=== PATIENT | male | born 1935 | race African-American/Black ===

== ENCOUNTER 2017-12-09 11:55 | Emergency (ER) | payer MEDICARE, OTHER, SELFPAY ==
[2017-12-09 11:57] VITALS: BP 116/72; PULSE 86; RESP 16; TEMP 36.1; O2SAT 97; BMI 26.2
--- NOTE | 2017-12-09 12:11 | CT_ITS ---
STUDY: CT BRAIN WITHOUT CONTRAST REASON FOR EXAM: Male, 82 years old. Unresponsiveness. RADIATION DOSAGE (If Supplied By Facility): CTDIvol = ( 60.81 ) mGy, DLP = ( 1089.89 ) mGycm TECHNIQUE: Transaxial CT imaging of the brain was performed without administration of intravenous contrast material. Individualized dose optimization techniques were used for this CT. COMPARISON: Comparison is made with prior study dated December 04, 2016. FINDINGS: Normal soft tissue structures. Normal calvarium. There is mild cerebral atrophy with widening of the extra-axial spaces and ventricular dilatation. There are areas of decreased attenuation within the white matter tracts of the supratentorial brain, consistent with microvascular disease changes. 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 Normal brainstem. Normal cerebellum. There is no intracranial hemorrhage. There are no findings of an acute ischemic infarction. Atherosclerotic calcification of the vertebral arteries and cavernous portions of the carotid arteries bilaterally. Small air-fluid level in the left maxillary sinus. CT/Brain/Head without Contrast IMPRESSION: Chronic involutional changes of the brain. Electronically Signed: Angel Mabry MD at 13:45 EDT Tel [phone], Service support ,
--- NOTE | 2017-12-09 12:11 | RAD_ITS ---
STUDY: X-RAY CHEST REASON FOR EXAM: Male, 82 years old. Nonresponsiveness. Cough. TECHNIQUE: AP and lateral views of the chest. COMPARISON: Comparison is made with prior study dated June 06, 2017. FINDINGS: EKG electrodes are seen. Stable mild increased markings at the left lung base suggestive of scarring. There is no demonstrated pleural abnormality. Normal size heart. Normal mediastinum and dion. Normal visualized pulmonary arteries. There is atherosclerotic calcification of the aortic arch with tortuosity. There are diffuse degenerative changes of the visualized thoracic spine. Normal visualized ribs, clavicles, and shoulders. There is no demonstrated abnormality of the visualized soft tissue structures of the upper abdomen. RAD/Chest PA and Lateral IMPRESSION: No acute abnormality is seen. Electronically Signed: Angel Mabry MD at 13:20 EDT Tel [phone], Service support ,
--- NOTE | 2017-12-09 12:11 | EKG12_ITS ---
Test Reason : HYPERGLYCEMIA Blood Pressure : / mmHG Vent. Rate : 080 BPM Atrial Rate : 080 BPM P-R Int : 190 ms QRS Dur : 082 ms QT Int : 384 ms P-R-T Axes : 059 -33 -12 degrees QTc Int : 442 ms Normal sinus rhythm Left axis deviation T wave abnormality, consider lateral ischemia Abnormal ECG Confirmed by ALEN YU, PAULETTE ([id number]), editor farm journal LALITHA TAM ([id number] on 12/11/2017 3:28:24 PM Referred By: ADALID Confirmed By:PAULETTE LOWRY MD
[2017-12-09 12:15] LABS: Bedside Glucose 93 mg/dL (70-110)
[2017-12-09] MEDS: 0.9% Normal Saline 1,000 ML 150 ML IV (12:18)
[2017-12-09 12:40] LABS: Absolute Lymphocyte Count 0.49 X10^3/ul (0.83-4.51); Absolute Neutrophil Count 4.5 X10^3/uL (2.0-7.7); Basophil# 0.01 X10^3/uL; Basophil% 0.2 % (0-1); Differential Indicated SCAN CRITERIA MET; Hematocrit 37.9 % (40-54); Hemoglobin 13.1 g/dl (13.0-16.5); Lymphocyte # 0.49 X10^3/ul (4.0); Lymphocyte % 8.8 % (19-41); Mean Corp Hgb Conc 34.6 g/gl (32-36); Mean Corpuscular Hgb 31.3 pg (27.0-32.0); Mean Corpuscular Volume 90.5 fL (80-94); Mean Platelet Vol. 10.8 fl (6.2-12.0); Neutrophil # 4.54 X10^3/uL (2.7-7.7); POSITIVE COUNT NO; POSITIVE DIFFERENTIAL YES; POSITIVE MORPHOLOGY NO; Platelet Count 165 K/mm3 (150-450); RBC Distribution Width CV 14.5 % (11.6-14.6); RBC Distribution Width SD 47.2 fl (35.1-43.9); Red Blood Count 4.19 M/mm3 (4.6-6.2); White Blood Count 5.5 K/mm3 (4.4-11.0)
[2017-12-09 12:55] VITALS: BP 115/64; PULSE 82; RESP 20; O2SAT 95
[2017-12-09 12:56] LABS: Anion Gap 7 (5-15); BUN 13 mg/dL (7-18); BUN/Creat Ratio 12.1 RATIO (10-20); Calcium,Total 8.2 mg/dL (8.5-10.1); Chloride 111 mmol/L (98-107); Creatinine, Serum 1.07 mg/dL (0.70-1.30); EST Glomerular Filtration Rate 70 mL/min (>60); Est Glom Filt Rate - Afr Amer 85 mL/min (>60); Estimated Creatinine Clearance 50.62 ml/min; Glucose 89 mg/dL (74-106); Potassium 3.3 mmol/L (3.5-5.1); Sodium Level 144 mmol/L (136-145)
[2017-12-09 13:36] LABS: Differential Comment SCANNED
[2017-12-09] MEDS: Aspirin 81 MG TAB.CHEW 324 MG PO (13:46)
[2017-12-09 13:49] VITALS: BP 139/66; PULSE 86; RESP 20
--- NOTE | 2017-12-09 13:54 | EKG12_ITS ---
Test Reason : REPEAT Blood Pressure : / mmHG Vent. Rate : 083 BPM Atrial Rate : 083 BPM P-R Int : 192 ms QRS Dur : 082 ms QT Int : 368 ms P-R-T Axes : 062 -29 -14 degrees QTc Int : 432 ms Normal sinus rhythm Septal infarct , age undetermined Abnormal ECG Confirmed by ALEN YU, PAULETTE ([id number]), commissioning editor LALITHA TAM ([id number]) on 12/11/2017 3:30:16 PM Referred By: MARILYNN Confirmed By:PAULETTE LOWRY MD
[2017-12-09 15:00] VITALS: BP 157/82; PULSE 78; RESP 20; O2SAT 95
--- NOTE | 2017-12-09 15:22 | ED.DCSUM_ITS ---
- ER Visit Summary Date of Service: 12/09/17 Chief Complaint: Low blood sugar History of Present Illness: The patient is a [address] Flannery, Dr. Covarrubias, and HALEY bustillo. EMS was called this morning because patient was confused. They found his blood sugar to be 20. Patient reports that he takes 22 units of Levemir nightly and 10 units of NovoLog 3 times daily. Reports that he took his typical dose of Levemir last night and instead of eating ice cream and crackers for his snack prior to bed he had steak. On review of systems patient does report the pain under his left axilla last night that lasted less than 3 minutes. He denies any shortness of breath. He complains of generalized weakness. He denies any other complaints. Physical Examination: Vitals: Stable. Afebrile. General: Well-nourished and well-developed. Head: Normocephalic atraumatic. Neck: Supple, no lymphadenopathy. No JVD. Nontender. Cardiovascular: Regular rate and rhythm. 2 out of 6 systolic murmur. Respiratory: No respiratory distress. Clear to auscultation bilaterally. Abdominal: Soft, nontender, nondistended, normal bowel sounds. No guarding, rebound, or peritoneal signs. Back: Nontender. Extremities: Nontender, no edema. Skin: Normal color, no rash. Neurologic: Alert and oriented ?3. Cranial nerves II through XII are intact. Normal strength and sensation. Psych: Normal affect. Test Results: EKG is sinus at 80 and is unchanged from May 2017. Repeat EKG is unchanged. Chest x-ray shows chronic changes. CT brain shows chronic changes. CBC is marked for hematocrit of 37.9, segmented neutrophils 82, monocytes of 9. Chem-7 marked potassium 3.3, chloride 111, calcium 8.2. Initial troponin is 0.058. Troponin 0 0.098. Emergency Department Course and Treatment: Patient ate here and is feeling well. He denies any chest pain. Treatment Plan: Patient was discussed with Dr. Covarrubias who is seen him in the emergency department. Dr. Covarrubias reviewed his prior heart catheterization. Given the lack of EKG changes, chest pain, or anticipated change in therapy he has chosen medical management and would like the patient to follow-up as an outpatient. Family is happy with this plan. Return to the emergency department for any worsening symptoms. Disposition: To home in improved and stable condition. Impression: 1. Hypoglycemia. 2. Insulin-dependent diabetes mellitus. 3. Indeterminate troponin. This note was generated with [employer] dictation software. It may contain incorrect words, spelling, and punctuation that were not noted in review of the chart prior to signing ED Disposition - Plan for ED Patient: Disposition: Home or Assisted Living Chief Complaint: Hypoglycemia Instructions: ED Diabetes Hypoglycemia Insulin React Referrals: Ronald Flannery MD [Primary Care Provider] - 1-2 Days if not improving Mauro Covarrubias MD [STAFF PHYSICIAN] - Keep [facility] appointment
[2017-12-09 15:52] VITALS: BP 162/79; PULSE 82; RESP 18; O2SAT 98
[2017-12-09 16:06] LABS: Bedside Glucose 221 mg/dL (70-110)
== END 2017-12-09 16:05 | disposition home or self-care (01) ==
PROVIDERS: Emergency Provider Emergency Medicine; Family Provider Internal Medicine; PCP Internal Medicine
DX: E11.649 Type 2 diabetes mellitus with hypoglycemia without coma (principal); R79.89 Other specified abnormal findings of blood chemistry; I25.10 Atherosclerotic heart disease of native coronary artery without angina pectoris; K21.9 Gastro-esophageal reflux disease without esophagitis; I10 Essential (primary) hypertension; N40.0 Benign prostatic hyperplasia without lower urinary tract symptoms; G62.9 Polyneuropathy, unspecified; Z79.4 Long term (current) use of insulin; Z79.899 Other long term (current) drug therapy
CPT/HCPCS: 70450; 71046; 80048; 82962; 84484; 85025; 93005; 99285; J7030; A4216

== ENCOUNTER 2018-01-03 12:44 | Inpatient (IN) | payer MEDICARE, OTHER, SELFPAY ==
[2018-01-03] VITALS (8 sets, daily range): BP systolic 109–176; BP diastolic 62–78; PULSE 74–90; RESP 14–22; TEMP 36.9–37.3; O2SAT 94–98; BMI 24.3; BMI 23.6
--- NOTE | 2018-01-03 13:26 | ED.VISSUMM ---
- ER Visit Summary Date of Service: 01/03/18 Chief Complaint: Hypoglycemia History of Present Illness: The patient is a 82 M who presents with low blood sugar that began this morning. Patient took his insulin this morning but did not eat because [employer] did not get there prior to his sugar becoming low. [employer] found the patient on the floor. EMS administered D50 and he felt better after this. Currently, the patient states he feels dizzy. Patient still has not eaten anything today. Patient denies any nausea or vomiting. Patient does admit to some urinary frequency. Patient denies any fevers or chills. Physical Examination: Vital signs are stable. Patient is afebrile. Patient is in no acute distress. Oral mucosa is pink and moist. Neck is supple. Trachea is midline. There is no JVD noted. Heart was regular rate and rhythm. Lungs are clear and equal bilaterally. Abdomen is soft. Bowel sounds are normal. There is no tenderness noted. Cranial nerves II through XII are intact. There are no focal motor or sensory deficits noted. Musculoskeletal exam reveals tenderness over the right lower lumbar paraspinal areas. There is limited range of motion of the lumbar spine secondary to pain. The remaining physical exam is within normal limits. Test Results: CBC and basic metabolic profile were obtained and were within normal limits. Chest x-ray shows no acute cardiopulmonary process. X-rays the lumbar spine were obtained. There is degenerative changes but no acute fracture. CT scan of the brain was obtained. There is no acute intracranial abnormality. Emergency Department Course and Treatment: Patient was given a meal tray here. Patient felt better on reevaluation but still complained of some dizziness. Patient states he felt like a doorknob was moving up and down. Patient was given a dose of meclizine. The case was discussed with Dr. Rubio. She will admit the patient to the hospital. Patient and family understood and were agreeable with the plan. All questions were answered. Disposition: Admitted to the hospital Impression: Dizziness, hypoglycemia This note was generated with [employer] dictation software. It may contain incorrect words, spelling, and punctuation that were not noted in review of the chart prior to signing ED Disposition - Plan for ED Patient: Disposition: Acute Care Hospital [facility] Chief Complaint: General Illness Diagnosis: Dizziness, Hypoglycemia Referrals: Ronald Flannery MD [Primary Care Provider] -
--- NOTE | 2018-01-03 13:29 | RAD_ITS ---
STUDY: X-RAY - LUMBAR SPINE REASON FOR EXAM: Male, 82 years old. Lower right-sided back pain following a recent fall. TECHNIQUE: 3 view(s) of the lumbar spine were obtained. COMPARISON: None FINDINGS: There is straightening of the normal lumbar lordosis. There is no substantial scoliosis. There is a normal alignment of the vertebrae. There is multilevel endplate spondylosis of the lumbar vertebrae. There is multi-level degenerative disc disease with multi-level disc space narrowing. Facet joint osteoarthritis. There is atherosclerotic calcification of the abdominal aorta without a demonstrated aneurysm. RAD/Lumbar Spine 2 or 3 Views IMPRESSION: Degenerative changes of the spine, as detailed above. Electronically Signed: Angel Mabry MD at 14:58 EDT Tel [phone], Service support ,
--- NOTE | 2018-01-03 13:29 | ED.DCSUM_ITS ---
- ER Visit Summary Date of Service: 01/03/18 Chief Complaint: Hypoglycemia History of Present Illness: The patient is a 82 M who presents with low blood sugar that began this morning. Patient took his insulin this morning but did not eat because [employer] did not get there prior to his sugar becoming low. [employer] found the patient on the floor. EMS administered D50 and he felt better after this. Currently, the patient states he feels dizzy. Patient still has not eaten anything today. Patient denies any nausea or vomiting. Patient does admit to some urinary frequency. Patient denies any fevers or chills. Physical Examination: Vital signs are stable. Patient is afebrile. Patient is in no acute distress. Oral mucosa is pink and moist. Neck is supple. Trachea is midline. There is no JVD noted. Heart was regular rate and rhythm. Lungs are clear and equal bilaterally. Abdomen is soft. Bowel sounds are normal. There is no tenderness noted. Cranial nerves II through XII are intact. There are no focal motor or sensory deficits noted. Musculoskeletal exam reveals tenderness over the right lower lumbar paraspinal areas. There is limited range of motion of the lumbar spine secondary to pain. The remaining physical exam is within normal limits. Test Results: CBC and basic metabolic profile were obtained and were within normal limits. Chest x-ray shows no acute cardiopulmonary process. X-rays the lumbar spine were obtained. There is degenerative changes but no acute fracture. CT scan of the brain was obtained. There is no acute intracranial abnormality. Emergency Department Course and Treatment: Patient was given a meal tray here. Patient felt better on reevaluation but still complained of some dizziness. Patient states he felt like a doorknob was moving up and down. Patient was given a dose of meclizine. The case was discussed with Dr. Rubio. She will admit the patient to the hospital. Patient and family understood and were agreeable with the plan. All questions were answered. Disposition: Admitted to the hospital Impression: Dizziness, hypoglycemia This note was generated with [employer] dictation software. It may contain incorrect words, spelling, and punctuation that were not noted in review of the chart prior to signing ED Disposition - Plan for ED Patient: Disposition: Acute Care Hospital [facility] Chief Complaint: General Illness Diagnosis: Dizziness, Hypoglycemia Referrals: Ronald Flannery MD [Primary Care Provider] -
[2018-01-03 13:46] LABS: Absolute Lymphocyte Count 0.37 X10^3/ul (0.83-4.51); Absolute Neutrophil Count 2.5 X10^3/uL (2.0-7.7); Basophil# 0.01 X10^3/uL; Basophil% 0.3 % (0-1); Differential Indicated SCAN CRITERIA MET; Eosinophil# 0.02 X10^3/uL; Eosinophils% 0.6 % (0-5); Hematocrit 35.2 % (40-54); Hemoglobin 11.9 g/dl (13.0-16.5); Lymphocyte # 0.37 X10^3/ul (4.0); Lymphocyte % 11.1 % (19-41); Mean Corp Hgb Conc 33.8 g/gl (32-36); Mean Corpuscular Hgb 29.8 pg (27.0-32.0); Mean Platelet Vol. 10.3 fl (6.2-12.0); Monocyte# 0.43 X10^3/uL; Monocyte% 12.9 % (0-10); Neutrophil # 2.51 X10^3/uL (2.7-7.7); Neutrophil % 75.1 % (47-70); POSITIVE COUNT NO; POSITIVE DIFFERENTIAL YES; POSITIVE MORPHOLOGY NO; Platelet Count 234 K/mm3 (150-450); RBC Distribution Width CV 14.1 % (11.6-14.6); RBC Distribution Width SD 45.1 fl (35.1-43.9); White Blood Count 3.3 K/mm3 (4.4-11.0)
--- NOTE | 2018-01-03 13:47 | RAD_ITS ---
STUDY: X-RAY CHEST REASON FOR EXAM: Male, 82 years old. Cough and shortness of breath. TECHNIQUE: AP and lateral views of the chest. COMPARISON: Comparison is made with prior study dated December 09, 2017. FINDINGS: EKG electrodes are seen. Stable mild increased interstitial markings at the bases suggest some mild scarring. No acute abnormality is seen. There is no demonstrated pleural abnormality. Normal size heart. Normal mediastinum and dion. Normal visualized pulmonary arteries. There is atherosclerotic calcification of the aortic arch with tortuosity. There are degenerative changes of the visualized thoracic spine. Normal visualized ribs, clavicles, and shoulders. There is no demonstrated abnormality of the visualized soft tissue structures of the upper abdomen. RAD/Chest PA and Lateral IMPRESSION: Stable examination. No acute abnormality is seen. Electronically Signed: Angel Mabry MD at 14:48 EDT Tel [phone], Service support ,
[2018-01-03 13:48] LABS: Anion Gap 7 (5-15); BUN 10 mg/dL (7-18); BUN/Creat Ratio 9.5 RATIO (10-20); Chloride 103 mmol/L (98-107); Creatinine, Serum 1.05 mg/dL (0.70-1.30); EST Glomerular Filtration Rate 72 mL/min (>60); Est Glom Filt Rate - Afr Amer 87 mL/min (>60); Estimated Creatinine Clearance 53.38 ml/min; Glucose 133 mg/dL (74-106); Potassium 3.6 mmol/L (3.5-5.1); Sodium Level 137 mmol/L (136-145)
[2018-01-03 13:51] LABS: Bedside Glucose 84 mg/dL (70-110)
--- NOTE | 2018-01-03 14:02 | CT_ITS ---
STUDY: CT BRAIN WITHOUT CONTRAST REASON FOR EXAM: Male, 82 years old. Weakness and dizziness RADIATION DOSAGE (If Supplied By Facility): CTDIvol = ( 44.99 ) mGy, DLP = ( 762.36 ) mGycm TECHNIQUE: Transaxial CT imaging of the brain was performed without administration of intravenous contrast material. Individualized dose optimization techniques were used for this CT. COMPARISON: December 09, 2017 FINDINGS: Normal soft tissue structures. Normal calvarium. Calcification of the cavernous carotids. Moderate atrophy and periventricular white matter ischemic changes. 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 Normal basal ganglia and thalami. Normal brainstem. Normal cerebellum. There is no intracranial hemorrhage. There are no findings of an acute ischemic infarction. Normal visualized paranasal sinuses. No significant change since prior study CT/Brain/Head without Contrast IMPRESSION: Moderate atrophy and periventricular white matter ischemic change. No evidence for acute bleed. If concern for acute infarct MRI recommended Electronically Signed: Kvng Dempsey MD at 16:11 EDT , Service support ,
--- NOTE | 2018-01-03 14:07 | ED.RN ---
DR. GRANADOS NOTIFIED OF PT HAVING COORDINATION PROBLEMS, TROUBLE EATING, AND PERSISTENT DIZZINESS. PT STATES THAT HE THINKS OBJECTS ARE MOVING AND HAS TO TRACK THEM. ORDERS OF CT GIVEN, PT TAKEN DOWN TO RADIOLOGY. PT FAMILY IS AT BEDSIDE.
--- NOTE | 2018-01-03 16:59 | PCM.HP.STD ---
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 He reports meals on wheels is now later and he is having what seems like 2 lunches. He is checking BG after meals only and sounds like he takes correction for the 300-400 readings but when specifically ask about correction it does not sound like he has corrected many of the higher BG. On 3 occassions it is apparent he corrected. Higher BG appear to be associated with his adding the meals on wheels service. (2) Hyperlipidemia Status: Chronic Qualifiers: Hyperlipidemia type: unspecified Qualified Code(s): E78.5 - Hyperlipidemia, unspecified (3) Hypertension Status: Chronic Qualifiers: Hypertension type: essential hypertension Qualified Code(s): I10 - Essential (primary) hypertension (4) GERD (gastroesophageal reflux disease) Status: Chronic Qualifiers: Esophagitis presence: esophagitis presence not specified Qualified Code(s): K21.9 - Gastro-esophageal reflux disease without esophagitis History of Present Illness Date of Admission: 01/03/18 Chief Complaint: Dizziness, low blood glucose The patient is a 82 year old M with past medical history of Type 2DM, on Lantus and pre-meal lispro insulin, hypertension, hyperlipidemia, CAD, history of CVA who comes in with a syncopal episode related to hypoglycemia. Patient gets his meals from [employer]. He cannot remember if he gave his insulin prior to his meals coming in. But his insulin pen was showing that is has been used. When the lady that brings his meals got to the door, he was not at the door. She went to see his neighbor who helped her get into the house through the back door. He was found lying on the floor and he mumbled to a neighbor that he had low blood sugar. They called the EMS, blood sugar check was 39. Patient was given something to eat and brought into the ER. Blood sugar on arrival was 85. 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 His family feels that when his blood sugars are fluctuating, he sees he objects floating. They are concerned that if his insulin levels are lowered was in the hospital he might be out of control. He reports that his blood sugar this morning was 340. He denied any weakness in his body. Denied any chest pain or palpitations or diaphoresis or fever or chills. Past Medical History Past Medical History (Chronic Problems): Chronic Problems (Last Reviewed 12/26/17 @ 10:29 by Jaida Peacock) Hypotension (Chronic) Carotid bruit (Chronic) Encounter for long-term current use of high risk medication (Chronic) Atherosclerotic heart disease of [place] coronary artery without angina pectoris (Chronic) Type 2 diabetes mellitus (Chronic) BG readings overall have become much higher. He reports meals on wheels is now later and he is having what seems like 2 lunches. He is checking BG after meals only and sounds like he takes correction for the 300-400 readings but when specifically ask about correction it does not sound like he has corrected many of the higher BG. On 3 occassions it is apparent he corrected. Higher BG appear to be associated with his adding the meals on wheels service. Cerebrovascular disease (Chronic) Status post acute ischemic stroke with residual lower extremity weakness mild Hyperlipidemia (Chronic) Diverticulitis (Chronic) Hypertension (Chronic) Coronary artery disease (Chronic) GERD (gastroesophageal reflux disease) (Chronic) OAB (overactive bladder) (Chronic) Ataxia (Chronic) LEFT FRONTAL LACUNAR INFARCT (Chronic) Dizziness (Chronic) Stroke (Chronic) Gastrointestinal bleed (Chronic) Diabetes mellitus (Chronic) Medical History: Medical History (Last Reviewed 12/26/17 @ 10:29 by Jaida Peacock) Carotid bruit (Chronic) R09.89 Atherosclerotic heart disease of [place] coronary artery without angina pectoris (Chronic) I25.10 Type 2 diabetes mellitus (Chronic) E11.9 BG readings overall have become much higher. He reports meals on wheels is now later and he is having what seems like 2 lunches. He is checking BG after meals only and sounds like he takes correction for the 300-400 readings but when specifically ask about correction it does not sound like he has corrected many of the higher BG. On 3 occassions it is apparent he corrected. Higher BG appear to be associated with his adding the meals on wheels service. Cerebrovascular disease (Chronic) I67.9 Status post acute ischemic stroke with residual lower extremity weakness mild Hyperlipidemia (Chronic) E78.5 Diverticulitis (Chronic) K57.92 Hypertension (Chronic) I10 Coronary artery disease (Chronic) I25.10 GERD (gastroesophageal reflux disease) (Chronic) K21.9 Ataxia (Chronic) R27.0 LEFT FRONTAL LACUNAR INFARCT (Chronic) Stroke (Chronic) I63.9 Gastrointestinal bleed (Chronic) K92.2 Diabetes mellitus (Chronic) E11.9 Allergies alfuzosin Allergy (Verified 01/03/18 13:08) Other Penicillins Allergy (Verified 01/03/18 13:08) Rash Sulfa (Sulfonamide Antibiotics) Allergy (Verified 01/03/18 13:08) Swelling Home Medications: Ambulatory Orders Medication Instructions Recorded Atenolol [Tenormin (beta naty)] 75 mg PO DAILY 10/18/16 Clopidogrel Bisulfate [Plavix] 75 mg PO DAILY 10/18/16 Insulin Aspart [Novolog Flexpen] 10 units SC TIDAC 06/06/17 Polyethylene Glycol 3350 [Miralax] 0.5 pack PO DAILY 06/06/17 Ramipril [Altace] 5 mg PO DAILY 06/06/17 baclofen 10 mg tablet 10 mg PO TID PRN 10/08/17 acetaminophen ER 650 mg 650 mg PO Q6H PRN tab 10/17/17 tablet,extended release Insulin Detemir [Levemir FlexPen] 22 unit SC QHS 12/09/17 albuterol sulfate HFA 90 2 puff INHALATION Q6H PRN PRN 12/26/17 mcg/actuation aerosol inhaler Atorvastatin Calcium [Lipitor] 80 mg PO QHS 01/03/18 Blood Sugar Diagnostic [Prodigy No 0 each .ROUTE .MEDSUPPLY 01/03/18 Coding strips] Blood-Glucose Meter [Prodigy Voice 1 each .ROUTE .MEDSUPPLY 01/03/18 Glucose Meter kit] Pen Needle, Diabetic [Incontrol 0 each .ROUTE .MEDSUPPLY 01/03/18 Pen Needle] Ranitidine HCl [Acid Control] 300 mg PO QHS 01/03/18 Surgical History: Surgical History (Last Reviewed 12/26/17 @ 10:29 by Jaida Peacock) H/O carotid endarterectomy (Resolved) Z98.890 H/O hernia repair (Resolved) Z98.890, Z87.19 H/O: hemorrhoidectomy (Resolved) Z98.890 cataract surgery (Resolved) Hx of repair of rotator cuff (Resolved) Z98.890 Surgical History: - - Rotator cuff surgery, BL carotid endarterectomies,colonoscopies, hemorrhoidectomy. Psychiatric History: No pertinent psych hx Lives: Alone Smoking Status: Never smoker Tobacco Use: Non-smoker Alcohol: None Drugs: None - *Family History Maternal Family History: Family History (Last Reviewed 12/26/17 @ 10:29 by Jaida Peacock) Brother Kidney disease Mother CVA (cerebral vascular accident) Father Liver cirrhosis History Items: Diabetes, Heart Disease, Stroke Paternal Family History: Family History (Last Reviewed 12/26/17 @ 10:29 by Jaida Peacock) Brother Kidney disease Mother CVA (cerebral vascular accident) Father Liver cirrhosis History Items: No pertinent history Sibling Family History: Family History (Last Reviewed 12/26/17 @ 10:29 by Jaida Peacock) Brother Kidney disease Mother CVA (cerebral vascular accident) Father Liver cirrhosis History Items: No pertinent history Review of Systems Constitutional: Denies: Anorexia, Chills, Fever, Night Sweats, Malaise, Weakness, Weight Change Eyes: Denies: Blurred vision, Cataracts, Conjunctivae Inflammation, Double vision, Pain, Redness HEENT: Denies: Head Aches, Hearing Changes, Nasal bleeding, Sinus Congestion, Sinus Drainage, Sore Throat Cardiovascular: Reports: Light Headedness. Denies: Chest Pain, Claudication, Chest Pressure, Chest Tightness, Orthopnea, Palpitations, Paroxysmal Noc. Dyspnea Respiratory: Denies: Cough, Hemoptysis, Pleuritic Pain, Shortness of Breath, Shortness of breath at rest, Shortness of breath upon exertion, Sputum production Gastrointestinal: Denies: Abdominal Pain, Constipation, Diarrhea, Hematemesis, Hematochezia, Nausea, Vomiting Genitourinary: Denies: Dysuria Musculoskeletal: Denies: Arm Pain, Back Pain, Joint Pain, Joint stiffness, Joint swelling, Joint Tenderness Skin: Denies: Dryness, Jaundice, Pruritis, Rash, Wounds Neurological: Denies: Difficulty swallowing, Focal weakness, Headaches, Numbness, Tingling Psychiatric: Denies: Anxiety, Depression, Homicidal Ideations, Suicidal Ideations Endocrine: Denies: Change in Body Habitus, Heat/ Cold Intolerance Hematologic/ Lymphatic: Denies: Easy Bruising, Easy Bleeding VTE Information - Inpt Only VTE Present on Admission: No VTE Pharm Prophylaxis ordered?: Yes Patient Problems: Active and Suspected Problems (Last Reviewed 12/26/17 @ 10:29 by Jaida Peacock) Hypoglycemia (Acute) - Physical Exam General: Alert, Oriented x3, Cooperative, No apparent distress HEENT: Atraumatic, PERRLA, EOMI, Normocephalic Oral: Moist Mucosa Neck: Supple Lungs: Clear to auscultation, Normal air movement Cardiovascular: Regular rate, Regular Rhythm, Normal S1, Normal S2, No murmurs Abdomen: Bowel Sounds Present, Soft, Non Tender, Non-Distended, No Hepato-splenomegaly Extremities: No edema Skin: No rashes, No breakdown Musculoskeletal: No Tenderness to Palpation of Joints or Extremities Lymphatic: No Cervical, Supraclavicular, or Inguinal Adenopathy Neurological: Cranial nerves II-XII grossly intact, Neuro grossly intact Psych/Mental Status: Normal Affect, Appropriate Vital Signs Temp Pulse Resp BP Pulse Ox 99.1 F 84 20 H 168/78 H 97 01/03/18 12:55 01/03/18 15:46 01/03/18 15:46 01/03/18 15:46 01/03/18 15:46 Oxygen Delivery Method Room Air Weight: 72.575 kg Body Mass Index (BMI) 24.3 Finger Stick Blood Glucose 84 Laboratory Tests Past 24 Hrs 01/03/18 01/03/18 13:00 13:00 WBC 3.3 L RBC 4.00 L Hgb 11.9 L Hct 35.2 L MCV 88.0 MCH 29.8 MCHC 33.8 RDW 14.1 RDW Differential 45.1 H Plt Count 234 MPV 10.3 Immature Gran % (Auto) 0.000 Neut % (Auto) 75.1 H Lymph % (Auto) 11.1 L Dixon % (Auto) 12.9 H Eos % (Auto) 0.6 Baso % (Auto) 0.3 Absolute Neuts (auto) 2.5 Absolute Lymphs (auto) 0.37 L Total Counted Not Reportable Differential Comment Not Reportable Diff Path Review May foll Sodium 137 Potassium 3.6 Chloride 103 Carbon Dioxide 27.0 Anion Gap 7 BUN 10 Creatinine 1.05 Estim Creat Clear Calc 53.38 Est GFR (MDRD) Af Amer 87 Est GFR (MDRD) Non-Af 72 BUN/Creatinine Ratio 9.5 L Glucose 133 H Calcium 8.0 L POC Glucose 01/03/18 13:45 POC Glucose 84 Assessment/Plan All Active Problems (Last Reviewed 12/26/17 @ 10:29 by Jaida Peacock) H/O carotid endarterectomy (Resolved) H/O hernia repair (Resolved) H/O: hemorrhoidectomy (Resolved) cataract surgery (Resolved) Hx of repair of rotator cuff (Resolved) Abnormal EKG (Acute) Chest pain (Acute) Hypoglycemia (Acute) Ataxia (Resolved) Dizzinesses (Resolved) GI bleed (Resolved) Sepsis (Resolved) 82 year old M with past medical history of Type 2DM, on Lantus and pre-meal lispro insulin, hypertension, hyperlipidemia, CAD, history of CVA who comes in with a syncopal episode related to hypoglycemia. 1. Syncopal episode related to hypoglycemia in a patient with known type II DM on Lantus and pre-meal insulin, likely reason for this current hypoglycemic episode was late arrival of his food after patient had injected himself with insulin. His last HbA1c was 9.9, history of labile blood sugars; follows up with nurse practitioner in endocrinology Plan: Admit patient to PCU, monitor on telemetry, start D5 normal saline, Accu-Cheks every 6hours for the next 24 hours and subsequently before meals at bedtime, decrease Lantus to 15 units daily, decrease pre-meal lispro to 5 units 3 times daily, continue with Accu-Cheks and insulin sliding scale. 2. Dizziness, acute on chronic, history of CVA, will rule out posterior circulation stroke, will get MRI, MRA head and neck and involve neurology if still persistent or stroke is d 3. Hypertension, controlled, continue on atenolol and ramipril, will continue to monitor vitals 4. Hyperlipidemia, on statin 5. History of CVA, on aspirin, statin, Plavix, NAVJOT inhibitor 6. CAD, on aspirin, plavix, statin, atenolol. 7. Debility related to concurrent comorbidities, would ask PT and OT to evaluate 8. DVT prophylaxis with Lovenox subcu Code Visit Inpatient E&M: 88840 Init Hosp L3
--- NOTE | 2018-01-03 17:21 | MRI_ITS ---
STUDY: MRA NECK WITH AND WITHOUT CONTRAST REASON FOR EXAM: Male, 82 years old. Frequent falls TECHNIQUE: 3-D [id number] (TOF) imaging was performed in an 1.5 T MRI scanner. 7 ml of Gadavist was administered for the contrast enhanced images. COMPARISON: None. FINDINGS: RIGHT CAROTID ARTERIES: Normal right common carotid artery (CCA). Plaquing of the right common carotid bulb. Mild multifocal plaquing of the origin of the right internal carotid (ICA) artery without a hemodynamically significant stenosis. Normal visualized cervical portion of the right internal carotid artery. Normal origin of the right external carotid artery (ECA). LEFT CAROTID ARTERIES: Multifocal plaquing of the left common carotid artery (CCA). Plaquing of the left common carotid bulb. Mild plaquing of the origin of the left internal carotid (ICA) artery without a hemodynamically significant stenosis. Normal visualized cervical portion of the left internal carotid artery. Normal origin of the left external carotid artery (ECA). VERTEBRAL ARTERIES: Normal caliber of the left vertebral.. . 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 This may be further assessed with CTA if clinically warranted Electronically Signed: Kvng Dempsey MD at 21:05 EDT , Service support ,
--- NOTE | 2018-01-03 17:21 | MRI_ITS ---
STUDY: MRI BRAIN WITHOUT CONTRAST REASON FOR EXAM: Male, 82 years old. Frequent falls and weakness TECHNIQUE: Standardized multiplanar fat and water weighted pulse sequences were obtained. COMPARISON: MRI of the brain on December 05, 2016 FINDINGS: Mild atrophy and moderate periventricular white matter ischemic changes.. Normal bilateral basal ganglia. There are old lacunar infarcts in the posterior thalamic nuclei There is no extra-axial fluid accumulation. Chronic ischemic changes in the cerebellar hemispheres Normal flow voids within the major intracranial circulation suggesting patency by spin echo criteria. Normal sella turcica, pituitary gland, infundibular stalk, optic chiasm and hypothalamus. Normal tectal plate and pineal gland. Normal midbrain, ana maria and medulla. . Normal basal cisterns. Normal bilateral temporal bones. Normal bilateral internal auditory canals. Postsurgical changes of the orbits.. Mild mucosal thickening of the ethmoid air cells. Normal calvarium and skull base. Normal visualized soft tissue structures. Normal visualized upper cervical spine. MRI/Brain without Contrast IMPRESSION: Moderate periventricular white matter ischemic changes without evidence for acute infarct. Old bilateral posterior thalamic infarcts and cerebellar infarcts. Electronically Signed: Kvng Dempsey MD at 20:58 EDT , Service support ,
--- NOTE | 2018-01-03 17:21 | MRI_ITS ---
STUDY: MRA OF THE HEAD WITHOUT CONTRAST REASON FOR EXAM: Male, 82 years old. Frequent falls and weakness TECHNIQUE: 3-D [id number] (TOF) imaging was performed with MIPs. The study was performed unenhanced. COMPARISON: None. FINDINGS: Normal bilateral petrous carotid arteries. Normal right cavernous carotid artery with a normal supraclinoid bifurcation. Normal left cavernous carotid artery with a normal supraclinoid bifurcation. Normal right A1 segments of the anterior cerebral artery. Normal left A1 segments of the anterior cerebral artery. Normal intact anterior communicating artery (ACOM). Normal bilateral A2 segments of the anterior cerebral arteries. Normal right M1 and M2 segments of the middle cerebral arteries, with a normal M1 bifurcation. Normal left M1 and M2 segments of the middle cerebral arteries, with a normal M1 bifurcation. Normal right posterior communicating artery (PCOM). Left posterior communicating artery not visualized consistent with normal variant The left vertebral is normal. 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 . Normal basilar artery with a normal basilar bifurcation. The visualized bilateral superior cerebellar (SCA) arteries are normal. Normal bilateral P1, P2 and visualized P3 segments of the posterior cerebral arteries. There is no demonstrated aneurysm of the [place]. There is no major vessel occlusion or hemodynamically significant stenosis. There is no demonstrated abnormality of the visualized brain. 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 Recommend MRA of the neck for further evaluation No other significant atherosclerotic disease Electronically Signed: Kvng Dempsey MD at 21:00 EDT , Service support ,
--- NOTE | 2018-01-03 17:30 | RAD_ITS ---
STUDY: X-RAY - PELVIS REASON FOR EXAM: Male, 82 years old. Trauma TECHNIQUE: One view of the pelvis was obtained. COMPARISON: None. FINDINGS: There is a non-specific bowel gas pattern. Normal visualized soft tissue structures. Normal bilateral iliac wings, sacroiliac joints and visualized sacrum. Normal visualized bilateral superior and inferior pubic rami. Normal pubic symphysis. Normal ischial tuberosities. Normal visualized right femoral head. Normal right acetabulum. Normal right hip joint. Normal visualized left femoral head. Normal left acetabulum. Normal left hip joint. RAD/Pelvis 1 or 2 Views IMPRESSION: Normal x-ray examination of the pelvis. Electronically Signed: Kvng Dempsey MD at 18:12 EDT , Service support ,
[2018-01-03 17:31] LABS: Bedside Glucose 188 mg/dL (70-110)
[2018-01-03] MEDS: 0.9% NaCl Peripheral Flush Adult/Peds IV ×2 (20:58→23:03)
[2018-01-03] MEDS: Dextrose 5%/0.9% NaCl 1,000 ML 75 ML IV (20:58)
[2018-01-03 21:36] LABS: Bedside Glucose 90 mg/dL (70-110)
[2018-01-03] MEDS: Atorvastatin Calcium 40 MG Tablet 80 MG PO (23:00)
[2018-01-03] MEDS: Famotidine 20 MG Tablet 40 MG PO (23:01)
[2018-01-03 23:56] LABS: Bedside Glucose 113 mg/dL (70-110)
[2018-01-04] VITALS (10 sets, daily range): BP systolic 140–172; BP diastolic 70–87; PULSE 76–88; RESP 18; TEMP 37.2–37.3; O2SAT 93–99
[2018-01-04 06:01] LABS: Bedside Glucose 124 mg/dL (70-110)
[2018-01-04] MEDS: Glucerna Shake 120 ML LIQUID PO ×3 (09:06→15:27)
[2018-01-04] MEDS: Atenolol 25 MG Tablet 75 MG PO (09:08)
[2018-01-04] MEDS: Clopidogrel Bisulfate 75 MG Tablet PO (09:08)
[2018-01-04] MEDS: Polyethylene Glycol 3350 17 GM PACKET 8.5 GM PO (09:08)
[2018-01-04] MEDS: Ramipril 5 MG Capsule PO (09:13)
[2018-01-04] MEDS: Insulin Lispro 100 UNIT/ML INSULN.PEN SC ×3 (09:15→17:01)
--- NOTE | 2018-01-04 10:48 | CASEMGMT ---
CM INITIAL ASSESSMENT: Patient is alone in room at time of interview. Will attempt to reach family to verify assessment. Home: Patient states he lives in a split level home by himself. He states that his son is staying with him temporarily. His children drive him to appointments. HHS/Aides: Denies. Patient was previously a resident of [facility] and states he had HHS afterwards. He is uncertain of which agency provided services. DME: Patient states he uses a walker, cane and wheelchair. He states that he has a shower chair, grab bars and elevated toilet seat. Home Oxygen: No home oxygen. Patient states he does use CPAP at night. CPAP provided by [facility] per patient. Pharmacy: [facility] Advance Directives: Patient states he does have advance directives. These are not present in his e-chart. Patient states his daughter, Xochitl Acosta, is medical POA. Contact information is on file. PCP: Ronald Flannery Specialists: Unable to assess. DC Plan: TBD. CM will follow PT recommendations and discuss with family. CM will continue to follow for safe and effective discharge planning.
--- NOTE | 2018-01-04 11:28 | PN_ITS ---
Patient Problems: Active and Suspected Problems (Last Reviewed 12/26/17 @ 10:29 by Jaida Peacock ) Hypoglycemia (Acute) Subjective: Patient seen and examined. He denies any chest discomfort, dizziness, SOB, palpitations. Pain in the left hip persists. Blood sugars have been running in the 86 to upper 100s, has been on D5 normal saline. Recent blood sugar was above 200, D5NS will be stopped. Denies any fever or chills. Complains of seeing floaters out of both eyes. MRI of the brain MRA head and neck have been negative. Objective: Physical Exam General: Alert, Oriented x3, Cooperative, No apparent distress, not pale, not jaundiced HEENT: Atraumatic, PERRLA, EOMI, Normocephalic Oral: Moist Mucosa Neck: Supple Lungs: Clear to auscultation, Normal air movement Cardiovascular: Regular rate, Regular Rhythm, Normal S1, Normal S2, No murmurs Abdomen: Bowel Sounds Present, Soft, Non Tender, Non-Distended, No Hepato- splenomegaly Extremities: No edema Skin: No rashes, No breakdown Musculoskeletal: No Tenderness to Palpation of Joints or Extremities Lymphatic: No Cervical, Supraclavicular, or Inguinal Adenopathy Neurological: Cranial nerves II-XII grossly intact, Neuro grossly intact Psych/Mental Status: Normal Affect, Appropriate Vitals/I&O's: Vital Signs Temp Pulse Resp BP Pulse Ox 99.1 F 80 18 140/70 H 93 01/04/18 09:05 01/04/18 11:10 01/04/18 09:05 01/04/18 09:05 01/04/18 09:05 Oxygen Delivery Method Room Air Weight: 70.5 kg Body Mass Index (BMI) 23.6 Intake and Output for Last 24 Hours 01/02/18 01/03/18 01/04/18 23:59 23:59 23:59 Intake Total 88.3 / 88.3 428 / 428 Output Total 100 / 100 225 / 225 Balance -11.7 / -11.7 203 / 203 Laboratory Results 01/03/18 21:26: POC Glucose 90 01/03/18 23:50: POC Glucose 113 H 01/04/18 05:55: POC Glucose 124 H Current Medications Acetaminophen (Tylenol) 650 mg PO Q6H PRN PRN Reason: PAIN Atenolol (Tenormin (Beta Marbin)) 75 mg PO DAILY [facility] Last Admin: 01/04/18 09:08 Dose: 75 mg Atorvastatin Calcium (Lipitor) 80 mg PO QHS [facility] Last Admin: 01/03/18 23:00 Dose: 80 mg Baclofen (Lioresal) 10 mg PO TID PRN PRN Reason: HICCUPS Clopidogrel Bisulfate (Plavix) 75 mg PO DAILY [facility] Last Admin: 01/04/18 09:08 Dose: 75 mg Dextrose (D50w Syringe) 0 gm IV X1 PRN; Protocol PRN Reason: Hypoglycemia Famotidine (Pepcid) 40 mg PO QHS [facility] Last Admin: 01/03/18 23:01 Dose: 40 mg Glucagon () 1 mg IM .X1 PRN PRN Reason: Hypoglycemia Dextrose/Sodium Chloride (Dextrose 5%/0.9% Nacl) 1,000 mls @ 75 mls/hr IV .[id number] [facility] Last Admin: 01/03/18 20:58 Dose: 75 mls/hr Insulin Glargine (Lantus (Bkc)) 15 units SC QHS [facility] Last Admin: 01/03/18 23:00 Dose: Not Given Insulin Human Lispro (Humalog Kwikpen (Bkc)) 5 unit SC TIDAC [facility] Last Admin: 01/04/18 09:15 Dose: 5 units Insulin Human Lispro (Humalog Kwikpen (Bkc)) 0 unit SQ ACHS BING PRN Reason: Protocol Last Admin: 01/04/18 07:43 Dose: Not Given Menthol (Bengay Vanishing Scent) 1 applic TOPICAL TID PRN PRN PRN Reason: PAIN Nutritional Formula (Lactose Free) (Glucerna Shake) 120 ml PO TIDCM [facility] Last Admin: 01/04/18 09:06 Dose: 120 ml Polyethylene Glycol (Miralax) 8.5 gm PO DAILY [facility] Last Admin: 01/04/18 09:08 Dose: 8.5 gm Ramipril (Altace) 5 mg PO DAILY [facility] Last Admin: 01/04/18 09:13 Dose: 5 mg Sodium Chloride () 5 - 30 ml IV UD PRN PRN Reason: SALINE FLUSH Last Admin: 01/03/18 23:03 Dose: 10 ml Medical Necessity - Tobacco Use Smoking Status: Never smoker Tobacco Use: Non-smoker Assessment/Plan All Active Problems (Last Reviewed 12/26/17 @ 10:29 by Jaida Peacock) H/O carotid endarterectomy (Resolved) H/O hernia repair (Resolved) H/O: hemorrhoidectomy (Resolved) cataract surgery (Resolved) Hx of repair of rotator cuff (Resolved) Abnormal EKG (Acute) Chest pain (Acute) Hypoglycemia (Acute) Ataxia (Resolved) Dizzinesses (Resolved) GI bleed (Resolved) Sepsis (Resolved) 82 year old M with past medical history of Type 2 DM, on Lantus and pre-meal lispro insulin, hypertension, hyperlipidemia, CAD, history of CVA who comes in with a syncopal episode related to hypoglycemia. 1. Syncopal episode related to hypoglycemia in a patient with known type II DM on Lantus and pre-meal insulin, likely reason for this current hypoglycemic episode was late arrival of his food after patient had injected himself with insulin. His last HbA1c was 9.9, history of labile blood sugars; follows up with nurse practitioner in endocrinology. Blood sugars are controlled now. 2. Dizziness, acute on chronic, sees floaters, history of CVA. Likely related to retinopathy or to his chronic visual problems, will need outpatient follow- up with ophthalmology. 3. Hypertension, controlled, continue on atenolol and ramipril, will continue to monitor BP. 4. Hyperlipidemia, on statin 5. History of CVA, on aspirin, statin, Plavix, NAVJOT inhibitor 6. CAD, on aspirin, plavix, statin, atenolol. 7. Debility related to concurrent comorbidities, PT and OT evaluating. 8. DVT prophylaxis with Lovenox subcu 9. Disposition: We will discharge to residential facility or assisted living ; discussed with family that I do not recommend patient living alone. There will be having a family meeting, and will discuss their plans with social work administrator. Code Visit Inpatient E&M: 05304 Subs Hosp L2
[2018-01-04] MEDS: Insulin Lispro 100 UNIT/ML INSULN.PEN SQ ×3 (11:40→21:27)
--- NOTE | 2018-01-04 12:14 | CASEMGMT ---
Addendum entered by Krystina Farnsworth 01/04/18 13:01: Should patient's discharge result in home health setup rather than SNF, I feel a CCN referral would be beneficial for this patient. CM/SW will follow. Original Note: PT evaluation completed. Recommendation is for fpc facility at discharge. Patient's daughter, Sherry, spoke with CM outside of the room. We discussed PT recommendations. She states that her dad wants to go home, but she and her siblings feel he does need to go somewhere. I discussed that SNF placement may be short term for therapy and then patient may be strong enough to return home or to assisted living. Provided Sherry with list of local SNFs and Assisted Living facilities. Encouraged patient's daughter to speak with family and discuss with patient. Asked patient's daughter to let CM know when they have facility preference. Therapy will continue to work with patient. Patient's daughter states understanding and thanks.
[2018-01-04 12:40] LABS: Bedside Glucose 273 mg/dL (70-110)
[2018-01-04 14:22] LABS: Anion Gap 8 (5-15); BUN 9 mg/dL (7-18); BUN/Creat Ratio 8.7 RATIO (10-20); Calcium,Total 7.7 mg/dL (8.5-10.1); Chloride 101 mmol/L (98-107); Creatinine, Serum 1.03 mg/dL (0.70-1.30); EST Glomerular Filtration Rate 74 mL/min (>60); Est Glom Filt Rate - Afr Amer 89 mL/min (>60); Estimated Creatinine Clearance 54.42 ml/min; Glucose 252 mg/dL (74-106); Potassium 4.2 mmol/L (3.5-5.1); Sodium Level 133 mmol/L (136-145)
[2018-01-04] MEDS: Baclofen 10 MG Tablet PO (15:24)
[2018-01-04 15:43] LABS: AST(SGOT) 27 U/L (15-37); Alanine Aminotransfer ALT/SGPT 13 U/L (16-61); Albumin, Serum 2.3 g/dL (3.2-5.0); Alkaline Phosphatase 118 U/L (45-117); Bilirubin, Direct 0.19 mg/dL (0.00-0.30); Globulin 4.2 g/dL (2.2-4.2); Protein, Total 6.5 g/dL (6.4-8.2)
[2018-01-04 17:11] LABS: Bedside Glucose 247 mg/dL (70-110)
[2018-01-04] MEDS: Insulin Lispro 100 UNIT/ML INSULN.PEN 10 UNIT SC (17:43)
[2018-01-04] MEDS: Famotidine 20 MG Tablet 40 MG PO (21:28)
[2018-01-04] MEDS: Atorvastatin Calcium 40 MG Tablet 80 MG PO (21:28)
[2018-01-04 22:06] LABS: Bedside Glucose 224 mg/dL (70-110)
[2018-01-05] VITALS (11 sets, daily range): BP systolic 124–168; BP diastolic 56–81; PULSE 74–85; RESP 16–18; TEMP 36.8–37.6; O2SAT 94–97
[2018-01-05 07:00] LABS: Bedside Glucose 235 mg/dL (70-110)
[2018-01-05] MEDS: Glucerna Shake 120 ML LIQUID PO ×3 (07:21→16:46)
[2018-01-05] MEDS: Insulin Lispro 100 UNIT/ML INSULN.PEN SQ ×4 (07:21→21:10)
[2018-01-05] MEDS: Insulin Lispro 100 UNIT/ML INSULN.PEN 10 UNIT SC ×3 (07:21→16:45)
[2018-01-05] MEDS: Baclofen 10 MG Tablet PO ×2 (09:37→21:11)
[2018-01-05] MEDS: Clopidogrel Bisulfate 75 MG Tablet PO (09:38)
[2018-01-05] MEDS: Atenolol 25 MG Tablet 75 MG PO (09:38)
[2018-01-05] MEDS: Ramipril 5 MG Capsule PO (09:41)
[2018-01-05 11:20] LABS: Bedside Glucose 327 mg/dL (70-110)
--- NOTE | 2018-01-05 16:39 | PCM.PN.HOSP ---
Patient Problems: Active and Suspected Problems (Last Reviewed 12/26/17 @ 10:29 by Jaida Peacock) Hypoglycemia (Acute) Subjective: Patient seen and examined. He feels improved, says his vision is still very poor. Appears blurred, being seen floaters. Denies any fever or chills. Blood sugars have been stable and slightly elevated. Objective: Physical Exam General: Alert, Oriented x3, Cooperative, No apparent distress, not pale, not jaundiced HEENT: Atraumatic, PERRLA, EOMI, Normocephalic Oral: Moist Mucosa Neck: Supple Lungs: Clear to auscultation, Normal air movement Cardiovascular: Regular rate, Regular Rhythm, Normal S1, Normal S2, No murmurs Abdomen: Bowel Sounds Present, Soft, Non Tender, Non-Distended, No Hepato-splenomegaly Extremities: No edema Skin: No rashes, No breakdown Musculoskeletal: No Tenderness to Palpation of Joints or Extremities Lymphatic: No Cervical, Supraclavicular, or Inguinal Adenopathy Neurological: Cranial nerves II-XII grossly intact, Neuro grossly intact Psych/Mental Status: Normal Affect, Appropriate Vitals/I&O's: Vital Signs Temp Pulse Resp BP Pulse Ox 99.7 F H 80 18 147/69 H 94 01/05/18 15:20 01/05/18 15:20 01/05/18 15:20 01/05/18 15:20 01/05/18 15:20 Oxygen Flow Rate (L/min) 2 Oxygen Delivery Method Room Air Weight: 70.5 kg Body Mass Index (BMI) 23.6 Intake and Output for Last 24 Hours 01/03/18 01/04/18 01/05/18 23:59 23:59 23:59 Intake Total 88.3 / 88.3 1720 / 1720 240 / 240 Output Total 100 / 100 325 / 325 Balance -11.7 / -11.7 1395 / 1395 240 / 240 Laboratory Results 01/04/18 16:59: POC Glucose 247 H 01/04/18 21:24: POC Glucose 224 H 01/05/18 06:55: POC Glucose 235 H 01/05/18 11:14: POC Glucose 327 H Current Medications Acetaminophen (Tylenol) 650 mg PO Q6H PRN PRN Reason: PAIN Atenolol (Tenormin (Beta Marbin)) 75 mg PO DAILY [facility] Last Admin: 01/05/18 09:38 Dose: 75 mg Atorvastatin Calcium (Lipitor) 80 mg PO QHS [facility] Last Admin: 01/04/18 21:28 Dose: 80 mg Baclofen (Lioresal) 10 mg PO TID PRN PRN Reason: HICCUPS Last Admin: 01/05/18 09:37 Dose: 10 mg Clopidogrel Bisulfate (Plavix) 75 mg PO DAILY [facility] Last Admin: 01/05/18 09:38 Dose: 75 mg Dextrose (D50w Syringe) 0 gm IV X1 PRN; Protocol PRN Reason: Hypoglycemia Famotidine (Pepcid) 40 mg PO QHS [facility] Last Admin: 01/04/18 21:28 Dose: 40 mg Glucagon () 1 mg IM .X1 PRN PRN Reason: Hypoglycemia Insulin Glargine (Lantus (Bkc)) 22 units SC QHS [facility] Insulin Human Lispro (Humalog Kwikpen (Bkc)) 0 unit SQ ACHS BING PRN Reason: Protocol Last Admin: 01/05/18 11:16 Dose: 3 u Insulin Human Lispro (Humalog Kwikpen (Bkc)) 10 unit SC TIDAC [facility] Last Admin: 01/05/18 12:40 Dose: 10 u Menthol (Bengay Vanishing Scent) 1 applic TOPICAL TID PRN PRN PRN Reason: PAIN Last Admin: 01/05/18 07:24 Dose: 1 applic Nutritional Formula (Lactose Free) (Glucerna Shake) 120 ml PO TIDCM [facility] Last Admin: 01/05/18 11:16 Dose: 120 ml Polyethylene Glycol (Miralax) 8.5 gm PO DAILY [facility] Last Admin: 01/05/18 09:37 Dose: Not Given Ramipril (Altace) 5 mg PO DAILY [facility] Last Admin: 01/05/18 09:41 Dose: 5 mg Sodium Chloride () 5 - 30 ml IV UD PRN PRN Reason: SALINE FLUSH Last Admin: 01/03/18 23:03 Dose: 10 ml Medical Necessity - Tobacco Use Smoking Status: Never smoker Tobacco Use: Non-smoker Assessment/Plan All Active Problems (Last Reviewed 12/26/17 @ 10:29 by Jaida Peacock) H/O carotid endarterectomy (Resolved) H/O hernia repair (Resolved) H/O: hemorrhoidectomy (Resolved) cataract surgery (Resolved) Hx of repair of rotator cuff (Resolved) Abnormal EKG (Acute) Chest pain (Acute) Hypoglycemia (Acute) Ataxia (Resolved) Dizzinesses (Resolved) GI bleed (Resolved) Sepsis (Resolved) 82 year old M with past medical history of Type 2 DM, on Lantus and pre-meal lispro insulin, hypertension, hyperlipidemia, CAD, history of CVA who comes in with a syncopal episode related to hypoglycemia. 1. Syncopal episode related to hypoglycemia in a patient with known type II DM on Lantus and pre-meal insulin, likely reason for this current hypoglycemic episode was late arrival of his food after patient had injected himself with insulin. His last HbA1c was 9.9, history of labile blood sugars; follows up with nurse practitioner in endocrinology. Blood sugars are slightly elevated, would go back to his home insulin levels. 2. Dizziness, acute on chronic, sees floaters, history of CVA. Likely related to retinopathy or to his chronic visual problems, will need outpatient follow-up with ophthalmology. 3. Hypertension, controlled, continue on atenolol and ramipril, will continue to monitor BP. 4. Hyperlipidemia, on statin 5. History of CVA, on aspirin, statin, Plavix, NAVJOT inhibitor 6. CAD, on aspirin, plavix, statin, atenolol. 7. Debility related to concurrent comorbidities, PT and OT evaluating. 8. DVT prophylaxis with Lovenox subcu 9. Disposition: We will discharge to [facility] facility. Family wants to TCU as a first choice as patient has been in there a couple of times before. Code Visit Inpatient E&M: 00724 Subs Hosp L2
--- NOTE | 2018-01-05 16:42 | PN_ITS ---
Patient Problems: Active and Suspected Problems (Last Reviewed 12/26/17 @ 10:29 by Jaida Peacock ) Hypoglycemia (Acute) Subjective: Patient seen and examined. He feels improved, says his vision is still very poor. Appears blurred, being seen floaters. Denies any fever or chills. Blood sugars have been stable and slightly elevated. Objective: Physical Exam General: Alert, Oriented x3, Cooperative, No apparent distress, not pale, not jaundiced HEENT: Atraumatic, PERRLA, EOMI, Normocephalic Oral: Moist Mucosa Neck: Supple Lungs: Clear to auscultation, Normal air movement Cardiovascular: Regular rate, Regular Rhythm, Normal S1, Normal S2, No murmurs Abdomen: Bowel Sounds Present, Soft, Non Tender, Non-Distended, No Hepato- splenomegaly Extremities: No edema Skin: No rashes, No breakdown Musculoskeletal: No Tenderness to Palpation of Joints or Extremities Lymphatic: No Cervical, Supraclavicular, or Inguinal Adenopathy Neurological: Cranial nerves II-XII grossly intact, Neuro grossly intact Psych/Mental Status: Normal Affect, Appropriate Vitals/I&O's: Vital Signs Temp Pulse Resp BP Pulse Ox 99.7 F H 80 18 147/69 H 94 01/05/18 15:20 01/05/18 15:20 01/05/18 15:20 01/05/18 15:20 01/05/18 15:20 Oxygen Flow Rate (L/min) 2 Oxygen Delivery Method Room Air Weight: 70.5 kg Body Mass Index (BMI) 23.6 Intake and Output for Last 24 Hours 01/03/18 01/04/18 01/05/18 23:59 23:59 23:59 Intake Total 88.3 / 88.3 1720 / 1720 240 / 240 Output Total 100 / 100 325 / 325 Balance -11.7 / -11.7 1395 / 1395 240 / 240 Laboratory Results 01/04/18 16:59: POC Glucose 247 H 01/04/18 21:24: POC Glucose 224 H 01/05/18 06:55: POC Glucose 235 H 01/05/18 11:14: POC Glucose 327 H Current Medications Acetaminophen (Tylenol) 650 mg PO Q6H PRN PRN Reason: PAIN Atenolol (Tenormin (Beta Marbin)) 75 mg PO DAILY [facility] Last Admin: 01/05/18 09:38 Dose: 75 mg Atorvastatin Calcium (Lipitor) 80 mg PO QHS [facility] Last Admin: 01/04/18 21:28 Dose: 80 mg Baclofen (Lioresal) 10 mg PO TID PRN PRN Reason: HICCUPS Last Admin: 01/05/18 09:37 Dose: 10 mg Clopidogrel Bisulfate (Plavix) 75 mg PO DAILY [facility] Last Admin: 01/05/18 09:38 Dose: 75 mg Dextrose (D50w Syringe) 0 gm IV X1 PRN; Protocol PRN Reason: Hypoglycemia Famotidine (Pepcid) 40 mg PO QHS [facility] Last Admin: 01/04/18 21:28 Dose: 40 mg Glucagon () 1 mg IM .X1 PRN PRN Reason: Hypoglycemia Insulin Glargine (Lantus (Bkc)) 22 units SC QHS [facility] Insulin Human Lispro (Humalog Kwikpen (Bkc)) 0 unit SQ ACHS BING PRN Reason: Protocol Last Admin: 01/05/18 11:16 Dose: 3 u Insulin Human Lispro (Humalog Kwikpen (Bkc)) 10 unit SC TIDAC [facility] Last Admin: 01/05/18 12:40 Dose: 10 u Menthol (Bengay Vanishing Scent) 1 applic TOPICAL TID PRN PRN PRN Reason: PAIN Last Admin: 01/05/18 07:24 Dose: 1 applic Nutritional Formula (Lactose Free) (Glucerna Shake) 120 ml PO TIDCM [facility] Last Admin: 01/05/18 11:16 Dose: 120 ml Polyethylene Glycol (Miralax) 8.5 gm PO DAILY [facility] Last Admin: 01/05/18 09:37 Dose: Not Given Ramipril (Altace) 5 mg PO DAILY [facility] Last Admin: 01/05/18 09:41 Dose: 5 mg Sodium Chloride () 5 - 30 ml IV UD PRN PRN Reason: SALINE FLUSH Last Admin: 01/03/18 23:03 Dose: 10 ml Medical Necessity - Tobacco Use Smoking Status: Never smoker Tobacco Use: Non-smoker Assessment/Plan All Active Problems (Last Reviewed 12/26/17 @ 10:29 by Jaida Peacock) H/O carotid endarterectomy (Resolved) H/O hernia repair (Resolved) H/O: hemorrhoidectomy (Resolved) cataract surgery (Resolved) Hx of repair of rotator cuff (Resolved) Abnormal EKG (Acute) Chest pain (Acute) Hypoglycemia (Acute) Ataxia (Resolved) Dizzinesses (Resolved) GI bleed (Resolved) Sepsis (Resolved) 82 year old M with past medical history of Type 2 DM, on Lantus and pre-meal lispro insulin, hypertension, hyperlipidemia, CAD, history of CVA who comes in with a syncopal episode related to hypoglycemia. 1. Syncopal episode related to hypoglycemia in a patient with known type II DM on Lantus and pre-meal insulin, likely reason for this current hypoglycemic episode was late arrival of his food after patient had injected himself with insulin. His last HbA1c was 9.9, history of labile blood sugars; follows up with nurse practitioner in endocrinology. Blood sugars are slightly elevated, would go back to his home insulin levels. 2. Dizziness, acute on chronic, sees floaters, history of CVA. Likely related to retinopathy or to his chronic visual problems, will need outpatient follow- up with ophthalmology. 3. Hypertension, controlled, continue on atenolol and ramipril, will continue to monitor BP. 4. Hyperlipidemia, on statin 5. History of CVA, on aspirin, statin, Plavix, NAVJOT inhibitor 6. CAD, on aspirin, plavix, statin, atenolol. 7. Debility related to concurrent comorbidities, PT and OT evaluating. 8. DVT prophylaxis with Lovenox subcu 9. Disposition: We will discharge to residential facility. Family wants to TCU as a first choice as patient has been in there a couple of times before. Code Visit Inpatient E&M: 33905 Subs Hosp L2
[2018-01-05 16:56] LABS: Bedside Glucose 237 mg/dL (70-110)
[2018-01-05] MEDS: Atorvastatin Calcium 40 MG Tablet 80 MG PO (21:11)
[2018-01-05] MEDS: Famotidine 20 MG Tablet 40 MG PO (21:12)
[2018-01-05 22:35] LABS: Bedside Glucose 280 mg/dL (70-110)
[2018-01-06] VITALS (8 sets, daily range): BP systolic 119–149; BP diastolic 66–70; PULSE 68–85; RESP 16–18; TEMP 36.7–37.4; O2SAT 95–96
[2018-01-06 07:06] LABS: Bedside Glucose 218 mg/dL (70-110)
[2018-01-06] MEDS: Glucerna Shake 120 ML LIQUID PO ×3 (07:49→16:59)
[2018-01-06] MEDS: Insulin Lispro 100 UNIT/ML INSULN.PEN SQ ×3 (07:49→16:58)
[2018-01-06] MEDS: Insulin Lispro 100 UNIT/ML INSULN.PEN 10 UNIT SC ×3 (07:49→16:58)
[2018-01-06] MEDS: Atenolol 25 MG Tablet 75 MG PO (09:15)
[2018-01-06] MEDS: Clopidogrel Bisulfate 75 MG Tablet PO (09:15)
[2018-01-06] MEDS: Ramipril 5 MG Capsule PO (09:17)
[2018-01-06 10:08] LABS: Pathologist Review Reviewed
--- NOTE | 2018-01-06 10:13 | CASEMGMT ---
Addendum entered by Jackie Tompkins 01/06/18 10:46: SW spoke with patient's daughter. She asked when patient is being discharged. SW told her SW has not seen the physician yet. She said she had called several facilities and people were not available. SW told her that she does not have to call and check on bed availability. [facility] told her SW can do that for them, SW just needs them to tell SW where they would like referrals sent. At that time the PA came into the room so SW left. BASIL did give patient's daughter SW's card. Plan: SNF. Waiting on family's choices Jackie LOPES Original Note: [facility] called patient's daughter Xochitl and told her that [facility]CU does not have any beds. She said they did not have a second choice. She said she will be in to talk with BASIL. Jackie LOPES
[2018-01-06 11:40] LABS: Bedside Glucose 310 mg/dL (70-110)
--- NOTE | 2018-01-06 13:42 | TREXTCAR_ITS ---
- Diet 01/03/18 20:54 Diet: Cardiac/Low Cholesterol Is pt able to select menu?: Yes 1800 calorie / day - Routine Orders/Code Status Suppository Type: Dulcolax 10mg Suppository Frequency: Daily PRN Routine Lab Work: CBC - 3 days, BMP - 3 days Code Status: Full Code - Therapies Physical Therapy: Eval and Treat Occupational Therapy: Eval and Treat - Please continue vestibular therapy - Problem/Diagnosis (1) Hypoglycemia Status: Acute Current Visit: Yes (2) Type 2 diabetes mellitus Status: Chronic Comment: BG readings overall have become much higher. He reports meals on wheels is now later and he is having what seems like 2 lunches. He is checking BG after meals only and sounds like he takes correction for the 300-400 readings but when specifically ask about correction it does not sound like he has corrected many of the higher BG. On 3 occassions it is apparent he corrected. Higher BG appear to be associated with his adding the meals on wheels service. Current Visit: No (3) Cerebrovascular disease Status: Chronic Comment: Status post acute ischemic stroke with residual lower extremity weakness mild Current Visit: No (4) Hyperlipidemia Status: Chronic Current Visit: No (5) Hypertension Status: Chronic Comment: 104/64 Current Visit: No (6) Coronary artery disease Status: Chronic Current Visit: No (7) GERD (gastroesophageal reflux disease) Status: Chronic Current Visit: No (8) OAB (overactive bladder) Status: Chronic Current Visit: No (9) Ataxia Status: Chronic Current Visit: No (10) Dizziness Status: Chronic Current Visit: Yes (11) Stroke Status: Chronic Current Visit: No (12) Diabetes mellitus Status: Chronic Comment: Had a lengthy discussion with patient and family member. Family members had always agreed they want father to remain at home and they want quality of life for him He is instructed when he sits down at table to eat he is to take his insulin. The insulin is to cover the food he is about to eat. My thought is if the timing remains a problem I will place him on regular insulin which is much slower in action. Gurmeet if this is a barrier to his independence and remaining in the home setting. Current Visit: No - Allergies/Procedures Done in Hospital Allergies/Adverse Reactions: Allergies alfuzosin Allergy (Verified 01/03/18 13:08) Other Penicillins Allergy (Verified 01/03/18 13:08) Rash Sulfa (Sulfonamide Antibiotics) Allergy (Verified 01/03/18 13:08) Swelling Procedures: None - Type of Care/Length of Stay Estimated LOS: Convalescent Care Less Than 30 days Type of Care Needed: Skilled Rehab Potential: Fair Prognosis: Fair - Additional Orders/Day of Discharge Day of Discharge: 01/06/18 - Dietary and Speech Recommendations Dietitian Recommendations/Changes: Rec 1800 Calorie Controlled, Cardiac/Low Cholesterol given pt's PMHx. Rec continue Glucerna Shake TID on medpass. - Follow Up Care Primary Care Physician: Ronald Flannery MD [Primary Care Provider] - Please follow up with your Primary Care Physician in: 2 weeks Please Follow Up With: Ranjit Chacon MD - Chronic vertigo When: 1-2 weeks Please Follow Up With: Fidelia Negron TRANSIT MIXER OPERATOR-C When: 2-3 weeks
--- NOTE | 2018-01-06 13:55 | CASEMGMT ---
SW spoke with patient and his daughter. She gave SW the list of nursing homes and their 3 choices. SW also completed healthcare living will with patient. Referrals will be made to SNF as patient is ready for d/c. Plan: SNF pending accepting facility Jackie LOPES
--- NOTE | 2018-01-06 13:57 | CASEMGMT ---
Per SW, referral needs made to [facility]. Call placed to [facility], spoke with Landy in admissions, have bed availability, OK to fax over referral. Same done.
[2018-01-06] MEDS: Albuterol 2.5 MG/3 ML VIAL.NEB. INHALATION (14:30)
--- NOTE | 2018-01-06 15:52 | CASEMGMT ---
Spoke with Landy at [facility] and they can take patient. SW notified physician. Faxed orders to [facility]. Completed convalescent on HENS. Called [facility] and [facility] and neither had a wheelchair van available. BASIL spoke with patient's daughter, Xochitl and they can transport patient. BASIL called [facility] and let Landy know that patient will likely leave [facility] around 6p as he will eat dinner first. Plan: d/c to [facility] under skilled level of care on a convalescent stay. Family transported him via private vehicle. Jackie RUSSELL RELAY ENGINEER
[2018-01-06] MEDS: Baclofen 10 MG Tablet 5 MG PO (16:59)
--- NOTE | 2018-01-06 17:07 | PCM.DC.SUM ---
Discharge Date and Diagnosis - Problem List Patient Problems: Active and Suspected Problems (Last Reviewed 12/26/17 @ 10:29 by Jaida Peacock) Hypoglycemia (Acute) Date of Admission: 01/03/18 Date of Discharge: 01/06/18 - Primary Discharge Diagnosis Active and Suspected Problems (Last Reviewed 12/26/17 @ 10:29 by Jaida Peacock) Hypoglycemia (Acute) 2/2 insulin + missed meal Dizziness - chronic HTN HLD Hx CVA CAD Debility Intractable hiccups - Secondary Discharge Diagnosis Chronic Problems (Last Reviewed 12/26/17 @ 10:29 by Jaida Peacock) Hypotension (Chronic) Carotid bruit (Chronic) Encounter for long-term current use of high risk medication (Chronic) Reviewed medications with family to be sure patient was taking remainder of medications correctly and there were no duplicates Atherosclerotic heart disease of [place] coronary artery without angina pectoris (Chronic) Type 2 diabetes mellitus (Chronic) BG readings overall have become much higher. He reports meals on wheels is now later and he is having what seems like 2 lunches. He is checking BG after meals only and sounds like he takes correction for the 300-400 readings but when specifically ask about correction it does not sound like he has corrected many of the higher BG. On 3 occassions it is apparent he corrected. Higher BG appear to be associated with his adding the meals on wheels service. Cerebrovascular disease (Chronic) Status post acute ischemic stroke with residual lower extremity weakness mild Hyperlipidemia (Chronic) Diverticulitis (Chronic) Hypertension (Chronic) 104/64 Coronary artery disease (Chronic) GERD (gastroesophageal reflux disease) (Chronic) OAB (overactive bladder) (Chronic) Ataxia (Chronic) LEFT FRONTAL LACUNAR INFARCT (Chronic) Dizziness (Chronic) Stroke (Chronic) Gastrointestinal bleed (Chronic) Diabetes mellitus (Chronic) Had a lengthy discussion with patient and family member. Family members had always agreed they want father to remain at home and they want quality of life for him He is instructed when he sits down at table to eat he is to take his insulin. The insulin is to cover the food he is about to eat. My thought is if the timing remains a problem I will place him on regular insulin which is much slower in action. Gurmeet if this is a barrier to his independence and remaining in the home setting. Hospital Course and Treatment Imaging Results: RAD/Lumbar Spine 2 or 3 Views IMPRESSION: Degenerative changes of the spine, as detailed above. RAD/Chest PA and Lateral IMPRESSION: Stable examination. No acute abnormality is seen. CT/Brain/Head without Contrast IMPRESSION: Moderate atrophy and periventricular white matter ischemic change. No evidence for acute bleed. If concern for acute infarct MRI recommended MRI/Brain without Contrast IMPRESSION: Moderate periventricular white matter ischemic changes without evidence for acute infarct. Old bilateral posterior thalamic infarcts and cerebellar infarcts. 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 Recommend MRA of the neck for further evaluation No other significant atherosclerotic disease MRI/MRA Neck WITH and W/O Contrast IMPRESSION: Moderate atherosclerotic disease without evidence for hemodynamically significant stenosis of the carotids.. 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 This may be further assessed with CTA if clinically warranted RAD/Pelvis 1 or 2 Views IMPRESSION: Normal x-ray examination of the pelvis. Operations: None Procedures: None Summary of Care Provided: Physical exam on day of discharge: General: Resting comfortably NAD, intermittent hiccups Psych: A/Ox3 normal affect HEENT: PEARRLA AT NC Neck: Supple NT CV: RRR no m/t/r/g/h Resp: CTA Abd: [id number] Soft NT no guarding or rigidity Ext: DP2+= no edema Skin: W/D normal turgor Lymph/Heme: No active bleeding or adenopathy Neuro: CN2-12 intact Hospital course: The patient is a 82 year old M with a history of CVA, chronic dizziness, hypertension, hyperlipidemia, CAD, type 2 diabetes, who presented to the emergency room with a syncopal episode and found to be hypoglycemic with a blood sugar of 39. He was suspected to have had a syncopal episode secondary to hypoglycemia but underwent a stroke workup as he had a history of CVA multiple risk factors. He had taken his insulin at home and then missed a meal. He underwent MRI MRA of the head and neck-these were negative. He is maintained on aspirin, Plavix, statin. He continued to have chronic dizziness however this is not new for him. He was restarted on his usual home doses of insulin and remained stable on these, somewhat hyperglycemic however given the syncopal episode we deferred increasing his doses at this time. He worked with PT and OT and had significant debility nursing home was recommended. During his stay we also addressed chronic intractable hiccups with associated decrease in appetite. He had been trialed on as needed baclofen which should not made a significant difference. We decided to lower the dose and schedule instead of using it as needed to see if this gives him any relief. We offered Antivert however this was declined at this time. He will also need to continue vestibular therapy and follow-up with ENT as an outpatient-we recommended follow-up with Dr. Chacon. He is discharged to nursing home in stable condition. This patient was seen by Rebel Vang PA-C under the supervision of Doctor Rojas. [] Discharge Diet: Low fat/ Low Cholesterol, 1800 Calorie Control Diet, 2000 mg Sodium Diet Discharge Activity: Return to Normal Activity Home Medications: Medications to take at Discharge Atenolol [Tenormin (beta naty)] 75 mg PO DAILY 10/18/16 Clopidogrel Bisulfate [Plavix] 75 mg PO DAILY 10/18/16 Insulin Aspart [Novolog Flexpen] 10 units SC TIDAC 06/06/17 Polyethylene Glycol 3350 [Miralax] 0.5 pack PO DAILY 06/06/17 Ramipril [Altace] 5 mg PO DAILY 06/06/17 acetaminophen ER 650 mg tablet,extended release 650 mg PO Q6H PRN tab 10/17/17 Insulin Detemir [Levemir FlexPen] 22 unit SC QHS 12/09/17 albuterol sulfate HFA 90 mcg/actuation aerosol inhaler 2 puff INHALATION Q6H PRN PRN 12/26/17 Atorvastatin Calcium [Lipitor] 80 mg PO QHS 01/03/18 Blood Sugar Diagnostic [Contour Test Strip] 0 each .ROUTE .MEDSUPPLY 01/03/18 Blood-Glucose Meter [Contour] 1 each .ROUTE .MEDSUPPLY 01/03/18 Pen Needle, Diabetic [Incontrol Pen Needle] 0 each .ROUTE .MEDSUPPLY 01/03/18 Ranitidine HCl [Acid Control] 300 mg PO QHS 01/03/18 Baclofen [Lioresal] 5 mg PO BIDCM tablet 01/06/18 Glucerna Shake 120 ml PO TIDCM liquid 01/06/18 Menthol [Bengay Vanishing Scent] 1 applic TOPICAL TID PRN PRN tube 01/06/18 Primary Care Physician: Ronald Flannery MD [Primary Care Provider] - Please follow up with your Primary Care Physician in: 2 weeks Please Follow Up With: Ranjit Chacon MD - Chronic vertigo When: 1-2 weeks Please Follow Up With: Fidelia Negron SPINNING DOFFER-C When: 2-3 weeks Additional Instructions: Continue vestibular therapy with occupational therapy. Disposition: Longterm facility Minutes spent on discharge:: 35 Patient Condition:: Stable Medical Necessity - Tobacco Use Smoking Status: Never smoker Tobacco Use: Non-smoker Meaningful Use Info Meaningful Use Diagnoses (Choose all that apply): None applicable
[2018-01-06 17:10] LABS: Bedside Glucose 237 mg/dL (70-110)
--- NOTE | 2018-01-06 17:15 | DS.PCM_ITS ---
Discharge Date and Diagnosis - Problem List Patient Problems: Active and Suspected Problems (Last Reviewed 12/26/17 @ 10:29 by Jaida Peacock ) Hypoglycemia (Acute) Date of Admission: 01/03/18 Date of Discharge: 01/06/18 - Primary Discharge Diagnosis Active and Suspected Problems (Last Reviewed 12/26/17 @ 10:29 by Jaida Peacock ) Hypoglycemia (Acute) 2/2 insulin + missed meal Dizziness - chronic HTN HLD Hx CVA CAD Debility Intractable hiccups - Secondary Discharge Diagnosis Chronic Problems (Last Reviewed 12/26/17 @ 10:29 by Jaida Peacock) Hypotension (Chronic) Carotid bruit (Chronic) Encounter for long-term current use of high risk medication (Chronic) Reviewed medications with family to be sure patient was taking remainder of medications correctly and there were no duplicates Atherosclerotic heart disease of [place] coronary artery without angina pectoris (Chronic) Type 2 diabetes mellitus (Chronic) BG readings overall have become much higher. He reports meals on wheels is now later and he is having what seems like 2 lunches. He is checking BG after meals only and sounds like he takes correction for the 300-400 readings but when specifically ask about correction it does not sound like he has corrected many of the higher BG. On 3 occassions it is apparent he corrected. Higher BG appear to be associated with his adding the meals on wheels service. Cerebrovascular disease (Chronic) Status post acute ischemic stroke with residual lower extremity weakness mild Hyperlipidemia (Chronic) Diverticulitis (Chronic) Hypertension (Chronic) 104/64 Coronary artery disease (Chronic) GERD (gastroesophageal reflux disease) (Chronic) OAB (overactive bladder) (Chronic) Ataxia (Chronic) LEFT FRONTAL LACUNAR INFARCT (Chronic) Dizziness (Chronic) Stroke (Chronic) Gastrointestinal bleed (Chronic) Diabetes mellitus (Chronic) Had a lengthy discussion with patient and family member. Family members had always agreed they want father to remain at home and they want quality of life for him He is instructed when he sits down at table to eat he is to take his insulin. The insulin is to cover the food he is about to eat. My thought is if the timing remains a problem I will place him on regular insulin which is much slower in action. Gurmeet if this is a barrier to his independence and remaining in the home setting. Hospital Course and Treatment Imaging Results: RAD/Lumbar Spine 2 or 3 Views IMPRESSION: Degenerative changes of the spine, as detailed above. RAD/Chest PA and Lateral IMPRESSION: Stable examination. No acute abnormality is seen. CT/Brain/Head without Contrast IMPRESSION: Moderate atrophy and periventricular white matter ischemic change. No evidence for acute bleed. If concern for acute infarct MRI recommended MRI/Brain without Contrast IMPRESSION: Moderate periventricular white matter ischemic changes without evidence for acute infarct. Old bilateral posterior thalamic infarcts and cerebellar infarcts. 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 Recommend MRA of the neck for further evaluation No other significant atherosclerotic disease MRI/MRA Neck WITH and W/O Contrast IMPRESSION: Moderate atherosclerotic disease without evidence for hemodynamically significant stenosis of the carotids.. 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 This may be further assessed with CTA if clinically warranted RAD/Pelvis 1 or 2 Views IMPRESSION: Normal x-ray examination of the pelvis. Operations: None Procedures: None Summary of Care Provided: Physical exam on day of discharge: General: Resting comfortably NAD, intermittent hiccups Psych: A/Ox3 normal affect HEENT: PEARRLA AT NC Neck: Supple NT CV: RRR no m/t/r/g/h Resp: CTA Abd: [id number] Soft NT no guarding or rigidity Ext: DP2+= no edema Skin: W/D normal turgor Lymph/Heme: No active bleeding or adenopathy Neuro: CN2-12 intact Hospital course: The patient is a 82 year old M with a history of CVA, chronic dizziness, hypertension, hyperlipidemia, CAD, type 2 diabetes, who presented to the emergency room with a syncopal episode and found to be hypoglycemic with a blood sugar of 39. He was suspected to have had a syncopal episode secondary to hypoglycemia but underwent a stroke workup as he had a history of CVA multiple risk factors. He had taken his insulin at home and then missed a meal. He underwent MRI MRA of the head and neck-these were negative. He is maintained on aspirin, Plavix, statin. He continued to have chronic dizziness however this is not new for him. He was restarted on his usual home doses of insulin and remained stable on these, somewhat hyperglycemic however given the syncopal episode we deferred increasing his doses at this time. He worked with PT and OT and had significant debility snf was recommended. During his stay we also addressed chronic intractable hiccups with associated decrease in appetite. He had been trialed on as needed baclofen which should not made a significant difference. We decided to lower the dose and schedule instead of using it as needed to see if this gives him any relief. We offered Antivert however this was declined at this time. He will also need to continue vestibular therapy and follow-up with ENT as an outpatient-we recommended follow -up with Dr. Chacon. He is discharged to snf in stable condition. This patient was seen by Rebel Vang PA-C under the supervision of Doctor Rojas. [] Discharge Diet: Low fat/ Low Cholesterol, 1800 Calorie Control Diet, 2000 mg Sodium Diet Discharge Activity: Return to Normal Activity Home Medications: Medications to take at Discharge Atenolol [Tenormin (beta naty)] 75 mg PO DAILY 10/18/16 Clopidogrel Bisulfate [Plavix] 75 mg PO DAILY 10/18/16 Insulin Aspart [Novolog Flexpen] 10 units SC TIDAC 06/06/17 Polyethylene Glycol 3350 [Miralax] 0.5 pack PO DAILY 06/06/17 Ramipril [Altace] 5 mg PO DAILY 06/06/17 acetaminophen ER 650 mg tablet,extended release 650 mg PO Q6H PRN tab 10/17/17 Insulin Detemir [Levemir FlexPen] 22 unit SC QHS 12/09/17 albuterol sulfate HFA 90 mcg/actuation aerosol inhaler 2 puff INHALATION Q6H PRN PRN 12/26/17 Atorvastatin Calcium [Lipitor] 80 mg PO QHS 01/03/18 Blood Sugar Diagnostic [Contour Test Strip] 0 each .ROUTE .MEDSUPPLY 01/03/18 Blood-Glucose Meter [Contour] 1 each .ROUTE .MEDSUPPLY 01/03/18 Pen Needle, Diabetic [Incontrol Pen Needle] 0 each .ROUTE .MEDSUPPLY 01/03/18 Ranitidine HCl [Acid Control] 300 mg PO QHS 01/03/18 Baclofen [Lioresal] 5 mg PO BIDCM tablet 01/06/18 Glucerna Shake 120 ml PO TIDCM liquid 01/06/18 Menthol [Bengay Vanishing Scent] 1 applic TOPICAL TID PRN PRN tube 01/06/18 Primary Care Physician: Ronald Flannery MD [Primary Care Provider] - Please follow up with your Primary Care Physician in: 2 weeks Please Follow Up With: Ranjit Chacon MD - Chronic vertigo When: 1-2 weeks Please Follow Up With: Fidelia Negron [employer]EDGE PUMP OPERATOR-C When: 2-3 weeks Additional Instructions: Continue vestibular therapy with occupational therapy. Disposition: Shelter facility Minutes spent on discharge:: 35 Patient Condition:: Stable Medical Necessity - Tobacco Use Smoking Status: Never smoker Tobacco Use: Non-smoker Meaningful Use Info Meaningful Use Diagnoses (Choose all that apply): None applicable
== END 2018-01-06 18:00 | disposition skilled nursing facility (03) | DRG 637 ==
LOC: ED 17:41 → PCU 17:54
PROVIDERS: Admitting Provider Internal Medicine; Emergency Provider Emergency Medicine; Family Provider Internal Medicine; PCP Internal Medicine; Visit Provider Family Medicine
DX: E11.649 Type 2 diabetes mellitus with hypoglycemia without coma (principal); G93.40 Encephalopathy, unspecified; I69.351 Hemiplegia and hemiparesis following cerebral infarction affecting right dominant side; Z79.4 Long term (current) use of insulin; E78.5 Hyperlipidemia, unspecified; I10 Essential (primary) hypertension; I25.10 Atherosclerotic heart disease of native coronary artery without angina pectoris; I69.393 Ataxia following cerebral infarction; Z87.19 Personal history of other diseases of the digestive system
CPT/HCPCS: 70450; 70544; 70549; 70551; 71046; 72100; 72170; 80048; 80076; 82962; 85025; 94640; 97116; 97162; 97166; 97530; 97535; 97802; 99284; A9585; J7030; J7050; A4216

== ENCOUNTER 2018-05-25 06:19 | Emergency (ER) | payer MEDICARE, OTHER, SELFPAY ==
[2018-05-25 06:20] VITALS: BP 132/70; PULSE 73; RESP 14; TEMP 36.6; O2SAT 97; BMI 25.5
--- NOTE | 2018-05-25 06:40 | RAD_ITS ---
STUDY: X-RAY CHEST REASON FOR EXAM: Male, 83 years old. Chest pain extending into the neck. TECHNIQUE: Single AP portable view of the chest. COMPARISON: 01/03/2018. FINDINGS: There are mild chronic interstitial changes in the lungs. There is no demonstrated acute pulmonary infiltrate. There is no demonstrated pleural abnormality. Normal size heart. Normal mediastinum and dion. Normal visualized pulmonary arteries. There is atherosclerotic calcification of the aortic arch with tortuosity. Normal visualized thoracic spine. Normal visualized ribs, clavicles, and shoulders. There is no demonstrated abnormality of the visualized soft tissue structures of the upper abdomen. RAD/Chest 1 View (Portable) IMPRESSION: Mild chronic interstitial changes. No evidence for acute cardiopulmonary pathology. Electronically Signed: Levy Aguilera MD at 7:35 EST , Service support ,
--- NOTE | 2018-05-25 06:40 | EKG12_ITS ---
Test Reason : CP Blood Pressure : / mmHG Vent. Rate : 076 BPM Atrial Rate : 076 BPM P-R Int : 178 ms QRS Dur : 076 ms QT Int : 378 ms P-R-T Axes : 066 -40 245 degrees QTc Int : 425 ms Normal sinus rhythm Left axis deviation ST & T wave abnormality, consider lateral ischemia Abnormal ECG Confirmed by ROCIO YU, PHYLLIS ([id number]), news editor LALITHA TAM ([id number]) on 05/27/2018 2:56:52 PM Referred By: BB Confirmed By:PHYLLIS CHAN MD
--- NOTE | 2018-05-25 06:50 | ED.DCSUM_ITS ---
History of Present Illness Informant: Patient Onset: Hours - 2-2.5 Context: Sudden Onset - woke him up from sleep Quality: like I'm hurting from the hiccups Location: left upper chest, into left kyaw-lateral neck Current Severity: Moderate Maximum Severity: Moderate Worsened by: movement, hiccups Relieved by: remaining still. not helped by EMS NTG SL x 1. Associated Symptoms: mild sob Narrative: Patient has chronic intermittent hiccups. 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 He also has a history of coronary artery disease, daughter cannot remember if or when he had catheterization of his heart, but knows that he has had no stents. He has had bilateral carotid endarterectomies and is on clopidogrel and aspirin. He lives on his own and is independent although very hard of hearing. Patient does not recall injuring or straining his chest wall in any way that he is aware of. He is currently having hiccups. No leg pain or swelling. No recent hospitalization. No recent surgery. No recent travel. <Tony Mclain - Last Filed: 05/25/18 07:47> <Kvng Joseph - Last Filed: 05/25/18 11:28> Chief Complaint: Chest Pain - Past Medical History (1) Atherosclerotic heart disease of [place] coronary artery without angina pectoris Status: Chronic (2) Diverticulitis Status: Chronic (3) GERD (gastroesophageal reflux disease) Status: Chronic (4) Gastrointestinal bleed Status: Inactive (5) Hyperlipidemia Status: Chronic (6) Hypertension Status: Chronic Comment: 104/64 (7) LEFT FRONTAL LACUNAR INFARCT Status: Chronic (8) OAB (overactive bladder) Status: Chronic (9) Type 2 diabetes mellitus Status: Chronic <Tony Mclain - Last Filed: 05/25/18 07:47> Past Medical History Surgical History: - - Rotator cuff surgery, BL carotid endarterectomies,colonoscopies, hemorrhoidectomy. Lives: Alone Smoking Status: Never smoker - Family History Maternal Family History: Family History (Last Reviewed 04/02/18 @ 12:44 by Jaida Peacock) Brother Kidney disease Mother CVA (cerebral vascular accident) Father Liver cirrhosis Family History: Reports: Diabetes, Heart Disease, Stroke Paternal Family History: Family History (Last Reviewed 04/02/18 @ 12:44 by Jaida Peacock) Brother Kidney disease Mother CVA (cerebral vascular accident) Father Liver cirrhosis Family History: Reports: No pertinent history Sibling Family History: Family History (Last Reviewed 04/02/18 @ 12:44 by Jaida Peacock) Brother Kidney disease Mother CVA (cerebral vascular accident) Father Liver cirrhosis Family History: Reports: No pertinent history <Tony Mclain - Last Filed: 05/25/18 07:47> - Family History Maternal Family History: Family History (Last Reviewed 04/02/18 @ 12:44 by Jaida Peacock) Brother Kidney disease Mother CVA (cerebral vascular accident) Father Liver cirrhosis Paternal Family History: Family History (Last Reviewed 04/02/18 @ 12:44 by Jaida Peacock) Brother Kidney disease Mother CVA (cerebral vascular accident) Father Liver cirrhosis Sibling Family History: Family History (Last Reviewed 04/02/18 @ 12:44 by Jaida Peacock) Brother Kidney disease Mother CVA (cerebral vascular accident) Father Liver cirrhosis <Kvng Joseph - Last Filed: 05/25/18 11:28> - Allergies and Home Meds Allergies/Adverse Reactions: Allergies alfuzosin Allergy (Verified 04/02/18 12:43) Other chlorpromazine [From Thorazine] Allergy (Verified 05/25/18 06:40) Other Penicillins Allergy (Verified 04/02/18 12:43) Rash Sulfa (Sulfonamide Antibiotics) Allergy (Verified 04/02/18 12:43) Swelling lisinopril Adverse Reaction (Verified 05/25/18 06:29) Other Primary Care Physician: Ronald Flannery MD [Primary Care Provider] - 1-2 Days if not improving Review of Systems General: Denies: Chills, Fever, Sweats Eyes: Denies: Visual changes - bilaterally, Diplopia ENT: Denies: Rhinorrhea, Sore throat Cardiovascular: Reports: Chest pain. Denies: Palpitations Respiratory: Reports: Dyspnea. Denies: Cough, Dyspnea on exertion Gastrointestinal: Denies: Abdominal pain, Nausea, Vomiting, Diarrhea, Melena, Hematochezia Genitourinary: Denies: Dysuria, Hematuria, Frequency Musculoskeletal: Denies: Swelling, Extremity Pain Skin: Denies: Rash, Wounds Neurological: Denies: Headache, Weakness, Numbness <Tony Mclain - Last Filed: 05/25/18 07:47> Physical Exam Vital Signs/Narrative: Vital Signs Temp Pulse Resp BP Pulse Ox 05/25/18 06:20 97.8 F 73 14 132/70 H 97 Inital Vital Signs reviewed: Yes General: Well nourished, Well developed, - - continuously hiccuping Head: Normocephalic, Atraumatic Eyes: Perrl, EOMI ENT: Moist mucous membranes, No rhinorrhea Neck: Supple. Negative for: Nontender - mild tenderness to palpation at anterior half of left sternocleidomastoid. pain is worsened w/ turning head to the right. Cardiovascular: Regular rate, Regular rhythm, No murmurs Respiratory: No distress, CTA bilaterally, Chest tenderness - left upper chest, lateral aspect of pectorals, reproducing pt's pain. pain is worsened by reaching LUE across chest. Abdomen: Soft, Nontender, Nondistended, Normal bowel sounds Back: Nontender, Normal Inspection Extremities: Nontender, No edema Skin: Normal color, No rash Neurological: Alert, Oriented x3, Cranial nerves II-XII grossly intact, Normal Strength, Normal Sensation Psychological: Normal affect <Tony Mclain - Last Filed: 05/25/18 07:47> Vital Signs/Narrative: Vital Signs Temp Pulse Resp BP Pulse Ox 05/25/18 06:20 97.8 F 73 14 132/70 H 97 <Kvng Joseph - Last Filed: 05/25/18 11:28> Diagnostic/Tx/Re-eval - Rhythm Strip Rhythm Strip: Sinus Rhythm Rate: 80 Ectopy: None - EKG Initial EKG Interpretation: Sinus Rhythm, No Acute Injury Pattern, Non-Specific ST Changes - inf and laterally - Medical Decision Making EKG shows no acute injury pattern, his chest x-ray is unremarkable on my interpretation and labs are pending. My suspicion is that this is truly musculoskeletal left-sided chest pain. I am able to reproduce all of his symptoms by musculoskeletal maneuvers and palpation. He has chronic hiccups that have been attempted to be treated multiple times in the past, they come and go and the daughter states that there seems there is nothing that can be done about them, but that is not a new problem. It certainly could be related to his musculoskeletal chest discomfort. Patient will be turned over to the oncoming emergency physician, I discussed with the daughter regarding a delta troponin since he came in at 2-2.5 hours after the onset, she is amenable to this, if the first troponin is negative it will be repeated 3 hours later and if negative again I think discharging home with supportive care is reasonable. <Tony Mclain - Last Filed: 05/25/18 07:47> - Medical Decision Making Patient was turned over to me by the overnight physician Dr. Brandon Mclain. Patient's test results so far unremarkable. His CBC is basically normal. Chemistries are unremarkable. His blood sugar is 258. Initial troponin is normal. Chest x-ray shows chronic changes no acute process. And his EKG is a sinus rhythm a rate of 76 with no acute signs of ischemia. He does have some nonspecific inverted T waves in V5 and V6. On repeat exam the patient is resting comfortably. Family is at bedside. He does have reproducible left upper pectoralis chest wall discomfort to palpation. Otherwise his exam is basically unremarkable. His lungs are clear. His heart is regular rhythm. Patient's repeat 3-hour troponin was unchanged and normal. A repeat EKG showed a sinus rhythm rate of 71. With an old septal infarct with J-point elevation in V2 V3 with inverted T waves. There is no significant change from prior EKG from November of this year. On repeat exam the patient is doing well on 1125. I discussed all test results with he and his family. They are comfortable with him being discharged to home. While in the emergency department patient did receive his morning insulin dose. Impressions: 1. Acute chest wall pain 2. History of insulin-dependent diabetes. <Kvng Joseph - Last Filed: 05/25/18 11:28> ED Disposition <Tony Mclain - Last Filed: 05/25/18 07:47> <Kvng Joseph - Last Filed: 05/25/18 11:28> - Plan for ED Patient: Disposition: Home or Assisted Living Chief Complaint: Chest Pain Diagnosis: Muscle strain of chest wall Instructions: ED Chest Pain Costochondritis Referrals: Ronald Flannery MD [Primary Care Provider] - 1-2 Days if not improving
[2018-05-25] MEDS: Acetaminophen 325 MG Tablet 650 MG PO (06:52)
[2018-05-25 06:56] LABS: Absolute Lymphocyte Count 1.91 X10^3/ul (0.83-4.51); Absolute Neutrophil Count 1.5 X10^3/uL (2.0-7.7); Basophil# 0.01 X10^3/uL; Basophil% 0.3 % (0-1); Eosinophil# 0.04 X10^3/uL; Hematocrit 37.7 % (40-54); Hemoglobin 13.1 g/dl (13.0-16.5); Lymphocyte # 1.91 X10^3/ul (4.0); Lymphocyte % 48.8 % (19-41); Mean Corp Hgb Conc 34.7 g/gl (32-36); Mean Corpuscular Hgb 30.2 pg (27.0-32.0); Mean Corpuscular Volume 86.9 fL (80-94); Mean Platelet Vol. 11.3 fl (6.2-12.0); Monocyte# 0.46 X10^3/uL; Monocyte% 11.8 % (0-10); Neutrophil # 1.49 X10^3/uL (2.7-7.7); Neutrophil % 38.1 % (47-70); Platelet Count 174 K/mm3 (150-450); RBC Distribution Width CV 14.2 % (11.6-14.6); RBC Distribution Width SD 44.8 fl (35.1-43.9); Red Blood Count 4.34 M/mm3 (4.6-6.2); White Blood Count 3.9 K/mm3 (4.4-11.0)
--- NOTE | 2018-05-25 06:59 | ED.RN ---
DR. CARDOSO MADE AWARE OF PATIENT'S INCREASED CHEST PAIN. HE ORDERED TYLENOL AND IT WAS GIVEN BY THIS NURSE.
[2018-05-25 07:04] LABS: POSITIVE COUNT NO; POSITIVE DIFFERENTIAL NO; POSITIVE MORPHOLOGY NO
[2018-05-25 07:31] LABS: Anion Gap 6 (5-15); BUN 12 mg/dL (7-18); BUN/Creat Ratio 13.2 RATIO (10-20); Calcium,Total 7.9 mg/dL (8.5-10.1); Chloride 108 mmol/L (98-107); Creatinine, Serum 0.91 mg/dL (0.70-1.30); EST Glomerular Filtration Rate 85 mL/min (>60); Est Glom Filt Rate - Afr Amer 102 mL/min (>60); Estimated Creatinine Clearance 60.55 ml/min; Glucose 258 mg/dL (74-106); Potassium 4.6 mmol/L (3.5-5.1); Sodium Level 139 mmol/L (136-145)
[2018-05-25 07:56] VITALS: BP 143/85; PULSE 67; RESP 15; O2SAT 98
[2018-05-25 08:37] VITALS: BP 174/93; PULSE 76; RESP 15; O2SAT 96
[2018-05-25 09:16] LABS: Bedside Glucose 226 mg/dL (70-110)
[2018-05-25 09:57] VITALS: BP 178/80; PULSE 75; RESP 17; O2SAT 96
--- NOTE | 2018-05-25 10:16 | EKG12_ITS ---
Test Reason : CP Blood Pressure : / mmHG Vent. Rate : 071 BPM Atrial Rate : 071 BPM P-R Int : 174 ms QRS Dur : 078 ms QT Int : 386 ms P-R-T Axes : 047 -40 -58 degrees QTc Int : 419 ms Normal sinus rhythm Left axis deviation Septal infarct , age undetermined T wave abnormality, consider inferolateral ischemia Abnormal ECG Confirmed by ROCIO YU, PHYLLIS ([id number]), material expeditor LALITHA TAM ([id number] on 05/27/2018 2:57:10 PM Referred By: LISETH Confirmed By:PHYLLIS CHAN MD
[2018-05-25 10:18] VITALS: BP 178/85; PULSE 73; RESP 19; O2SAT 98
--- NOTE | 2018-05-25 11:28 | ED.DEP ---
ED Disposition - Plan for ED Patient: Disposition: Home or Assisted Living Chief Complaint: Chest Pain Diagnosis: Muscle strain of chest wall Instructions: ED Chest Pain Costochondritis Referrals: Ronald Flannery MD [Primary Care Provider] - 1-2 Days if not improving Additional Instructions: Tylenol and Motrin for chest wall pain. Ice pack and warm compresses to your chest wall. Follow-up with your doctor. Return to the ER feeling worse.
[2018-05-25] MEDS: Insulin Human 75/25 Kwickpen 10 UNIT SC (11:30)
[2018-05-25 11:32] VITALS: BP 160/88; PULSE 76; RESP 17; O2SAT 99
--- OUTSIDE RECORDS SUMMARY | 2018-07-18 22:29 | XMS RPT_ITS ---
:1935 Author Organization OHIP Support Name Relationship Address Phone WILFREDO ULRICH Unavailable [address] + [place] [address] R Unavailable Unavailable Unavailable IRENE, MICHAEL Unavailable [address] + [place] [address] SERG WILFREDO Unavailable [address] + [place] [address] R Unavailable Unavailable Unavailable IRENE, MICHAEL Unavailable [address] + [place] [address] SERG, WILFREDO Unavailable [address] + [place] [address] R Unavailable Unavailable Unavailable IRENE, MICHAEL Unavailable [address] + [place] [address] SERG, WILFREDO Unavailable [address] + [place] [address] R Unavailable Unavailable Unavailable IRENE, MICHAEL Unavailable Unavailable + [place] [address] SERG, WILFREDO Unavailable [address] + [place] [address] R Unavailable Unavailable Unavailable IRENE, MICHAEL Unavailable . + [place] [address] SERG, WILFREDO Unavailable [address] + [place] [address] R Unavailable Unavailable Unavailable IRENE, MICHAEL Unavailable . + [place] [address] SERG, WILFREDO Unavailable [address] + [place] [address] R Unavailable Unavailable Unavailable IRENE, MICHAEL Unavailable . + [place] [address] SERG, WILFREDO Unavailable [address] + [place] [address] R Unavailable Unavailable Unavailable IRENE, MICHAEL Unavailable Unavailable + [place] [address] SERG WILFREDO Unavailable [address] + [place] [address] R Unavailable Unavailable Unavailable IRENE, MICHAEL Unavailable . + [place] [address] SERG WILFREDO Unavailable [address] + [place] [address] R Unavailable Unavailable Unavailable IRENE, MICHAEL Unavailable . + [place] [address] SERG WILFREDO Unavailable [address] + [place] [address] R Unavailable Unavailable Unavailable IRENE, MICHAEL Unavailable . + [place] [address] AMADA ULRICHRINA Unavailable [address] + [place] [address] R Unavailable Unavailable Unavailable IRENE, MICHAEL Unavailable . + [place] [address] SERG WILFREDO Unavailable [address] + [place] [address] R Unavailable Unavailable Unavailable IRENE, MICHAEL Unavailable . + [place] [address] SERG WILFREDO Unavailable [address] + [place] [address] R Unavailable Unavailable Unavailable IRENE, MICHAEL Unavailable . + [place] [address] SERG WILFREDO Unavailable [address] + [place] [address] R Unavailable Unavailable Unavailable IRENE, MICHAEL Unavailable . + [place] [address] SERG WILFREDO Unavailable [address] + [place] [address] R Unavailable Unavailable Unavailable IRENE, MICHAEL Unavailable . + [place] [address] SERG WILFREDO Unavailable [address] + [place] [address] R Unavailable Unavailable Unavailable IRENE, MICHAEL Unavailable . + [place] [address] Care Team Providers Name Role Phone KAITLYNN, GRIFFIN Attending Unavailable CALDERÓN, GRIFFIN Referring Unavailable CALDERÓN, GRIFFIN Attending Unavailable CALDERÓN, GRIFFIN Referring Unavailable CALDERÓN, GRIFFIN Referring Unavailable CALDERÓN, GRIFFIN Attending Unavailable CALDERÓN, GRIFFIN Attending Unavailable CALDERÓN, GRIFFIN Referring Unavailable ShookFidelia FISH SMOKER-C Attending Unavailable Calderón, Ronald Referring Unavailable Shook, Fidelia Huynh FISH SMOKER-C Attending Unavailable Calderón, Ronald Referring Unavailable Calderón, Ronald Primary Care Unavailable Estefania Tobin Attending Unavailable Michelle Sierra Attending Unavailable Adore Smith Attending Unavailable Calderón, Ronald Referring Unavailable Calderón, Ronald Primary Care Unavailable Calderón, Ronald Primary Care Unavailable Josr Lobato Attending Unavailable Shoraul, Fidelia Huynh FISH SMOKER-C Attending Unavailable Calderón, Ronald Referring Unavailable ShoFidelia carter FISH SMOKER-C Attending Unavailable Calderón, Ronald Referring Unavailable Calderón, Ronald Primary Care Unavailable Calderón, Ronald Primary Care Unavailable Paintsil, [place] Admitting Unavailable Radha Xie Attending Unavailable Paintsil, [place] Admitting Unavailable Paintsil, [place] Attending Unavailable Calderón, Ronald Primary Care Unavailable Paintsil, [place] Consulting Unavailable Paintsil, [place] Admitting Unavailable Paintsil, [place] Attending Unavailable Calderón, Ronald Primary Care Unavailable Paintsil, [place] Consulting Unavailable Paintsil, [place] Admitting Unavailable Paintsil, [place] Attending Unavailable Calderón, Ronald Primary Care Unavailable Paintsil, [place] Consulting Unavailable Paintsil, [place] Admitting Unavailable Calderón, Ronald Primary Care Unavailable Radha Xie Consulting Unavailable Radha Xie Attending Unavailable Fidelia Bustillo FISH SMOKER-C Attending Unavailable Calderón, Ronald Referring Unavailable ShoFidelia carter FISH SMOKER-C Attending Unavailable Calderón, Ronald Referring Unavailable Calderón, Ronald Primary Care Unavailable TONY PADILLA Attending Unavailable Calderón, Ronald Primary Care Unavailable León, Brock Admitting Unavailable Marci, [place] Consulting Unavailable Loida Mac Attending Unavailable PROBLEMS PROBLEMS DATE TYPE CONDITION / CODE ATTENDING STATUS SOURCE 01/29/2018 Active Anemia, unspecified NA Active [place] / D64.9(ICD-10) [facility] Main [place] Repository 07/25/2015 Active Mixed hyperlipidemia NA Active [place] / E78.2(ICD-10) Clinic Main [place] Repository 11/16/2015 Active Essential (primary) KAITLYNN, Active [place] hypertension / [facility] Main I10(ICD-10) [place] Repository 11/16/2015 Active Type 2 diabetes KAITLYNN, Active [place] mellitus with [facility] Main diabetic neuropathy, [place] unspecified / Repository E11.40(ICD-10) 11/16/2015 Active 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) KAITLYNN, Active [place] use of insulin / [facility] Main Z79.4(ICD-10) [place] Repository 11/16/2015 Active Type 2 diabetes KAITLYNN, Active [place] mellitus with [facility] Main hyperglycemia / [place] E11.65(ICD-10) Repository 12/05/2017 Active Cough / R05(ICD-10) KAITLYNN, Active [facility] Main [place] Repository 12/05/2017 Active Encounter for KAITLYNN, Active [place] immunization / [facility] Main Z23(ICD-10) [place] Repository 08/23/2017 Unknown E11.9 - Type 2 Fidelia Bustillo Active [place] diabetes mellitus FISH SMOKER[facility] complications / Repository E11.9(ICD-10) PROCEDURES PROCEDURES No Procedure Records FoundRESULTS RESULTS 12 LEAD ELECTROCARDIOGRAM Observed: 05/27/2018 Status: F Source: [place] 2:57 PM [facility]POS[facility] Cardiovascular Services [address] [place] [address] 12 Lead EKG 05/25/18 0622 MR#: [id number] Acct: [id number] Name: WE[facility] MANUEL Rep #: [id number] : 1935 83 From: Dexter Chan MD Attending Dr: Status: DEP ER Ordering Dr: Tony Padilla MD Date: 05/25/18 Location: ED Sex: M AA Admitted: Test Reason : CP Blood Pressure : / mmHG Vent. Rate : 076 BPM Atrial Rate : 076 BPM P-R Int : 178 ms QRS Dur : 076 ms QT Int : 378 ms P-R-T Axes : 066 -40 245 degrees QTc Int : 425 ms Normal sinus rhythm Left axis deviation ST AND T wave abnormality, consider lateral ischemia Abnormal ECG Confirmed by DEXTER CHAN MD ([id number]), features editor LALITHA TAM ([id number]) on 05/27/2018 2:56:52 PM Referred By: GLORIA Confirmed By:DEXTER CHAN MD 05/27/18 7377 Date Dexter Chan MD CC: TONY PADILLA MD; Ronald Calderón MD Signed 12 LEAD ELECTROCARDIOGRAM Observed: 05/27/2018 Status: F Source: [place] 2:57 PM [facility] REPOSITORY [facility] Cardiovascular [facility] [address] [address] 12 Lead EKG 05/25/18 1025 MR#: [id number] Acct: [id number] Name: WEST MANUEL Rep #: [id number] : 1935 83 From: Dexter Chan MD Attending Dr: Status: DEP ER Ordering Dr: Kvng Joseph MD Date: 05/25/18 Location: ED Sex: M AA Admitted: Test Reason : CP Blood Pressure : / mmHG Vent. Rate : 071 BPM Atrial Rate : 071 BPM P-R Int : 174 ms QRS Dur : 078 ms QT Int : 386 ms P-R-T Axes : 047 -40 -58 degrees QTc Int : 419 ms Normal sinus rhythm Left axis deviation Septal infarct , age undetermined T wave abnormality, consider inferolateral ischemia Abnormal ECG Confirmed by DEXTER CHAN MD ([id number]), features editor LALITHA TAM ([id number]) on 05/27/2018 2:57:10 PM Referred By: LISETH Confirmed By:DEXTER CHAN MD 05/27/18 2169 Date Dexter Chan MD CC: TONY PADILLA MD; Kvng Joseph MD; Ronald Calderón MD Signed EMERGENCY DEPARTMENT Observed: 05/25/2018 Status: F Source: [place] SUMMARY 10:33 PM [facility] REPOSITORY [facility] Medical Records Department [address] [place] [address] Emergency Department Summary 05/25/18 0642 MR#: [id number] Acct: [id number] Name: WEST MANUEL Rep #: [id number] : 1935 83 From: Tony Padilla MD PCP: Ronald Calderón MD Status: DEP ER History of Present Illness Informant: Patient Onset: Hours - 2-2.5 Context: Sudden Onset - woke him up from sleep Quality: like I'm hurting from the hiccups Location: left upper chest, into left kyaw-lateral neck Current Severity: Moderate Maximum Severity: Moderate Worsened by: movement, hiccups Relieved by: remaining still. not helped by EMS NTG SL x 1. Associated Symptoms: mild sob Narrative: Patient has chronic intermittent hiccups. 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 He also has a history of coronary artery disease, daughter cannot remember if or when he had catheterization of his heart, but knows that he has had no stents. He has had bilateral carotid endarterectomies and is on clopidogrel and aspirin. He lives on his own and is independent although very hard of hearing. Patient does not recall injuring or straining his chest wall in any way that he is aware of. He is currently having hiccups. No leg pain or swelling. No recent hospitalization. No recent surgery. No recent travel. <Tony Padilla - Last Filed: 05/25/18 07:47> <Kvng Joseph - Last Filed: 05/25/18 11:28> Chief Complaint: Chest Pain - Past Medical History (1) Atherosclerotic heart disease of [place] coronary artery without angina pectoris Status: Chronic (2) Diverticulitis Status: Chronic (3) GERD (gastroesophageal reflux disease) Status: Chronic (4) Gastrointestinal bleed Status: Inactive (5) Hyperlipidemia Status: Chronic (6) Hypertension Status: Chronic Comment: 104/64 (7) LEFT FRONTAL LACUNAR INFARCT Status: Chronic (8) OAB (overactive bladder) Status: Chronic (9) Type 2 diabetes mellitus Status: Chronic <Tony Padilla - Last Filed: 05/25/18 07:47> Past Medical History Surgical History: - - Rotator cuff surgery, BL carotid endarterectomies,colonoscopies, hemorrhoidectomy. Lives: Alone Smoking Status: Never smoker - Family History Maternal Family History: Family History (Last Reviewed 04/02/18 @ 12:44 by Jaida Peacock) Brother Kidney disease Mother CVA (cerebral vascular accident) Father Liver cirrhosis Family History: Reports: Diabetes, Heart Disease, Stroke Paternal Family History: Family History (Last Reviewed 04/02/18 @ 12:44 by Jaida Peacock) Brother Kidney disease Mother CVA (cerebral vascular accident) Father Liver cirrhosis Family History: Reports: No pertinent history Sibling Family History: Family History (Last Reviewed 04/02/18 @ 12:44 by Jaida Peacock) Brother Kidney disease Mother CVA (cerebral vascular accident) Father Liver cirrhosis Family History: Reports: No pertinent history <Tony Padilla - Last Filed: 05/25/18 07:47> - Family History Maternal Family History: Family History (Last Reviewed 04/02/18 @ 12:44 by Jaida Peacock) Brother Kidney disease Mother CVA (cerebral vascular accident) Father Liver cirrhosis Paternal Family History: Family History (Last Reviewed 04/02/18 @ 12:44 by Jaida Peacock) Brother Kidney disease Mother CVA (cerebral vascular accident) Father Liver cirrhosis Sibling Family History: Family History (Last Reviewed 04/02/18 @ 12:44 by Jaida Peacock) Brother Kidney disease Mother CVA (cerebral vascular accident) Father Liver cirrhosis <Kvng Joseph - Last Filed: 05/25/18 11:28> - Allergies and Home Meds Allergies/Adverse Reactions: Allergies alfuzosin Allergy (Verified 04/02/18 12:43) Other chlorpromazine [From Thorazine] Allergy (Verified 05/25/18 06:40) Other Penicillins Allergy (Verified 04/02/18 12:43) Rash Sulfa (Sulfonamide Antibiotics) Allergy (Verified 04/02/18 12:43) Swelling lisinopril Adverse Reaction (Verified 05/25/18 06:29) Other Primary Care Physician: Ronald Calderón MD [Primary Care Provider] - 1-2 Days if not improving Review of Systems General: Denies: Chills, Fever, Sweats Eyes: Denies: Visual changes - bilaterally, Diplopia ENT: Denies: Rhinorrhea, Sore throat Cardiovascular: Reports: Chest pain. Denies: Palpitations Respiratory: Reports: Dyspnea. Denies: Cough, Dyspnea on exertion Gastrointestinal: Denies: Abdominal pain, Nausea, Vomiting, Diarrhea, Melena, Hematochezia Genitourinary: Denies: Dysuria, Hematuria, Frequency Musculoskeletal: Denies: Swelling, Extremity Pain Skin: Denies: Rash, Wounds Neurological: Denies: Headache, Weakness, Numbness <Tony Padilla - Last Filed: 05/25/18 07:47> Physical Exam Vital Signs/Narrative: Vital Signs 05/25/18 06:20 97.8 F 73 14 132/70 H 97 Inital Vital Signs reviewed: Yes General: Well nourished, Well developed, - - continuously hiccuping Head: Normocephalic, Atraumatic Eyes: Perrl, EOMI ENT: Moist mucous membranes, No rhinorrhea Neck: Supple. Negative for: Nontender - mild tenderness to palpation at anterior half of left sternocleidomastoid. pain is worsened w/ turning head to the right. Cardiovascular: Regular rate, Regular rhythm, No murmurs Respiratory: No distress, CTA bilaterally, Chest tenderness - left upper chest, lateral aspect of pectorals, reproducing pt's pain. pain is worsened by reaching LUE across chest. Abdomen: Soft, Nontender, Nondistended, Normal bowel sounds Back: Nontender, Normal Inspection Extremities: Nontender, No edema Skin: Normal color, No rash Neurological: Alert, Oriented x3, Cranial nerves II-XII grossly intact, Normal Strength, Normal Sensation Psychological: Normal affect <Tony Padilla - Last Filed: 05/25/18 07:47> Vital Signs/Narrative: Vital Signs 05/25/18 06:20 97.8 F 73 14 132/70 H 97 <Kvng Joseph - Last Filed: 05/25/18 11:28> Diagnostic/Tx/Re-eval - Rhythm Strip Rhythm Strip: Sinus Rhythm Rate: 80 Ectopy: None - EKG Initial EKG Interpretation: Sinus Rhythm, No Acute Injury Pattern, Non- Specific ST Changes - inf and laterally - Medical Decision Making EKG shows no acute injury pattern, his chest x-ray is unremarkable on my interpretation and labs are pending. My suspicion is that this is truly musculoskeletal left-sided chest pain. I am able to reproduce all of his symptoms by musculoskeletal maneuvers and palpation. He has chronic hiccups that have been attempted to be treated multiple times in the past, they come and go and the daughter states that there seems there is nothing that can be done about them, but that is not a new problem. It certainly could be related to his musculoskeletal chest discomfort. Patient will be turned over to the oncoming emergency physician, I discussed with the daughter regarding a delta troponin since he came in at 2-2.5 hours after the onset, she is amenable to this, if the first troponin is negative it will be repeated 3 hours later and if negative again I think discharging home with supportive care is reasonable. <Tony Padilla - Last Filed: 05/25/18 07:47> - Medical Decision Making Patient was turned over to me by the overnight physician Dr. Brandon Padilla. Patient's test results so far unremarkable. His CBC is basically normal. Chemistries are unremarkable. His blood sugar is 258. Initial troponin is normal. Chest x-ray shows chronic changes no acute process. And his EKG is a sinus rhythm a rate of 76 with no acute signs of ischemia. He does have some nonspecific inverted T waves in V5 and V6. On repeat exam the patient is resting comfortably. Family is at bedside. He does have reproducible left upper pectoralis chest wall discomfort to palpation. Otherwise his exam is basically unremarkable. His lungs are clear. His heart is regular rhythm. Patient's repeat 3-hour troponin was unchanged and normal. A repeat EKG showed a sinus rhythm rate of 71. With an old septal infarct with J-point elevation in V2 V3 with inverted T waves. There is no significant change from prior EKG from November of this year. On repeat exam the patient is doing well on 1125. I discussed all test results with he and his family. They are comfortable with him being discharged to home. While in the emergency department patient did receive his morning insulin dose. Impressions: 1. Acute chest wall pain 2. History of insulin-dependent diabetes. <Kvng Joseph - Last Filed: 05/25/18 11:28> ED Disposition <Tony Padilla - Last Filed: 05/25/18 07:47> <Kvng Joseph - Last Filed: 05/25/18 11:28> - Plan for ED Patient: Disposition: Home or Assisted Living Chief Complaint: Chest Pain Diagnosis: Muscle strain of chest wall Instructions: ED Chest Pain Costochondritis Referrals: Ronald Calderón MD [Primary Care Provider] - 1-2 Days if not improving What to do if you have Problems For any increased pain, shortness of breath, bleeding, nausea or vomiting, chest pain, or any unexpected problems, contact your Primary Care Provider. Call [facility] ([phone]) or report to the closest Emergency Room. Call 911 if necessary. 05/25/18 2233 <Electronically signed by Tony Padilla MD> Date Tony Padilla MD 05/25/18 1637<Electronically signed by Kvng Joseph MD> Cosigner Signature (If Indicated): Date Kvng Joseph MD CC: Ronald Calderón MD DISCHARGE INSTRUCTION Observed: 05/25/2018 Status: F Source: [place] 4:37 PM [facility] REPOSITORY [facility] Medical Records Department [address] [place] [address] Discharge Instruction 05/25/18 1128 MR#: [id number] Acct: [id number] Name: WEST MANUEL Rep #: [id number] : 1935 83 From: Kvng Joseph MD PCP: Ronald Calderón MD Status: [facility] ER ED Disposition - Plan for ED Patient: Disposition: Home or Assisted Living Chief Complaint: Chest Pain Diagnosis: Muscle strain of chest wall Instructions: ED Chest Pain Costochondritis Referrals: Ronald Calderón MD [Primary Care Provider] - 1-2 Days if not improving Additional Instructions: Tylenol and Motrin for chest wall pain. Ice pack and warm compresses to your chest wall. Follow-up with your doctor. Return to the ER feeling worse. What to do if you have Problems For any increased pain, shortness of breath, bleeding, nausea or vomiting, chest pain, or any unexpected problems, contact your Primary Care Provider. Call [facility] ([phone]) or report to the closest Emergency Room. Call 911 if necessary. 05/25/18 4597 <Electronically signed by Kvng Joseph MD> Date Kvng Joseph MD Cosigner Signature (If Indicated): Date CC: Ronald Calderón MD TROPONIN-I Collected: 05/25/2018 Status: F Source: [place] 9:54 AM [facility] REPOSITORY Order Comment: 'TROP' Serial specimen #1, #2 or #3: 2 TYPE CODE TESTS RESULT OUT OF RANGE REFERENCE UNITS LAB L501.4010 <0.045 ng/mL Normal < 0.015 TROPONIN-I Result Comment: TROPONIN-I EXPECTED VALUES <0.045 Negative 0.045 - 0.590 Consistent with Cardiac Damage > OR = 0.600 Critical Value Not every elevated troponin is indicative of OK. These values should be used with clinical judgement in examining the patient's clinical picture for diagnosis. To establish a diagnosis of OK versus myocardial injury, there must be a demonstrated rise and/or fall in the troponin values, in addition to ischemic symptoms, EKG changes, new regional wall motion abnormality, and/or angiographical evidence. PLEASE NOTE: REFERENCE RANGES EDITED 17 Performed By: #### L501.4010 #### [facility] [address] [place], [address] BEDSIDE GLUCOSE Collected: 05/25/2018 Status: F Source: [place] 9:06 AM [facility] REPOSITORY TYPE CODE TESTS RESULT OUT OF REFERENCE UNITS RANGE LAB L501.080 70-110 mg/dL High BEDSIDE GLU 226 Result Comment: MANAGEMENT OF PATIENT CARE PER NURSING PROTOCOL Performed By: #### L501.080 #### [facility] Point of Care [address] [place] [address] CHEST 1 VIEW Observed: 05/25/2018 Status: F Source: [place] (PORTABLE) 6:43 AM [facility] REPOSITORY [facility] Imaging Services [address] [place] [address] Chest 1 View (Portable) MR#: [id number] Acct: [id number] Name: WEST MANUEL Rep #: [id number] : 1935 M 83 From: Levy Aguilera MD PCP: Ronald Calderón MD Status: DEP ER Study: Chest 1 View (Portable) Date of Exam: 05/25/18 Exam# [id number] Ordering Dr: Tony Padilla MD STUDY: X-RAY CHEST REASON FOR EXAM: Male, 83 years old. Chest pain extending into the neck. TECHNIQUE: Single AP portable view of the chest. COMPARISON: 01/03/2018. FINDINGS: There are mild chronic interstitial changes in the lungs. There is no demonstrated acute pulmonary infiltrate. There is no demonstrated pleural abnormality. Normal size heart. Normal mediastinum and dion. Normal visualized pulmonary arteries. There is atherosclerotic calcification of the aortic arch with tortuosity. Normal visualized thoracic spine. Normal visualized ribs, clavicles, and shoulders. There is no demonstrated abnormality of the visualized soft tissue structures of the upper abdomen. RAD/Chest 1 View (Portable) IMPRESSION: Mild chronic interstitial changes. No evidence for acute cardiopulmonary pathology. Electronically Signed: Levy Aguilera MD at 7:35 EST , Service support , CC: TONY PADILLA MD; Ronald Calderón MD Fitness Assistant: Signed CBC W/DIFF, AUTOMATED Collected: 05/25/2018 Status: F Source: [place] 6:30 AM [facility] REPOSITORY TYPE CODE TESTS RESULT OUT OF RANGE REFERENCE UNITS LAB L100.1000 4.4-11.0 K/mm3 Low WBC 3.9 LAB L100.1200 4.6-6.2 M/mm3 Low RBC 4.34 LAB L100.1300 13.0-16.5 g/dl Normal HGB 13.1 LAB L100.1400 40-54 % Low HCT 37.7 LAB L100.1500 80-94 fL Normal MCV 86.9 LAB L100.1600 27.0-32.0 pg Normal MCH 30.2 LAB L100.1700 32-36 g/gl Normal MCHC 34.7 LAB L100.1810 11.6-14.6 % Normal RDW CV 14.2 LAB L100.1820 35.1-43.9 fl High RDW SD 44.8 LAB L100.1900 150-450 K/mm3 Normal PLT 174 LAB L100.2000 6.2-12.0 fl Normal MPV 11.3 LAB L100.2100 47-70 % Low NEUT% 38.1 LAB L100.2200 19-41 % High LY% 48.8 LAB L100.2300 0-10 % High MONO% 11.8 LAB L100.2400 0-5 % Normal EO% 1.0 LAB L100.2500 0-1 % Normal BASO% 0.3 LAB L100.2550 0.0-0.9 % Normal IM GRAN % 0.000 Result Comment: IG% - Immature Granulocytes (promyelocytes, myelocytes and metamyelocytes) > 1% indicates that a LEFT SHIFT is Present. LAB L100.2620 2.0-7.7 X10 3/uL Low Absolute Neut 1.5 LAB L100.2720 0.83-4.51 X10 3/ul Normal Absolute Lymph 1.91 Performed By: #### L100.0100 #### [facility] [address] [place], [address] BASIC METABOLIC Collected: 05/25/2018 Status: F Source: [place] PROFILE (BMP) 6:30 AM [facility] REPOSITORY TYPE CODE TESTS RESULT OUT OF RANGE REFERENCE UNITS LAB L501.0100 74-106 mg/dL High GLU 258 Result Comment: Glucose result greater than or equal to 200 mg/dL suggests DIABETES MELLITUS per A.D.A. criteria. Please note revised GLUCOSE reference range effective 2017. LAB L501.1000 7-18 mg/dL Normal BUN 12 LAB L501.1100 0.70-1.30 mg/dL Normal CREAT,SERUM 0.91 Result Comment: The validity of the calculated GFR AND GFRAA in patients over 70 years has not been determined. Clinical correlation is essential. LAB L501.1110 >60 mL/min Normal EST GFR 85 Result Comment: Non- GFR Calc LAB L501.1115 >60 mL/min Normal EST GFR - AA 102 Result Comment: GFR Calc LAB L501.1255 ml/min Normal Estimated CRCL 60.55 LAB L501.1300 10-20 RATIO Normal BUN/CRE 13.2 LAB L501.2200 8.5-10 mg/dL Low .1 CA 7.9 LAB L501.5300 136-14 mmol/L Normal 5 NA 139 LAB L501.5600 3.5-5. mmol/L Normal 1 K 4.6 Result Comment: Moderate Hemolysis, Result may be falsely increased. LAB L501.5900 98-107 mmol/L High CL 108 LAB L501.6100 21.0-32.0 mmol/L Normal CO2 25.0 LAB L501.6200 5-15 Normal 6 GAP Performed By: #### L500.2500, L501.4010 #### [facility] [address] [place], [address] TROPONIN-I Collected: 05/25/2018 Status: F Source: [place] 6:30 AM [facility] REPOSITORY TYPE CODE TESTS RESULT OUT OF RANGE REFERENCE UNITS LAB L501.4010 <0.045 ng/mL Normal < 0.015 TROPONIN-I Result Comment: TROPONIN-I EXPECTED VALUES <0.045 Negative 0.045 - 0.590 Consistent with Cardiac Damage > OR = 0.600 Critical Value Not every elevated troponin is indicative of OK. These values should be used with clinical judgement in examining the patient's clinical picture for diagnosis. To establish a diagnosis of OK versus myocardial injury, there must be a demonstrated rise and/or fall in the troponin values, in addition to ischemic symptoms, EKG changes, new regional wall motion abnormality, and/or angiographical evidence. PLEASE NOTE: REFERENCE RANGES EDITED 17 Performed By: #### L500.2500, L501.4010 #### [facility] [address] [place], [place], [address] ALBUMIN/CREAT RATIO Collected: 04/23/2018 Status: F Source: [place] 4:57 PM [facility] REPOSITORY TYPE CODE TESTS RESULT OUT OF REFERENCE UNITS RANGE LAB UCRR 20-300 mg/dL 105.7 Creatinine,Ur ine,Ran LAB UALBR 0.0-23.0 mg/L <12.0 Albumin Urine Random LAB UALBCR 0-30 mg/g Not Albumin/Creat calculated Ratio Performed By: #### UACR #### [facility] [address], [place] [address] CBC Collected: 04/23/2018 Status: F Source: [place] 4:55 PM [facility] REPOSITORY TYPE CODE TESTS RESULT OUT OF REFERENCE UNITS RANGE LAB WBC 3.70-11.00 k/uL WBC 4.38 LAB RBC 4.20-6.00 m/uL RBC 4.40 LAB HGB 13.0-17.0 g/dL Hemoglobin 13.5 LAB HCT 39.0-51.0 % Hematocrit 40.2 LAB MCV 80.0-100.0 fL MCV 91.4 LAB MCH 26.0-34.0 pG MCH 30.7 LAB MCHC 30.5-36.0 g/dL MCHC 33.6 LAB RDWCV 11.5-15.0 % RDW-CV 14.6 LAB PLTCT 150-400 k/uL Platelet Count 183 LAB MPV 9.0-12.7 fL MPV 12.6 LAB ABSNUC <0.01 k/uL Absolute nRBC <0.01 Performed By: #### CBC, BMP, LIPNF, HBA1C #### [facility] [employer] [address], [place] [address] BASIC METABOLIC PANL Collected: 04/23/2018 Status: F Source: [place] 4:55 PM [facility] REPOSITORY TYPE CODE TESTS RESULT OUT OF REFERENCE UNITS RANGE LAB GLU 74-99 mg/dL High Glucose 209 Result Comment: The [place] Diabetes Association (ADA) provides guidance for cutoff values for fasting glucose and random glucose. The ADA defines fasting as no caloric intake for at least 8 hours. Fas ting plasma glucose results between 100 to 125 mg/dL indicate increased risk for diabetes (prediabetes). Fasting plasma glucose results greater than or equal to 126 mg/dL meet the criteria for diagnosis of diabetes. In the absence of unequivocal hyperglycemia, results should be confirmed by repeat testing. In a patient with classic symptoms of hyperglycemia or hyperglycemic crisis, random plasma glucose results greater than or equal to 200 mg/dL meet the criteria for diagnosis of diabetes. Reference: Standards of Medical Care in Diabetes 2016, [place] [employer] Association. Diabetes Care. 2016.39(Suppl 1). LAB BUN 9-24 mg/dL BUN 12 LAB CRET 0.73-1.22 mg/dL Creatinine 0.98 LAB NA 136-144 mmol/L Sodium 139 LAB K 3.7-5.1 mmol/L Potassium 4.3 LAB CL 97-105 mmol/L Chloride 102 LAB CO2 22-30 mmol/L CO2 26 LAB AGAP 9-18 mmol/L Anion Gap 11 LAB CA 8.5-10.2 mg/dL Calcium, Total 8.8 LAB GFRAA eGFR- Amer. >60 LAB GFRNAA . eGFR-All Other Races >60 Result Comment: eGFR (Estimated GFR) Units of measure: mL/min/1.73 meters squared eGFR is derived from the reexpressed MDRD Study equation using the following parameters: serum creatinine, age, gender and race. The creatinine assay has been calibrated to be traceable to IDMS. An eGFR <60 mL/min/1.73m2 for >3 months is consistent with chronic kidney disease. Refer to KDOQI guidelines for clinical interpretation. In patients with unstable renal function, e.g. those with acute kidney injury, the eGFR may not accurately reflect actual GFR. Performed By: #### CBC, BMP, LIPNF, HBA1C #### [facility] [address] [place], [place] [address] LIPID PANEL, NONFAST Collected: 04/23/2018 Status: F Source: [place] 4:55 PM [facility] REPOSITORY TYPE CODE TESTS RESULT OUT OF REFERENCE UNITS RANGE LAB CHOLNF <200 mg/dL Total Cholesterol NF 93 Result Comment: <200 mg/dL, Desirable 200-239 mg/dL, Borderline high >239 mg/dL, High LAB TRIGNF <150 mg/dL Triglycerides, NF 86 Result Comment: <150 mg/dL, Normal 150-199 mg/dL, Borderline high 200-499 mg/dL, High >499 mg/dL, Very high LAB HDLNF >39 mg/dL HDL Cholesterol, NF Low 34 Result Comment: 40-59 mg/dL, Acceptable >59 mg/dL, High: Negative risk factor for coronary heart disease <40 mg/dL, Low: Positive risk factor for coronary heart disease LAB LDLNF <100 mg/dL LDL Cholesterol, NF 42 Result Comment: <100 mg/dL, Optimal 100-129 mg/dL, Near optimal/above optimal 130-159 mg/dL, Borderline high 160-189 mg/dL, High >189 mg/dL, Very high Secondary prevention optimal LDL Cholesterol levels are recommended to be < 70 mg/dL LAB NOHDLN <130 mg/dL Non HDL Chol, 59 NF Result Comment: <130 mg/dL, Optimal 130-159 mg/dL, Near optimal/above optimal 160-189 mg/dL, Borderline high 190-219 mg/dL, High >219 mg/dL, Very high Secondary prevention optimal non HDL Cholesterol levels are recommended to be < 100 mg/dL LAB VLDLNF <30 mg/dL VLDL Cholesterol, NF 17 LAB TCHDLN <5.10 mg/dL T Chol/HDL Ratio NF 2.74 LAB LDLHDN <2.54 mg/dL LDL/HDL Ratio, NF 1.24 Result Comment: Reference: 1. National Cholesterol Education Program ATP III Guideline At-A-Glance Quick Desk Reference: National Heart, Lung, and Blood [place]. National Institutes of Health. 2001: NIH Publication No. 01-3305. 2. An International Atherosclerosis Society position paper: global recommendations for the management of dyslipidemia: executive summary, Atherosclerosis. 2014: 232(2):410-413. Performed By: #### CBC, BMP, LIPNF, HBA1C #### [facility] [address] [place], [place] [address] HEMOGLOBIN A1C Collected: 04/23/2018 Status: F Source: [place] 4:55 PM [facility] REPOSIT[facility] TYPE CODE TESTS RESULT OUT OF REFERENCE UNITS RANGE LAB HGBA1C 4.3-5.6 % High Hemoglobin A1c 9.0 LAB HBA0 mg/dL Est. Average Glucose 212 Result Comment: eAG: (Estimated average glucose) is a calculated value from HgbA1c and is outside sales representative insurance of the average blood glucose level in the last 2-3 month period. Performed By: #### CBC, BMP, LIPNF, HBA1C #### [facility] [address] [place], [place] [address] PROGRESS Observed: 04/23/2018 Status: COMPLETED Source: [place] 4:37 PM [facility] REPOSITORY HNO ID: [id number] Author: Ronald Calderón Service: (none) Author Type: Physician Type: Progress Notes Filed: 04/23/2018 4:46 PM Note Text: This note was created using [employer]. Subjective West Manuel is a 83 year old male here with his daughter. His cough was much better off lisinopril. Postnasal drainage was controlled. His hypertension was still controlled. His lipids needed rechecked, but he was not fasting today. His diabetes mellitus continued to be labile. He just saw non [facility] endocrinlogy [facility]MOKER and no changes to his insulin were made. There was more concern about hypoglycemia which led to weakness and admission 3 months ago. 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 insulin detemir U-100 (LEVEMIR FLEXTOUCH U-100 INSULN) 100 unit/mL (3 mL) inpn injection Inject 24 Units subcutaneously daily at bedtime. clopidogrel (PLAVIX) 75 mg tablet Take 1 tablet by mouth once daily. Per Dr. Covarrubias. albuterol HFA (PROVENTIL HFA, VENTOLIN HFA) 90 mcg/actuation inhaler Inhale 2 Puffs as instructed every 6 hours as needed (cough, wheezing.). Use with spacer device. NOVOLOG FLEXPEN U-100 INSULIN 100 unit/mL inpn INJECT 10 UNITS SUBQ THREE TIMES A DAY WITH A MEAL ADD THE FOLLOWING UNITS DEPENDING Ranitidine HCl 150 mg capsule Take 2 capsules by mouth daily at bedtime. Due to pill dysphagia. atorvastatin (LIPITOR) 40 mg tablet Take 2 tablets by mouth daily at bedtime. Due to pill dysphagia. blood sugar diagnostic (ACCU-CHEK SENG) test strip Check blood sugars 6 times daily. Insulin dependent Dx E11.40 Diaper,Brief, Adult,Disposable (DEPEND PROTECTION SZ S-M) misc Use 3 times a day as directed. Dx: N39.41, N40.1 polyethylene glycol 3350 (MIRALAX, GLYCOLAX) 17 gram packet Take 0.5 Packets by mouth once daily. Insulin [place], Disposable, (BD ULTRAFINE III MINI PEN) 31 gauge x 3/16 ndle Uses 5 daily Lancets (ACCU-CHEK MULTICLIX LANCET) lancets Check 4 times a day. CPAP Use as directed No current facility-administered medications for this visit. Review of Systems Respiratory: Positive for cough. Negative for shortness of breath and wheezing. Cardiovascular: Negative. Gastrointestinal: Negative. Musculoskeletal: Positive for gait problem. Neurological: Positive for weakness. Objective BP 124/65 (BP Site: Right Arm, BP Position: Sitting, BP Cuff Size: Regular Adult) Pulse 74 Temp 37.2 ?C (99 ?F) (Tympanic) Resp 16 Wt 74.4 kg (164 lb) SpO2 97% BMI 24.94 kg/m? Physical Exam Constitutional: No distress. Cardiovascular: Normal rate, regular rhythm and normal heart sounds. Exam reveals no gallop. No murmur heard. Pulmonary/Chest: No respiratory distress. He has no wheezes. He has rhonchi. He has no rales. Musculoskeletal: He exhibits no edema. Neurological: He is alert. Ambulatory with cane. Glucose meter data or log was reviewed. Range: 136-391. Average: 233. Patient was testing QID. Higher frequency of testing needed: yes. Reason: uncontrolled DM, labile blood sugars. Hemoglobin A1C (%) Date Value 08/31/2017 10.5 Hemoglobin A1C (POCT) (%) Date Value 12/05/2017 9.2 . Assessment and Plan 1. Cough due to NAVJOT inhibitor - ICD9: 786.2, E942.6, ICD10: R05, T46.4X5A (primary diagnosis) Much improved. 2. Uncontrolled type 2 diabetes mellitus with diabetic neuropathy, with long-term current use of insulin (HCC) - ICD9: 250.62, 357.2, V58.67, ICD10: E11.40, Z79.4, E11.65 poorly controlled - Continue current medications - BASIC METABOLIC PNL - HGB A1C - ALBUMIN/CREAT RATIO RND UR 3. Mixed hyperlipidemia - ICD9: 272.2, ICD10: E78.2 - to be determined upon return of lab results - Continue current medication. - LIPID PANEL, NONFASTING 4. Essential hypertension with goal blood pressure less than 130/85 - ICD9: 401.9, ICD10: I10 - good control 5. Anemia, unspecified type - ICD9: 285.9, ICD10: D64.9 - CBC He has follow up with his specialists and will see endocrinology in June. Therefore I'll see him in 5 months. Ronald Calderón MD CNOV Observed: 04/23/2018 Status: COMPLETED Source: [place] 4:00 PM [facility] REPOSITORY Office Visit (INTMWS) WEST MANUEL ([id number]) 1935 M Date Time Provider Department 04/23/18 4:00 PM RONALD CALDERÓN INTAndreiaWS During your visit today, we recorded the following information about you: Temperature Pulse Respiration Blood pressure 99 degrees 74/minute 16/minute 124/65 Weight 74.4 kg Ronald Calderón MD 04/23/2018 4:46 PM Signed This note was created using [employer]. Subjective West Marsha Manuel is a 83 year old male here with his daughter. His cough was much better off lisinopril. Postnasal drainage was controlled. His hypertension was still controlled. His lipids needed rechecked, but he was not fasting today. His diabetes mellitus continued to be labile. He just saw non [facility] endocrinlog[facility] and no changes to his insulin were made. There was more concern about hypoglycemia which led to weakness and admission 3 months ago. 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 insulin detemir U-100 (LEVEMIR FLEXTOUCH U-100 INSULN) 100 unit/mL (3 mL) inpn injection Inject 24 Units subcutaneously daily at bedtime. clopidogrel (PLAVIX) 75 mg tablet Take 1 tablet by mouth once daily. Per Dr. Covarrubias. albuterol HFA (PROVENTIL HFA, VENTOLIN HFA) 90 mcg/actuation inhaler Inhale 2 Puffs as instructed every 6 hours as needed (cough, wheezing.). Use with spacer device. NOVOLOG FLEXPEN U-100 INSULIN 100 unit/mL inpn INJECT 10 UNITS SUBQ THREE TIMES A DAY WITH A MEAL ADD THE FOLLOWING UNITS DEPENDING Ranitidine HCl 150 mg capsule Take 2 capsules by mouth daily at bedtime. Due to pill dysphagia. atorvastatin (LIPITOR) 40 mg tablet Take 2 tablets by mouth daily at bedtime. Due to pill dysphagia. blood sugar diagnostic (ACCU-CHEK SENG) test strip Check blood sugars 6 times daily. Insulin dependent Dx E11.40 Diaper,Brief, Adult,Disposable (DEPEND PROTECTION SZ S-M) misc Use 3 times a day as directed. Dx: N39.41, N40.1 polyethylene glycol 3350 (MIRALAX, GLYCOLAX) 17 gram packet Take 0.5 Packets by mouth once daily. Insulin [place], Disposable, (BD ULTRAFINE III MINI PEN) 31 gauge x 3/16 ndle Uses 5 daily Lancets (ACCU-CHEK MULTICLIX LANCET) lancets Check 4 times a day. CPAP Use as directed No current facility-administered medications for this visit. Review of Systems Respiratory: Positive for cough. Negative for shortness of breath and wheezing. Cardiovascular: Negative. Gastrointestinal: Negative. Musculoskeletal: Positive for gait problem. Neurological: Positive for weakness. Objective BP 124/65 (BP Site: Right Arm, BP Position: Sitting, BP Cuff Size: Regular Adult) Pulse 74 Temp 37.2 ?C (99 ?F) (Tympanic) Resp 16 Wt 74.4 kg (164 lb) SpO2 97% BMI 24.94 kg/m? Physical Exam Constitutional: No distress. Cardiovascular: Normal rate, regular rhythm and normal heart sounds. Exam reveals no gallop. No murmur heard. Pulmonary/Chest: No respiratory distress. He has no wheezes. He has rhonchi. He has no rales. Musculoskeletal: He exhibits no edema. Neurological: He is alert. Ambulatory with cane. Glucose meter data or log was reviewed. Range: 136-391. Average: 233. Patient was testing QID. Higher frequency of testing needed: yes. Reason: uncontrolled DM, labile blood sugars. Hemoglobin A1C (%) Date Value 08/31/2017 10.5 Hemoglobin A1C (POCT) (%) Date Value 12/05/2017 9.2 . Assessment and Plan 1. Cough due to NAVJOT inhibitor - ICD9: 786.2, E942.6, ICD10: R05, T46.4X5A (primary diagnosis) Much improved. 2. Uncontrolled type 2 diabetes mellitus with diabetic neuropathy, with long-term current use of insulin (HCC) - ICD9: 250.62, 357.2, V58.67, ICD10: E11.40, Z79.4, E11.65 poorly controlled - Continue current medications - BASIC METABOLIC PNL - HGB A1C - ALBUMIN/CREAT RATIO RND UR 3. Mixed hyperlipidemia - ICD9: 272.2, ICD10: E78.2 - to be determined upon return of lab results - Continue current medication. - LIPID PANEL, NONFASTING 4. Essential hypertension with goal blood pressure less than 130/85 - ICD9: 401.9, ICD10: I10 - good control 5. Anemia, unspecified type - ICD9: 285.9, ICD10: D64.9 - CBC He has follow up with his specialists and will see endocrinology in June. Therefore I'll see him in 5 months. 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, with long-term current use of insulin (HCC) [E11.40, Z79.4, E11.65] Mixed hyperlipidemia [E78.2] Essential hypertension with goal blood pressure less than 130/85 [I10] Anemia, unspecified type [D64.9] Order(s):BASIC METABOLIC PNL [SQBMP] Order #: [id number] FUTURE CBC [SQCBC] Order #: [id number] FUTURE HGB A1C [SEOQF8F] Order #: [id number] FUTURE ALBUMIN/CREAT RATIO RND UR [SQUACR] Order #: [id number] FUTURE LIPID PANEL, NONFASTING [SQLIPNF] Order #: [id number] FUTURE Prescriptions as of 04/23/2018 Sig: BACLOFEN 10 MG TABLET TAKE 5MG (1/2 TABLET) BY MOUT* ATENOLOL 25 MG TABLET TAKE 3 TABLETS BY MOUTH DAILY IPRATROPIUM BROMIDE 42 MCG (0* Use 2 Sprays in the nose twic* INSULIN DETEMIR (U-100) 100 U* Inject 24 Units subcutaneousl* CLOPIDOGREL 75 MG TABLET Take 1 tablet by mouth once d* ALBUTEROL SULFATE HFA 90 MCG/* Inhale 2 Puffs as instructed * NOVOLOG FLEXPEN U-100 INSULIN* INJECT 10 UNITS SUBQ THREE TI* RANITIDINE 150 MG CAPSULE Take 2 capsules by mouth skylar* ATORVASTATIN 40 MG TABLET Take 2 tablets by mouth daily* BLOOD SUGAR DIAGNOSTIC STRIPS Check blood sugars 6 times da* DIAPER,BRIEF,ADULT,DISPOSABLE Use 3 times a day as directed* POLYETHYLENE GLYCOL 3350 17 G* Take 0.5 Packets by mouth onc* PEN NEEDLE, DIABETIC 31 GAUGE* Uses 5 daily LANCETS Check 4 times a day. CPAP Use as directed Problem List As Of Date 04/23/2018 Noted Resolved DM (diabetes mellitus), type 2, uncontrolled w/*INVALID FOR*11/16/2015 Essential hypertension [I10] INVALID FOR*11/16/2015 HYPERLIPIDEMIA NEC/NOS [E78.5] INVALID FOR*07/25/2015 ROTATOR CUFF DIS NEC [M75.100] INVALID FOR*10/02/2006 Impotence of organic origin [N52.9] INVALID FOR*09/27/2015 ESOPHAGEAL REFLUX [K21.9] INVALID FOR* Hypertensive heart disease without heart failur*INVALID FOR* BPH with obstruction/lower urinary tract sympto*INVALID FOR* Inflamed Seborrheic Keratosis [L82.0] INVALID FOR*11/15/2009 Viral Warts, Unspecified [B07.9] INVALID FOR*11/15/2009 SOLAR LENGINES///DYSCHROMIA OTHER [L81.9] INVALID FOR*11/15/2009 Other Chronic Dermatitis due to Solar Radiation*INVALID FOR*11/15/2009 Scar Condition and Fibrosis of Skin [L90.5] INVALID FOR*11/15/2009 Colon Polyp [K63.5] INVALID FOR* More... CHADD on CPAP [G47.33, Z99.89] INVALID FOR* More... CVA (cerebral infarction) [I63.9] INVALID FOR*03/24/2015 More... Carotid stenosis, asymptomatic, bilateral [I65.*INVALID FOR* ASHD (arteriosclerotic heart disease) [I25.10] INVALID FOR* Neuropathy (HCC) [G62.9] INVALID FOR* Mixed hyperlipidemia [E78.2] INVALID FOR* Uncontrolled type 2 diabetes mellitus with diab*INVALID FOR* Essential hypertension with goal blood pressure*INVALID FOR* Urge incontinence of urine [N39.41] INVALID FOR* Singultus [R06.6] INVALID FOR* Generalized weakness [R53.1] INVALID FOR* More... Ataxia [R27.0] INVALID FOR* More... Dizziness [R42] INVALID FOR*04/23/2018 More... Anemia [D64.9] INVALID FOR* More... Cough [R05] INVALID FOR* Medications Discontinued During This Encounter bisacodyl (DULCOLAX) 10 mg supp 05/23/2017 04/23/2018 Class: OTC Route: RECTAL Si Suppository by RECTAL route once daily as needed. Patient not taking: Reported on 03/13/2018 Disc: Reason for discontinue is not on file. Disposition: Return in about 5 months (around 09/21/2018). Follow-up and Disposition History Recorded Encounter Status:Closed by RONALD CALDERÓN MD on 04/23/18 ENDOCRINOLOGY VISIT Observed: 04/02/2018 Status: F Source: [place] REPORT 8:54 PM [facility] REPOSITORY [facility] [address] [place] [address]. [address] [place] [address] OFFICE VISIT Date of Service: 04/02/18 MR#: [id number] Acct: [id number] Name: WE[place] MANUEL Rep #: [id number] : 1935 Provider: Fidelia Bustillo NP Age/Sex: 82/M [place] [facility] [place]: Signed HPI History of present illness History of present illness [place] Manuel is an 82 year old male who presents for follow up of diabetes type 2. Diagnosed in 1974. Accompanied by a family member. Continues on 22 lantus daily and meal insulin 10 units each meal. Has sliding scale. [facility]ed home [facility]. Insulin has been reduced. Family taking turns staying with patient. Making his meals and having ready for him. He is checking BG before most meals. Also checking after meals on many of his meals. no low BG noted. At time of visit: -Pt denies symptoms of hypertensive emergency (CP,SOB,FREY, or blurred vision) and hypotension(dizziness or lightheadedness) -Pt denies symptoms of hypoglycemia ( sweaty, confusion, anxiety, tremor, hunger, palpitations) and hyperglycemia ( polydipsia, polyuria) -Pt denies potential medication adverse effect. Hypoglycemia Aware of hypoglycemia: When awake Able to self treat low BG: Yes Frequent low Blood sugar: No Has supply of glucagon: No SMBG 5-6 times daily am 86-130 12n 100-200 5pm 130-200 9pm 160-200 Diet 3 meals daily supplementing patient with glucerna Exercise Walks with cane and occ with a walker. Exam Const General: comfortable, no acute distress Orientation: oriented x3 HENKS Head: normal to inspection, atraumatic Ears: hearing grossly normal bilaterally Nose: no nasal discharge Mouth: oral mucosae normal, moist mucous membranes Teeth and gingiva: dentition normal Eyes General: appearance normal, both eyes and all related structures Conjunctivae: conjunctivae normal Sclera: sclerae normal Pupils: PERRL Neck Neck: normal visual inspection, full ROM Resp Effort AND Inspection: normal respiratory effort, symmetric chest movement, able to speak in complete sentences Auscultation: Bilateral: Clear to Auscultation Cardio Rate: regular rate Rhythm: regular rhythm Heart Sounds: S1 normal, S2 normal GI Inspection: normal to inspection Auscultation: normal bowel sounds Palpation: soft, no guarding Musc Thoracic/Lumbar Spine: other (No joint swelling or fluid accumulation) Skin General: no rashes or lesions noted Wounds: no wounds Diabetic Foot Pulses: L dorsalis pedis pulse: normal, R dorsalis pedis pulse: normal Monofilament test: Left foot: abnormal, Right foot: abnormal Neuro General: moves all extremities, other (Using a walker today Gait slow and stiff) Extrem General: no edema Psych Appearance: well kempt Mental Status: mental status grossly normal Mood: congruent mood Affect: normal affect Speech and Movement: speech clear Attitude: cooperative Thought Process: normal Thought Content: normal Judgment: judgment good Weight and fatigue symptoms: Denies snoring Cardiopulmonary symptoms: Denies chest pain at rest, dyspnea on exertion, lightheadedness or myalgias GI symptoms: Reports constipation; denies diarrhea, nausea/dyspepsia or vomiting Skin and extremity symptoms: Denies erectile dysfunction Other symptoms: Denies blurry vision or change in vision Intake Vital Signs04/02/18 Height 5 ft 8 in 04/02/18 Weight: 162 lb 6 oz 04/02/18 Body Mass Index (BMI) 24.7 04/02/18 Blood Pressure 157/79 H 04/02/18 Blood Pressure Location Lt popliteal 04/02/18 Blood Pressure Position Sitting Intake Visit Reasons: diabetes Publishing Specialist Required: No Accompanied by: Daughter Allergies alfuzosin Allergy (Verified 04/02/18 12:43) Other Penicillins Allergy (Verified 04/02/18 12:43) Rash Sulfa (Sulfonamide Antibiotics) Allergy (Verified 04/02/18 12:43) Swelling Medications Atenolol [Tenormin (beta naty)] 75 mg PO DAILY 10/18/16 [History Confirmed 04/02/18] Polyethylene Glycol 3350 [Miralax] 0.5 pack PO DAILY 06/06/17 [History Confirmed 04/02/18] acetaminophen ER 650 mg tablet,extended release 650 mg PO Q6H PRN tab 10/17/17 [History Confirmed 04/02/18] albuterol sulfate HFA 90 mcg/actuation aerosol inhaler 2 puff INHALATION Q6H PRN PRN 12/26/17 [History Confirmed 04/02/18] Atorvastatin Calcium [Lipitor] 80 mg PO QHS 01/03/18 [History Confirmed 04/02/18] Blood Sugar Diagnostic [Contour Test Strip] 0 ea .ROUTE .MEDSUPPLY 01/03/18 [History Confirmed 04/02/18] Blood-Glucose Meter [Contour] 1 ea .ROUTE .MEDSUPPLY 01/03/18 [History Confirmed 04/02/18] Pen Needle, Diabetic [Incontrol Pen Needle] 0 ea .ROUTE .MEDSUPPLY 01/03/18 [History Confirmed 04/02/18] Ranitidine HCl [Acid Control] 300 mg PO QHS 01/03/18 [History Confirmed 04/02/18] Baclofen [Lioresal] 5 mg PO BIDCM tab 01/06/18 [Rx Confirmed 04/02/18] Glucerna Shake 120 ml PO TIDCM liquid 01/06/18 [Rx Confirmed 04/02/18] Menthol [Bengay Vanishing Scent] 1 applic TOPICAL TID PRN PRN tube 01/06/18 [Rx Confirmed 04/02/18] aluminum hydrox-magnesium carb 95 mg-358 mg/15 mL oral suspension 15 ml PO TID-QID PRN 01/23/18 [History Confirmed 04/02/18] bisacodyl 10 mg rectal suppository 10 mg RC QDAY PRN 01/23/18 [History Confirmed 04/02/18] dextrose 40 % oral gel 15 g PO ONCE 01/23/18 [History Confirmed 04/02/18] glucagon (human recombinant) 1 mg injection kit 1 mg IM ONCE 01/23/18 [History Confirmed 04/02/18] guaifenesin 100 mg/5 mL oral liquid 200 mg PO Q4H PRN 01/23/18 [History Confirmed 04/02/18] insulin detemir (U- 100) 100 unit/mL subcutaneous solution 22 unit SC QHS ml 01/23/18 [History Confirmed 04/02/18] insulin lispro (U- 100) 100 unit/mL subcutaneous solution See Rx Instructions SC TID ml 01/23/18 [History Confirmed 04/02/18] magnesium hydroxide 400 mg/5 mL oral suspension 15 ml PO QDAY PRN 01/23/18 [History Confirmed 04/02/18] mineral oil enema 118 ml RC ONCE PRN 01/23/18 [History Confirmed 04/02/18] Prodigy No Coding strips See Dose Instructions .ROUTE .MEDSUPPLY #450 ea NS 02/11/18 [Rx Confirmed 04/02/18] clopidogrel 75 mg tablet 75 mg PO DAILY #30 tab 03/26/18 [Rx Confirmed 04/02/18] Nurse's Note: blood sugars : low : 84 high : 500+ PFSH Medical History Carotid bruit (Chronic) Atherosclerotic heart disease of [place] coronary artery without angina pectoris (Chronic) Type 2 diabetes mellitus (Chronic) Cerebrovascular disease (Chronic) Hyperlipidemia (Chronic) Diverticulitis (Chronic) Hypertension (Chronic) Coronary artery disease (Chronic) GERD (gastroesophageal reflux disease) (Chronic) Ataxia (Chronic) LEFT FRONTAL LACUNAR INFARCT (Chronic) Stroke (Chronic) Gastrointestinal bleed (Chronic) Diabetes mellitus (Chronic) Surgical History H/O carotid endarterectomy (Resolved) H/O hernia repair (Resolved) H/O: hemorrhoidectomy (Resolved) cataract surgery (Resolved) Hx of repair of rotator cuff (Resolved) Family History Brother Kidney disease Mother CVA (cerebral vascular accident) Father Liver cirrhosis Social History Smoking Status: Never smoker alcohol intake: never substance use type: does not use caffeine: Yes Type: carbonated beverages Number of servings: 2 what type of physical activity do you participate in: other seatbelt use: always do you feel safe at home: Yes ROS Const Constitutional: No anorexia, body ache, chills, fatigue, fever(s), frequent falls, decreased energy, malaise, night sweats, weakness, weight change, sleep problems, abnormal sleep pattern, change in appetite, other, headache(s), snoring or excessive sweating Eyes Eyes: No blurry vision, change in vision, double vision, discharge, dry eyes, bulging eyes, floaters, visual disturbances, eye pain, light sensitivity, spots in vision, tunnel vision or other ENT ENT: No abnormal hearing, ear pain, ear discharge, ear pressure, hearing loss, tinnitus, dizziness/vertigo, balance problems, nosebleed/epistaxis, nasal congestion, nasal obstruction, nose pain, sinus pressure, sinus pain, nasal discharge, post nasal drip, headache(s), facial pain, dental pain, dry mouth, bad breath, hoarseness, lip swelling, mouth lesions, mouth pain, sore throat, tongue swelling, throat swelling, other, difficulty swallowing or neck pain Resp Respiratory: Positive for cough and wheezing; no change in phlegm color, chest congestion, excessive phlegm production, hemoptysis, pain on inspiration, shortness of breath, pain with cough, snoring, stridor or other Cardio Cardiology: No chest pain at rest, chest pain with exertion, leg pain with exertion, excessive sweating, shortness of breath, dyspnea on exertion, generalized swelling, irregular heart rhythm, lightheadedness, orthopnea, radiating jaw, neck or arm pain, fast heart rate, slow heart rate, palpitations or other Gastro GI: Positive for constipation; no abdominal pain, belching, bloating, change in bowel habits, change in stool character, coffee ground emesis, cramping, diarrhea, heartburn, difficulty swallowing, feeling full early, excessive flatus, incontinent of stools, Vomiting blood/hematemesis, blood in stool, loose stools, Black,tarry stools, nausea/dyspepsia, pain with swallowing, vomiting or other Genitourinary Male: No difficulty urinating, burning urination, painful urination, urinary incontinence, urinary frequency, urinary urgency, urinary hesitancy, urinary retention, blood in urine, Frequent nighttime urination/ nocturia, post void dribbling, suprapubic fullness, side pain, sexual problems, genital lesions, genital itching, erectile dysfunction, penile discharge, difficulty with ejaculations, blood in semen, scrotal swelling, testicle lump, testicle pain or other Musc Musculoskeletal: No abnormal walking, joint pain, back pain, deformity, joint swelling, limited range of motion, loss of height, muscle cramps, muscle weakness, decreased muscle mass, body aches, neck pain, numbness, radiating pain into limb, stiffness, tingling or other Skin Skin: No acne, hair loss, change in hair, nail changes, boil, change in skin color, dry skin, redness, excessive hair growth, yellowing of the skin, lesions, itching, rash, skin pain, skin ulcer, sores, skin swelling, wounds or other Breast Breast: No other Neuro Neurology: No frequent falls, weakness, visual disturbances, abnormal hearing, headache(s), abnormal walking, numbness or tingling Psych Psychiatric: No abnormal sleep pattern, No change in appetite Endo Endocrine: No fatigue, other or excessive sweating Aller/Imm Allergy/Immunologic: Positive for wheezing; no lip swelling, tongue swelling, throat swelling or itchy eyes Assessment AND Plan Problems 1. Essential hypertension I10 2. Type 2 diabetes mellitus with complication, with long-term current use of insulin E11.8 3. Hyperlipidemia, unspecified hyperlipidemia type E78.5 Plan Diabetes: Does have some higher BG but not consistent enough to allow for insulin to be adjusted safely. biggest concern for family is that patient does not have any low BG readings. He is enc to be sure he checks BG for taking his insulin. HTN: Managed by his PCP. Patient reports he is taking medications as directed. Family oversees Hyperlipidemia: On statin without side effect. Managed by PCP. Labs done at [facility]. Has appointment with PCP nrxt week. Discussed food for breakfast. Highest BG readings when patient eats Rasin bran. 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 Currently has callus. Plan Detail Additional Comments 1. Please schedule follow up in 3 months. 2. Lab work one week before appointment. 3. Discussed importance of regular exercise and recommend starting or continuing a regular exercise program for good health. 4. The patient was encouraged to lose weight for good health 5. The importance of monitoring blood sugar regularly was reviewed. 6. The importance of monitoring the HBA1c level regularly was reviewed. 7. The importance of proper foot care and regularly checking feet to prevent sores and loss of limbs was reviewed. 8. The importance of keeping BP at or below 130/80 to prevent stroke, heart attacks, kidney failure, blindness was reviewed. Spent approximately 30 minutes with patient with over 50% of time spent in discussion and counseling regarding medication adjustment, symptoms and treatment of hypoglycemia, diet adherence, and checking BG before driving. 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 Subjective [place] is a 82 year old male. He was here with family for follow up. He continued with intermittent cough, productive of sputum at times, associated with wheezing. Albuterol started in November helped relieve symptoms for a time. Concern was raised about lisinopril induced cough. He was recently admitted at the hospital from hypoglycemia and weakness. He was in [facility] for rehab for several weeks, and was now back home. He saw [facility] and current insulin doses were maintained. 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 baclofen (LIORESAL) 10 mg tablet TAKE 5MG (1/2 TABLET) BY MOUTH TWICE A DAY FOR MUSCLE SPASMS insulin detemir U-100 (LEVEMIR FLEXTOUCH U-100 INSULN) 100 unit/mL (3 mL) inpn injection Inject 24 Units subcutaneously daily at bedtime. clopidogrel (PLAVIX) 75 mg tablet Take 1 tablet by mouth once daily. Per Dr. Covarrubias. albuterol HFA (PROVENTIL HFA, VENTOLIN HFA) 90 mcg/actuation inhaler Inhale 2 Puffs as instructed every 6 hours as needed (cough, wheezing.). Use with spacer device. NOVOLOG FLEXPEN U-100 INSULIN 100 unit/mL inpn INJECT 10 UNITS SUBQ THREE TIMES A DAY WITH A MEAL ADD THE FOLLOWING UNITS DEPENDING atenolol (TENORMIN) 25 mg tablet TAKE 3 TABLETS BY MOUTH DAILY Ranitidine HCl 150 mg capsule Take 2 capsules by mouth daily at bedtime. Due to pill dysphagia. atorvastatin (LIPITOR) 40 mg tablet Take 2 tablets by mouth daily at bedtime. Due to pill dysphagia. blood sugar diagnostic (ACCU-CHEK SENG) test strip Check blood sugars 6 times daily. Insulin dependent Dx E11.40 Diaper,Brief, Adult,Disposable (DEPEND PROTECTION SZ S-M) misc Use 3 times a day as directed. Dx: N39.41, N40.1 polyethylene glycol 3350 (MIRALAX, GLYCOLAX) 17 gram packet Take 0.5 Packets by mouth once daily. Insulin [place], Disposable, (BD ULTRAFINE III MINI PEN) 31 gauge x 3/16 ndle Uses 5 daily Lancets (ACCU-CHEK MULTICLIX LANCET) lancets Check 4 times a day. CPAP Use as directed bisacodyl (DULCOLAX) 10 mg supp 1 Suppository by RECTAL route once daily as needed. (Patient not taking: Reported on 03/13/2018 ) No current facility-administered medications for this visit. Review of Systems Constitutional: Negative. Respiratory: Negative for chest tightness and shortness of breath. Cardiovascular: Negative. Gastrointestinal: Negative. Genitourinary: Negative. Objective BP 131/66 (BP Site: Left Arm, BP Position: Sitting, BP Cuff Size: Regular Adult) Pulse 74 Temp 36.6 ?C (97.9 ?F) (Left Tympanic) Resp 24 Wt 72.1 kg (159 lb) SpO2 97% BMI 24.18 kg/m? Physical Exam Constitutional: No distress. HENT: Nose: Nose normal. Mouth/Throat: Oropharynx is clear and moist. Neck: No JVD present. Cardiovascular: Normal heart sounds. Pulmonary/Chest: No respiratory distress. He has wheezes. He has rhonchi. Abdominal: Soft. Musculoskeletal: He exhibits no edema. Neurological: He is alert. Ambulatory with cane. Home BP log 128/67-161/85 Glucose meter data or log was reviewed. Range: 105-328. Average: 154. Patient was testing TID. Hemoglobin A1C (%) Date Value 08/31/2017 10.5 Hemoglobin A1C (POCT) (%) Date Value 12/05/2017 9.2 . Assessment and Plan 1. Essential hypertension with goal blood pressure less than 130/85 - ICD9: 401.9, ICD10: I10 (primary diagnosis) - fair control - Continue current medication(s) - Discontinue lisinopril (Zestril/Prinivil) for now and see if cough improves over the next 1-2 weeks. - Recommend home blood pressure monitoring, to bring results in on next visit - Reviewed risks of HTN and principles of treatment 2. Allergic rhinitis with postnasal drip - ICD9: 477.9, 784.91, ICD10: J30.9, R09.82 Refilled. - IPRATROPIUM BROMIDE 42 MCG (0.06 %) NASAL SPRAY 3. Need for vaccination - ICD9: V05.9, ICD10: Z23 - ADMIN OF INFLUENZA VACCINE - INFLUENZA SEASONAL HIGH DOSE AGE 65+ 4. Uncontrolled type 2 diabetes mellitus with diabetic neuropathy, with long-term current use of insulin (HCC) - ICD9: 250.62, 357.2, V58.67, ICD10: E11.40, Z79.4, E11.65 poorly controlled - Continue current medications per [facility]. 5. Cough - ICD9: 786.2, ICD10: R05 Continue albuterol. Stop lisinopril. Home health checking BP. See printed instructions or information. 6. Need for shingles vaccine - ICD9: V04.89, ICD10: Z23 Recommended. VIS given. Ronald Calderón MD CNOV Observed: 03/13/2018 Status: COMPLETED Source: [place] 4:20 PM [facility] REPOSITORY Office Visit (INTMWS) WE[place] MANU[place] ([id number]) 1935 M Date Time Provider Department 03/13/18 4:20 PM RONALD CALDERÓN INTMWS During your visit today, we recorded the following information about you: Temperature Pulse Respiration Blood pressure 97.9 degrees 74/minute 24/minute 131/66 Weight 72.1 kg Yazmin Squires LPN 03/13/2018 5:33 PM Signed Influenza Vaccine Documentation: ? Patient is identified by name and date of : Yes ? Patient is older than 6 months of age: Yes ? Patient denies a severe allergy to any vaccine component or to a previous dose of influenza vaccine: Yes FOR EGG ALLERGY CONCERNS, REFER TO PROVIDER. ? Denies allergy to gelatin, formaldehyde, thimerosol :Yes ? Patient is afebrile and not moderately or severely ill: Yes ? Does the patient have a history of Guillain ?[place] Syndrome (a severe paralytic illness): No ? Denies bone marrow transplant prior 6 months or solid organ transplant prior 3 months: Yes ? Denies a history of fainting after a prior injection or medical procedure? Yes If patient has fainted in the past, the CDC recommends sitting or lying down for 15 minutes after the vaccination. ? VIS sheet provided: Yes ? See Immunization Form in [facility] for details of immunizations administered today. If patient reports dizziness, vision changes or ringing in the ears post vaccination ? please have patient sit or lie down for 15 minutes. Ronald Calderón MD 03/13/2018 5:49 PM Signed Stop lisinopril for now. Have home health send BP report next week. Ronald Calderón MD 03/16/2018 7:40 AM Signed This note was created using [employer]. Subjective [place] Manuel is a 82 year old male. He was here with family for follow up. He continued with intermittent cough, productive of sputum at times, associated with wheezing. Albuterol started in November helped relieve symptoms for a time. Concern was raised about lisinopril induced cough. He was recently admitted at the hospital from hypoglycemia and weakness. He was in [facility] for rehab for several weeks, and was now back home. He saw [facility] and current insulin doses were maintained. 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 baclofen (LIORESAL) 10 mg tablet TAKE 5MG (1/2 TABLET) BY MOUTH TWICE A DAY FOR MUSCLE SPASMS insulin detemir U-100 (LEVEMIR FLEXTOUCH U-100 INSULN) 100 unit/mL (3 mL) inpn injection Inject 24 Units subcutaneously daily at bedtime. clopidogrel (PLAVIX) 75 mg tablet Take 1 tablet by mouth once daily. Per Dr. Covarrubias. albuterol HFA (PROVENTIL HFA, VENTOLIN HFA) 90 mcg/actuation inhaler Inhale 2 Puffs as instructed every 6 hours as needed (cough, wheezing.). Use with spacer device. NOVOLOG FLEXPEN U-100 INSULIN 100 unit/mL inpn INJECT 10 UNITS SUBQ THREE TIMES A DAY WITH A MEAL ADD THE FOLLOWING UNITS DEPENDING atenolol (TENORMIN) 25 mg tablet TAKE 3 TABLETS BY MOUTH DAILY Ranitidine HCl 150 mg capsule Take 2 capsules by mouth daily at bedtime. Due to pill dysphagia. atorvastatin (LIPITOR) 40 mg tablet Take 2 tablets by mouth daily at bedtime. Due to pill dysphagia. blood sugar diagnostic (ACCU-CHEK SENG) test strip Check blood sugars 6 times daily. Insulin dependent Dx E11.40 Diaper,Brief, Adult,Disposable (DEPEND PROTECTION SZ S-M) misc Use 3 times a day as directed. Dx: N39.41, N40.1 polyethylene glycol 3350 (MIRALAX, GLYCOLAX) 17 gram packet Take 0.5 Packets by mouth once daily. Insulin [place], Disposable, (BD ULTRAFINE III MINI PEN) 31 gauge x 3/16 ndle Uses 5 daily Lancets (ACCU-CHEK MULTICLIX LANCET) lancets Check 4 times a day. CPAP Use as directed bisacodyl (DULCOLAX) 10 mg supp 1 Suppository by RECTAL route once daily as needed. (Patient not taking: Reported on 03/13/2018 ) No current facility-administered medications for this visit. Review of Systems Constitutional: Negative. Respiratory: Negative for chest tightness and shortness of breath. Cardiovascular: Negative. Gastrointestinal: Negative. Genitourinary: Negative. Objective BP 131/66 (BP Site: Left Arm, BP Position: Sitting, BP Cuff Size: Regular Adult) Pulse 74 Temp 36.6 ?C (97.9 ?F) (Left Tympanic) Resp 24 Wt 72.1 kg (159 lb) SpO2 97% BMI 24.18 kg/m? Physical Exam Constitutional: No distress. HENT: Nose: Nose normal. Mouth/Throat: Oropharynx is clear and moist. Neck: No JVD present. Cardiovascular: Normal heart sounds. Pulmonary/Chest: No respiratory distress. He has wheezes. He has rhonchi. Abdominal: Soft. Musculoskeletal: He exhibits no edema. Neurological: He is alert. Ambulatory with cane. Home BP log 128/67-161/85 Glucose meter data or log was reviewed. Range: 105-328. Average: 154. Patient was testing TID. Hemoglobin A1C (%) Date Value 08/31/2017 10.5 Hemoglobin A1C (POCT) (%) Date Value 12/05/2017 9.2 . Assessment and Plan 1. Essential hypertension with goal blood pressure less than 130/85 - ICD9: 401.9, ICD10: I10 (primary diagnosis) - fair control - Continue current medication(s) - Discontinue lisinopril (Zestril/Prinivil) for now and see if cough improves over the next 1-2 weeks. - Recommend home blood pressure monitoring, to bring results in on next visit - Reviewed risks of HTN and principles of treatment 2. Allergic rhinitis with postnasal drip - ICD9: 477.9, 784.91, ICD10: J30.9, R09.82 Refilled. - IPRATROPIUM BROMIDE 42 MCG (0.06 %) NASAL SPRAY 3. Need for vaccination - ICD9: V05.9, ICD10: Z23 - ADMIN OF INFLUENZA VACCINE - INFLUENZA SEASONAL HIGH DOSE AGE 65+ 4. Uncontrolled type 2 diabetes mellitus with diabetic neuropathy, with long-term current use of insulin (HCC) - ICD9: 250.62, 357.2, V58.67, ICD10: E11.40, Z79.4, E11.65 poorly controlled - Continue current medications per [facility]. 5. Cough - ICD9: 786.2, ICD10: R05 Continue albuterol. Stop lisinopril. Home health checking BP. See printed instructions or information. 6. Need for shingles vaccine - ICD9: V04.89, ICD10: Z23 Recommended. VIS given. Ronald Calderón MD Referring Provider: SELF [[id number]] Allergies As of Date: 03/13/2018 Noted Allergy Reaction ALFUZOSIN 11/19/2008 5 - Intolerance Comments: dizziness PENICILLINS 10/24/2005 2 - Rash SULFA (SULFONAMIDE ANTIBIOTICS) 10/24/2005 7 - Swelling Date Reviewed: 03/13/2018 Reviewed by: Yazmin Squires LPN - Fully Assessed Reason for Visit: F/U 3 Month [443] Primary Visit Diagnosis:Essential hypertension with goal blood pressure less than 130/85 [I10] Other Visit Diagnoses:Allergic rhinitis with postnasal drip [J30.9, R09.82] Need for vaccination [Z23] Uncontrolled type 2 diabetes mellitus with diabetic neuropathy, with long-term current use of insulin (HCC) [E11.40, Z79.4, E11.65] Cough [R05] Need for shingles vaccine [Z23] Order(s):ADMIN OF INFLUENZA VACCINE [[id number]] Order #: [id number]: 1 INFLUENZA SEASONAL HIGH DOSE AGE 65+ [[id number]] Order #: [id number] ipratropium bromide (ATROVENT) 42 mcg (0.06 %) nasal sprayUse 2 Sprays in the nose twice daily.Disp: 1 BottleRfl: 2 Prescriptions as of 03/13/2018 Sig: IPRATROPIUM BROMIDE 42 MCG (0* Use 2 Sprays in the nose twic* BACLOFEN 10 MG TABLET TAKE 5MG (1/2 TABLET) BY MOUT* INSULIN DETEMIR (U-100) 100 U* Inject 24 Units subcutaneousl* CLOPIDOGREL 75 MG TABLET Take 1 tablet by mouth once d* ALBUTEROL SULFATE HFA 90 MCG/* Inhale 2 Puffs as instructed * NOVOLOG FLEXPEN U-100 INSULIN* INJECT 10 UNITS SUBQ THREE TI* ATENOLOL 25 MG TABLET TAKE 3 TABLETS BY MOUTH DAILY RANITIDINE 150 MG CAPSULE Take 2 capsules by mouth skylar* ATORVASTATIN 40 MG TABLET Take 2 tablets by mouth daily* BLOOD SUGAR DIAGNOSTIC STRIPS Check blood sugars 6 times da* DIAPER,BRIEF,ADULT,DISPOSABLE Use 3 times a day as directed* POLYETHYLENE GLYCOL 3350 17 G* Take 0.5 Packets by mouth onc* PEN NEEDLE, DIABETIC 31 GAUGE* Uses 5 daily LANCETS Check 4 times a day. CPAP Use as directed BISACODYL 10 MG RECTAL SUPPOS* 1 Suppository by RECTAL route* Patient not taking: Reported on 03/13/2018 Medication notes this encounter LISINOPRIL 10 MG TABLET >> Ronald Calderón MD 03/13/2018 5:45 PM Hold Problem List As Of Date 03/13/2018 Noted Resolved DM (diabetes mellitus), type 2, uncontrolled w/*INVALID FOR*11/16/2015 Essential hypertension [I10] INVALID FOR*11/16/2015 HYPERLIPIDEMIA NEC/NOS [E78.5] INVALID FOR*07/25/2015 ROTATOR CUFF DIS NEC [M75.100] INVALID FOR*10/02/2006 Impotence of organic origin [N52.9] INVALID FOR*09/27/2015 ESOPHAGEAL REFLUX [K21.9] INVALID FOR* Hypertensive heart disease without heart failur*INVALID FOR* BPH with obstruction/lower urinary tract sympto*INVALID FOR* Inflamed Seborrheic Keratosis [L82.0] INVALID FOR*11/15/2009 Viral Warts, Unspecified [B07.9] INVALID FOR*11/15/2009 SOLAR LENGINES///DYSCHROMIA OTHER [L81.9] INVALID FOR*11/15/2009 Other Chronic Dermatitis due to Solar Radiation*INVALID FOR*11/15/2009 Scar Condition and Fibrosis of Skin [L90.5] INVALID FOR*11/15/2009 Colon Polyp [K63.5] INVALID FOR* More... CHADD on CPAP [G47.33, Z99.89] INVALID FOR* More... CVA (cerebral infarction) [I63.9] INVALID FOR*03/24/2015 More... Carotid stenosis, asymptomatic, bilateral [I65.*INVALID FOR* ASHD (arteriosclerotic heart disease) [I25.10] INVALID FOR* Neuropathy (HCC) [G62.9] INVALID FOR* Mixed hyperlipidemia [E78.2] INVALID FOR* Uncontrolled type 2 diabetes mellitus with diab*INVALID FOR* Essential hypertension with goal blood pressure*INVALID FOR* Urge incontinence of urine [N39.41] INVALID FOR* Singultus [R06.6] INVALID FOR* Generalized weakness [R53.1] INVALID FOR* More... Ataxia [R27.0] INVALID FOR* More... Dizziness [R42] INVALID FOR* More... Anemia [D64.9] INVALID FOR* More... Cough [R05] INVALID FOR* Other instructions from your clinician: Stop lisinopril for now. Have home health send BP report next week. Visit Notes: >> Yazmin Squires LPN Ashley Mar 13, 2018 5:06 PM Status: Signed Influenza Vaccine Documentation: ? Patient is identified by name and date of : Yes ? Patient is older than 6 months of age: Yes ? Patient denies a severe allergy to any vaccine component or to a previous dose of influenza vaccine: Yes FOR EGG ALLERGY CONCERNS, REFER TO PROVIDER. ? Denies allergy to gelatin, formaldehyde, thimerosol :Yes ? Patient is afebrile and not moderately or severely ill: Yes ? Does the patient have a history of Guillain ?[place]imar Syndrome (a severe paralytic illness): No ? Denies bone marrow transplant prior 6 months or solid organ transplant prior 3 months: Yes ? Denies a history of fainting after a prior injection or medical procedure? Yes If patient has fainted in the past, the CDC recommends sitting or lying down for 15 minutes after the vaccination. ? VIS sheet provided: Yes ? See Immunization Form in [facility] for details of immunizations administered today. If patient reports dizziness, vision changes or ringing in the ears post vaccination ? please have patient sit or lie down for 15 minutes. Prescriptions ordered this encounter Disp Refills Start End IPRATROPIUM BROMIDE 42 MCG (0.06 %) * 1 [place]* 2 03/13/2018 Route: NASAL Sig: Use 2 Sprays in the nose twice daily. Medications Discontinued During This Encounter lisinopril (ZESTRIL, PRINIVIL) 10 mg* 30 t* 5 03/10/2018 03/13/2018 Route: ORAL Sig: Take 1 tablet by mouth once daily. Patient not taking: Reported on 03/13/2018 Disc: Clinical Decision ipratropium bromide (ATROVENT) 0.06 * 1 [place]* 2 04/16/2017 03/13/2018 Route: NASAL Sig: Use 2 Sprays in the nose twice daily. Disc: Reason for discontinue is not on file. Disposition: Return in about 6 weeks (around 04/24/2018). Follow-up and Disposition History Recorded Encounter Status:Closed by RONALD CALDERÓN MD on 03/16/18 ASHKAN Observed: 02/11/2018 Status: COMPLETED Source: [place] 12:00 AM [facility] REPOSITORY [facility] Out[facility] WEST MANUEL ([id number]) 1935 M Date Time Provider Department 02/11/18 RONALD CALDERÓN During your visit today, we recorded the following information about you: Allergies As of Date: 02/11/2018 Noted Allergy Reaction ALFUZOSIN 11/19/2008 5 - Intolerance Comments: dizziness PENICILLINS 10/24/2005 2 - Rash SULFA (SULFONAMIDE ANTIBIOTICS) 10/24/2005 7 - Swelling Date Reviewed: 12/05/2017 Reviewed by: Gilda Higuera - Fully Assessed Order(s):LIPID PANEL BASIC [SQLIPB] Order #: [id number] FUTURE Prescriptions as of 02/11/2018 Sig: INSULIN DETEMIR (U-100) 100 U* Inject 24 Units subcutaneousl* CLOPIDOGREL 75 MG TABLET Take 1 tablet by mouth once d* ALBUTEROL SULFATE HFA 90 MCG/* Inhale 2 Puffs as instructed * X BACLOFEN 10 MG TABLET Take 1 tablet by mouth three * NOVOLOG FLEXPEN U-100 INSULIN* INJECT 10 UNITS SUBQ THREE TI* X ATENOLOL 25 MG TABLET TAKE 3 TABLETS BY MOUTH DAILY RANITIDINE 150 MG CAPSULE Take 2 capsules by mouth skylar* ATORVASTATIN 40 MG TABLET Take 2 tablets by mouth daily* BLOOD SUGAR DIAGNOSTIC STRIPS Check blood sugars 6 times da* BISACODYL 10 MG RECTAL SUPPOS* 1 Suppository by RECTAL route* Patient not taking: Reported on 03/13/2018 X RAMIPRIL 5 MG CAPSULE TAKE 1 CAPSULE BY MOUTH DAILY DIAPER,BRIEF,ADULT,DISPOSABLE Use 3 times a day as directed* X IPRATROPIUM BROMIDE 42 MCG (0* Use 2 Sprays in the nose twic* POLYETHYLENE GLYCOL 3350 17 G* Take 0.5 Packets by mouth onc* PEN NEEDLE, DIABETIC 31 GAUGE* Uses 5 daily LANCETS Check 4 times a day. CPAP Use as directed Problem List As Of Date 02/11/2018 Noted Resolved DM (diabetes mellitus), type 2, uncontrolled w/*INVALID FOR*11/16/2015 Essential hypertension [I10] INVALID FOR*11/16/2015 HYPERLIPIDEMIA NEC/NOS [E78.5] INVALID FOR*07/25/2015 ROTATOR CUFF DIS NEC [M75.100] INVALID FOR*10/02/2006 Impotence of organic origin [N52.9] INVALID FOR*09/27/2015 ESOPHAGEAL REFLUX [K21.9] INVALID FOR* Hypertensive heart disease without heart failur*INVALID FOR* BPH with obstruction/lower urinary tract sympto*INVALID FOR* Inflamed Seborrheic Keratosis [L82.0] INVALID FOR*11/15/2009 Viral Warts, Unspecified [B07.9] INVALID FOR*11/15/2009 SOLAR LENGINES///DYSCHROMIA OTHER [L81.9] INVALID FOR*11/15/2009 Other Chronic Dermatitis due to Solar Radiation*INVALID FOR*11/15/2009 Scar Condition and Fibrosis of Skin [L90.5] INVALID FOR*11/15/2009 Colon Polyp [K63.5] INVALID FOR* More... CHADD on CPAP [G47.33, Z99.89] INVALID FOR* More... CVA (cerebral infarction) [I63.9] INVALID FOR*03/24/2015 More... Carotid stenosis, asymptomatic, bilateral [I65.*INVALID FOR* ASHD (arteriosclerotic heart disease) [I25.10] INVALID FOR* Neuropathy (HCC) [G62.9] INVALID FOR* Mixed hyperlipidemia [E78.2] INVALID FOR* Uncontrolled type 2 diabetes mellitus with diab*INVALID FOR* Essential hypertension with goal blood pressure*INVALID FOR* Urge incontinence of urine [N39.41] INVALID FOR* Singultus [R06.6] INVALID FOR* Generalized weakness [R53.1] INVALID FOR* More... Ataxia [R27.0] INVALID FOR* More... Dizziness [R42] INVALID FOR* More... Anemia [D64.9] INVALID FOR* More... Encounter Status:Closed by GOYO ESPINOZA on 04/04/18 ENDOCRINOLOGY VISIT Observed: 01/24/2018 Status: F Source: [place] REPORT 4:49 AM [facility] REPOSITORY [facility] [address] [place], [place] [address]. [address] [place] [address] OFFICE VISIT Date of Service: 01/23/18 MR#: [id number] Acct: [id number] Name: WEST MANUEL Rep #: [id number] : 1935 Provider: Fidelia Bustillo NP Age/Sex: 82/M Location: [facility] Status: Signed HPI History of present illness West Manuel is an 82 year old male who presents for follow up of diabetes type 2. Diagnosed in 1974. Accompanied by a family member. Continues on 30 lantus daily and meal insulin 10 units each meal. Has been admitted to [facility], currently planned for a short term stay. This occurred after he experienced another low BG and was found on the floor by the person who delivers his lunch, Evidently he took his lunch insulin before his meal arrived and the meal carrier was late. At time of visit: -Pt denies symptoms of hypertensive emergency (CP,SOB,FREY, or blurred vision) and hypotension(dizziness or lightheadedness) -Pt denies symptoms of hypoglycemia ( sweaty, confusion, anxiety, tremor, hunger, palpitations) and hyperglycemia ( polydipsia, polyuria) -Pt denies potential medication adverse effect. Hypoglycemia Aware of hypoglycemia: When awake Able to self treat low BG: Yes Frequent low Blood sugar: No Has supply of glucagon: No SMBG BG low created 911 call Nursing facility failed to send any data on his Bg for last 2 weeks. Facility was called but no data arrived during visit of over 30 minutes. Checks BG 3-4 times daily Diet 3 meals daily supplementing patient with glucenra each meal; no data to reflect amount but daughter believes about 4 oz. Exercise Walks with cane and occ with a walker. Getting physical therapy daily Exam Const General: comfortable, no acute distress Orientation: oriented x3 HENMT Head: normal to inspection, atraumatic Ears: hearing grossly normal bilaterally Nose: no nasal discharge Mouth: oral mucosae normal, moist mucous membranes Teeth and gingiva: dentition normal Eyes General: appearance normal, both eyes and all related structures Conjunctivae: conjunctivae normal Sclera: sclerae normal Pupils: PERRL Neck Neck: normal visual inspection, full ROM Neck mass: No Resp Effort AND Inspection: normal respiratory effort, symmetric chest movement, able to speak in complete sentences Auscultation: Bilateral: Clear to Auscultation Cardio Rate: regular rate Rhythm: regular rhythm Heart Sounds: S1 normal, S2 normal GI Inspection: normal to inspection Auscultation: normal bowel sounds Palpation: soft, no guarding Musc Thoracic/Lumbar Spine: other (No joint swelling or fluid accumulation) Skin General: no rashes or lesions noted Wounds: no wounds Diabetic Foot Pulses: L dorsalis pedis pulse: normal, R dorsalis pedis pulse: normal Monofilament test: Left foot: abnormal, Right foot: abnormal Neuro General: moves all extremities, other (Using a walker today Gait slow and stiff) Extrem General: no edema Psych Appearance: well kempt Mental Status: mental status grossly normal Mood: congruent mood Affect: normal affect Speech and Movement: speech clear Attitude: cooperative Thought Process: normal Thought Content: normal Judgment: judgment good Weight and fatigue symptoms: Denies snoring Cardiopulmonary symptoms: Reports lightheadedness; denies chest pain at rest, dyspnea on exertion or myalgias GI symptoms: Reports diarrhea; denies constipation, nausea/dyspepsia or vomiting Skin and extremity symptoms: Denies erectile dysfunction Other symptoms: Reports blurry vision; denies change in vision Type: type 2, insulin-requiring Glucose control symptoms: Reports high post-meal glucose, high fasting glucose and daytime hypoglycemia Weight and fatigue symptoms: Denies snoring Cardiopulmonary symptoms: Denies chest pain at rest, dyspnea on exertion, lightheadedness or myalgias GI symptoms: Reports constipation; denies diarrhea, nausea/dyspepsia or vomiting Skin and extremity symptoms: Denies erectile dysfunction Other symptoms: Denies blurry vision or change in vision Intake Vital Signs01/23/18 Height 5 ft 8 in 01/23/18 Blood Pressure 125/70 01/23/18 Blood Pressure Location Lt popliteal 01/23/18 Blood Pressure Position Sitting Intake Visit Reasons: Diabetes follow-up Publishing Specialist Required: No Accompanied by: Daughter Is patient in pain?: No Allergies alfuzosin Allergy (Verified 01/23/18 15:10) Other Penicillins Allergy (Verified 01/23/18 15:10) Rash Sulfa (Sulfonamide Antibiotics) Allergy (Verified 01/23/18 15:10) Swelling Medications Atenolol [Tenormin (beta naty)] 75 mg PO DAILY 10/18/16 [History Confirmed 01/23/18] Clopidogrel Bisulfate [Plavix] 75 mg PO DAILY 10/18/16 [History Confirmed 01/23/18] Polyethylene Glycol 3350 [Miralax] 0.5 pack PO DAILY 06/06/17 [History Confirmed 01/23/18] acetaminophen ER 650 mg tablet,extended release 650 mg PO Q6H PRN tab 10/17/17 [History Confirmed 01/23/18] albuterol sulfate HFA 90 mcg/actuation aerosol inhaler 2 puff INHALATION Q6H PRN PRN 12/26/17 [History Confirmed 01/23/18] Atorvastatin Calcium [Lipitor] 80 mg PO QHS 01/03/18 [History Confirmed 01/23/18] Blood Sugar Diagnostic [Contour Test Strip] 0 ea .ROUTE .MEDSUPPLY 01/03/18 [History Confirmed 01/23/18] Blood-Glucose Meter [Contour] 1 ea .ROUTE .MEDSUPPLY 01/03/18 [History Confirmed 01/23/18] Pen Needle, Diabetic [Incontrol Pen Needle] 0 ea .ROUTE .MEDSUPPLY 01/03/18 [History Confirmed 01/23/18] Ranitidine HCl [Acid Control] 300 mg PO QHS 01/03/18 [History Confirmed 01/23/18] Baclofen [Lioresal] 5 mg PO BIDCM tab 01/06/18 [Rx Confirmed 01/23/18] Glucerna Shake 120 ml PO TIDCM liquid 01/06/18 [Rx Confirmed 01/23/18] Menthol [Bengay Vanishing Scent] 1 applic TOPICAL TID PRN PRN tube 01/06/18 [Rx Confirmed 01/23/18] aluminum hydrox-magnesium carb 95 mg-358 mg/15 mL oral suspension 15 ml PO TID-QID PRN 01/23/18 [History Confirmed 01/23/18] bisacodyl 10 mg rectal suppository 10 mg RC QDAY PRN 01/23/18 [History Confirmed 01/23/18] dextrose 40 % oral gel 15 g PO ONCE 01/23/18 [History Confirmed 01/23/18] glucagon (human recombinant) 1 mg injection kit 1 mg IM ONCE 01/23/18 [History Confirmed 01/23/18] guaifenesin 100 mg/5 mL oral liquid 200 mg PO Q4H PRN 01/23/18 [History Confirmed 01/23/18] insulin detemir (U-100) 100 unit/mL subcutaneous solution 22 unit SC QHS ml 01/23/18 [History Confirmed 01/23/18] insulin lispro (U-100) 100 unit/mL subcutaneous solution See Label Instructions SC TID ml 01/23/18 [History Confirmed 01/23/18] lisinopril 10 mg tablet 10 mg PO QDAY 01/23/18 [History Confirmed 01/23/18] magnesium hydroxide 400 mg/5 mL oral suspension 15 ml PO QDAY PRN 01/23/18 [History Confirmed 01/23/18] mineral oil enema 118 ml RC ONCE PRN 01/23/18 [History Confirmed 01/23/18] Nurse's Note: blood sugars : low : high : [facility] Medical History Carotid bruit (Chronic) Atherosclerotic heart disease of eagle coronary artery without angina pectoris (Chronic) Type 2 diabetes mellitus (Chronic) Cerebrovascular disease (Chronic) Hyperlipidemia (Chronic) Diverticulitis (Chronic) Hypertension (Chronic) Coronary artery disease (Chronic) GERD (gastroesophageal reflux disease) (Chronic) Ataxia (Chronic) LEFT FRONTAL LACUNAR INFARCT (Chronic) Stroke (Chronic) Gastrointestinal bleed (Chronic) Diabetes mellitus (Chronic) Surgical History H/O carotid endarterectomy (Resolved) H/O hernia repair (Resolved) H/O: hemorrhoidectomy (Resolved) cataract surgery (Resolved) Hx of repair of rotator cuff (Resolved) Family History Brother Kidney disease Mother CVA (cerebral vascular accident) Father Liver cirrhosis Social History Smoking Status: Never smoker alcohol intake: never substance use type: does not use caffeine: Yes Type: carbonated beverages Number of servings: 2 what type of physical activity do you participate in: other seatbelt use: always do you feel safe at home: Yes ROS Const Constitutional: Positive for fatigue; no anorexia, body ache, chills, fever(s), frequent falls, decreased energy, malaise, night sweats, weakness, weight change, sleep problems, abnormal sleep pattern, change in appetite, other, headache(s), snoring or excessive sweating Eyes Eyes: No blurry vision, change in vision, double vision, discharge, dry eyes, bulging eyes, floaters, visual disturbances, eye pain, light sensitivity, spots in vision, tunnel vision or other ENT ENT: No abnormal hearing, ear pain, ear discharge, ear pressure, hearing loss, tinnitus, dizziness/vertigo, balance problems, nosebleed/epistaxis, nasal congestion, nasal obstruction, nose pain, sinus pressure, sinus pain, nasal discharge, post nasal drip, headache(s), facial pain, dental pain, dry mouth, bad breath, hoarseness, lip swelling, mouth lesions, mouth pain, sore throat, tongue swelling, throat swelling, other, difficulty swallowing or neck pain Resp Respiratory: Positive for cough; no change in phlegm color, chest congestion, excessive phlegm production, hemoptysis, pain on inspiration, shortness of breath, pain with cough, snoring, stridor, wheezing or other Cardio Cardiology: No chest pain at rest, chest pain with exertion, leg pain with exertion, excessive sweating, shortness of breath, dyspnea on exertion, generalized swelling, irregular heart rhythm, lightheadedness, orthopnea, radiating jaw, neck or arm pain, fast heart rate, slow heart rate, palpitations or other Gastro GI: Positive for constipation; no abdominal pain, belching, bloating, change in bowel habits, change in stool character, coffee ground emesis, cramping, diarrhea, heartburn, difficulty swallowing, feeling full early, excessive flatus, incontinent of stools, Vomiting blood/hematemesis, blood in stool, loose stools, Black,tarry stools, nausea/dyspepsia, pain with swallowing, vomiting or other Genitourinary Male: No difficulty urinating, burning urination, painful urination, urinary incontinence, urinary frequency, urinary urgency, urinary hesitancy, urinary retention, blood in urine, Frequent nighttime urination/ nocturia, post void dribbling, suprapubic fullness, side pain, sexual problems, genital lesions, genital itching, erectile dysfunction, penile discharge, difficulty with ejaculations, blood in semen, scrotal swelling, testicle lump, testicle pain or other Musc Musculoskeletal: No abnormal walking, joint pain, back pain, deformity, joint swelling, limited range of motion, loss of height, muscle cramps, muscle weakness, decreased muscle mass, body aches, neck pain, numbness, radiating pain into limb, stiffness, tingling or other Skin Skin: No acne, hair loss, change in hair, nail changes, boil, change in skin color, dry skin, redness, excessive hair growth, yellowing of the skin, lesions, itching, rash, skin pain, skin ulcer, sores, skin swelling, wounds or other Breast Breast: No other Neuro Neurology: No frequent falls, weakness, visual disturbances, abnormal hearing, headache(s), abnormal walking, numbness or tingling Psych Psychiatric: No abnormal sleep pattern, No change in appetite Endo Endocrine: Positive for fatigue; no other or excessive sweating Aller/Imm Allergy/Immunologic: No lip swelling, tongue swelling, throat swelling, wheezing or itchy eyes Assessment AND Plan 1. Type 2 diabetes mellitus with complication, with long-term current use of insulin E11.8 Plan Unable to make any assessment today on patient as facility has not sent adequate information with the patient and did not appropriately respond to request to fax information while the patient was here. Patient does not like getting the glucerna but his daughter does not feel as though his intake is adequate. His dietary intake and habits would indicate that the supplement is actually a good idea and that with careful monitoring of his BG and sliding scale in the facility we should have minimal issues with adequate control of his BG while he is a resident. I will again make a request to the facility to send data on my patient. 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 Medical Records Department [address] [place] [address] Discharge Summary 01/06/18 1707 MR#: [id number] Acct: [id number] Name: WEST MANUEL Rep #: [id number] : 1935 82 From: Rebel CLAYTON PCP: Ronald Calderón MD Status: ADM IN Y Location: [place] [address] ADDENDUM by Radha Xie on 01/06/18 at 1741 Code Visit ATTENDING PHYSICIAN DISCHARGE NOTE: I have seen and examined the patient independently and agree with the assessment, plan, history per Rebel Vang as noted. Discharge Diagnoses: Acute Encephalopathy and Syncopal event secondary to Hypoglycemia w/ Diabetes mellitus type II w/ Missed Meals, Recent ISS outpatient liberalized secondary to ongoing issues with hypoglycemia Dizziness, Acute on Chronic (RULED OUT posterior CVA), possibly secondary to prior CVA versus Vestibular Disease Prior CVA w/ Residual RLE weakness, Dizziness, Ataxia HTN HLD CAD GERD Hx GI Bleed Chronic Hiccups Discharge Summary: The patient is an 82 y/o M w/ PMHx: CAD, HTN, HLD, GERD, History GI bleed prior, Chronic Hiccups, Prior CVA w/ residual chronic dizziness, ataxia and R sided weakness who presented to the [facility] ED on 01/03/18 w/ history of syncopal event, found per [facility] [employer] Whe[facility] when he did not answer the door laying on the floor with EMS noted blood sugar 85 with dizziness, noting he feels lightheaded and as though objects are floating. Patient per history has had serial episodes of hypoglycemia and has been following with endocrinology [facility] with recent liberalization of his insulin sliding scale secondary to these events. Initially he was confused but mental status improved upon ED presentation and her admission. In the ED CT head was therefore acute findings with only moderate atrophy and periventricular white matter ischemic changes, chest x-ray unremarkable, lumbar spine plain film with degenerative changes, plain film pelvis unremarkable. The patient was admitted to the PCU, maintained on monitor without marked event, posterior CVA evaluation performed given acute on chronic dizziness w/ MRI with moderate periventricular white matter ischemic changes without evidence for an acute infarct with old bilateral posterior thalamic infarcts and cerebellar infarcts likely responsible for his intermittent dizziness and ataxia. 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 MRA of the neck with moderate atherosclerotic disease without evidence for hemodynamically significant stenosis of the carotids, multifocal segmental stenosis of the right vertebral possibly exaggerated by artifact but similar to prior imaging studies performed. Patient per family also with decreased oral intake over the last several months with onset of chronic hiccups for the last 6 months with attempts at utilization of Thorazine with notable oversedation therefore transitioned to baclofen. Per discussion with patient and daughter he is only been using baclofen once daily and only as needed but is prescribed 3 times daily. Discussed options of treatment and preference per patient and family to initiate on twice daily low-dose scheduled baclofen to see if there is any improvement. If patient has no improvement of hip cups with this regimen then would at that point discontinue as patient has noted decreased appetite since initiation although this may be primarily due to ongoing hiccups themselves. Discussion with family upon transition to long term facility per PT and OT recommendations recommendation for continued vestibular therapy with therapies secondary to chronic dizziness and ataxia as well as consideration for ENT evaluation for further etiology for chronic dizziness however again given MRI findings suspect that this is secondary to his prior stroke. Patient discharged to long term facility in stable condition. Discharge Time: > 35 Minutes DAY OF DISCHARGE PROGRESS NOTE: Subjective: Patient without acute event overnight per self and nursing report. Patient still with ongoing intermittent hiccups, patient and family amenable to scheduling low dose baclofen to identify if the regimen is helping. Patient denies fever, chills, nausea, emesis, abdominal pain, chest pain or dyspnea. Patient agreeable to discharge to SNF for ongoing PT, OT. Discussed w/ family and amenable to vestibular therapy. Patient will be discharged with follow-up with primary care physician within 3-5 days in addition to recommended referral for vestibular therapy with PT at SNF and also consideration of follow-up with ENT for further evaluation for his chronic dizziness. Objective: T 98.6, heart rate 85, BP 119/66, respiratory rate 16, 96% on room air. Physical Examination: General: awake, alert, oriented x 3 and cooperative, seated upright in the bedside chair, NAD. ongoing intermittent hiccups. Skin: normal color, turgor, no icterus, cyanosis. HEENT: AT/NC, EOMI, PERRLA, MMM. Lungs: Diminished BS BL, > bases, moderate effort, no rales, ronchi or wheezing; Heart: Regular rate and rhythm; no gallop, rub audible. Neurological: patient awake, alert, oriented x 3; cognitive function appears intact upon questioning; pupils equally reactive to light and accomodation; cranial nerves II-XII grossly normal, moving all 4 extremities with chronic mild R sided hemiplegia, strength moderately globally decreased. Psychiatric: affect appears normal, no acute evidence of depressive or anxiety feelings. Assessment and Plan: Please see hospital summary above. CODE status: Discussed CODE status at length including difference between FULL code, DNR-CCA and DNR-CC status. Following discussions about the differences in these status, requested FULL CODE status with LW set-up with CM during admission. Advanced Care Planning Face to Face Time: 20 minutes. Inpatient E AND M: 78113 Disch Hosp Procedures: 62596 Advncd Care Plan 30 Min 01/06/18 1741 <Electronically signed by Radha Xie > Date Radha Xie cc: FORREST Vang; Radha Xie; Ronald Calderón MD * Signed Discharge Date and Diagnosis - Problem List Patient Problems: Active and Suspected Problems (Last Reviewed 12/26/17 @ 10:29 by Jaida Peacock) Hypoglycemia (Acute) Date of Admission: 01/03/18 Date of Discharge: 01/06/18 - Primary Discharge Diagnosis Active and Suspected Problems (Last Reviewed 12/26/17 @ 10:29 by Jaida Peacock) Hypoglycemia (Acute) 2/2 insulin + missed meal Dizziness - chronic HTN HLD Hx CVA CAD Debility Intractable hiccups - Secondary Discharge Diagnosis Chronic Problems (Last Reviewed 12/26/17 @ 10:29 by Jaida Peacock) Hypotension (Chronic) Carotid bruit (Chronic) Encounter for long-term current use of high risk medication (Chronic) Reviewed medications with family to be sure patient was taking remainder of medications correctly and there were no duplicates Atherosclerotic heart disease of eagle coronary artery without angina pectoris (Chronic) Type 2 diabetes mellitus (Chronic) BG readings overall have become much higher. He reports meals on wheels is now later and he is having what seems like 2 lunches. He is checking BG after meals only and sounds like he takes correction for the 300-400 readings but when specifically ask about correction it does not sound like he has corrected many of the higher BG. On 3 occassions it is apparent he corrected. Higher BG appear to be associated with his adding the meals on wheels service. Cerebrovascular disease (Chronic) Status post acute ischemic stroke with residual lower extremity weakness mild Hyperlipidemia (Chronic) Diverticulitis (Chronic) Hypertension (Chronic) 104/64 Coronary artery disease (Chronic) GERD (gastroesophageal reflux disease) (Chronic) OAB (overactive bladder) (Chronic) Ataxia (Chronic) LEFT FRONTAL LACUNAR INFARCT (Chronic) Dizziness (Chronic) Stroke (Chronic) Gastrointestinal bleed (Chronic) Diabetes mellitus (Chronic) Had a lengthy discussion with patient and family member. Family members had always agreed they want father to remain at home and they want quality of life for him He is instructed when he sits down at table to eat he is to take his insulin. The insulin is to cover the food he is about to eat. My thought is if the timing remains a problem I will place him on regular insulin which is much slower in action. Gurmeet if this is a barrier to his independence and remaining in the home setting. Hospital Course and Treatment Imaging Results: RAD/Lumbar Spine 2 or 3 Views IMPRESSION: Degenerative changes of the spine, as detailed above. RAD/Chest PA and Lateral IMPRESSION: Stable examination. No acute abnormality is seen. CT/Brain/Head without Contrast IMPRESSION: Moderate atrophy and periventricular white matter ischemic change. No evidence for acute bleed. If concern for acute infarct MRI recommended MRI/Brain without Contrast IMPRESSION: Moderate periventricular white matter ischemic changes without evidence for acute infarct. Old bilateral posterior thalamic infarcts and cerebellar infarcts. 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 Recommend MRA of the neck for further evaluation No other significant atherosclerotic disease MRI/MRA Neck WITH and W/O Contrast IMPRESSION: Moderate atherosclerotic disease without evidence for hemodynamically significant stenosis of the carotids.. 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 This may be further assessed with CTA if clinically warranted RAD/Pelvis 1 or 2 Views IMPRESSION: Normal x-ray examination of the pelvis. Operations: None Procedures: None Summary of Care Provided: Physical exam on day of discharge: General: Resting comfortably NAD, intermittent hiccups Psych: A/Ox3 normal affect HEENT: JAVED AT MA Neck: Supple NT CV: RRR no m/t/r/g/h Resp: CTA Abd: [id number] Soft NT no guarding or rigidity Ext: DP2+= no edema Skin: W/D normal turgor Lymph/Heme: No active bleeding or adenopathy Neuro: CN2-12 intact Hospital course: The patient is a 82 year old M with a history of CVA, chronic dizziness, hypertension, hyperlipidemia, CAD, type 2 diabetes, who presented to the emergency room with a syncopal episode and found to be hypoglycemic with a blood sugar of 39. He was suspected to have had a syncopal episode secondary to hypoglycemia but underwent a stroke workup as he had a history of CVA multiple risk factors. He had taken his insulin at home and then missed a meal. He underwent MRI MRA of the head and neck-these were negative. He is maintained on aspirin, Plavix, statin. He continued to have chronic dizziness however this is not new for him. He was restarted on his usual home doses of insulin and remained stable on these, somewhat hyperglycemic however given the syncopal episode we deferred increasing his doses at this time. He worked with PT and OT and had significant debility long term was recommended. During his stay we also addressed chronic intractable hiccups with associated decrease in appetite. He had been trialed on as needed baclofen which should not made a significant difference. We decided to lower the dose and schedule instead of using it as needed to see if this gives him any relief. We offered Antivert however this was declined at this time. He will also need to continue vestibular therapy and follow-up with ENT as an outpatient- we recommended follow-up with Dr. Chacon. He is discharged to long term in stable condition. This patient was seen by Rebel Vang PA-C under the supervision of Doctor Rojas. [] Discharge Diet: Low fat/ Low Cholesterol, 1800 Calorie Control Diet, 2000 mg Sodium Diet Discharge Activity: Return to Normal Activity Home Medications: Medications to take at Discharge Atenolol [Tenormin (beta naty)] 75 mg PO DAILY 10/18/16 Clopidogrel Bisulfate [Plavix] 75 mg PO DAILY 10/18/16 Insulin Aspart [Novolog Flexpen] 10 units SC TIDAC 06/06/17 Polyethylene Glycol 3350 [Miralax] 0.5 pack PO DAILY 06/06/17 Ramipril [Altace] 5 mg PO DAILY 06/06/17 acetaminophen ER 650 mg tablet,extended release 650 mg PO Q6H PRN tab 10/17/17 Insulin Detemir [Levemir FlexPen] 22 unit SC QHS 12/09/17 albuterol sulfate HFA 90 mcg/actuation aerosol inhaler 2 puff INHALATION Q6H PRN PRN 12/26/17 Atorvastatin Calcium [Lipitor] 80 mg PO QHS 01/03/18 Blood Sugar Diagnostic [Contour Test Strip] 0 each .ROUTE .MEDSUPPLY 01/03/18 Blood-Glucose Meter [Contour] 1 each .ROUTE .MEDSUPPLY 01/03/18 Pen Needle, Diabetic [Incontrol Pen Needle] 0 each .ROUTE .MEDSUPPLY 01/03/18 Ranitidine HCl [Acid Control] 300 mg PO QHS 01/03/18 Baclofen [Lioresal] 5 mg PO BIDCM tablet 01/06/18 Glucerna Shake 120 ml PO TIDCM liquid 01/06/18 Menthol [Bengay Vanishing Scent] 1 applic TOPICAL TID PRN PRN tube 01/06/18 Primary Care Physician: Ronald Calderón MD [Primary Care Provider] - Please follow up with your Primary Care Physician in: 2 weeks Please Follow Up With: Ranjit Chacon MD - Chronic vertigo When: 1-2 weeks Please Follow Up With: Fidelia Bustillo FISH SMOKERJodyC When: 2-3 weeks Additional Instructions: Continue vestibular therapy with occupational therapy. Disposition: Custodial facility Minutes spent on discharge:: 35 Patient Condition:: Stable Medical Necessity - Tobacco Use Smoking Status: Never smoker Tobacco Use: Non-smoker Meaningful Use Info Meaningful Use Diagnoses (Choose all that apply): None applicable 01/06/181714 <Electronically signed by Rebel CLAYTON> Date Rebel CLAYTON 01/06/18 1725<Electronically signed by Radha Xie > Cosigner Signature (if applicable): Date Radha Xie CC: FORREST Vang; Radha Xie; Ronald Calderón MD Signed BEDSIDE GLUCOSE Collected: 01/06/2018 Status: F Source: [place] 4:54 PM [facility] REPOSITORY TYPE CODE TESTS RESULT OUT OF REFERENCE UNITS RANGE LAB L501.080 70-110 mg/dL High BEDSIDE GLU 237 Result Comment: MANAGEMENT OF PATIENT CARE PER NURSING PROTOCOL Performed By: #### L501.080 #### [facility] Laboratory Point of Care [address] [place] [address] TRANSFER TO EXTENDED Observed: 01/06/2018 Status: F Source: [facility] 3:14 PM [facility] REPOSITORY [facility] Medical Records Department [address] [place] [address] Transfer to Extended Care MR#: [id number] Acct: [id number] Name: [facility] Rep #: [id number] : 1935 82 From: Rebel CLAYTON PCP: Ronald Caledrón MD Status: ADM IN [facility] (Patient) (Health Ins. Claim No.) (Day of Discharge to Facility) Certification of patient admission REQUIRED AT TIME OF ADMISSION. I CERTIFY THAT POST-HOSPITAL ECF SERVICES ARE REQUIRED TO BE GIVEN ON AN IN-PATIENT BASIS BECAUSE OF THE ABOVE NAMED PATIENT'S NEED FOR PENITENTIARY CARE ON A CONTINUING BASIS FOR THE CONDITION(S) FOR WHICH HE/SHE WAS RECEIVING IN-PATIENT HOSPITAL SERVICES PRIOR TO HIS/HER TRANSFER TO THE [facility]. 01/06/18 1343 <Electronically signed by Rebel CLAYTON> Date Rebel CLAYTON - Diet 01/03/18 20:54 Diet: Cardiac/Low Cholesterol Is pt able to select menu?: Yes 1800 calorie / day - Routine Orders/Code Status Suppository Type: Dulcolax 10mg Suppository Frequency: Daily PRN Routine Lab Work: CBC - 3 days, BMP - 3 days Code Status: Full Code - Therapies Physical Therapy: Eval and Treat Occupational Therapy: Eval and Treat - Please continue vestibular therapy - Problem/Diagnosis (1) Hypoglycemia Status: Acute Current Visit: Yes (2) Type 2 diabetes mellitus Status: Chronic Comment: BG readings overall have become much higher. He reports meals on wheels is now later and he is having what seems like 2 lunches. He is checking BG after meals only and sounds like he takes correction for the 300-400 readings but when specifically ask about correction it does not sound like he has corrected many of the higher BG. On 3 occassions it is apparent he corrected. Higher BG appear to be associated with his adding the meals on wheels service. Current Visit: No (3) Cerebrovascular disease Status: Chronic Comment: Status post acute ischemic stroke with residual lower extremity weakness mild Current Visit: No (4) Hyperlipidemia Status: Chronic Current Visit: No (5) Hypertension Status: Chronic Comment: 104/64 Current Visit: No (6) Coronary artery disease Status: Chronic Current Visit: No (7) GERD (gastroesophageal reflux disease) Status: Chronic Current Visit: No (8) OAB (overactive bladder) Status: Chronic Current Visit: No (9) Ataxia Status: Chronic Current Visit: No (10) Dizziness Status: Chronic Current Visit: Yes (11) Stroke Status: Chronic Current Visit: No (12) Diabetes mellitus Status: Chronic Comment: Had a lengthy discussion with patient and family member. Family members had always agreed they want father to remain at home and they want quality of life for him He is instructed when he sits down at table to eat he is to take his insulin. The insulin is to cover the food he is about to eat. My thought is if the timing remains a problem I will place him on regular insulin which is much slower in action. Gurmeet if this is a barrier to his independence and remaining in the home setting. Current Visit: No - Allergies/Procedures Done in Hospital Allergies/Adverse Reactions: Allergies alfuzosin Allergy (Verified 01/03/18 13:08) Other Penicillins Allergy (Verified 01/03/18 13:08) Rash Sulfa (Sulfonamide Antibiotics) Allergy (Verified 01/03/18 13:08) Swelling Procedures: None - Type of Care/Length of Stay Estimated LOS: Convalescent Care Less Than 30 days Type of Care Needed: Skilled Rehab Potential: Fair Prognosis: Fair - Additional Orders/Day of Discharge Day of Discharge: 01/06/18 - Dietary and Speech Recommendations Dietitian Recommendations/Changes: Rec 1800 Calorie Controlled, Cardiac/Low Cholesterol given pt's PMHx. Rec continue Glucerna Shake TID on medpass. - Follow Up Care Primary Care Physician: Ronald Calderón MD [Primary Care Provider] - Please follow up with your Primary Care Physician in: 2 weeks Please Follow Up With: Ranjit Chacon MD - Chronic vertigo When: 1-2 weeks Please Follow Up With: Fidelia Bustillo NP-C When: 2-3 weeks 01/06/18 1343 <Electronically signed by Rebel CLAYTON> Date Rebel CLAYTON CC: Ronald Calderón MD Signed BEDSIDE GLUCOSE Collected: 01/06/2018 Status: F Source: [place] 11:27 AM [facility] REPOSITORY TYPE CODE TESTS RESULT OUT OF REFERENCE UNITS RANGE LAB L501.080 70-110 mg/dL High BEDSIDE GLU 310 Result Comment: MANAGEMENT OF PATIENT CARE PER NURSING PROTOCOL Performed By: #### L501.080 #### [facility] Laboratory Point of Care [address] [place] [address] BEDSIDE GLUCOSE Collected: 01/06/2018 Status: F Source: [place] 6:56 AM [facility] REPOSITORY TYPE CODE TESTS RESULT OUT OF REFERENCE UNITS RANGE LAB L501.080 70-110 mg/dL High BEDSIDE GLU 218 Result Comment: MANAGEMENT OF PATIENT CARE PER NURSING PROTOCOL Performed By: #### L501.080 #### [facility] Laboratory Point of Care [address] [place] [address] BEDSIDE GLUCOSE Collected: 01/05/2018 Status: F Source: [place] 9:09 PM [facility] REPOSITORY TYPE CODE TESTS RESULT OUT OF REFERENCE UNITS RANGE LAB L501.080 70-110 mg/dL High BEDSIDE GLU 280 Result Comment: MANAGEMENT OF PATIENT CARE PER NURSING PROTOCOL Performed By: #### L501.080 #### [facility] Laboratory Point of Care [address] [place] [address] BEDSIDE GLUCOSE Collected: 01/05/2018 Status: F Source: [place] 4:43 PM [facility] REPOSITORY TYPE CODE TESTS RESULT OUT OF REFERENCE UNITS RANGE LAB L501.080 70-110 mg/dL High BEDSIDE GLU 237 Result Comment: MANAGEMENT OF PATIENT CARE PER NURSING PROTOCOL Performed By: #### L501.080 #### [facility] Laboratory Point of Care [address] [place] [address] BEDSIDE GLUCOSE Collected: 01/05/2018 Status: F Source: [place] 11:14 AM [facility] REPOSITORY TYPE CODE TESTS RESULT OUT OF REFERENCE UNITS RANGE LAB L501.080 70-110 mg/dL High BEDSIDE GLU 327 Result Comment: MANAGEMENT OF PATIENT CARE PER NURSING PROTOCOL Performed By: #### L501.080 #### [facility] Laboratory Point of Care [address] [place] [address] BEDSIDE GLUCOSE Collected: 01/05/2018 Status: F Source: [place] 6:55 AM [facility] REPOSITORY TYPE CODE TESTS RESULT OUT OF REFERENCE UNITS RANGE LAB L501.080 70-110 mg/dL High BEDSIDE GLU 235 Result Comment: MANAGEMENT OF PATIENT CARE PER NURSING PROTOCOL Performed By: #### L501.080 #### [facility] Laboratory Point of Care [address] [place] [address] ENDOCRINOLOGY VISIT Observed: 01/05/2018 Status: F Source: [place] REPORT 6:06 AM [facility] REPOSITORY [facility] [address] [place] [address] OFFICE VISIT Date of Service: 12/26/17 MR#: [id number] Acct: [id number] Name: [facility] Rep #: [id number] : 1935 Provider: Fidelia Bustillo NP Age/Sex: 82/M Location: [facility] Status: Signed HPI History of present illness [facility] is an 82 year old male who presents for follow up of diabetes type 2. Diagnosed in 1974. Accompanied by a family member. Continues on 22 lantus daily and meal insulin 10 units each meal. States he continues with meals on wheel program. Sometimes he is hungry before they arrive so he snacks. He thinks this is why his pre lunch BG is high. Pt denies difficulty with injections or self monitoring of BG. Denies any signs of infection or irritation at site of injections. Reports taking insulin as directed Daughter states for some reason patient has started taking his meal insulin after meals which has created very high BG and a few occasions some very low blood sugars. She believes he has confused his meal insulin with his corrections. He is alone much of tie day. Family members call each day and also check on him in the evenings At time of visit: -Pt denies symptoms of hypertensive emergency (CP,SOB,FREY, or blurred vision) and hypotension(dizziness or lightheadedness) -Pt denies symptoms of hypoglycemia ( sweaty, confusion, anxiety, tremor, hunger, palpitations) and hyperglycemia ( polydipsia, polyuria) -Pt denies potential medication adverse effect. Hypoglycemia Aware of hypoglycemia: When awake Able to self treat low BG: Yes Frequent low Blood sugar: No Has supply of glucagon: No SMBG BG low created 911 call BG average 200 Checks BG 3-4 times daily Exercise Walks with cane and occ with a walker. Type: type 2 Glucose control symptoms: Reports high post-meal glucose Weight and fatigue symptoms: Denies snoring Cardiopulmonary symptoms: Denies chest pain at rest, dyspnea on exertion, lightheadedness or myalgias GI symptoms: Reports constipation; denies diarrhea, nausea/dyspepsia or vomiting Skin and extremity symptoms: Denies erectile dysfunction Other symptoms: Reports blurry vision and change in vision Self monitoring: Yes Glucometer type: relion Diabetes education in past year: Yes Glucose testing: demonstrates correct use of meter Sick day education - understands ketone testing: Yes Exam Const General: comfortable, no acute distress Orientation: oriented x3 HENMT Head: normal to inspection, atraumatic Ears: hearing grossly normal bilaterally Nose: no nasal discharge Mouth: oral mucosae normal, moist mucous membranes Teeth and gingiva: dentition normal Eyes General: appearance normal, both eyes and all related structures Conjunctivae: conjunctivae normal Sclera: sclerae normal Pupils: PERRL Neck Neck: normal visual inspection, full ROM Neck mass: No Resp Effort AND Inspection: normal respiratory effort, symmetric chest movement, able to speak in complete sentences Auscultation: Bilateral: Clear to Auscultation Cardio Rate: regular rate Rhythm: regular rhythm Heart Sounds: S1 normal, S2 normal GI Inspection: normal to inspection Auscultation: normal bowel sounds Palpation: soft, no guarding Musc Thoracic/Lumbar Spine: other (No joint swelling or fluid accumulation) Skin General: no rashes or lesions noted Wounds: no wounds Diabetic Foot Pulses: L dorsalis pedis pulse: normal, R dorsalis pedis pulse: normal Monofilament test: Left foot: abnormal, Right foot: abnormal Neuro General: moves all extremities, other (Using a walker today Gait slow and stiff) Extrem General: no edema Psych Appearance: well kempt Mental Status: mental status grossly normal Mood: congruent mood Affect: normal affect Speech and Movement: speech clear Attitude: cooperative Thought Process: normal Thought Content: normal Judgment: judgment good Weight and fatigue symptoms: Denies snoring Cardiopulmonary symptoms: Reports lightheadedness; denies chest pain at rest, dyspnea on exertion or myalgias GI symptoms: Reports diarrhea; denies constipation, nausea/dyspepsia or vomiting Skin and extremity symptoms: Denies erectile dysfunction Other symptoms: Reports blurry vision; denies change in vision Intake Vital Signs12/26/17 Height 5 ft 8 in 12/26/17 Weight: 157 lb 4 oz 12/26/17 Body Mass Index (BMI) 23.9 12/26/17 Blood Pressure 104/64 12/26/17 Blood Pressure Location Lt popliteal 12/26/17 Blood Pressure Position Sitting Intake Visit Reasons: diabetes Publishing Specialist Required: No Accompanied by: Daughter Is patient in pain?: No Allergies alfuzosin Allergy (Verified 01/03/18 13:08) Other Penicillins Allergy (Verified 01/03/18 13:08) Rash Sulfa (Sulfonamide Antibiotics) Allergy (Verified 01/03/18 13:08) Swelling Medications Atenolol [Tenormin (beta naty)] 75 mg PO DAILY 10/18/16 [History Confirmed 01/03/18] Clopidogrel Bisulfate [Plavix] 75 mg PO DAILY 10/18/16 [History Confirmed 01/03/18] Insulin Aspart [Novolog Flexpen] 10 units SC TIDAC 06/06/17 [History Confirmed 01/03/18] Polyethylene Glycol 3350 [Miralax] 0.5 pack PO DAILY 06/06/17 [History Confirmed 01/03/18] Ramipril [Altace] 5 mg PO DAILY 06/06/17 [History Confirmed 01/03/18] baclofen 10 mg tablet 10 mg PO TID PRN 10/08/17 [History Confirmed 01/03/18] acetaminophen ER 650 mg tablet,extended release 650 mg PO Q6H PRN tab 10/17/17 [History Confirmed 01/03/18] Insulin Detemir [Levemir FlexPen] 22 unit SC QHS 12/09/17 [History Confirmed 01/03/18] albuterol sulfate HFA 90 mcg/actuation aerosol inhaler 2 puff INHALATION Q6H PRN PRN 12/26/17 [History Confirmed 01/03/18] Atorvastatin Calcium [Lipitor] 80 mg PO QHS 01/03/18 [History Confirmed 01/03/18] Blood Sugar Diagnostic [sciencebite No Coding strips] 0 ea .ROUTE .MEDSUPPLY 01/03/18 [History Confirmed 01/03/18] Blood-Glucose Meter [sciencebite Voice Glucose Meter kit] 1 ea .ROUTE .MEDSUPPLY 01/03/18 [History Confirmed 01/03/18] Pen Needle, Diabetic [Incontrol Pen Needle] 0 ea .ROUTE .MEDSUPPLY 01/03/18 [History Confirmed 01/03/18] Ranitidine HCl [Acid Control] 300 mg PO QHS 01/03/18 [History Confirmed 01/03/18] Nurse's Note: blood sugars : low : 22 high : PFSH Medical History Carotid bruit (Chronic) Atherosclerotic heart disease of eagle coronary artery without angina pectoris (Chronic) Type 2 diabetes mellitus (Chronic) Cerebrovascular disease (Chronic) Hyperlipidemia (Chronic) Diverticulitis (Chronic) Hypertension (Chronic) Coronary artery disease (Chronic) GERD (gastroesophageal reflux disease) (Chronic) Ataxia (Chronic) LEFT FRONTAL LACUNAR INFARCT (Chronic) Stroke (Chronic) Gastrointestinal bleed (Chronic) Diabetes mellitus (Chronic) Surgical History H/O carotid endarterectomy (Resolved) H/O hernia repair (Resolved) H/O: hemorrhoidectomy (Resolved) cataract surgery (Resolved) Hx of repair of rotator cuff (Resolved) Family History Brother Kidney disease Mother CVA (cerebral vascular accident) Father Liver cirrhosis Social History Smoking Status: Never smoker alcohol intake: never substance use type: does not use caffeine: Yes Type: carbonated beverages Number of servings: 2 what type of physical activity do you participate in: other seatbelt use: always do you feel safe at home: Yes ROS Const Constitutional: Positive for fatigue and change in appetite; no anorexia, body ache, chills, fever(s), frequent falls, decreased energy, malaise, night sweats, weakness, weight change, sleep problems, abnormal sleep pattern, other, headache(s), snoring or excessive sweating Eyes Eyes: Positive for blurry vision; no change in vision, double vision, discharge, dry eyes, bulging eyes, floaters, visual disturbances, eye pain, light sensitivity, spots in vision, tunnel vision or other ENT ENT: No abnormal hearing, ear pain, ear discharge, ear pressure, hearing loss, tinnitus, dizziness/vertigo, balance problems, nosebleed/epistaxis, nasal congestion, nasal obstruction, nose pain, sinus pressure, sinus pain, nasal discharge, post nasal drip, headache(s), facial pain, dental pain, dry mouth, bad breath, hoarseness, lip swelling, mouth lesions, mouth pain, sore throat, tongue swelling, throat swelling, other, difficulty swallowing or neck pain Resp Respiratory: Positive for cough, shortness of breath and wheezing; no change in phlegm color, chest congestion, excessive phlegm production, hemoptysis, pain on inspiration, pain with cough, snoring, stridor or other Cardio Cardiology: Positive for lightheadedness; no chest pain at rest, chest pain with exertion, leg pain with exertion, excessive sweating, shortness of breath, dyspnea on exertion, generalized swelling, irregular heart rhythm, orthopnea, radiating jaw, neck or arm pain, fast heart rate, slow heart rate, palpitations or other Gastro GI: Positive for diarrhea; no abdominal pain, belching, bloating, change in bowel habits, change in stool character, coffee ground emesis, constipation, cramping, heartburn, difficulty swallowing, feeling full early, excessive flatus, incontinent of stools, Vomiting blood/hematemesis, blood in stool, loose stools, Black,tarry stools, nausea/dyspepsia, pain with swallowing, vomiting or other Genitourinary Male: No difficulty urinating, burning urination, painful urination, urinary incontinence, urinary frequency, urinary urgency, urinary hesitancy, urinary retention, blood in urine, Frequent nighttime urination/ nocturia, post void dribbling, suprapubic fullness, side pain, sexual problems, genital lesions, genital itching, erectile dysfunction, penile discharge, difficulty with ejaculations, blood in semen, scrotal swelling, testicle lump, testicle pain or other Musc Musculoskeletal: No abnormal walking, joint pain, back pain, deformity, joint swelling, limited range of motion, loss of height, muscle cramps, muscle weakness, decreased muscle mass, body aches, neck pain, numbness, radiating pain into limb, stiffness, tingling or other Skin Skin: No acne, hair loss, change in hair, nail changes, boil, change in skin color, dry skin, redness, excessive hair growth, yellowing of the skin, lesions, itching, rash, skin pain, skin ulcer, sores, skin swelling, wounds or other Breast Breast: No other Neuro Neurology: No frequent falls, weakness, visual disturbances, abnormal hearing, headache(s), abnormal walking, numbness or tingling Psych Psychiatric: No abnormal sleep pattern, Positive for change in appetite Endo Endocrine: Positive for fatigue; no other or excessive sweating Aller/Imm Allergy/Immunologic: Positive for wheezing; no lip swelling, tongue swelling, throat swelling or itchy eyes Assessment AND Plan Problems 1. Encounter for long-term current use of high risk medication Z79.899 2. Essential hypertension I10 3. Type 2 diabetes mellitus with complication, with long-term current use of insulin E11.8; Z79.4 Plan Will order a prodigy talking meter for the patient. Eye sight is not good. Medications New: Prodigy Voice Glucose Meter kit As directed E11.9 - Type 2 [id number] JOCELYN Roger (blood-glucose meter) satya mellitus NS Discontinued: pen needle, diabetic (BD Ultra-FinAs directed with insulin pen up toE11.9 Vishal renner Noemy Pen Needle) Discontinued 5 times daily Reason: Order edited - Discontin uing original order Plan Detail Additional Comments 1. Please schedule follow up in 3 months. 2. Lab work one week before appointment. 3. Discussed importance of regular exercise and recommend starting or continuing a regular exercise program for good health. 4. The patient was encouraged to lose weight for good health 5. The importance of monitoring blood sugar regularly was reviewed. 6. The importance of monitoring the HBA1c level regularly was reviewed. 7. The importance of prper foot care and regularly checking feet to prevent sores and loss of limbs was reviewed. 8. The importance of keeping BP at or below 130/80 to prevent stroke, heart attacks, kidney failure, blindness was reviewed. Spent approximately 45 minutes with patient with over 50% of time spent in discussion and counseling regarding medication adjustment, symptoms and treatment of hypoglycemia, diet adherence, and checking BG before driving. Coding Level of Care Code Off vis,est,level 4 Diagnoses Encounter for long-term current use of high risk medication Z79.899 Essential hypertension I10 Hypertension type: essential hypertension Type 2 diabetes mellitus with complication, with long-term current use of insulin E11.8; Z79.4 Diabetes mellitus type: type 2 Diabetes mellitus complication status: with unspecified complications Diabetes mellitus mcc insulin use: with mcc use Time Spent (min) 45 01/05/18 0606 <Electronically signed by Fidelia BANKS> Date Fidelia BANKS Cosigner Signature: Date (if applicable) CC: BEDSIDE GLUCOSE Collected: 01/04/2018 Status: F Source: [place] 9:24 PM [facility] REPOSITORY TYPE CODE TESTS RESULT OUT OF REFERENCE UNITS RANGE LAB L501.080 70-110 mg/dL High BEDSIDE GLU 224 Result Comment: MANAGEMENT OF PATIENT CARE PER NURSING PROTOCOL Performed By: #### L501.080 #### [facility] Point of Care [address] [place] [address] BEDSIDE GLUCOSE Collected: 01/04/2018 Status: F Source: NOEMÍ 4:59 PM [facility] REPOSITORY TYPE CODE TESTS RESULT OUT OF REFERENCE UNITS RANGE LAB L501.080 70-110 mg/dL High BEDSIDE GLU 247 Result Comment: MANAGEMENT OF PATIENT CARE PER NURSING PROTOCOL Performed By: #### L501.080 #### [facility] Point of Care [address] [place] [address] BASIC METABOLIC Collected: 01/04/2018 Status: F Source: [place] PROFILE (BMP) 1:47 PM [facility] REPOSITORY Order Comment: UTO 2 PHLEBS 2 TRIES 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 PT EATING LUNCH ASK TO RETURN SO HE COULD EAT HIS LUNCH. TYPE CODE TESTS RESULT OUT OF RANGE REFERENCE UNITS LAB L501.0100 74-106 mg/dL High GLU 252 Result Comment: Glucose result greater than or equal to 200 mg/dL suggests DIABETES MELLITUS per A.D.A. criteria. Please note revised GLUCOSE reference range effective 2017. LAB L501.1000 7-18 mg/dL Normal BUN 9 LAB L501.1100 0.70-1.30 mg/dL Normal CREAT,SERUM 1.03 Result Comment: The validity of the calculated GFR AND GFRAA in patients over 70 years has not been determined. Clinical correlation is essential. LAB L501.1110 >60 mL/min Normal EST GFR 74 Result Comment: Non- GFR Calc LAB L501.1115 >60 mL/min Normal EST GFR - AA 89 Result Comment: GFR Calc LAB L501.1255 ml/min Normal Estimated CRCL 54.42 LAB L501.1300 10-20 RATIO Low BUN/CRE 8.7 LAB L501.2200 8.5-10 mg/dL Low .1 CA 7.7 LAB L501.5300 136-14 mmol/L Low 5 NA 133 LAB L501.5600 3.5-5. mmol/L Normal 1 K 4.2 LAB L501.5900 98-107 mmol/L Normal CL 101 LAB L501.6100 21.0-3 mmol/L Normal 2.0 CO2 24.0 LAB L501.6200 5-15 Normal GAP 8 Performed By: #### L500.2500 #### [facility] [address] [place], [address] LIVER PROFILE Collected: 01/04/2018 Status: F Source: NOEM[place] 1:47 PM [facility] REPOSITORY Order Comment: Comments: as add on test TYPE CODE TESTS RESULT OUT OF RANGE REFERENCE UNITS LAB L501.1500 6.4-8.2 g/dL Normal T PROT 6.5 LAB L501.1800 3.2-5.0 g/dL Low ALB 2.3 LAB L501.1950 2.2-4.2 g/dL Normal GLOB 4.2 LAB L501.4100 15-37 U/L Normal AST 27 LAB L501.4305 45-117 U/L High ALK P 118 LAB L501.4405 16-61 U/L Low ALT 13 LAB L501.4600 0.20-1.00 mg/dL Normal T BILI 0.50 LAB L501.4700 0.00-0.30 mg/dL Normal D BILI 0.19 Performed By: #### L500.3400 #### [facility] [address] [place], [address] BEDSIDE GLUCOSE Collected: 01/04/2018 Status: F Source: NOEMÍ 11:27 AM [facility] REPOSITORY TYPE CODE TESTS RESULT OUT OF REFERENCE UNITS RANGE LAB L501.080 70-110 mg/dL High BEDSIDE GLU 273 Result Comment: MANAGEMENT OF PATIENT CARE PER NURSING PROTOCOL Performed By: #### L501.080 #### [facility] Point of Care [address] [facility] [place] [address] BEDSIDE GLUCOSE Collected: 01/04/2018 Status: F Source: NOEM[place] 5:55 AM [facility] REPOSITORY TYPE CODE TESTS RESULT OUT OF REFERENCE UNITS RANGE LAB L501.080 70-110 mg/dL High BEDSIDE GLU 124 Result Comment: MANAGEMENT OF PATIENT CARE PER NURSING PROTOCOL Performed By: #### L501.080 #### [facility] Point of Care [address] [place] [address] BEDSIDE GLUCOSE Collected: 01/03/2018 Status: F Source: NOEM[place] 11:50 PM [facility] REPOSITORY TYPE CODE TESTS RESULT OUT OF REFERENCE UNITS RANGE LAB L501.080 70-110 mg/dL High BEDSIDE GLU 113 Result Comment: MANAGEMENT OF PATIENT CARE PER NURSING PROTOCOL Performed By: #### L501.080 #### [facility] Point of Care [address] [place] [address] BEDSIDE GLUCOSE Collected: 01/03/2018 Status: F Source: NOEM[place] 9:26 PM [facility] REPOSITORY TYPE CODE TESTS RESULT OUT OF RANGE REFERENCE UNITS LAB L501.080 70-110 mg/dL Normal BEDSIDE GLU 90 Result Comment: MANAGEMENT OF PATIENT CARE PER NURSING PROTOCOL Performed By: #### L501.080 #### [facility] Point of Care [address] [place] [address] HISTORY AND PHYSICAL Observed: 01/03/2018 Status: F Source: NOEM[facility] EXAM 6:06 PM [facility] REPOSITORY 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 He reports meals on wheels is now later and he is having what seems like 2 lunches. He is checking BG after meals only and sounds like he takes correction for the 300-400 readings but when specifically ask about correction it does not sound like he has corrected many of the higher BG. On 3 occassions it is apparent he corrected. Higher BG appear to be associated with his adding the meals on wheels service. (2) Hyperlipidemia Status: Chronic Qualifiers: Hyperlipidemia type: unspecified Qualified Code(s): E78.5 - Hyperlipidemia, unspecified (3) Hypertension Status: Chronic Qualifiers: Hypertension type: essential hypertension Qualified Code(s): I10 - Essential (primary) hypertension (4) GERD (gastroesophageal reflux disease) Status: Chronic Qualifiers: Esophagitis presence: esophagitis presence not specified Qualified Code(s): K21.9 - Gastro-esophageal reflux disease without esophagitis History of Present Illness Date of Admission: 01/03/18 Chief Complaint: Dizziness, low blood glucose The patient is a 82 year old M with past medical history of Type 2DM, on Lantus and pre-meal lispro insulin, hypertension, hyperlipidemia, CAD, history of CVA who comes in with a syncopal episode related to hypoglycemia. Patient gets his meals from [employer]. He cannot remember if he gave his insulin prior to his meals coming in. But his insulin pen was showing that is has been used. When the lady that brings his meals got to the door, he was not at the door. She went to see his neighbor who helped her get into the house through the back door. He was found lying on the floor and he mumbled to a neighbor that he had low blood sugar. They called the EMS, blood sugar check was 39. Patient was given something to eat and brought into the ER. Blood sugar on arrival was 85. 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 His family feels that when his blood sugars are fluctuating, he sees he objects floating. They are concerned that if his insulin levels are lowered was in the hospital he might be out of control. He reports that his blood sugar this morning was 340. He denied any weakness in his body. Denied any chest pain or palpitations or diaphoresis or fever or chills. Past Medical History Past Medical History (Chronic Problems): Chronic Problems (Last Reviewed 12/26/17 @ 10:29 by Jaida Peacock) Hypotension (Chronic) Carotid bruit (Chronic) Encounter for long-term current use of high risk medication (Chronic) Atherosclerotic heart disease of eagle coronary artery without angina pectoris (Chronic) Type 2 diabetes mellitus (Chronic) BG readings overall have become much higher. He reports meals on wheels is now later and he is having what seems like 2 lunches. He is checking BG after meals only and sounds like he takes correction for the 300-400 readings but when specifically ask about correction it does not sound like he has corrected many of the higher BG. On 3 occassions it is apparent he corrected. Higher BG appear to be associated with his adding the meals on wheels service. Cerebrovascular disease (Chronic) Status post acute ischemic stroke with residual lower extremity weakness mild Hyperlipidemia (Chronic) Diverticulitis (Chronic) Hypertension (Chronic) Coronary artery disease (Chronic) GERD (gastroesophageal reflux disease) (Chronic) OAB (overactive bladder) (Chronic) Ataxia (Chronic) LEFT FRONTAL LACUNAR INFARCT (Chronic) Dizziness (Chronic) Stroke (Chronic) Gastrointestinal bleed (Chronic) Diabetes mellitus (Chronic) Medical History: Medical History (Last Reviewed 12/26/17 @ 10:29 by Jaida Peacock) Carotid bruit (Chronic) R09.89 Atherosclerotic heart disease of eagle coronary artery without angina pectoris (Chronic) I25.10 Type 2 diabetes mellitus (Chronic) E11.9 BG readings overall have become much higher. He reports meals on wheels is now later and he is having what seems like 2 lunches. He is checking BG after meals only and sounds like he takes correction for the 300-400 readings but when specifically ask about correction it does not sound like he has corrected many of the higher BG. On 3 occassions it is apparent he corrected. Higher BG appear to be associated with his adding the meals on wheels service. Cerebrovascular disease (Chronic) I67.9 Status post acute ischemic stroke with residual lower extremity weakness mild Hyperlipidemia (Chronic) E78.5 Diverticulitis (Chronic) K57.92 Hypertension (Chronic) I10 Coronary artery disease (Chronic) I25.10 GERD (gastroesophageal reflux disease) (Chronic) K21.9 Ataxia (Chronic) R27.0 LEFT FRONTAL LACUNAR INFARCT (Chronic) Stroke (Chronic) I63.9 Gastrointestinal bleed (Chronic) K92.2 Diabetes mellitus (Chronic) E11.9 Allergies alfuzosin Allergy (Verified 01/03/18 13:08) Other Penicillins Allergy (Verified 01/03/18 13:08) Rash Sulfa (Sulfonamide Antibiotics) Allergy (Verified 01/03/18 13:08) Swelling Home Medications: Ambulatory Orders Medication Instructions Recorded Atenolol [Tenormin (beta naty)] 75 mg PO DAILY 10/18/16 Clopidogrel Bisulfate [Plavix] 75 mg PO DAILY 10/18/16 Insulin Aspart [Novolog Flexpen] 10 units SC TIDAC 06/06/17 Surgical History: Surgical History (Last Reviewed 12/26/17 @ 10:29 by Jaida Peacock) H/O carotid endarterectomy (Resolved) Z98.890 H/O hernia repair (Resolved) Z98.890, Z87.19 H/O: hemorrhoidectomy (Resolved) Z98.890 cataract surgery (Resolved) Hx of repair of rotator cuff (Resolved) Z98.890 Surgical History: - - Rotator cuff surgery, BL carotid endarterectomies,colonoscopies, hemorrhoidectomy. Psychiatric History: No pertinent psych hx Lives: Alone Smoking Status: Never smoker Tobacco Use: Non-smoker Alcohol: None Drugs: None - *Family History Maternal Family History: Family History (Last Reviewed 12/26/17 @ 10:29 by Jaida Peacock) Brother Kidney disease Mother CVA (cerebral vascular accident) Father Liver cirrhosis History Items: Diabetes, Heart Disease, Stroke Paternal Family History: Family History (Last Reviewed 12/26/17 @ 10:29 by Jaida Peacock) Brother Kidney disease Mother CVA (cerebral vascular accident) Father Liver cirrhosis History Items: No pertinent history Sibling Family History: Family History (Last Reviewed 12/26/17 @ 10:29 by Jaida Peacock) Brother Kidney disease Mother CVA (cerebral vascular accident) Father Liver cirrhosis History Items: No pertinent history Review of Systems Constitutional: Denies: Anorexia, Chills, Fever, Night Sweats, Malaise, Weakness, Weight Change Eyes: Denies: Blurred vision, Cataracts, Conjunctivae Inflammation, Double vision, Pain, Redness HEENT: Denies: Head Aches, Hearing Changes, Nasal bleeding, Sinus Congestion, Sinus Drainage, Sore Throat Cardiovascular: Reports: Light Headedness. Denies: Chest Pain, Claudication, Chest Pressure, Chest Tightness, Orthopnea, Palpitations, Paroxysmal Noc. Dyspnea Respiratory: Denies: Cough, Hemoptysis, Pleuritic Pain, Shortness of Breath, Shortness of breath at rest, Shortness of breath upon exertion, Sputum production Gastrointestinal: Denies: Abdominal Pain, Constipation, Diarrhea, Hematemesis, Hematochezia, Nausea, Vomiting Genitourinary: Denies: Dysuria Musculoskeletal: Denies: Arm Pain, Back Pain, Joint Pain, Joint stiffness, Joint swelling, Joint Tenderness Skin: Denies: Dryness, Jaundice, Pruritis, Rash, Wounds Neurological: Denies: Difficulty swallowing, Focal weakness, Headaches, Numbness, Tingling Psychiatric: Denies: Anxiety, Depression, Homicidal Ideations, Suicidal Ideations Endocrine: Denies: Change in Body Habitus, Heat/ Cold Intolerance Hematologic/ Lymphatic: Denies: Easy Bruising, Easy Bleeding VTE Information - Inpt Only VTE Present on Admission: No VTE Pharm Prophylaxis ordered?: Yes Patient Problems: Active and Suspected Problems (Last Reviewed 12/26/17 @ 10:29 by Jaida Peacock) Hypoglycemia (Acute) - Physical Exam General: Alert, Oriented x3, Cooperative, No apparent distress HEENT: Atraumatic, PERRLA, EOMI, Normocephalic Oral: Moist Mucosa Neck: Supple Lungs: Clear to auscultation, Normal air movement Cardiovascular: Regular rate, Regular Rhythm, Normal S1, Normal S2, No murmurs Abdomen: Bowel Sounds Present, Soft, Non Tender, Non-Distended, No Hepato-splenomegaly Extremities: No edema Skin: No rashes, No breakdown Musculoskeletal: No Tenderness to Palpation of Joints or Extremities Lymphatic: No Cervical, Supraclavicular, or Inguinal Adenopathy Neurological: Cranial nerves II-XII grossly intact, Neuro grossly intact Psych/Mental Status: Normal Affect, Appropriate Vital Signs Temp Pulse Resp BP Pulse Ox 99.1 F 84 20 H 168/78 H 97 01/03/18 12:55 01/03/18 15:46 01/03/18 15:46 01/03/18 15:46 01/03/18 15:46 Oxygen Delivery Method Room Air Weight: 72.575 kg Body Mass Index (BMI) 24.3 Finger Stick Blood Glucose 84 Laboratory Tests Past 24 Hrs POC Glucose POC Glucose 84 Assessment/Plan All Active Problems (Last Reviewed 12/26/17 @ 10:29 by Jaida Peacock) H/O carotid endarterectomy (Resolved) H/O hernia repair (Resolved) H/O: hemorrhoidectomy (Resolved) cataract surgery (Resolved) Hx of repair of rotator cuff (Resolved) Abnormal EKG (Acute) Chest pain (Acute) Hypoglycemia (Acute) Ataxia (Resolved) Dizzinesses (Resolved) GI bleed (Resolved) Sepsis (Resolved) 82 year old M with past medical history of Type 2DM, on Lantus and pre-meal lispro insulin, hypertension, hyperlipidemia, CAD, history of CVA who comes in with a syncopal episode related to hypoglycemia. 1. Syncopal episode related to hypoglycemia in a patient with known type II DM on Lantus and pre-meal insulin, likely reason for this current hypoglycemic episode was late arrival of his food after patient had injected himself with insulin. His last HbA1c was 9.9, history of labile blood sugars; follows up with nurse practitioner in endocrinology Plan: Admit patient to PCU, monitor on telemetry, start D5 normal saline, Accu-Cheks every 6hours for the next 24 hours and subsequently before meals at bedtime, decrease Lantus to 15 units daily, decrease pre-meal lispro to 5 units 3 times daily, continue with Accu-Cheks and insulin sliding scale. 2. Dizziness, acute on chronic, history of CVA, will rule out posterior circulation stroke, will get MRI, MRA head and neck and involve neurology if still persistent or stroke is d 3. Hypertension, controlled, continue on atenolol and ramipril, will continue to monitor vitals 4. Hyperlipidemia, on statin 5. History of CVA, on aspirin, statin, Plavix, NAVJOT inhibitor 6. CAD, on aspirin, plavix, statin, atenolol. 7. Debility related to concurrent comorbidities, would ask PT and OT to evaluate 8. DVT prophylaxis with Lovenox subcu Code Visit Inpatient E AND M: [id number] Init Hosp L3 01/03/18 1806 <Electronically signed by Ami Rubio MD> Date Ami Rubio MD Cosigner Signature: Date (if applicable) CC: Ami Rubio MD; Ronald Calderón MD Signed PELVIS 1 OR 2 VIEWS Observed: 01/03/2018 Status: F Source: NOEMÍ 5:25 PM [facility] REPOSIT[facility] Imaging Services [address] [place] [address] Pelvis 1 or 2 Views MR#: [id number] Acct: [id number] Name: WEST MANUEL Rep #: [id number] : 1935 M 82 From: Kvng Dempsey MD PCP: Ronald Calderón MD Status: ADM IN Study: Pelvis 1 or 2 Views Date of Exam: 01/03/18 Exam# [id number] Ordering Dr: Josr Lobato MD STUDY: X-RAY - PELVIS REASON FOR EXAM: Male, 82 years old. Trauma TECHNIQUE: One view of the pelvis was obtained. COMPARISON: None. FINDINGS: There is a non-specific bowel gas pattern. Normal visualized soft tissue structures. Normal bilateral iliac wings, sacroiliac joints and visualized sacrum. Normal visualized bilateral superior and inferior pubic rami. Normal pubic symphysis. Normal ischial tuberosities. Normal visualized right femoral head. Normal right acetabulum. Normal right hip joint. Normal visualized left femoral head. Normal left acetabulum. Normal left hip joint. RAD/Pelvis 1 or 2 Views IMPRESSION: Normal x-ray examination of the pelvis. Electronically Signed: Kvng Dempsey MD at 18:12 EDT , Service support , CC: Josr Lobato MD; Ronald Calderón MD Fitness Assistant: Signed BRAIN WITHOUT Observed: 01/03/2018 Status: F Source: NO[place] CONTRAST 5:25 PM [facility] REPOSITORY [facility] Imaging Services [address] [place] [address] Brain without Contrast MR#: [id number] Acct: [id number] Name: WEST MANUEL Rep #: [id number] : 1935 M 82 From: Kvng Dempsey MD PCP: Ronald Calderón MD Status: ADM IN Study: Brain without Contrast Date of Exam: 01/03/18 Exam# [id number] Ordering Dr: Josr Lobato MD STUDY: MRI BRAIN WITHOUT CONTRAST REASON FOR EXAM: Male, 82 years old. Frequent falls and weakness TECHNIQUE: Standardized multiplanar fat and water weighted pulse sequences were obtained. COMPARISON: MRI of the brain on December 05, 2016 FINDINGS: Mild atrophy and moderate periventricular white matter ischemic changes.. Normal bilateral basal ganglia. There are old lacunar infarcts in the posterior thalamic nuclei There is no extra-axial fluid accumulation. Chronic ischemic changes in the cerebellar hemispheres Normal flow voids within the major intracranial circulation suggesting patency by spin echo criteria. Normal sella turcica, pituitary gland, infundibular stalk, optic chiasm and hypothalamus. Normal tectal plate and pineal gland. Normal midbrain, ana maria and medulla. . Normal basal cisterns. Normal bilateral temporal bones. Normal bilateral internal auditory canals. Postsurgical changes of the orbits.. Mild mucosal thickening of the ethmoid air cells. Normal calvarium and skull base. Normal visualized soft tissue structures. Normal visualized upper cervical spine. MRI/Brain without Contrast IMPRESSION: Moderate periventricular white matter ischemic changes without evidence for acute infarct. Old bilateral posterior thalamic infarcts and cerebellar infarcts. Electronically Signed: Kvng Dempsey MD at 20:58 EDT , Service support , CC: Josr Lobato MD; Ronald Calderón MD Fitness Assistant: Signed MRA HEAD ONLY WITHOUT Observed: 01/03/2018 Status: F Source: [place] CONTRAST 5:25 PM [facility] REPOSITORY [facility] Imaging Services [address] [place] [id number] MRA Head ONLY without Contrast MR#: [id number] Acct: [id number] Name: WEST MANUEL Rep #: [id number] : 1935 M 82 From: Kvng Dempsey MD PCP: Ronald Calderón MD Status: ADM IN Study: MRA Head ONLY without Contrast Date of Exam: 01/03/18 Exam# [id number] Ordering Dr: Josr Lobato MD STUDY: MRA OF THE HEAD WITHOUT CONTRAST REASON FOR EXAM: Male, 82 years old. Frequent falls and weakness TECHNIQUE: 3-D [id number] (TOF) imaging was performed with MIPs. The study was performed unenhanced. COMPARISON: None. FINDINGS: Normal bilateral petrous carotid arteries. Normal right cavernous carotid artery with a normal supraclinoid bifurcation. Normal left cavernous carotid artery with a normal supraclinoid bifurcation. Normal right A1 segments of the anterior cerebral artery. Normal left A1 segments of the anterior cerebral artery. Normal intact anterior communicating artery (ACOM). Normal bilateral A2 segments of the anterior cerebral arteries. Normal right M1 and M2 segments of the middle cerebral arteries, with a normal M1 bifurcation. Normal left M1 and M2 segments of the middle cerebral arteries, with a normal M1 bifurcation. Normal right posterior communicating artery (PCOM). Left posterior communicating artery not visualized consistent with normal variant The left vertebral is normal. 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 . Normal basilar artery with a normal basilar bifurcation. The visualized bilateral superior cerebellar (SCA) arteries are normal. Normal bilateral P1, P2 and visualized P3 segments of the posterior cerebral arteries. There is no demonstrated aneurysm of the atka of [place]. There is no major vessel occlusion or hemodynamically significant stenosis. There is no demonstrated abnormality of the visualized brain. 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 Recommend MRA of the neck for further evaluation No other significant atherosclerotic disease Electronically Signed: Kvng Dempsey MD at 21:00 EDT , Service support , CC: Josr Lobato MD; Ronald Calderón MD Fitness Assistant: Signed MRA NECK WITH AND W/O Observed: 01/03/2018 Status: F Source: [place] CONTRAST 5:25 PM [facility] REPOSITORY [facility] Imaging Services [address] [place] [address] MRA Neck WITH and W/O Contrast MR#: [id number] Acct: [id number] Name: WEST MANUEL Rep #: [id number] : 1935 M 82 From: Kvng Dempsey MD PCP: Ronald Calderón MD Status: ADM IN Study: MRA Neck WITH and W/O Contrast Date of Exam: 01/03/18 Exam# [id number] Ordering Dr: Josr Lobato MD STUDY: MRA NECK WITH AND WITHOUT CONTRAST REASON FOR EXAM: Male, 82 years old. Frequent falls TECHNIQUE: 3-D fpqh-dx-mmikam (TOF) imaging was performed in an 1.5 T MRI scanner. 7 ml of Gadavist was administered for the contrast enhanced images. COMPARISON: None. FINDINGS: RIGHT CAROTID ARTERIES: Normal right common carotid artery (CCA). Plaquing of the right common carotid bulb. Mild multifocal plaquing of the origin of the right internal carotid (ICA) artery without a hemodynamically significant stenosis. Normal visualized cervical portion of the right internal carotid artery. Normal origin of the right external carotid artery (ECA). LEFT CAROTID ARTERIES: Multifocal plaquing of the left common carotid artery (CCA). Plaquing of the left common carotid bulb. Mild plaquing of the origin of the left internal carotid (ICA) artery without a hemodynamically significant stenosis. Normal visualized cervical portion of the left internal carotid artery. Normal origin of the left external carotid artery (ECA). VERTEBRAL ARTERIES: Normal caliber of the left vertebral.. . 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 This may be further assessed with CTA if clinically warranted Electronically Signed: Kvng Dempsey MD at 21:05 EDT , Service support , CC: Josr Lobato MD; Ronald Calderón MD Fitness Assistant: Signed BEDSIDE GLUCOSE Collected: 01/03/2018 Status: F Source: [place] 5:10 PM [facility] REPOSITORY TYPE CODE TESTS RESULT OUT OF REFERENCE UNITS RANGE LAB L501.080 70-110 mg/dL High BEDSIDE GLU 188 Result Comment: MANAGEMENT OF PATIENT CARE PER NURSING PROTOCOL Performed By: #### L501.080 #### [facility] Laboratory Point of Care [address] [facility] [place] [address] EMERGENCY DEPARTMENT Observed: 01/03/2018 Status: F Source: [place] SUMMARY 5:03 PM [facility]POS[facility]ORY [facility] Medical Records Department [address] [place] [address] Emergency Department Summary 01/03/18 1326 MR#: [id number] Acct: [id number] Name: WEST MANUEL Rep #: [id number] : 1935 82 From: Ranjit Chavez DO PCP: Ronald Calderón MD Status: REG ER - ER Visit Summary Date of Service: 01/03/18 Chief Complaint: Hypoglycemia History of Present Illness: The patient is a 82 M who presents with low blood sugar that began this morning. Patient took his insulin this morning but did not eat because [employer] did not get there prior to his sugar becoming low. [employer] found the patient on the floor. EMS administered D50 and he felt better after this. Currently, the patient states he feels dizzy. Patient still has not eaten anything today. Patient denies any nausea or vomiting. Patient does admit to some urinary frequency. Patient denies any fevers or chills. Physical Examination: Vital signs are stable. Patient is afebrile. Patient is in no acute distress. Oral mucosa is pink and moist. Neck is supple. Trachea is midline. There is no JVD noted. Heart was regular rate and rhythm. Lungs are clear and equal bilaterally. Abdomen is soft. Bowel sounds are normal. There is no tenderness noted. Cranial nerves II through XII are intact. There are no focal motor or sensory deficits noted. Musculoskeletal exam reveals tenderness over the right lower lumbar paraspinal areas. There is limited range of motion of the lumbar spine secondary to pain. The remaining physical exam is within normal limits. Test Results: CBC and basic metabolic profile were obtained and were within normal limits. Chest x-ray shows no acute cardiopulmonary process. X-rays the lumbar spine were obtained. There is degenerative changes but no acute fracture. CT scan of the brain was obtained. There is no acute intracranial abnormality. Emergency Department Course and Treatment: Patient was given a meal tray here. Patient felt better on reevaluation but still complained of some dizziness. Patient states he felt like a doorknob was moving up and down. Patient was given a dose of meclizine. The case was discussed with Dr. Rubio. She will admit the patient to the hospital. Patient and family understood and were agreeable with the plan. All questions were answered. Disposition: Admitted to the hospital Impression: Dizziness, hypoglycemia This note was generated with DermaGen dictation software. It may contain incorrect words, spelling, and punctuation that were not noted in review of the chart prior to signing ED Disposition - Plan for ED Patient: Disposition: Acute Care Hospital [facility] Chief Complaint: General Illness Diagnosis: Dizziness, Hypoglycemia Referrals: Ronald Calderón MD [Primary Care Provider] - What to do if you have Problems For any increased pain, shortness of breath, bleeding, nausea or vomiting, chest pain, or any unexpected problems, contact your Primary Care Provider. Call [facility] ([phone]) or report to the closest Emergency Room. Call 911 if necessary. 01/03/18 1703 <Electronically signed by Ranjit Chavez DO> Date Rnajit Chavez DO Cosigner Signature (If Indicated): Date CC: Ronald Calderón MD BRAIN/HEAD WITHOUT Observed: 01/03/2018 Status: F Source: [place] CONTRAST 2:03 PM [facility] Imaging Services [address] [address] Brain/Head without Contrast MR#: [id number] Acct: [id number] Name: WEST MANUEL Rep #: [id number] : 1935 M 82 From: Kvng Dempsey MD PCP: Ronald Calderón MD Status: REG ER Study: Brain/Head without Contrast Date of Exam: 01/03/18 Exam# [id number] Ordering Dr: Ranjit Chavez DO STUDY: CT BRAIN WITHOUT CONTRAST REASON FOR EXAM: Male, 82 years old. Weakness and dizziness RADIATION DOSAGE (If Supplied By Facility): CTDIvol = ( 44.99 ) mGy, DLP = ( 762.36 ) mGycm TECHNIQUE: Transaxial CT imaging of the brain was performed without administration of intravenous contrast material. Individualized dose optimization techniques were used for this CT. COMPARISON: December 09, 2017 FINDINGS: Normal soft tissue structures. Normal calvarium. Calcification of the cavernous carotids. Moderate atrophy and periventricular white matter ischemic changes. 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 Normal basal ganglia and thalami. Normal brainstem. Normal cerebellum. There is no intracranial hemorrhage. There are no findings of an acute ischemic infarction. Normal visualized paranasal sinuses. No significant change since prior study CT/Brain/Head without Contrast IMPRESSION: Moderate atrophy and periventricular white matter ischemic change. No evidence for acute bleed. If concern for acute infarct MRI recommended Electronically Signed: Kvng Dempsey MD at 16:11 EDT , Service support , CC: Ranjit Chavez DO; Ronald Calderón MD Fitness Assistant: Signed CHEST PA AND LATERAL Observed: 01/03/2018 Status: F Source: [place] 1:48 PM [facility]POSIT[facility] [place] [address] Chest PA and Lateral MR#: [id number] Acct: [id number] Name: WEST MANUEL Rep #: [id number] : 1935 M 82 From: Angel Mabry MD PCP: Ronald Calderón MD Status: REG ER Study: Chest PA and Lateral Date of Exam: 01/03/18 Exam# [id number] Ordering Dr: Ranjit Chavez DO STUDY: X-RAY CHEST REASON FOR EXAM: Male, 82 years old. Cough and shortness of breath. TECHNIQUE: AP and lateral views of the chest. COMPARISON: Comparison is made with prior study dated December 09, 2017. FINDINGS: EKG electrodes are seen. Stable mild increased interstitial markings at the bases suggest some mild scarring. No acute abnormality is seen. There is no demonstrated pleural abnormality. Normal size heart. Normal mediastinum and dion. Normal visualized pulmonary arteries. There is atherosclerotic calcification of the aortic arch with tortuosity. There are degenerative changes of the visualized thoracic spine. Normal visualized ribs, clavicles, and shoulders. There is no demonstrated abnormality of the visualized soft tissue structures of the upper abdomen. RAD/Chest PA and Lateral IMPRESSION: Stable examination. No acute abnormality is seen. Electronically Signed: Angel Mabry MD at 14:48 EDT Tel [phone], Service support , CC: Ranjit Chavez DO; Ronald Calderón MD Fitness Assistant: Signed BEDSIDE GLUCOSE Collected: 01/03/2018 Status: F Source: [place] 1:45 PM [facility] REPOSITORY TYPE CODE TESTS RESULT OUT OF RANGE REFERENCE UNITS LAB L501.080 70-110 mg/dL Normal BEDSIDE GLU 84 Result Comment: MANAGEMENT OF PATIENT CARE PER NURSING PROTOCOL Performed By: #### L501.080 #### [facility] Laboratory Point of Care [address] [place] [address] LUMBAR SPINE 2 OR 3 Observed: 01/03/2018 Status: F Source: [place] VIEWS 1:29 PM [facility] REPOSITORY [facility] Imaging Services [address] [place] [address] Lumbar Spine 2 or 3 Views MR#: [id number] Acct: [id number] Name: WEST MANUEL Rep #: [id number] : 1935 M 82 From: Angel Mabry MD PCP: Ronald Calderón MD Status: REG ER Study: Lumbar Spine 2 or 3 Views Date of Exam: 01/03/18 Exam# [id number] Ordering Dr: Ranjit Chavez DO STUDY: X-RAY - LUMBAR SPINE REASON FOR EXAM: Male, 82 years old. Lower right-sided back pain following a recent fall. TECHNIQUE: 3 view(s) of the lumbar spine were obtained. COMPARISON: None FINDINGS: There is straightening of the normal lumbar lordosis. There is no substantial scoliosis. There is a normal alignment of the vertebrae. There is multilevel endplate spondylosis of the lumbar vertebrae. There is multi-level degenerative disc disease with multi-level disc space narrowing. Facet joint osteoarthritis. There is atherosclerotic calcification of the abdominal aorta without a demonstrated aneurysm. RAD/Lumbar Spine 2 or 3 Views IMPRESSION: Degenerative changes of the spine, as detailed above. Electronically Signed: Angel Mabry MD at 14:58 EDT Tel [phone], Service support , CC: Ranjit Chavez DO; Ronald Calderón MD Fitness Assistant: Signed CBC W/DIFF, AUTOMATED Collected: 01/03/2018 Status: C Source: [place] 1:00 PM [facility] REPOSITORY TYPE CODE TESTS RESULT OUT OF RANGE REFERENCE UNITS LAB L100.1000 4.4-11.0 K/mm3 Low WBC 3.3 LAB L100.1200 4.6-6.2 M/mm3 Low RBC 4.00 LAB L100.1300 13.0-16.5 g/dl Low HGB 11.9 LAB L100.1400 40-54 % Low HCT 35.2 LAB L100.1500 80-94 fL Normal MCV 88.0 LAB L100.1600 27.0-32.0 pg Normal MCH 29.8 LAB L100.1700 32-36 g/gl Normal MCHC 33.8 LAB L100.1810 11.6-14.6 % Normal RDW CV 14.1 LAB L100.1820 35.1-43.9 fl High RDW SD 45.1 LAB L100.1900 150-450 K/mm3 Normal PLT 234 LAB L100.2000 6.2-12.0 fl Normal MPV 10.3 LAB L100.2100 47-70 % High NEUT% 75.1 LAB L100.2200 19-41 % Low LY% 11.1 LAB L100.2300 0-10 % High MONO% 12.9 LAB L100.2400 0-5 % Normal EO% 0.6 LAB L100.2500 0-1 % Normal BASO% 0.3 LAB L100.2550 0.0-0.9 % Normal IM GRAN % 0.000 Result Comment: IG% - Immature Granulocytes (promyelocytes, myelocytes and metamyelocytes) > 1% indicates that a LEFT SHIFT is Present. LAB L100.2620 2.0-7.7 X10 3/uL Normal Absolute Neut 2.5 LAB L100.2720 0.83-4.51 X10 3/ul Low Absolute Lymph 0.37 LAB L100.9900 Normal PATH REV Reviewed Result Comment: Leukopenia. Clinical correlation necessary. Kam Mendoza M.D. 01/06/18 AMENDED REPORT 01/06/18 1008 PATH REV previously reported as: May foll Performed By: #### L100.0100 #### [facility] Laboratory [address] [place], [address] BASIC METABOLIC Collected: 01/03/2018 Status: F Source: [place] PROFILE (BMP) 1:00 PM [facility] REPOSITORY TYPE CODE TESTS RESULT OUT OF RANGE REFERENCE UNITS LAB L501.0100 74-106 mg/dL High GLU 133 Result Comment: Fasting Glucose result greater than or equal to 126 mg/dL suggests DIABETES MELLITUS per A.D.A. criteria. Please note revised GLUCOSE reference range effective 2017. LAB L501.1000 7-18 mg/dL Normal BUN 10 LAB L501.1100 0.70-1.30 mg/dL Normal CREAT,SERUM 1.05 Result Comment: The validity of the calculated GFR AND GFRAA in patients over 70 years has not been determined. Clinical correlation is essential. LAB L501.1110 >60 mL/min Normal EST GFR 72 Result Comment: Non- GFR Calc LAB L501.1115 >60 mL/min Normal EST GFR - AA 87 Result Comment: GFR Calc LAB L501.1255 ml/min Normal Estimated CRCL 53.38 LAB L501.1300 10-20 RATIO Low BUN/CRE 9.5 LAB L501.2200 8.5-10 mg/dL Low .1 CA 8.0 LAB L501.5300 136-14 mmol/L Normal 5 NA 137 LAB L501.5600 3.5-5. mmol/L Normal 1 K 3.6 Result Comment: Slight Hemolysis, Result may be falsely increased. LAB L501.5900 98-107 mmol/L Normal CL 103 LAB L501.6100 21.0-32.0 mmol/L Normal CO2 27.0 LAB L501.6200 5-15 Normal 7 GAP Performed By: #### L500.2500 #### [facility] Laboratory [address] [place], [address] 12 LEAD ELECTROCARDIOGRAM Observed: 12/11/2017 Status: F Source: [place] 3:30 PM [facility] REPOSITORY [facility] Cardiovascular Services [address] [place] [address] 12 Lead EKG 12/09/17 1407 MR#: [id number] Acct: [id number] Name: WEST MANUEL Rep #: [id number] : 1935 82 From: Mauro Covarrubias MD Attending Dr: Status: DEP ER Ordering Dr: Josr Lobato MD Date: 12/09/17 Location: ED Sex: M AA Admitted: Test Reason : REPEAT Blood Pressure : / mmHG Vent. Rate : 083 BPM Atrial Rate : 083 BPM P-R Int : 192 ms QRS Dur : 082 ms QT Int : 368 ms P-R-T Axes : 062 -29 -14 degrees QTc Int : 432 ms Normal sinus rhythm Septal infarct , age undetermined Abnormal ECG Confirmed by MAURO COVARRUBIAS MD ([id number]), features editor LALITHA TAM ([id number]) on 12/11/2017 3:30:16 PM Referred By: MARILYNN Confirmed By:MAURO COVARRUBIAS MD 12/11/17 1530 Date Mauro Covarrubias MD CC: Josr Lobato MD; Ronald Calderón MD Signed 12 LEAD ELECTROCARDIOGRAM Observed: 12/11/2017 Status: F Source: [place] 3:28 PM [facility] Cardiovascular Services [address] [place] [address] 12 Lead EKG 12/09/17 1226 MR#: [id number] Acct: [id number] Name: WEST MANUEL Rep #: [id number] : 1935 82 From: Mauro Covarrubias MD Attending Dr: Status: DEP ER Ordering Dr: Josr Lobato MD Date: 12/09/17 Location: ED Sex: M AA Admitted: Test Reason : HYPERGLYCEMIA Blood Pressure : / mmHG Vent. Rate : 080 BPM Atrial Rate : 080 BPM P-R Int : 190 ms QRS Dur : 082 ms QT Int : 384 ms P-R-T Axes : 059 -33 -12 degrees QTc Int : 442 ms Normal sinus rhythm Left axis deviation T wave abnormality, consider lateral ischemia Abnormal ECG Confirmed by MAURO COVARRUBIAS MD ([id number]), features editor LALITHA TAM ([id number]) on 12/11/2017 3:28:24 PM Referred By: ADALID Confirmed By:MAURO COVARRUBIAS MD 12/11/17 1528 Date Mauro Covarrubias MD CC: Josr Lobato MD; Ronald Calderón MD Signed EMERGENCY DEPARTMENT Observed: 12/09/2017 Status: F Source: [place] SUMMARY 5:02 PM [facility] REPOS[facility]ORY [facility] Medical Records Department [address] [place] [address] Emergency Department Summary 12/09/17 1521 MR#: [id number] Acct: [id number] Name: WEST MANUEL Rep #: [id number] : 1935 82 From: Josr Lobato MD PCP: Ronald Calderón MD Status: DEP ER - ER Visit Summary Date of Service: 12/09/17 Chief Complaint: Low blood sugar History of Present Illness: The patient is a [address] Calderón, Dr. Covarrubias, and HALEY bustillo. EMS was called this morning because patient was confused. They found his blood sugar to be 20. Patient reports that he takes 22 units of Levemir nightly and 10 units of NovoLog 3 times daily. Reports that he took his typical dose of Levemir last night and instead of eating ice cream and crackers for his snack prior to bed he had steak. On review of systems patient does report the pain under his left axilla last night that lasted less than 3 minutes. He denies any shortness of breath. He complains of generalized weakness. He denies any other complaints. Physical Examination: Vitals: Stable. Afebrile. General: Well-nourished and well-developed. Head: Normocephalic atraumatic. Neck: Supple, no lymphadenopathy. No JVD. Nontender. Cardiovascular: Regular rate and rhythm. 2 out of 6 systolic murmur. Respiratory: No respiratory distress. Clear to auscultation bilaterally. Abdominal: Soft, nontender, nondistended, normal bowel sounds. No guarding, rebound, or peritoneal signs. Back: Nontender. Extremities: Nontender, no edema. Skin: Normal color, no rash. Neurologic: Alert and oriented 3. Cranial nerves II through XII are intact. Normal strength and sensation. Psych: Normal affect. Test Results: EKG is sinus at 80 and is unchanged from May 2017. Repeat EKG is unchanged. Chest x-ray shows chronic changes. CT brain shows chronic changes. CBC is marked for hematocrit of 37.9, segmented neutrophils 82, monocytes of 9. Chem-7 marked potassium 3.3, chloride 111, calcium 8.2. Initial troponin is 0.058. Troponin 0 0.098. Emergency Department Course and Treatment: Patient ate here and is feeling well. He denies any chest pain. Treatment Plan: Patient was discussed with Dr. Covarrubias who is seen him in the emergency department. Dr. Covarrubias reviewed his prior heart catheterization. Given the lack of EKG changes, chest pain, or anticipated change in therapy he has chosen medical management and would like the patient to follow-up as an outpatient. Family is happy with this plan. Return to the emergency department for any worsening symptoms. Disposition: To home in improved and stable condition. Impression: 1. Hypoglycemia. 2. Insulin-dependent diabetes mellitus. 3. Indeterminate troponin. This note was generated with DermaGen dictation software. It may contain incorrect words, spelling, and punctuation that were not noted in review of the chart prior to signing ED Disposition - Plan for ED Patient: Disposition: Home or Assisted Living Chief Complaint: Hypoglycemia Instructions: ED Diabetes Hypoglycemia Insulin React Referrals: Ronald Calderón MD [Primary Care Provider] - 1-2 Days if not improving Mauro Covarrubias MD [STAFF PHYSICIAN] - Keep Candida appointment What to do if you have Problems For any increased pain, shortness of breath, bleeding, nausea or vomiting, chest pain, or any unexpected problems, contact your Primary Care Provider. Call [facility] ([phone]) or report to the closest Emergency Room. Call 911 if necessary. 12/09/17 1605 <Electronically signed by Josr Lobato MD> Date Josr Lobato MD Cosigner Signature (If Indicated): Date CC: Ronald Calderón MD BEDSIDE GLUCOSE Collected: 12/09/2017 Status: F Source: [place] 3:45 PM [facility] REPOSITORY TYPE CODE TESTS RESULT OUT OF REFERENCE UNITS RANGE LAB L501.080 70-110 mg/dL High BEDSIDE GLU 221 Result Comment: MANAGEMENT OF PATIENT CARE PER NURSING PROTOCOL Performed By: #### L501.080 #### [facility] Laboratory Point of Care [address] [facility] [place], [place] [address] TROPONIN-I Collected: 12/09/2017 Status: F Source: [place] 2:20 PM [facility] REPOSITORY Order Comment: Comments: Should be drawn 2H after initial Troponin obtained TYPE CODE TESTS RESULT OUT OF RANGE REFERENCE UNITS LAB L501.4010 <0.045 ng/mL High 0.098 TROPONIN-I Result Comment: TROPONIN-I EXPECTED VALUES <0.045 Negative 0.045 - 0.590 Consistent with Cardiac Damage > OR = 0.600 Critical Value Not every elevated troponin is indicative of OK. These values should be used with clinical judgement in examining the patient's clinical picture for diagnosis. To establish a diagnosis of OK versus myocardial injury, there must be a demonstrated rise and/or fall in the troponin values, in addition to ischemic symptoms, EKG changes, new regional wall motion abnormality, and/or angiographical evidence. PLEASE NOTE: REFERENCE RANGES EDITED 17 Performed By: #### L501.4010 #### [facility] Laboratory [address] [place], [place], [address] CBC W/DIFF, AUTOMATED Collected: 12/09/2017 Status: F Source: [place] 12:20 PM [facility] REPOSITORY TYPE CODE TESTS RESULT OUT OF RANGE REFERENCE UNITS LAB L100.1000 4.4-11.0 K/mm3 Normal WBC 5.5 LAB L100.1200 4.6-6.2 M/mm3 Low RBC 4.19 LAB L100.1300 13.0-16.5 g/dl Normal HGB 13.1 LAB L100.1400 40-54 % Low HCT 37.9 LAB L100.1500 80-94 fL Normal MCV 90.5 LAB L100.1600 27.0-32.0 pg Normal MCH 31.3 LAB L100.1700 32-36 g/gl Normal MCHC 34.6 LAB L100.1810 11.6-14.6 % Normal RDW CV 14.5 LAB L100.1820 35.1-43.9 fl High RDW SD 47.2 LAB L100.1900 150-450 K/mm3 Normal PLT 165 LAB L100.2000 6.2-12.0 fl Normal MPV 10.8 LAB L100.2100 47-70 % High NEUT% 82.0 LAB L100.2200 19-41 % Low LY% 8.8 LAB L100.2300 0-10 % Normal MONO% 9.0 LAB L100.2400 0-5 % Normal EO% 0.0 LAB L100.2500 0-1 % Normal BASO% 0.2 LAB L100.2550 0.0-0.9 % Normal IM GRAN % 0.000 Result Comment: IG% - Immature Granulocytes (promyelocytes, myelocytes and metamyelocytes) > 1% indicates that a LEFT SHIFT is Present. LAB L100.2620 2.0-7.7 X10 3/uL Normal Absolute Neut 4.5 LAB L100.2720 0.83-4.51 X10 3/ul Low Absolute Lymph 0.49 LAB L100.4500 Normal SMEAR COMMENT SCANNED Result Comment: LYMPHOPENIA NOTED Performed By: #### L100.0100 #### [facility] Laboratory [facility] [place], [address] BASIC METABOLIC Collected: 12/09/2017 Status: F Source: [place] PROFILE (BMP) 12:20 PM [facility] REPOSITORY TYPE CODE TESTS RESULT OUT OF RANGE REFERENCE UNITS LAB L501.0100 74-106 mg/dL Normal GLU 89 Result Comment: Please note revised GLUCOSE reference range effective 2017. LAB L501.1000 7-18 mg/dL Normal BUN 13 LAB L501.1100 0.70-1.30 mg/dL Normal CREAT,SERUM 1.07 Result Comment: The validity of the calculated GFR AND GFRAA in patients over 70 years has not been determined. Clinical correlation is essential. LAB L501.1110 >60 mL/min Normal EST GFR 70 Result Comment: Non- GFR Calc LAB L501.1115 >60 mL/min Normal EST GFR - AA 85 Result Comment: GFR Calc LAB L501.1255 ml/min Normal Estimated CRCL 50.62 LAB L501.1300 10-20 RATIO Normal BUN/CRE 12.1 LAB L501.2200 8.5-10 mg/dL Low .1 CA 8.2 LAB L501.5300 136-14 mmol/L Normal 5 NA 144 LAB L501.5600 3.5-5. mmol/L Low 1 K 3.3 LAB L501.5900 98-107 mmol/L High CL 111 LAB L501.6100 21.0-3 mmol/L Normal 2.0 CO2 26.0 LAB L501.6200 5-15 Normal GAP 7 Performed By: #### L500.2500, L501.4010 #### [facility] Laboratory [address] [place], [address] TROPONIN-I Collected: 12/09/2017 Status: F Source: [place] 12:20 PM [facility] REPOSITORY TYPE CODE TESTS RESULT OUT OF RANGE REFERENCE UNITS LAB L501.4010 <0.045 ng/mL High 0.058 TROPONIN-I Result Comment: TROPONIN-I EXPECTED VALUES <0.045 Negative 0.045 - 0.590 Consistent with Cardiac Damage > OR = 0.600 Critical Value Not every elevated troponin is indicative of OK. These values should be used with clinical judgement in examining the patient's clinical picture for diagnosis. To establish a diagnosis of OK versus myocardial injury, there must be a demonstrated rise and/or fall in the troponin values, in addition to ischemic symptoms, EKG changes, new regional wall motion abnormality, and/or angiographical evidence. PLEASE NOTE: REFERENCE RANGES EDITED 17 Performed By: #### L500.2500, L501.4010 #### [facility] Laboratory [address] [place], [address] CHEST PA AND LATERAL Observed: 12/09/2017 Status: F Source: [place] 12:12 PM [facility] REPOSITORY [facility] Imaging Services [address] [place] [address] Chest PA and Lateral MR#: [id number] Acct: [id number] Name: WEST MANUEL Rep #: [id number] : 1935 M 82 From: Angel Mabry MD PCP: Ronald Calderón MD Status: REG ER Study: Chest PA and Lateral Date of Exam: 12/09/17 Exam# [id number] Ordering Dr: Josr Lobato MD STUDY: X-RAY CHEST REASON FOR EXAM: Male, 82 years old. Nonresponsiveness. Cough. TECHNIQUE: AP and lateral views of the chest. COMPARISON: Comparison is made with prior study dated June 06, 2017. FINDINGS: EKG electrodes are seen. Stable mild increased markings at the left lung base suggestive of scarring. There is no demonstrated pleural abnormality. Normal size heart. Normal mediastinum and dion. Normal visualized pulmonary arteries. There is atherosclerotic calcification of the aortic arch with tortuosity. There are diffuse degenerative changes of the visualized thoracic spine. Normal visualized ribs, clavicles, and shoulders. There is no demonstrated abnormality of the visualized soft tissue structures of the upper abdomen. RAD/Chest PA and Lateral IMPRESSION: No acute abnormality is seen. Electronically Signed: Angel Mabry MD at 13:20 EDT Tel [phone], Service support , CC: Josr Lobato MD; Ronald Calderón MD Fitness Assistant: Signed BRAIN/HEAD WITHOUT Observed: 12/09/2017 Status: F Source: [place] 12:12 PM [facility] REPOSIT[facility] Imaging Services [address] [place] [address] Brain/Head without Contrast MR#: [id number] Acct: [id number] Name: WEST MANUEL Rep #: [id number] : 1935 M 82 From: Angel Mabry MD PCP: Ronald Calderón MD Status: REG ER Study: Brain/Head without Contrast Date of Exam: 12/09/17 Exam# [id number] Ordering Dr: Josr Lobato MD STUDY: CT BRAIN WITHOUT CONTRAST REASON FOR EXAM: Male, 82 years old. Unresponsiveness. RADIATION DOSAGE (If Supplied By Facility): CTDIvol = ( 60.81 ) mGy, DLP = ( 1089.89 ) mGycm TECHNIQUE: Transaxial CT imaging of the brain was performed without administration of intravenous contrast material. Individualized dose optimization techniques were used for this CT. COMPARISON: Comparison is made with prior study dated December 04, 2016. FINDINGS: Normal soft tissue structures. Normal calvarium. There is mild cerebral atrophy with widening of the extra- axial spaces and ventricular dilatation. There are areas of decreased attenuation within the white matter tracts of the supratentorial brain, consistent with microvascular disease changes. 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 Normal brainstem. Normal cerebellum. There is no intracranial hemorrhage. There are no findings of an acute ischemic infarction. Atherosclerotic calcification of the vertebral arteries and cavernous portions of the carotid arteries bilaterally. Small air-fluid level in the left maxillary sinus. CT/Brain/Head without Contrast IMPRESSION: Chronic involutional changes of the brain. Electronically Signed: Angel Mabry MD at 13:45 EDT Tel [phone], Service support , CC: Josr Lobato MD; Ronald Calderón MD Fitness Assistant: Signed BEDSIDE GLUCOSE Collected: 12/09/2017 Status: F Source: [place] 12:08 PM [facility] REPOSITORY TYPE CODE TESTS RESULT OUT OF RANGE REFERENCE UNITS LAB L501.080 70-110 mg/dL Normal BEDSIDE GLU 93 Result Comment: MANAGEMENT OF PATIENT CARE PER NURSING PROTOCOL Performed By: #### L501.080 #### [facility] Laboratory [place] [address] XR CHEST 2V FRONTAL/LAT Observed: 12/06/2017 Status: F Source: [place] 4:17 PM [facility] REPOSITORY * * *Final Report* * * DATE OF EXAM: Dec 06 2017 4:17PM WRX [id number] - XR CHEST 2V FRONTAL/LAT / PROCEDURE REASON: Cough * * * * Physician Interpretation * * * * EXAMINATION: CHEST RADIOGRAPH (2 VIEW FRONTAL and LATERAL) Clinical History: Cough MQ: XC2_5 Comparison: Chest x-ray on 08/08/2012 RESULT: Lines, tubes, and devices: None. Lungs and pleura: No consolidation. No lung mass. No pleural effusion. Cardiomediastinal silhouette: Normal cardiomediastinal silhouette. 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 IMPRESSION: Stable exam without acute findings. Fitness Assistant: TY Transcribe Date/Time: Dec 09 2017 12:29P Dictated by : KENNEDY HIDALGO MD This examination was interpreted and the report reviewed and electronically signed by: KENNEDY HIDALGO MD on Dec 09 2017 12:30PM EST [id number] Observed: 12/06/2017 Status: COMPLETED Source: [place] 4:06 PM [facility] REPOSITORY HNO ID: [id number] Author: Torsten Seymour (Rt) Service: (none) Author Type: Hospital Plan Administrator Type: Progress Notes Filed: 12/06/2017 4:17 PM Note Text: Radiology Service Progress Note PATIENT NAME: West Manuel DATE OF SERVICE: December 06, 2017 TIME: 4:06 PM PATIENT IDENTITY VERIFICATION COMPLETED USING TWO (2) METHODS: Patient confirmed name verbally and Date of . PATIENT GENDER DATA: Male PATIENT RELEVANT IMPLANT DATA REVIEWED: Not Applicable RADIOLOGY DEPARTMENT: General X-ray: Exam(s) Completed: Chest X-Ray PERIPHERAL IV DATA: Not applicable SIGNED BY: RT Dawn December 06, 2017 4:06 PM PROGRESS Observed: 12/06/2017 Status: COMPLETED Source: [place] 8:14 AM [facility] REPOSITORY HNO ID: [id number] Author: Ronald Calderón Service: (none) Author Type: Physician Type: Progress Notes Filed: 12/06/2017 8:23 AM Note Text: This note was created using BeatDeckriter. Subjective West Manuel is a 82 year old male was here with his daughter. He complained of cough productive of clear phlegm for 3 weeks with choking sensation at times. This was not associated with dysphagia. Other symptoms were wheezing. His hiccups were controlled. His diabetes mellitus was not well controlled. There continue to be dietary non adherence. He was seeing HALEY Bustillo at [facility], and he was advised to focus in his meal time insulin sliding scale. His Levemir was decreased to once at bedtime probably due to concerns for hypoglycemia. Review of Systems Constitutional: Negative. HENT: Negative for trouble swallowing. Respiratory: Negative for chest tightness and shortness of breath. Cardiovascular: Negative. Gastrointestinal: Negative. Endocrine: Negative. 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 Per Dr. Covarrubias. insulin detemir U-100 (LEVEMIR FLEXTOUCH U-100 INSULN) 100 unit/mL (3 mL) inpn injection Inject 22 Units subcutaneously daily at bedtime. baclofen (LIORESAL) 10 mg tablet Take 1 tablet by mouth three times daily as needed (hiccups). NOVOLOG FLEXPEN U-100 INSULIN 100 unit/mL inpn INJECT 10 UNITS SUBQ THREE TIMES A DAY WITH A MEAL ADD THE FOLLOWING UNITS DEPENDING atenolol (TENORMIN) 25 mg tablet TAKE 3 TABLETS BY MOUTH DAILY Ranitidine HCl 150 mg capsule Take 2 capsules by mouth daily at bedtime. Due to pill dysphagia. atorvastatin (LIPITOR) 40 mg tablet Take 2 tablets by mouth daily at bedtime. Due to pill dysphagia. blood sugar diagnostic (ACCU-CHEK SENG) test strip Check blood sugars 6 times daily. Insulin dependent Dx E11.40 bisacodyl (DULCOLAX) 10 mg supp 1 Suppository by RECTAL route once daily as needed. ramipril (ALTACE) 5 mg capsule TAKE 1 CAPSULE BY MOUTH DAILY Diaper,Brief, Adult,Disposable (DEPEND PROTECTION SZ S-M) misc Use 3 times a day as directed. Dx: N39.41, N40.1 ipratropium bromide (ATROVENT) 0.06 % nasal spray Use 2 Sprays in the nose twice daily. polyethylene glycol 3350 (MIRALAX, GLYCOLAX) 17 gram packet Take 0.5 Packets by mouth once daily. Insulin [place], Disposable, (BD ULTRAFINE III MINI PEN) 31 gauge x 3/16 ndle Uses 5 daily Lancets (ACCU-CHEK MULTICLIX LANCET) lancets Check 4 times a day. CPAP Use as directed albuterol HFA (PROVENTIL HFA, VENTOLIN HFA) 90 mcg/actuation inhaler Inhale 2 Puffs as instructed every 6 hours as needed (cough, wheezing.). Use with spacer device. No current facility-administered medications for this visit. Objective BP 130/70 (BP Site: Left Arm, BP Position: Sitting, BP Cuff Size: Regular Adult) Pulse 64 Resp 20 Wt 73 kg (161 lb) BMI 24.48 kg/m? Physical Exam Constitutional: No distress. HENT: Nose: Nose normal. Mouth/Throat: Oropharynx is clear and moist. Neck: No tracheal deviation present. Cardiovascular: Regular rhythm and normal heart sounds. Exam reveals no gallop. No murmur heard. Pulmonary/Chest: No stridor. No respiratory distress. He has no wheezes. He has no rales. Abdominal: Soft. Musculoskeletal: He exhibits no edema. Lymphadenopathy: He has no cervical adenopathy. Neurological: He is alert. Ambulatory with cane. Glucose meter data or log was reviewed. Range: 61-419. Average: n/a. Patient was testing 3 to 5 times a day. Higher frequency of testing needed: yes. Reason: frequent hypoglycemia, medication adjustment, uncontrolled DM, labile blood sugars. Hemoglobin A1C (%) Date Value 08/31/2017 10.5 Hemoglobin A1C (POCT) (%) Date Value 12/05/2017 9.2 . Assessment and Plan ASSESSMENT/PLAN: 1. Cough - ICD9: 786.2, ICD10: R05 (primary diagnosis) Bronchospasm. - XR CHEST 2V FRONTAL/LAT - ALBUTEROL SULFATE HFA 90 MCG/ACTUATION AEROSOL INHALER - INHALATIONAL SPACING DEVICE Discussed medication dosage, usage, goals of therapy, and side effects. The proper method of use, as well as anticipated side effects, of this inhaler are discussed and demonstrated to the patient. 2. Essential hypertension with goal blood pressure less than 130/85 - ICD9: 401.9, ICD10: I10 - good control 3. Uncontrolled type 2 diabetes mellitus with diabetic neuropathy, with long-term current use of insulin (HCC) - ICD9: 250.62, 357.2, V58.67, ICD10: E11.40, Z79.4, E11.65 poorly controlled - Continue current medications per [facility]. - HEMOGLOBIN A1C (POC) - INSULIN DETEMIR (U-100) 100 UNIT/ML (3 ML) SUBCUTANEOUS PEN 4. Need for shingles vaccine - ICD9: V04.89, ICD10: Z23 See printed instructions or information. 5. 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 Ronald Calderón MD CNOV Observed: 12/05/2017 Status: COMPLETED Source: [place] 5:40 PM [facility] REPOSITORY Office Visit (INTMWS) WEST MANUEL ([id number]) 1935 M Date Time Provider Department 12/05/17 5:40 PM RONALD CALDERÓN [facility] During your visit today, we recorded the following information about you: Pulse Respiration Blood pressure Weight 64/minute 20/minute 130/70 73 kg Ronald Calderón MD 12/05/2017 6:17 PM Signed Recombinant shingles vaccine (Shingrix) is recommended; 2 doses 2-6 months apart. Please read information, check with your insurance, and call to schedule vaccination. You may also be directed to your local pharmacy. Ronald Calderón MD 12/06/2017 8:23 AM Signed This note was created using BeatDeckriter. Subjective West Manuel is a 82 year old male was here with his daughter. He complained of cough productive of clear phlegm for 3 weeks with choking sensation at times. This was not associated with dysphagia. Other symptoms were wheezing. His hiccups were controlled. His diabetes mellitus was not well controlled. There continue to be dietary non adherence. He was seeing HALEY Bustillo at [facility], and he was advised to focus in his meal time insulin sliding scale. His Levemir was decreased to once at bedtime probably due to concerns for hypoglycemia. Review of Systems Constitutional: Negative. HENT: Negative for trouble swallowing. Respiratory: Negative for chest tightness and shortness of breath. Cardiovascular: Negative. Gastrointestinal: Negative. Endocrine: Negative. 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 Per Dr. Covarrubias. insulin detemir U-100 (LEVEMIR FLEXTOUCH U-100 INSULN) 100 unit/mL (3 mL) inpn injection Inject 22 Units subcutaneously daily at bedtime. baclofen (LIORESAL) 10 mg tablet Take 1 tablet by mouth three times daily as needed (hiccups). NOVOLOG FLEXPEN U-100 INSULIN 100 unit/mL inpn INJECT 10 UNITS SUBQ THREE TIMES A DAY WITH A MEAL ADD THE FOLLOWING UNITS DEPENDING atenolol (TENORMIN) 25 mg tablet TAKE 3 TABLETS BY MOUTH DAILY Ranitidine HCl 150 mg capsule Take 2 capsules by mouth daily at bedtime. Due to pill dysphagia. atorvastatin (LIPITOR) 40 mg tablet Take 2 tablets by mouth daily at bedtime. Due to pill dysphagia. blood sugar diagnostic (ACCU-CHEK SENG) test strip Check blood sugars 6 times daily. Insulin dependent Dx E11.40 bisacodyl (DULCOLAX) 10 mg supp 1 Suppository by RECTAL route once daily as needed. ramipril (ALTACE) 5 mg capsule TAKE 1 CAPSULE BY MOUTH DAILY Diaper,Brief, Adult,Disposable (DEPEND PROTECTION SZ S-M) misc Use 3 times a day as directed. Dx: N39.41, N40.1 ipratropium bromide (ATROVENT) 0.06 % nasal spray Use 2 Sprays in the nose twice daily. polyethylene glycol 3350 (MIRALAX, GLYCOLAX) 17 gram packet Take 0.5 Packets by mouth once daily. Insulin [place], Disposable, (BD ULTRAFINE III MINI PEN) 31 gauge x 3/16 ndle Uses 5 daily Lancets (ACCU-CHEK MULTICLIX LANCET) lancets Check 4 times a day. CPAP Use as directed albuterol HFA (PROVENTIL HFA, VENTOLIN HFA) 90 mcg/actuation inhaler Inhale 2 Puffs as instructed every 6 hours as needed (cough, wheezing.). Use with spacer device. No current facility-administered medications for this visit. Objective BP 130/70 (BP Site: Left Arm, BP Position: Sitting, BP Cuff Size: Regular Adult) Pulse 64 Resp 20 Wt 73 kg (161 lb) BMI 24.48 kg/m? Physical Exam Constitutional: No distress. HENT: Nose: Nose normal. Mouth/Throat: Oropharynx is clear and moist. Neck: No tracheal deviation present. Cardiovascular: Regular rhythm and normal heart sounds. Exam reveals no gallop. No murmur heard. Pulmonary/Chest: No stridor. No respiratory distress. He has no wheezes. He has no rales. Abdominal: Soft. Musculoskeletal: He exhibits no edema. Lymphadenopathy: He has no cervical adenopathy. Neurological: He is alert. Ambulatory with cane. Glucose meter data or log was reviewed. Range: 61-419. Average: n/a. Patient was testing 3 to 5 times a day. Higher frequency of testing needed: yes. Reason: frequent hypoglycemia, medication adjustment, uncontrolled DM, labile blood sugars. Hemoglobin A1C (%) Date Value 08/31/2017 10.5 Hemoglobin A1C (POCT) (%) Date Value 12/05/2017 9.2 . Assessment and Plan ASSESSMENT/PLAN: 1. Cough - ICD9: 786.2, ICD10: R05 (primary diagnosis) Bronchospasm. - XR CHEST 2V FRONTAL/LAT - ALBUTEROL SULFATE HFA 90 MCG/ACTUATION AEROSOL INHALER - INHALATIONAL SPACING DEVICE Discussed medication dosage, usage, goals of therapy, and side effects. The proper method of use, as well as anticipated side effects, of this inhaler are discussed and demonstrated to the patient. 2. Essential hypertension with goal blood pressure less than 130/85 - ICD9: 401.9, ICD10: I10 - good control 3. Uncontrolled type 2 diabetes mellitus with diabetic neuropathy, with long-term current use of insulin (HCC) - ICD9: 250.62, 357.2, V58.67, ICD10: E11.40, Z79.4, E11.65 poorly controlled - Continue current medications per [facility]. - HEMOGLOBIN A1C (POC) - INSULIN DETEMIR (U-100) 100 UNIT/ML (3 ML) SUBCUTANEOUS PEN 4. Need for shingles vaccine - ICD9: V04.89, ICD10: Z23 See printed instructions or information. 5. 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 Ronald Calderón MD Referring Provider: RONALD CALDERÓN [[id number]] Allergies As of Date: 12/05/2017 Noted Allergy Reaction ALFUZOSIN 11/19/2008 5 - Intolerance Comments: dizziness PENICILLINS 10/24/2005 2 - Rash SULFA (SULFONAMIDE ANTIBIOTICS) 10/24/2005 7 - Swelling Date Reviewed: 12/05/2017 Reviewed by: Gilda Higuera - Fully Assessed Reason for Visit: 3 mo f/up [Other] Cough [28] Reason For Visit History Recorded Primary Visit Diagnosis:Cough [R05] Other Visit Diagnoses:Essential hypertension with goal blood pressure less than 130/85 [I10] Uncontrolled type 2 diabetes mellitus with diabetic neuropathy, with long-term current use of insulin (HCC) [E11.40, Z79.4, E11.65] Need for shingles vaccine [Z23] Singultus [R06.6] Order(s):clopidogrel (PLAVIX) 75 mg tabletTake 1 tablet by mouth once daily. Per Dr. Covarrubias.Disp: Rfl: XR CHEST 2V FRONTAL/LAT [[id number]] Order #: [id number] FUTURE HEMOGLOBIN A1C (POC) [[id number]] Order #: [id number]. #:[id number] insulin detemir U-100 (LEVEMIR FLEXTOUCH U-100 INSULN) 100 unit/mL (3 mL) inpn injectionInject 22 Units subcutaneously daily at bedtime.Disp: Rfl: albuterol HFA (PROVENTIL HFA, VENTOLIN HFA) 90 mcg/actuation inhalerInhale 2 Puffs as instructed every 6 hours as needed (cough, wheezing.). Use with spacer device.Disp: 1 InhalerRfl: 1 [] Inhalational Spacing Device spcr1 Device one time only for 1 dose.Disp: 1 EachRfl: 0 Prescriptions as of 12/05/2017 Sig: CLOPIDOGREL 75 MG TABLET Take 1 tablet by mouth once d* INSULIN DETEMIR (U-100) 100 U* Inject 22 Units subcutaneousl* BACLOFEN 10 MG TABLET Take 1 tablet by mouth three * NOVOLOG FLEXPEN U-100 INSULIN* INJECT 10 UNITS SUBQ THREE TI* ATENOLOL 25 MG TABLET TAKE 3 TABLETS BY MOUTH DAILY RANITIDINE 150 MG CAPSULE Take 2 capsules by mouth skylar* ATORVASTATIN 40 MG TABLET Take 2 tablets by mouth daily* BLOOD SUGAR DIAGNOSTIC STRIPS Check blood sugars 6 times da* BISACODYL 10 MG RECTAL SUPPOS* 1 Suppository by RECTAL route* RAMIPRIL 5 MG CAPSULE TAKE 1 CAPSULE BY MOUTH DAILY DIAPER,BRIEF,ADULT,DISPOSABLE Use 3 times a day as directed* IPRATROPIUM BROMIDE 42 MCG (0* Use 2 Sprays in the nose twic* POLYETHYLENE GLYCOL 3350 17 G* Take 0.5 Packets by mouth onc* PEN NEEDLE, DIABETIC 31 GAUGE* Uses 5 daily LANCETS Check 4 times a day. CPAP Use as directed ALBUTEROL SULFATE HFA 90 MCG/* Inhale 2 Puffs as instructed * INHALATIONAL SPACING DEVICE 1 Device one time only for 1 * Medication notes this encounter INSULIN DETEMIR (U-100) 100 UNIT/ML (3 ML) SUBCUTANEOUS PEN >> Gilda Higuera 12/05/2017 5:35 PM >> SUETRAEA Ashley Dec 05, 2017 5:35 PM Takes 22 units once a day. CLOPIDOGREL 75 MG TABLET >> Gilda Higuera 12/05/2017 5:35 PM >> GILDA HIGUERA Dec 05, 2017 5:35 PM No longer taking. Problem List As Of Date 12/05/2017 Noted Resolved DM (diabetes mellitus), type 2, uncontrolled w/*INVALID FOR*11/16/2015 Essential hypertension [I10] INVALID FOR*11/16/2015 HYPERLIPIDEMIA NEC/NOS [E78.5] INVALID FOR*07/25/2015 ROTATOR CUFF DIS NEC [M75.100] INVALID FOR*10/02/2006 Impotence of organic origin [N52.9] INVALID FOR*09/27/2015 ESOPHAGEAL REFLUX [K21.9] INVALID FOR* Hypertensive heart disease without heart failur*INVALID FOR* BPH with obstruction/lower urinary tract sympto*INVALID FOR* Inflamed Seborrheic Keratosis [L82.0] INVALID FOR*11/15/2009 Viral Warts, Unspecified [B07.9] INVALID FOR*11/15/2009 SOLAR LENGINES///DYSCHROMIA OTHER [L81.9] INVALID FOR*11/15/2009 Other Chronic Dermatitis due to Solar Radiation*INVALID FOR*11/15/2009 Scar Condition and Fibrosis of Skin [L90.5] INVALID FOR*11/15/2009 Colon Polyp [K63.5] INVALID FOR* More... CHADD on CPAP [G47.33, Z99.89] INVALID FOR* More... CVA (cerebral infarction) [I63.9] INVALID FOR*03/24/2015 More... Carotid stenosis, asymptomatic, bilateral [I65.*INVALID FOR* ASHD (arteriosclerotic heart disease) [I25.10] INVALID FOR* Neuropathy (HCC) [G62.9] INVALID FOR* Mixed hyperlipidemia [E78.2] INVALID FOR* Uncontrolled type 2 diabetes mellitus with diab*INVALID FOR* Essential hypertension with goal blood pressure*INVALID FOR* Urge incontinence of urine [N39.41] INVALID FOR* Other instructions from your clinician: Recombinant shingles vaccine (Shingrix) is recommended; 2 doses 2-6 months apart. Please read information, check with your insurance, and call to schedule vaccination. You may also be directed to your local pharmacy. Prescriptions ordered this encounter Disp Refills Start End CLOPIDOGREL 75 MG TABLET 12/05/2017 Class: Med Update Route: ORAL Sig: Take 1 tablet by mouth once daily. Per Dr. Covarrubias. INSULIN DETEMIR (U-100) 100 UNIT/ML * 12/05/2017 Class: Med Update Route: SUBCUTANEOUS Sig: Inject 22 Units subcutaneously daily at bedtime. ALBUTEROL SULFATE HFA 90 MCG/ACTUATI* 1 In* 1 12/05/2017 Route: INHALATION Sig: Inhale 2 Puffs as instructed every 6 hours as needed (cough, wheezing.). Use with spacer device. INHALATIONAL SPACING DEVICE 1 Ea* 0 12/05/2017 12/05/2017 Route: Misc Si Device one time only for 1 dose. Medications Discontinued During This Encounter clopidogrel (PLAVIX) 75 mg tablet 02/16/2016 12/05/2017 Class: Historical Med Route: ORAL Sig: Take 1 tablet by mouth once daily. Per Dr. Covarrubias. Disc: Reason for discontinue is not on file. insulin detemir (LEVEMIR FLEXTOUCH) * 10 P* 11 12/28/2016 12/05/2017 Class: Med Update Cmt: Substitute for Lantus. Route: SUBCUTANEOUS Sig: Inject 22 Units subcutaneously twice daily. Disc: Reason for discontinue is not on file. Disposition: Return in about 3 months (around 03/07/2018). Follow-up and Disposition History Recorded Encounter Status:Closed by RONALD CALDERÓN MD on 12/06/17 CARDIOLOGY VISIT Observed: 10/27/2017 Status: F Source: [place] REPORT 10:58 AM [facility] REPOSITORY [facility] [address] [place] [address]. [address] [place] [address] OFFICE VISIT Date of Service: 10/24/17 MR#: [id number] Acct: [id number] Name: WEST MANUEL Rep #: [id number] : 1935 Provider: Adore Smith Age/Sex: 82/M Location: [facility] Status: Signed HPI HPI Details: WEST MANUEL, is a 82 M who presents to the office today for a cardiovascular followup. He has a history of mild coronary artery disease, hypertension, hyperlipidemia, CVA and diabetes. He also has a history of peripheral vascular disease with carotid endarterectomy in 2012. He has been having issues with highs and lows on his Blood sugar. He is working with HALEY Bustillo on this. While in the office he felt that he had low BS, he was given milk and crackers and lightheadedness improved. He has not had any near syncope/syncope. He does not have any chest pain/heaviness. He does not have any worsening SOB. He does not have any edema. He does not have any palpitations that he is aware of. 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 Accompanied by: daughter Is patient in pain?: Yes Allergies alfuzosin Allergy (Verified 10/24/17 15:38) Other Penicillins Allergy (Verified 10/24/17 15:38) Rash Sulfa (Sulfonamide Antibiotics) Allergy (Verified 10/24/17 15:38) Swelling Medications Atenolol [Tenormin (beta naty)] 75 mg PO DAILY 10/18/16 [History Confirmed 10/24/17] Clopidogrel Bisulfate [Plavix] 75 mg PO DAILY 10/18/16 [History Confirmed 10/24/17] ranitidine 300 mg tablet 300 mg PO QHS 05/27/17 [History Confirmed 10/24/17] Atorvastatin Calcium [Lipitor] 80 mg PO QHS 06/06/17 [History Confirmed 10/24/17] Insulin Aspart [Novolog Flexpen] 10 units SC TIDAC 06/06/17 [History Confirmed 10/24/17] Polyethylene Glycol 3350 [Miralax] 0.5 pack PO DAILY 06/06/17 [History Confirmed 10/24/17] Ramipril [Altace] 5 mg PO DAILY 06/06/17 [History Confirmed 10/24/17] insulin detemir (U-100) 100 unit/mL (3 mL) subcutaneous pen 35 unit SC BID #21 ml 09/30/17 [Rx Confirmed 10/24/17] baclofen 10 mg tablet 10 mg PO TID 10/08/17 [History Confirmed 10/24/17] blood pressure test kit-wrist cuff See Dose Instructions .ROUTE .MEDSUPPLY #1 ea 10/09/17 [Rx Confirmed 10/24/17] acetaminophen ER 650 mg tablet,extended release 650 mg PO Q6H PRN tab 10/17/17 [History Confirmed 10/24/17] Ejection fraction %: 65 to 70 PFSH Medical History Carotid bruit (Chronic) Atherosclerotic heart disease of eagle coronary artery without angina pectoris (Chronic) Type 2 diabetes mellitus (Chronic) Cerebrovascular disease (Chronic) Hyperlipidemia (Chronic) Diverticulitis (Chronic) Hypertension (Chronic) Coronary artery disease (Chronic) GERD (gastroesophageal reflux disease) (Chronic) Ataxia (Chronic) LEFT FRONTAL LACUNAR INFARCT (Chronic) Stroke (Chronic) Gastrointestinal bleed (Chronic) Diabetes mellitus (Chronic) Surgical History H/O carotid endarterectomy (Resolved) H/O hernia repair (Resolved) H/O: hemorrhoidectomy (Resolved) cataract surgery (Resolved) Hx of repair of rotator cuff (Resolved) Family History Brother Kidney disease Mother CVA (cerebral vascular accident) Father Liver cirrhosis Social History Smoking Status: Former smoker alcohol intake: never substance use type: does not use caffeine: Yes Type: carbonated beverages Number of servings: 2 what type of physical activity do you participate in: other seatbelt use: always do you feel safe at home: Yes ROS Const Const: Negative for weakness, fatigue, fever(s) or headache(s) Eyes Eyes: Negative for blind spots, loss of peripheral vision or transient loss of vision ENT ENT: Negative for headache(s), dizziness, tinnitus or Nosebleed/epistaxis Cardio Chest Pain: No Palpitations: No Edema: None Muscle aches with walking: None Resp Respiratory: Negative for SOB with activity, SOB at rest, SOB orthopnea\SOB lying down or Cough GI GI: Negative nausea, vomiting, heartburn or vomiting blood/hematemesis : Negative for hematuria Musc Musc: Negative for muscle aches/ myalgia Neuro Neuro: Negative for weakness, headache(s), dizziness, near syncope, syncope, lightheadedness or orthostatic symptoms Eugenio Hematologic/Lymphatic: Negative for easy bleeding Endo Endo: Positive for other (see HPI); negative for fatigue Cardiology Exam Const Appearance: cooperative and no acute distress Orientation: alert, awake and oriented x3 Limitations: physical limitations (in WC) Head Head: normocephalic and atraumatic Mouth: moist mucous membranes Eyes General: appearance normal, both eyes and all related structures Conjunctivae: conjunctivae normal Pupils: PERRL EOM: EOM intact bilaterally Neck Neck: normal visual inspection, no lymphadenopathy and no JVD Carotids: Negative bruit Neck Mass: Negative Neck mass Chest Chest inspection: normal inspection of the chest and symmetric chest movement Auscultation: Bilateral: Clear to Auscultation Cardio Palpation: normal PMI Rate: regular rate Rhythm: regular rhythm Heart sounds: S1 normal and S2 normal; negative rub, gallop or murmur GI GI: normal to inspection, soft, no hepatosplenomegaly and bowel sounds present; negative tender Neuro General: alert, awake, oriented x3, CN's II-XI intact bilaterally and moves all extremities Extremities Pulses: Normal: Right Posterior Tibial Pulse, Left Posterior Tibial Pulse, Right Radial Pulse, Left Radial Pulse Lower Extremity Edema: None: Bilateral Psych Psychological: normal affect Supplemental Info Pharmacologic nuclear stress test was negative for ischemia in 2015. Echocardiogram at that time demonstrated an ejection fraction of 65-70%, stage I diastolic dysfunction, left atrium mildly enlarged and trivial aortic insufficiency. Patient had a heart catheterization in November of 2014 which demonstrated nonobstructive coronary disease of the left main, LAD, RCA and PDA. There was mild progression of coronary disease noted in the midportion of the PDA. Aggressive medical management was recommended. Assessment AND Plan 1. 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 We recommend that they continue with current aggressive medical management and risk factor modification. 2. Essential hypertension I10 Plan - FORREST Peña Blood pressure is well controlled on current medications, we do not recommend any changes at this time. 3. Hyperlipidemia, unspecified hyperlipidemia type E78.5 Plan - FORREST Peña Recent lipid profile demonstrates total cholesterol 76, HDL 31, LDL 30. These have been managed by his primary care doctor. Will not make any adjustments. Plan Detail Other Medications Discontinued: Additional Comments - FORREST Peña The above patient was discussed with Dr. Covarrubias, he agrees with plan of care. Thank you for allowing us to participate in patient's plan of care, if you have any questions please do not hesitate to call. This note was generated using a voice recognition system and there may be incorrect words, spelling or punctuation errors that were not noted when reviewing the office note prior to saving. 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 transplanted heart: eagle heart Essential hypertension I10 Hypertension type: essential hypertension Hyperlipidemia, unspecified hyperlipidemia type E78.5 Hyperlipidemia type: unspecified 10/25/17 0915 <Electronically signed by Adore CLAYTON> Date Adore CLAYTON 10/27/17 1058<Electronically signed by Mauro Covarrubias MD> Cosigner Signature: Date (if applicable) Mauro Covarrubias MD CC: Ronald Calderón MD ENDOCRINOLOGY VISIT Observed: 10/09/2017 Status: F Source: NOEMÍ REPORT 7:53 AM [facility] REPOSITORY [facility] [address] [place] [address]. [address] [place] [address] OFFICE VISIT Date of Service: 10/08/17 MR#: [id number] Acct: [id number] Name: WEST MANUEL Rep #: [id number] : 1935 Provider: Fidelia Bustillo NP Age/Sex: 82/M [place] [facility] [place]: Signed HPI History of present illness West Manuel is an 82 year old male who presents for follow up of diabetes type 2. Diagnosed in 1974. Accompanied by a family member. Continues on 22 lantus daily and meal insulin 10 units each meal. Family is concerned that BG readings have become higher in the last few weeks. He has had some BG in 300-400 range. States he continues with meals on wheel program. Sometimes he is hungry before they arrive so he snacks. Pt denies difficulty with injections or self monitoring of BG. Denies any signs of infection or irritation at site of injections. Reports taking insulin as directed Has had hiccups for over 2-3 weeks. Given baclofan for this. Family thinks this is when his BG started climbing. At time of visit: -Pt denies symptoms of hypertensive emergency (CP,SOB,FREY, or blurred vision) and hypotension(dizziness or lightheadedness) -Pt denies symptoms of hypoglycemia ( sweaty, confusion, anxiety, tremor, hunger, palpitations) and hyperglycemia ( polydipsia, polyuria) -Pt denies potential medication adverse effect. Hypoglycemia Aware of hypoglycemia: When awake Able to self treat low BG: Yes Frequent low Blood sugar: No Has supply of glucagon: No SMBG am 111-310 10:30 120-300 3pm 81-300 8pm 74+-300 Exercise Walks with cane and occ with a walker. Type: type 2 Glucose control symptoms: Reports high post-meal glucose Weight and fatigue symptoms: Denies snoring Cardiopulmonary symptoms: Denies chest pain at rest, dyspnea on exertion, lightheadedness or myalgias GI symptoms: Reports constipation; denies diarrhea, nausea/dyspepsia or vomiting Skin and extremity symptoms: Denies erectile dysfunction Other symptoms: Reports blurry vision and change in vision Self monitoring: Yes Glucometer type: relion Diabetes education in past year: Yes Glucose testing: demonstrates correct use of meter Sick day education - understands ketone testing: Yes Exam Const General: comfortable, no acute distress Orientation: oriented x3 HENMT Head: normal to inspection, atraumatic Ears: hearing grossly normal bilaterally Nose: no nasal discharge Mouth: oral mucosae normal, moist mucous membranes Teeth and gingiva: dentition normal Eyes General: appearance normal, both eyes and all related structures Conjunctivae: conjunctivae normal Sclera: sclerae normal Pupils: PERRL Neck Neck: normal visual inspection, full ROM Neck mass: No Resp Effort AND Inspection: normal respiratory effort, symmetric chest movement, able to speak in complete sentences Auscultation: Bilateral: Clear to Auscultation Cardio Rate: regular rate Rhythm: regular rhythm Heart Sounds: S1 normal, S2 normal GI Inspection: normal to inspection Auscultation: normal bowel sounds Palpation: soft, no guarding Musc Thoracic/Lumbar Spine: other (No joint swelling or fluid accumulation) Skin General: no rashes or lesions noted Wounds: no wounds Diabetic Foot Pulses: L dorsalis pedis pulse: normal, R dorsalis pedis pulse: normal Monofilament test: Left foot: abnormal, Right foot: abnormal Neuro General: moves all extremities, other (Using a walker today Gait slow and stiff) Extrem General: no edema Psych Appearance: well kempt Mental Status: mental status grossly normal Mood: congruent mood Affect: normal affect Speech and Movement: speech clear Attitude: cooperative Thought Process: normal Thought Content: normal Judgment: judgment good Weight and fatigue symptoms: Denies snoring Cardiopulmonary symptoms: Denies chest pain at rest, dyspnea on exertion, lightheadedness or myalgias GI symptoms: Reports constipation; denies diarrhea, nausea/dyspepsia or vomiting Skin and extremity symptoms: Denies erectile dysfunction Other symptoms: Reports blurry vision; denies change in vision Intake Vital Signs10/08/17 Height 5 ft 8 in 10/08/17 Weight: 161 lb 2 oz 10/08/17 Body Mass Index (BMI) 24.5 10/08/17 Blood Pressure 146/85 10/08/17 Blood Pressure Location Lt popliteal Intake Visit Reasons: Diabetes Mellitus Type 2 Publishing Specialist Required: No Accompanied by: Family / Other Is patient in pain?: No Allergies alfuzosin Allergy (Verified 10/08/17 15:39) Other Penicillins Allergy (Verified 10/08/17 15:39) Rash Sulfa (Sulfonamide Antibiotics) Allergy (Verified 10/08/17 15:39) Swelling Medications Atenolol [Tenormin (beta naty)] 75 mg PO DAILY 10/18/16 [History Confirmed 10/08/17] Clopidogrel Bisulfate [Plavix] 75 mg PO DAILY 10/18/16 [History Confirmed 10/08/17] ranitidine 300 mg tablet 300 mg PO QHS 05/27/17 [History Confirmed 10/08/17] Atorvastatin Calcium [Lipitor] 80 mg PO QHS 06/06/17 [History Confirmed 10/08/17] Insulin Aspart [Novolog Flexpen] 10 units SC TIDAC 06/06/17 [History Confirmed 10/08/17] Polyethylene Glycol 3350 [Miralax] 0.5 pack PO DAILY 06/06/17 [History Confirmed 10/08/17] Ramipril [Altace] 5 mg PO DAILY 06/06/17 [History Confirmed 10/08/17] insulin detemir (U-100) 100 unit/mL (3 mL) subcutaneous pen 35 unit SC BID #21 ml 09/30/17 [Rx Confirmed 10/08/17] baclofen 10 mg tablet 10 mg PO TID 10/08/17 [History Confirmed 10/08/17] [facility] Medical History Type 2 diabetes mellitus (Chronic) Cerebrovascular disease (Chronic) Hyperlipidemia (Chronic) Diverticulitis (Chronic) Hypertension (Chronic) Coronary artery disease (Chronic) Stroke (Chronic) Hypoglycemia (Acute) Gastrointestinal bleed (Chronic) Family History Brother Kidney disease Mother CVA (cerebral vascular accident) Father Liver cirrhosis Social History Smoking Status: Former smoker alcohol intake: never ROS Const Constitutional: No anorexia, body ache, chills, fatigue, fever(s), frequent falls, decreased energy, malaise, night sweats, weakness, weight change, sleep problems, abnormal sleep pattern, change in appetite, other, headache(s), snoring or excessive sweating Eyes Eyes: Positive for blurry vision; no change in vision, double vision, discharge, dry eyes, bulging eyes, floaters, visual disturbances, eye pain, light sensitivity, spots in vision, tunnel vision or other ENT ENT: No abnormal hearing, ear pain, ear discharge, ear pressure, hearing loss, tinnitus, dizziness/vertigo, balance problems, nosebleed/epistaxis, nasal congestion, nasal obstruction, nose pain, sinus pressure, sinus pain, nasal discharge, post nasal drip, headache(s), facial pain, dental pain, dry mouth, bad breath, hoarseness, lip swelling, mouth lesions, mouth pain, sore throat, tongue swelling, throat swelling, other, difficulty swallowing or neck pain Resp Respiratory: Positive for cough; no change in phlegm color, chest congestion, excessive phlegm production, hemoptysis, pain on inspiration, shortness of breath, pain with cough, snoring, stridor, wheezing or other Cardio Cardiology: Positive for generalized swelling; no chest pain at rest, chest pain with exertion, leg pain with exertion, excessive sweating, shortness of breath, dyspnea on exertion, irregular heart rhythm, lightheadedness, orthopnea, radiating jaw, neck or arm pain, fast heart rate, slow heart rate, palpitations or other Gastro GI: Positive for constipation; no abdominal pain, belching, bloating, change in bowel habits, change in stool character, coffee ground emesis, cramping, diarrhea, heartburn, difficulty swallowing, feeling full early, excessive flatus, incontinent of stools, Vomiting blood/hematemesis, blood in stool, loose stools, Black,tarry stools, nausea/dyspepsia, pain with swallowing, vomiting or other Genitourinary Male: No difficulty urinating, burning urination, painful urination, urinary incontinence, urinary frequency, urinary urgency, urinary hesitancy, urinary retention, blood in urine, Frequent nighttime urination/ nocturia, post void dribbling, suprapubic fullness, side pain, sexual problems, genital lesions, genital itching, erectile dysfunction, penile discharge, difficulty with ejaculations, blood in semen, scrotal swelling, testicle lump, testicle pain or other Musc Musculoskeletal: No abnormal walking, joint pain, back pain, deformity, joint swelling, limited range of motion, loss of height, muscle cramps, muscle weakness, decreased muscle mass, body aches, neck pain, numbness, radiating pain into limb, stiffness, tingling or other Skin Skin: No acne, hair loss, change in hair, nail changes, boil, change in skin color, dry skin, redness, excessive hair growth, yellowing of the skin, lesions, itching, rash, skin pain, skin ulcer, sores, skin swelling, wounds or other Breast Breast: No other Neuro Neurology: No frequent falls, weakness, visual disturbances, abnormal hearing, headache(s), abnormal walking, numbness or tingling Psych Psychiatric: No abnormal sleep pattern, No change in appetite Endo Endocrine: No fatigue, other or excessive sweating Aller/Imm Allergy/Immunologic: No lip swelling, tongue swelling, throat swelling, wheezing or itchy eyes Assessment AND Plan Problems 1. Type 2 diabetes mellitus with complication, with long-term current use of insulin E11.8 Plan Patient will check BG before his meal and add his correction. Family will call in one week with progress reports. If BG consistent will add additional meal insulin. Medications Discontinued: Plan Detail Additional Comments 1. Please schedule follow up in 3 months. 2. Lab work one week before appointment. 3. Discussed importance of regular exercise and recommend starting or continuing a regular exercise program for good health. 4. The patient was encouraged to lose weight for good health 5. The importance of monitoring blood sugar regularly was reviewed. 6. The importance of monitoring the HBA1c level regularly was reviewed. 7. The importance of prper foot care and regularly checking feet to prevent sores and loss of limbs was reviewed. 8. The importance of keeping BP at or below 130/80 to prevent stroke, heart attacks, kidney failure, blindness was reviewed. Spent approximately 45 minutes with patient with over 50% of time spent in discussion and counseling regarding medication adjustment, symptoms and treatment of hypoglycemia, diet adherence, and checking BG before driving. Coding Level of Care Code Off vis,est,level 4 Diagnoses Type 2 diabetes mellitus with complication, with long-term current use of insulin E11.8 Diabetes mellitus complication status: with unspecified complications Diabetes mellitus mcc insulin use: with mcc use Time Spent (min) 45 10/09/17 0753 <Electronically signed by Fidelia BANKS> Date Fidelia BANKS Cosigner Signature: Date (if applicable) CC: PROGRESS Observed: 09/08/2017 Status: COMPLETED Source: [place]LL[place] 2:32 PM [facility] [place] [place] REPOSITORY HNO ID: [id number] Author: Ronald Calderón Service: (none) Author Type: Physician Type: Progress Notes Filed: 09/08/2017 3:35 PM Note Text: This note was created using NoteWriter. Subjective West Manuel is a 82 year old male was here with his daughter. His diabetes mellitus continued to be poorly controlled and labile. He was just seen by [facility], and it was not clear if changes were made to his insulin. They also acknowledged dietary indiscretion as he ate fast food often. His cardiac issues were stable. He had chronic dysphagia to large pills, and they requested changing ranitidine to a smaller pill. This has been noted for many years. Another issue raised up was recurrent hiccups. This also was apparently chronic, and in one his hospitalizations, an unrecalled medication was tried which caused excessive sedation. He had hiccups lasting a few hours almost daily. Measures tried including drinking cold water were ineffective. Review of Systems Constitutional: Negative. HENT: Negative. Respiratory: Negative. Hiccups per HPI. Cardiovascular: Negative. Gastrointestinal: Negative. Endocrine: Negative. 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 atenolol (TENORMIN) 25 mg tablet TAKE 3 TABLETS BY MOUTH DAILY clopidogrel (PLAVIX) 75 mg tablet Take 1 tablet by mouth once daily. Per Dr. Covarrubias. Ranitidine HCl 150 mg capsule Take 2 capsules by mouth daily at bedtime. Due to pill dysphagia. atorvastatin (LIPITOR) 40 mg tablet Take 2 tablets by mouth daily at bedtime. Due to pill dysphagia. blood sugar diagnostic (ACCU-CHEK SENG) test strip Check blood sugars 6 times daily. Insulin dependent Dx E11.40 bisacodyl (DULCOLAX) 10 mg supp 1 Suppository by RECTAL route once daily as needed. Diaper,Brief, Adult,Disposable (DEPEND PROTECTION SZ S-M) misc Use 3 times a day as directed. Dx: N39.41, N40.1 ipratropium bromide (ATROVENT) 0.06 % nasal spray Use 2 Sprays in the nose twice daily. polyethylene glycol 3350 (MIRALAX, GLYCOLAX) 17 gram packet Take 0.5 Packets by mouth once daily. Insulin [place], Disposable, (BD ULTRAFINE III MINI PEN) 31 gauge x /16 ndle Uses 5 daily insulin aspart (NOVOLOG FLEXPEN) 100 unit/mL inpn Inject 10 Units subcutaneously three times daily with meals. Add the following units depending on blood sugar: 151-200=1 unit. 201-250=2 units. 251-300=3 units. 301-350=4 units. 351-400=5 units. More than 400=6units. Dx:E11.40 Lancets (ACCU-CHEK MULTICLIX LANCET) lancets Check 4 times a day. CPAP Use as directed No current facility-administered medications for this visit. Objective BP 122/68 Pulse 72 Resp 16 Wt 73 kg (161 lb) BMI 24.48 kg/m2 Physical Exam Constitutional: No distress. Neck: No JVD present. No tracheal deviation present. Cardiovascular: Normal heart sounds. Pulmonary/Chest: Breath sounds normal. No respiratory distress. No hiccups. Abdominal: Soft. He exhibits no distension. There is no tenderness. Musculoskeletal: He exhibits no edema. Neurological: He is alert. Ambulatory with cane. CMP: Glucose 292 08/31/2017 BUN 11 08/31/2017 Creatinine 0.98 08/31/2017 Sodium 136 08/31/2017 Potassium 4.3 08/31/2017 Chloride 100 08/31/2017 CO2 21 08/31/2017 Protein, Total 6.7 08/31/2017 Albumin 3.6 08/31/2017 Calcium 8.9 08/31/2017 Alkaline Phosphatase 121 08/31/2017 Bilirubin, Total 0.6 08/31/2017 AST 18 08/31/2017 ALT 9 08/31/2017 Hemoglobin A1C (%) Date Value 08/31/2017 10.5 03/29/2017 9.7 ) Glucose meter data or log was reviewed. Range: 63-357. Average: 237. Patient was testing BID, 5x/day. Higher frequency of testing needed: yes. Reason: uncontrolled DM, labile blood sugars. Hemoglobin A1C (%) Date Value 08/31/2017 10.5 . ASSESSMENT/PLAN: 1. 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 2. Essential hypertension with goal blood pressure less than 130/85 - ICD9: 401.9, ICD10: I10 - good control - Continue current medication(s) 3. Mixed hyperlipidemia - ICD9: 272.2, ICD10: E78.2 - good control - Change to 40 mg two tablets daily due to pill dysphagia. - ATORVASTATIN 40 MG TABLET 4. Neuropathy (HCC) - ICD9: 355.9, ICD10: G62.9 Stable. 5. Gastroesophageal reflux disease, esophagitis presence not specified - ICD9: 530.81, ICD10: K21.9 - Change to 150 mg 2 capsules daily due to pill dysphagia. - RANITIDINE 150 MG CAPSULE 6. Pill dysphagia - ICD9: 787.20, ICD10: R13.10 See above. 7. [place] - ICD9: 786.8, ICD10: R06.6 - I informed patient and daughter I will review records. Since, noreference was found, I will send a prescription for baclofen as needed for hiccups. Ronald Calderón MD CNOV Observed: 09/07/2017 Status: COMPLETED Source: [place] 10:00 AM [facility] [place] REPOSITORY Office Visit (INTMWS) WEST MANUEL ([id number]) 1935 M Date Time Provider Department 09/07/17 10:00 AM RONALD CALDERÓN INTMASHA During your visit today, we recorded the following information about you: Pulse Respiration Blood pressure Weight 72/minute 16/minute 122/68 73 kg Ronald Calderón MD 09/08/2017 3:35 PM Signed This note was created using BeatDeckriter. Subjective West Manuel is a 82 year old male was here with his daughter. His diabetes mellitus continued to be poorly controlled and labile. He was just seen by [facility], and it was not clear if changes were made to his insulin. They also acknowledged dietary indiscretion as he ate fast food often. His cardiac issues were stable. He had chronic dysphagia to large pills, and they requested changing ranitidine to a smaller pill. This has been noted for many years. Another issue raised up was recurrent hiccups. This also was apparently chronic, and in one his hospitalizations, an unrecalled medication was tried which caused excessive sedation. He had hiccups lasting a few hours almost daily. Measures tried including drinking cold water were ineffective. Review of Systems Constitutional: Negative. HENT: Negative. Respiratory: Negative. Hiccups per HPI. Cardiovascular: Negative. Gastrointestinal: Negative. Endocrine: Negative. 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 atenolol (TENORMIN) 25 mg tablet TAKE 3 TABLETS BY MOUTH DAILY clopidogrel (PLAVIX) 75 mg tablet Take 1 tablet by mouth once daily. Per Dr. Covarrubias. Ranitidine HCl 150 mg capsule Take 2 capsules by mouth daily at bedtime. Due to pill dysphagia. atorvastatin (LIPITOR) 40 mg tablet Take 2 tablets by mouth daily at bedtime. Due to pill dysphagia. blood sugar diagnostic (ACCU-CHEK SENG) test strip Check blood sugars 6 times daily. Insulin dependent Dx E11.40 bisacodyl (DULCOLAX) 10 mg supp 1 Suppository by RECTAL route once daily as needed. Diaper,Brief, Adult,Disposable (DEPEND PROTECTION SZ S-M) misc Use 3 times a day as directed. Dx: N39.41, N40.1 ipratropium bromide (ATROVENT) 0.06 % nasal spray Use 2 Sprays in the nose twice daily. polyethylene glycol 3350 (MIRALAX, GLYCOLAX) 17 gram packet Take 0.5 Packets by mouth once daily. Insulin [place], Disposable, (BD ULTRAFINE III MINI PEN) 31 gauge x 3/16ANDquot; ndle Uses 5 daily insulin aspart (NOVOLOG FLEXPEN) 100 unit/mL inpn Inject 10 Units subcutaneously three times daily with meals. Add the following units depending on blood sugar: 151-200=1 unit. 201-250=2 units. 251-300=3 units. 301-350=4 units. 351-400=5 units. More than 400=6units. Dx:E11.40 Lancets (ACCU-CHEK MULTICLIX LANCET) lancets Check 4 times a day. CPAP Use as directed No current facility-administered medications for this visit. Objective BP 122/68 Pulse 72 Resp 16 Wt 73 kg (161 lb) BMI 24.48 kg/m2 Physical Exam Constitutional: No distress. Neck: No JVD present. No tracheal deviation present. Cardiovascular: Normal heart sounds. Pulmonary/Chest: Breath sounds normal. No respiratory distress. No hiccups. Abdominal: Soft. He exhibits no distension. There is no tenderness. Musculoskeletal: He exhibits no edema. Neurological: He is alert. Ambulatory with cane. CMP: Glucose 292 08/31/2017 BUN 11 08/31/2017 Creatinine 0.98 08/31/2017 Sodium 136 08/31/2017 Potassium 4.3 08/31/2017 Chloride 100 08/31/2017 CO2 21 08/31/2017 Protein, Total 6.7 08/31/2017 Albumin 3.6 08/31/2017 Calcium 8.9 08/31/2017 Alkaline Phosphatase 121 08/31/2017 Bilirubin, Total 0.6 08/31/2017 AST 18 08/31/2017 ALT 9 08/31/2017 Hemoglobin A1C (%) Date Value 08/31/2017 10.5 03/29/2017 9.7 ) Glucose meter data or log was reviewed. Range: 63-357. Average: 237. Patient was testing BID, 5x/day. Higher frequency of testing needed: yes. Reason: uncontrolled DM, labile blood sugars. Hemoglobin A1C (%) Date Value 08/31/2017 10.5 . ASSESSMENT/PLAN: 1. 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 2. Essential hypertension with goal blood pressure less than 130/85 - ICD9: 401.9, ICD10: I10 - good control - Continue current medication(s) 3. Mixed hyperlipidemia - ICD9: 272.2, ICD10: E78.2 - good control - Change to 40 mg two tablets daily due to pill dysphagia. - ATORVASTATIN 40 MG TABLET 4. Neuropathy (HCC) - ICD9: 355.9, ICD10: G62.9 Stable. 5. Gastroesophageal reflux disease, esophagitis presence not specified - ICD9: 530.81, ICD10: K21.9 - Change to 150 mg 2 capsules daily due to pill dysphagia. - RANITIDINE 150 MG CAPSULE 6. Pill dysphagia - ICD9: 787.20, ICD10: R13.10 See above. 7. Singultus - ICD9: 786.8, ICD10: R06.6 - I informed patient and daughter I will review records. Since, noreference was found, I will send a prescription for baclofen as needed for hiccups. 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 Due to pill dysphagia.Disp: 60 capsuleRfl: 11 atorvastatin (LIPITOR) 40 mg tabletTake 2 tablets by mouth daily at bedtime. Due to pill dysphagia.Disp: 60 tabletRfl: 11 baclofen (LIORESAL) 10 mg tabletTake 1 tablet by mouth three times daily as needed (hiccups).Disp: 30 tabletRfl: 0 Prescriptions as of 09/07/2017 Sig: RAMIPRIL 5 MG CAPSULE TAKE 1 CAPSULE BY MOUTH DAILY INSULIN DETEMIR (U-100) 100 U* Inject 22 Units subcutaneousl* ATENOLOL 25 MG TABLET TAKE 3 TABLETS BY MOUTH DAILY CLOPIDOGREL 75 MG TABLET Take 1 tablet by mouth once d* BACLOFEN 10 MG TABLET Take 1 tablet by mouth three * RANITIDINE 150 MG CAPSULE Take 2 capsules by mouth skylar* ATORVASTATIN 40 MG TABLET Take 2 tablets by mouth daily* BLOOD SUGAR DIAGNOSTIC STRIPS Check blood sugars 6 times da* BISACODYL 10 MG RECTAL SUPPOS* 1 Suppository by RECTAL route* DIAPER,BRIEF,ADULT,DISPOSABLE Use 3 times a day as directed* IPRATROPIUM BROMIDE 42 MCG (0* Use 2 Sprays in the nose twic* POLYETHYLENE GLYCOL 3350 17 G* Take 0.5 Packets by mouth onc* PEN NEEDLE, DIABETIC 31 GAUGE* Uses 5 daily INSULIN ASPART U-100 100 UNI* Inject 10 Units subcutaneousl* LANCETS Check 4 times a day. CPAP Use as directed Problem List As Of Date 09/07/2017 Noted Resolved DM (diabetes mellitus), type 2, uncontrolled w/*INVALID FOR*11/16/2015 Essential hypertension [I10] INVALID FOR*11/16/2015 HYPERLIPIDEMIA NEC/NOS [E78.5] INVALID FOR*07/25/2015 ROTATOR CUFF DIS NEC [M75.100] INVALID FOR*10/02/2006 Impotence of organic origin [N52.9] INVALID FOR*09/27/2015 ESOPHAGEAL REFLUX [K21.9] INVALID FOR* Hypertensive heart disease without heart failur*INVALID FOR* BPH with obstruction/lower urinary tract sympto*INVALID FOR* Inflamed Seborrheic Keratosis [L82.0] INVALID FOR*11/15/2009 Viral Warts, Unspecified [B07.9] INVALID FOR*11/15/2009 SOLAR LENGINES///DYSCHROMIA OTHER [L81.9] INVALID FOR*11/15/2009 Other Chronic Dermatitis due to Solar Radiation*INVALID FOR*11/15/2009 Scar Condition and Fibrosis of Skin [L90.5] INVALID FOR*11/15/2009 Colon Polyp [K63.5] INVALID FOR* More... CHADD on CPAP [G47.33, Z99.89] INVALID FOR* More... CVA (cerebral infarction) [I63.9] INVALID FOR*03/24/2015 More... Carotid stenosis, asymptomatic, bilateral [I65.*INVALID FOR* ASHD (arteriosclerotic heart disease) [I25.10] INVALID FOR* Neuropathy (HCC) [G62.9] INVALID FOR* Mixed hyperlipidemia [E78.2] INVALID FOR* Uncontrolled type 2 diabetes mellitus with diab*INVALID FOR* Essential hypertension with goal blood pressure*INVALID FOR* Urge incontinence of urine [N39.41] INVALID FOR* Prescriptions ordered this encounter Disp Refills Start End RANITIDINE 150 MG CAPSULE 60 c* 11 09/07/2017 Route: ORAL Sig: Take 2 capsules by mouth daily at bedtime. Due to pill dysphagia. ATORVASTATIN 40 MG TABLET 60 t* 11 09/07/2017 Route: ORAL Sig: Take 2 tablets by mouth daily at bedtime. Due to pill dysphagia. BACLOFEN 10 MG TABLET 30 t* 0 09/08/2017 Route: ORAL Sig: Take 1 tablet by mouth three times daily as needed (hiccups). Medications Discontinued During This Encounter Ranitidine HCl 300 mg tablet 90 t* 3 01/28/2017 09/07/2017 Cmt: Discontinue omeprazole. Route: ORAL Sig: Take 1 tablet by mouth daily at bedtime. Disc: Reason for discontinue is not on file. atorvastatin (LIPITOR) 80 mg tablet 30 t* 11 04/12/2017 09/07/2017 Route: ORAL Sig: Take 1 tablet by mouth daily at bedtime. Disc: Reason for discontinue is not on file. Disposition: Return in about 3 months (around 12/08/2017). Follow-up and Disposition History Recorded Encounter Status:Closed by RONALD CALDERÓN MD on 09/08/17 PROGRESS Observed: 09/02/2017 Status: COMPLETED Source: [place] 8:15 AM [facility] [place] REPOSITORY HNO ID: [id number] Author: Eugenia [place] Pharmacy Clerk Service: (none) Author Type: (none) Type: Progress Notes Filed: 09/02/2017 8:16 AM Note Text: I spoke with West who asked me to call Wilfredo (his daughter) to r/s the appointment. I spoke with Wilfredo and she agreed to an appointment on 09/07/17. Appointment scheduled. The patient has been identified by name and date of : YES I have scheduled the patient for an appointment on 09/07/2017. The patient will report to the lab prior to the visit. PHMA Documentation 09/02/2017 Opts out of [facility] No Appointments Scheduled Scheduled PCP Appt DM2 with No MARIAH Confirmed Complete DM2 with No Urine Alb Confirmed Complete DM2 with No DFE Confirmed Complete A1C > 8.9 Confirmed Complete Eugenia Khan Cma PROGRESS Observed: 08/28/2017 Status: COMPLETED Source: [place] 8:37 AM [facility] [place] REPOSITORY HNO ID: [id number] Author: Eugenia Khan Cma Service: (none) Author Type: (none) Type: Progress Notes Filed: 09/02/2017 8:16 AM Note Text: Left detailed message for patient to return call #[phone]. PROGRESS Observed: 08/28/2017 Status: COMPLETED Source: [place] 8:32 AM [facility] [place] REPOSITORY HNO ID: [id number] Author: Eugenia Khan Pharmacy Clerk Service: (none) Author Type: (none) Type: Progress Notes Filed: 09/02/2017 8:16 AM Note Text: PHMA TEAMLET DOCUMENTATION Provider Action/FYI: Please file hgba1c due 09/05 PSR Action/FYI: Teamlet has identified patient by name and date of . Team: Jacey Desai, Diane, Keke, myself ? Last Office Visit:06/28/2017 ? Next Office Visit: Visit date not found ? Last BP/Labs: Blood Pressure: Last 3 Encounter BP Readings: Date: BP: 05/23/2017 110/70 04/16/2017 124/68 01/28/2017 120/70 Lipids: Cholesterol, Total (mg/dL) Date Value 03/29/2017 91 02/20/2016 126 HDL Cholesterol (mg/dL) Date Value 03/29/2017 30 02/20/2016 34 LDL Cholesterol (mg/dL) Date Value 03/29/2017 51 02/20/2016 75 Triglyceride (mg/dL) Date Value 03/29/2017 52 02/20/2016 83 HGB A1C: Lab Results Component Value Date HBA1C 9.7 03/29/2017 HBA1C 9.0 08/01/2016 HBA1C 9.8 02/20/2016 TSH: No results found for: TSH) Care Gap: DM - Last HGBA1C is NOT under 9% HTN - Last BP NOT under 140/90 Plan: ? Type of appointment needed: 6 month follow up next available with Provider PCP (we had to cancel this appointment due to dr. Avila schedule) Labs, HM and Immunization: Health Maintenance Due: TETANUS due on 10/02/2016 Eugenia Khan [facility] CNPTOUTREACH Observed: 08/28/2017 Status: COMPLETED Source: [place] 12:00 AM [facility] [place] REPOSITORY Patient Outreach (INTMWS) WEST MANUEL ([id number]) 1935 M Date Time Provider Department 08/28/17 EUGENIA KHAN (POWER SUPERINTENDENT) INTMWS During your visit today, we recorded the following information about you: Eugenia Khan Cma 09/02/2017 8:16 AM Signed PHMA TEAMLET DOCUMENTATION Provider Action/FYI: Please file hgba1c due 09/05 PSR Action/FYI: Teamlet has identified patient by name and date of . Team: Dr. Avila, Jacey, Diane, Keke, myself ? Last Office Visit:06/28/2017 ? Next Office Visit: Visit date not found ? Last BP/Labs: Blood Pressure: Last 3 Encounter BP Readings: Date: BP: 05/23/2017 110/70 04/16/2017 124/68 01/28/2017 120/70 Lipids: Cholesterol, Total (mg/dL) Date Value 03/29/2017 91 02/20/2016 126 HDL Cholesterol (mg/dL) Date Value 03/29/2017 30 02/20/2016 34 LDL Cholesterol (mg/dL) Date Value 03/29/2017 51 02/20/2016 75 Triglyceride (mg/dL) Date Value 03/29/2017 52 02/20/2016 83 HGB A1C: Lab Results Component Value Date HBA1C 9.7 03/29/2017 HBA1C 9.0 08/01/2016 HBA1C 9.8 02/20/2016 TSH: No results found for: TSH) Care Gap: DM - Last HGBA1C is NOT under 9% HTN - Last BP NOT under 140/90 Plan: ? Type of appointment needed: 6 month follow up next available with Provider PCP (we had to cancel this appointment due to dr. Margarita walker) Labs, HM and Immunization: Health Maintenance Due: TETANUS due on 10/02/2016 [facility] Pharm[facility] Clerk 09/02/2017 8:16 AM Signed Left detailed message for patient to return call #[phone]. [employer] 09/02/2017 8:16 AM Signed I spoke with West who asked me to call Wilfredo (his daughter) to r/s the appointment. I spoke with Wilfredo and she agreed to an appointment on 09/07/17. Appointment scheduled. The patient has been identified by name and date of : YES I have scheduled the patient for an appointment on 09/07/2017. The patient will report to the lab prior to the visit. PHMA Documentation 09/02/2017 Opts out of [facility] No Appointments Scheduled Scheduled PCP Appt DM2 with No MARIAH Confirmed Complete DM2 with No Urine Alb Confirmed Complete DM2 with No DFE Confirmed Complete A1C ANDgt; 8.9 Confirmed Complete [employer] Allergies As of Date: 08/28/2017 Noted Allergy Reaction ALFUZOSIN 11/19/2008 5 - Intolerance Comments: dizziness PENICILLINS 10/24/2005 2 - Rash SULFA (SULFONAMIDE ANTIBIOTICS) 10/24/2005 7 - Swelling Date Reviewed: 05/23/2017 Reviewed by: Debi Sterling LPN - Fully Assessed Reason for Visit: PHMA/Care Gap Outreach [[id number]] Primary Visit Diagnosis:Uncontrolled type 2 diabetes mellitus with diabetic neuropathy, with long-term current use of insulin (HCC) [E11.40, Z79.4, E11.65] Order(s):HGB A1C [[id number]] Order #: [id number] FUTURE Prescriptions as of 08/28/2017 Sig: BLOOD SUGAR DIAGNOSTIC STRIPS Check blood sugars 6 times da* BISACODYL 10 MG RECTAL SUPPOS* 1 Suppository by RECTAL route* RAMIPRIL 5 MG CAPSULE TAKE 1 CAPSULE BY MOUTH DAILY DIAPER,BRIEF,ADULT,DISPOSABLE Use 3 times a day as directed* IPRATROPIUM BROMIDE 42 MCG (0* Use 2 Sprays in the nose twic* ATORVASTATIN 80 MG TABLET Take 1 tablet by mouth daily * POLYETHYLENE GLYCOL 3350 17 G* Take 0.5 Packets by mouth onc* RANITIDINE 300 MG TABLET Take 1 tablet by mouth daily * INSULIN DETEMIR (U-100) 100 U* Inject 22 Units subcutaneousl* ATENOLOL 25 MG TABLET TAKE 3 TABLETS BY MOUTH DAILY PEN NEEDLE, DIABETIC 31 GAUGE* Uses 5 daily INSULIN ASPART U-100 100 UNI* Inject 10 Units subcutaneousl* CLOPIDOGREL 75 MG TABLET Take 1 tablet by mouth once d* LANCETS Check 4 times a day. CPAP Use as directed Problem List As Of Date 08/28/2017 Noted Resolved DM (diabetes mellitus), type 2, uncontrolled w/*INVALID FOR*11/16/2015 Essential hypertension [I10] INVALID FOR*11/16/2015 HYPERLIPIDEMIA NEC/NOS [E78.5] INVALID FOR*07/25/2015 ROTATOR CUFF DIS NEC [M75.100] INVALID FOR*10/02/2006 Impotence of organic origin [N52.9] INVALID FOR*09/27/2015 ESOPHAGEAL REFLUX [K21.9] INVALID FOR* Hypertensive heart disease without heart failur*INVALID FOR* BPH with obstruction/lower urinary tract sympto*INVALID FOR* Inflamed Seborrheic Keratosis [L82.0] INVALID FOR*11/15/2009 Viral Warts, Unspecified [B07.9] INVALID FOR*11/15/2009 SOLAR LENGINES///DYSCHROMIA OTHER [L81.9] INVALID FOR*11/15/2009 Other Chronic Dermatitis due to Solar Radiation*INVALID FOR*11/15/2009 Scar Condition and Fibrosis of Skin [L90.5] INVALID FOR*11/15/2009 Colon Polyp [K63.5] INVALID FOR* More... CHADD on CPAP [G47.33, Z99.89] INVALID FOR* More... CVA (cerebral infarction) [I63.9] INVALID FOR*03/24/2015 More... Carotid stenosis, asymptomatic, bilateral [I65.*INVALID FOR* ASHD (arteriosclerotic heart disease) [I25.10] INVALID FOR* Neuropathy (HCC) [G62.9] INVALID FOR* Mixed hyperlipidemia [E78.2] INVALID FOR* Uncontrolled type 2 diabetes mellitus with diab*INVALID FOR* Essential hypertension with goal blood pressure*INVALID FOR* Urge incontinence of urine [N39.41] INVALID FOR* Encounter Status:Closed by EUGENIA KHAN CMA on 09/02/17 ENDOCRINOLOGY VISIT Observed: 08/26/2017 Status: F Source: [place] REPORT 7:24 AM [facility] REPOSITORY [facility] [address] [place] [address]. [address] [place] [address] OFFICE VISIT Date of Service: 08/22/17 MR#: [id number] Acct: [id number] Name: WEST MANUEL Rep #: [id number] : 1935 Provider: Fidelia Bustillo NP Age/Sex: 82/M [place] [facility] [place]: S[place] HPI History of present illness West Manuel is an 82 year old male who presents for follow up of diabetes type 2. Diagnosed in 1974. Accompanied by a family member. Continues on 22 lantus daily and meal insulin 10 units each meal. States he continues with meals on wheel program. Sometimes he is hungry before they arrive so he snacks. He thinks this is why his pre lunch BG is high. Pt denies difficulty with injections or self monitoring of BG. Denies any signs of infection or irritation at site of injections. Reports taking insulin as directed At time of visit: -Pt denies symptoms of hypertensive emergency (CP,SOB,FREY, or blurred vision) and hypotension(dizziness or lightheadedness) -Pt denies symptoms of hypoglycemia ( sweaty, confusion, anxiety, tremor, hunger, palpitations) and hyperglycemia ( polydipsia, polyuria) -Pt denies potential medication adverse effect. Hypoglycemia Aware of hypoglycemia: When awake Able to self treat low BG: Yes Frequent low Blood sugar: No Has supply of glucagon: No SMBG am 126-250 12n 117-200+ 5pm 180-300 8pm 150+ Exercise Walks with cane and occ with a walker. Type: type 2 Glucose control symptoms: Reports high post-meal glucose Weight and fatigue symptoms: Denies snoring Cardiopulmonary symptoms: Denies chest pain at rest, dyspnea on exertion, lightheadedness or myalgias GI symptoms: Reports constipation; denies diarrhea, nausea/dyspepsia or vomiting Skin and extremity symptoms: Denies erectile dysfunction Other symptoms: Reports blurry vision and change in vision Self monitoring: Yes Glucometer type: relion Diabetes education in past year: Yes Glucose testing: demonstrates correct use of meter Sick day education - understands ketone testing: Yes Exam Const General: comfortable, no acute distress Orientation: oriented x3 HENMT Head: normal to inspection, atraumatic Ears: hearing grossly normal bilaterally Nose: no nasal discharge Mouth: oral mucosae normal, moist mucous membranes Teeth and gingiva: dentition normal Eyes General: appearance normal, both eyes and all related structures Conjunctivae: conjunctivae normal Sclera: sclerae normal Pupils: PERRL Neck Neck: normal visual inspection, full ROM Neck mass: No Resp Effort AND Inspection: normal respiratory effort, symmetric chest movement, able to speak in complete sentences Auscultation: Bilateral: Clear to Auscultation Cardio Rate: regular rate Rhythm: regular rhythm Heart Sounds: S1 normal, S2 normal GI Inspection: normal to inspection Auscultation: normal bowel sounds Palpation: soft, no guarding Musc Thoracic/Lumbar Spine: other (No joint swelling or fluid accumulation) Skin General: no rashes or lesions noted Wounds: no wounds Diabetic Foot Pulses: L dorsalis pedis pulse: normal, R dorsalis pedis pulse: normal Monofilament test: Left foot: abnormal, Right foot: abnormal Neuro General: moves all extremities, other (Using a walker today Gait slow and stiff) Extrem General: no edema Psych Appearance: well kempt Mental Status: mental status grossly normal Mood: congruent mood Affect: normal affect Speech and Movement: speech clear Attitude: cooperative Thought Process: normal Thought Content: normal Judgment: judgment good Intake Vital Signs08/22/17 Height 5 ft 8 in 08/22/17 Weight: 164 lb 4 oz 08/22/17 Body Mass Index (BMI) 25.0 08/22/17 Blood Pressure 136/75 08/22/17 Blood Pressure Location Lt popliteal 08/22/17 Blood Pressure Position Sitting Intake Visit Reasons: diabetes Publishing Specialist Required: No Accompanied by: Daughter Is patient in pain?: No Allergies alfuzosin Allergy (Verified 08/22/17 16:25) Other Penicillins Allergy (Verified 08/22/17 16:25) Rash Sulfa (Sulfonamide Antibiotics) Allergy (Verified 08/22/17 16:25) Swelling Medications Atenolol [Tenormin (beta naty)] 75 mg PO DAILY 10/18/16 [History Confirmed 08/22/17] Clopidogrel Bisulfate [Plavix] 75 mg PO DAILY 10/18/16 [History Confirmed 08/22/17] ranitidine 300 mg tablet 300 mg PO QHS 05/27/17 [History Confirmed 08/22/17] Atorvastatin Calcium [Lipitor] 80 mg PO QHS 06/06/17 [History Confirmed 08/22/17] Insulin Aspart [Novolog Flexpen] 10 units SC TIDAC 06/06/17 [History Confirmed 08/22/17] Insulin Detemir [Levemir FlexPen] 22 units SC QHS 06/06/17 [History Confirmed 08/22/17] Polyethylene Glycol 3350 [Miralax] 0.5 pack PO DAILY 06/06/17 [History Confirmed 08/22/17] Ramipril [Altace] 5 mg PO DAILY 06/06/17 [History Confirmed 08/22/17] Nurse's Note: Blood sugars : Low : High : 250 [facility] Medical History Type 2 diabetes mellitus (Chronic) Cerebrovascular disease (Chronic) Hyperlipidemia (Chronic) Diverticulitis (Chronic) Hypertension (Chronic) Coronary artery disease (Chronic) Stroke (Chronic) Hypoglycemia (Acute) Gastrointestinal bleed (Chronic) Family History Brother Kidney disease Mother CVA (cerebral vascular accident) Father Liver cirrhosis Social History Smoking Status: Former smoker alcohol intake: never ROS Const Constitutional: No anorexia, body ache, chills, fatigue, fever(s), frequent falls, decreased energy, malaise, night sweats, weakness, weight change, sleep problems, abnormal sleep pattern, change in appetite, other, headache(s), snoring or excessive sweating Eyes Eyes: Positive for blurry vision and change in vision; no double vision, discharge, dry eyes, bulging eyes, floaters, visual disturbances, eye pain, light sensitivity, spots in vision, tunnel vision or other ENT ENT: No abnormal hearing, ear pain, ear discharge, ear pressure, hearing loss, tinnitus, dizziness/vertigo, balance problems, nosebleed/epistaxis, nasal congestion, nasal obstruction, nose pain, sinus pressure, sinus pain, nasal discharge, post nasal drip, headache(s), facial pain, dental pain, dry mouth, bad breath, hoarseness, lip swelling, mouth lesions, mouth pain, sore throat, tongue swelling, throat swelling, other, difficulty swallowing or neck pain Resp Respiratory: Positive for cough; no change in phlegm color, chest congestion, excessive phlegm production, hemoptysis, pain on inspiration, shortness of breath, pain with cough, snoring, stridor, wheezing or other Cardio Cardiology: Positive for generalized swelling; no chest pain at rest, chest pain with exertion, leg pain with exertion, excessive sweating, shortness of breath, dyspnea on exertion, irregular heart rhythm, lightheadedness, orthopnea, radiating jaw, neck or arm pain, fast heart rate, slow heart rate, palpitations or other Gastro GI: Positive for constipation; no abdominal pain, belching, bloating, change in bowel habits, change in stool character, coffee ground emesis, cramping, diarrhea, heartburn, difficulty swallowing, feeling full early, excessive flatus, incontinent of stools, Vomiting blood/hematemesis, blood in stool, loose stools, Black,tarry stools, nausea/dyspepsia, pain with swallowing, vomiting or other Genitourinary Male: No difficulty urinating, burning urination, painful urination, urinary incontinence, urinary frequency, urinary urgency, urinary hesitancy, urinary retention, blood in urine, Frequent nighttime urination/ nocturia, post void dribbling, suprapubic fullness, side pain, sexual problems, genital lesions, genital itching, erectile dysfunction, penile discharge, difficulty with ejaculations, blood in semen, scrotal swelling, testicle lump, testicle pain or other Musc Musculoskeletal: No abnormal walking, joint pain, back pain, deformity, joint swelling, limited range of motion, loss of height, muscle cramps, muscle weakness, decreased muscle mass, body aches, neck pain, numbness, radiating pain into limb, stiffness, tingling or other Neuro Neurology: No frequent falls, weakness, visual disturbances, abnormal hearing, headache(s), abnormal walking, numbness or tingling Psych Psychiatric: No abnormal sleep pattern, No change in appetite Endo Endocrine: No fatigue, other or excessive sweating Aller/Imm Allergy/Immunologic: No lip swelling, tongue swelling, throat swelling or wheezing Assessment AND Plan 1. Type 2 diabetes mellitus with complication, with long-term current use of insulin E11.8; Z79.4 Plan BG readings are varied and many are in the low 200 range. However he has days when his BG is in range as well. He reports he is taking his medication as directed. Does have sliding scale which he states he does use if needed. Is getting meals delivered to him for lunch and family brings him meals as well. Does cook easy meals Wakes at different times during the day. Does snack between meals and at bedtime. Family is most concerned that he does not have low BG readings due to safety and being alone. Discussed diet and portions as well as eating when insulin is being given Will increase lunch insulin by one unit and have patient check his BG after evening meal and give correction if needed. Written instructions given. 2. Essential hypertension I10 Plan BP in control. Managed by Dr. Calderón. 3. Hyperlipidemia, unspecified hyperlipidemia type E78.5 Plan Takes statin without side effects. Managed by Dr. Calderón. Reports he tries to be active and eat healthy Control portions Food selections should be healthy Choose more low carb vegetables Avoid snacks and desserts. Drink water Exercise daily Eat more fresh foods, not canned or processed Eat more slowly Plan Detail Other Orders Orders: Other Medications Discontinued: Additional Comments 1. Please schedule follow up in 3 months. 2. Lab work one week before appointment. 3. Discussed importance of regular exercise and recommend starting or continuing a regular exercise program for good health. 4. The patient was encouraged to lose weight for good health 5. The importance of monitoring blood sugar regularly was reviewed. 6. The importance of monitoring the HBA1c level regularly was reviewed. 7. The importance of prper foot care and regularly checking feet to prevent sores and loss of limbs was reviewed. 8. The importance of keeping BP at or below 130/80 to prevent stroke, heart attacks, kidney failure, blindness was reviewed. Spent approximately 45 minutes with patient with over 50% of time spent in discussion and counseling regarding medication adjustment, symptoms and treatment of hypoglycemia, diet adherence, and checking BG before driving. Coding Level of Care Code Off vis,est,level 4 Diagnoses Type 2 diabetes mellitus with complication, with long-term current use of insulin E11.8; Z79.4 Diabetes mellitus complication status: with unspecified complications Diabetes mellitus mcc insulin use: with mcc use Essential hypertension I10 Hypertension type: essential hypertension Hyperlipidemia, unspecified hyperlipidemia type E78.5 Hyperlipidemia type: unspecified Time Spent (min) 45 08/26/17 0724 <Electronically signed by Fidelia BANKS> Date Fidelia BANKS Cosigner Signature: Date (if applicable) CC: 12 LEAD ELECTROCARDIOGRAM Observed: 06/12/2017 Status: F Source: [place] 1:45 PM [facility] REPOSITORY [facility] Cardiovascular Services [address] [place] [address] 12 Lead EKG 06/06/17 1239 MR#: [id number] Acct: [id number] Name: WEST MANUEL Rep #: [id number] : 1935 82 From: Mauro Covarrubias MD Attending Dr: Loida Mac Status: DIS SMITA Ordering Dr: Kvng Joseph MD Date: 06/06/17 Location: [facility] Sex: M AA Admitted: 06/06/17 Test Reason : CP Blood Pressure : / mmHG Vent. Rate : 077 BPM Atrial Rate : 077 BPM P-R Int : 184 ms QRS Dur : 078 ms QT Int : 364 ms P-R-T Axes : 057 -45 266 degrees QTc Int : 411 ms Normal sinus rhythm Left axis deviation T wave abnormality, consider inferolateral ischemia Abnormal ECG Confirmed by MAURO COVARRUBIAS MD ([id number]), features editor LALITHA TAM ([id number]) on 06/12/2017 1:45:07 PM Referred By: SIRENA Confirmed By:MAURO COVARRUBIAS MD 06/12/17 1345 Date Mauro Covarrubias MD CC: Ronald Calderón MD Signed CONSULTATION Observed: 06/06/2017 Status: F Source: [place] 4:03 PM [facility] REPOSITORY [facility] Medical Records Department [address] [place] [address] Consultation 06/06/17 1536 MR#: [id number] Acct: [id number] Name: WEST MANUEL Rep #: [id number] : 1935 82 From: Mauro Covarrubias MD PCP: Ronald Calderón MD Status: ADM SMITA Y Location: [place] [address] Reason for Consult Date of Consultation: 06/06/17 Reason for Consultation: Chest pain and abnormal EKG History of Present Illness: The patient is a 82 year old M with a history of hypertension and known coronary artery disease as well as hyperlipidemia and previous cerebrovascular accident. He presented to the emergency room today complaining of sharp chest discomfort in the left side of his chest with minimal radiation to the left neck. There was no heaviness no diaphoresis no near syncope or syncope and no palpitations. His family brought him to the emergency room in the emergency room an electrocardiogram was done which demonstrated diffuse mild T-wave inversions and due to his previous cardiac history cardiology was called for further evaluation and management. You do remember that in 2010 he underwent cardiac catheterization which demonstrated mild nonobstructive coronary artery disease in the proximal mid and distal LAD ostial diagonal and mid right coronary artery. His left ventricular function was hyperdynamic medical therapy was recommended. In November 2014 he also underwent a repeat cardiac catheterization after a questionable stress test was performed it demonstrated an ostial 20% stenosis in the left main coronary artery the left anterior descending artery had a 40-50% stenosis in the proximal LAD with calcification and the first diagonal vessel had a 30% proximal stenosis. The circumflex artery was codominant it was tortuous and no significant disease was noted. The right coronary artery was also a tortuous vessel terminating in the posterior descending artery in the midportion had a concentric tubular 40-50% stenosis identical to 2011 and the posterior descending artery which was a 2 mm vessel had an eccentric 60% stenosis in the midportion of the PDA. The posterolateral vessel did not have significant disease. Medical therapy was once again recommended. Aggressive risk factor modification was performed. He has continued on his medical therapy. At this particular time in the progressive care unit he is pain-free. [] Past Medical History Allergies/Adverse Reactions: Allergies alfuzosin Allergy (Verified 06/06/17 12:34) Other Penicillins Allergy (Verified 06/06/17 12:34) Rash Sulfa (Sulfonamide Antibiotics) Allergy (Verified 06/06/17 12:34) Swelling Home Medications: Ambulatory Orders Medication Instructions Recorded Ramipril [Altace] 5 mg PO DAILY #30 cap 11/23/14 Atenolol [Tenormin (beta naty)] 75 mg PO DAILY 10/18/16 Past Medical History (Chronic Problems): Chronic Problems (Last Reviewed 05/27/17 @ 17:02 by Jaida Peacock) Type 2 diabetes mellitus (Chronic) Cerebrovascular disease (Chronic) Status post acute ischemic stroke with residual lower extremity weakness mild Hyperlipidemia (Chronic) Diverticulitis (Chronic) Hypertension (Chronic) Coronary artery disease (Chronic) GERD (gastroesophageal reflux disease) (Chronic) OAB (overactive bladder) (Chronic) Gastrointestinal bleed (Chronic) Diabetes mellitus (Chronic) Surgical History: - - Rotator cuff surgery, BL carotid endarterectomies,colonoscopies, hemorrhoidectomy. Psychiatric History: No pertinent psych hx - *Family History Maternal Family History: Family History (Last Reviewed 05/27/17 @ 17:05 by Jaida Peacock) Brother Kidney disease Mother CVA (cerebral vascular accident) Father Liver cirrhosis History Items: Diabetes, Heart Disease, Stroke Paternal Family History: Family History (Last Reviewed 05/27/17 @ 17:05 by Jaida Peacock) Brother Kidney disease Mother CVA (cerebral vascular accident) Father Liver cirrhosis History Items: No pertinent history Sibling Family History: Family History (Last Reviewed 05/27/17 @ 17:05 by Jaida Peacock) Brother Kidney disease Mother CVA (cerebral vascular accident) Father Liver cirrhosis History Items: No pertinent history Smoking Status: Former smoker Alcohol: None Drugs: None Review of Systems - Review of Systems General: Denies: Fever, Night Sweats, Fatigue Cardiovascular: Reports: Chest Discomfort. Denies: Shortness of Breath, Orthopnea, PND, Peripheral Edema, Palpitations, Lightheadedness, Dizziness, Near Syncope, Syncope Respiratory: Denies: Cough, Sputum Production, Hemoptysis Gastrointestinal: Denies: Hematemesis, Hematochezia, Melena Genitourinary: Denies: Dysuria, Hematuria Skin: Denies: Rash Subjectve: Pleasant gentleman in no apparent distress at this time pain-free Objective: Vital Signs Temp Pulse Resp BP Pulse Ox 98 F 85 18 167/70 H 96 06/06/17 15:34 06/06/17 15:34 06/06/17 15:34 06/06/17 15:35 06/06/17 15:34 Oxygen Flow Rate 2 Oxygen Delivery Method Nasal Cannula Weight: 161 lb 13.109 oz Body Mass Index (BMI) 24.5 General: Awake, Alert, Oriented x 3 HEENT: PERRL, EOMI, Sclera Non Icteric Neck: Supple, Good ROM, No Lymph Node Enlargement Lungs: Clear to auscultation Cardiovascular: Regular Rhythm, Normal S1, Normal S2, No Murmurs, No Rubs, No Gallops Vascular: No Carotid Bruits, Normal Femoral Pulses, Normal Radial Pulses, Normal Dorsalis Pedal Pulse, Normal Posterior Tibial Pulses Abdomen: Bowel Sounds Present, Soft, Non Tender, No HSM, No Organomegaly Extremities: No Cyanosis, No Clubbing, No edema Neurological: No Focal Motor or Sensory Deficit Rhythm: EKG: Normal sinus rhythm with a rate of 71 bpm. Diffuse small T-wave inversions noted in the inferolateral leads. Assessment/Plan 1. Atypical chest pain with EKG changes mr. Manuel has known coronary artery disease which is mild and he presents this time with atypical chest discomfort but has some EKG abnormalities. His cardiac troponin enzymes have thus far negative. His EKG is not very suggestive of angina or ischemia. My recommendation at this time would be to obtain cardiac troponin enzymes and obtain a pharmacologic myocardial perfusion stress test. Depending on the findings of the above further recommendations will then be made. I discussed the above with Mr. Manuel and his daughter and rest of the family and they are agreeable with this position. 2. Hypertension Blood pressure appears to be under decent control but I would suggest that we be more aggressive managing the above with the addition of possible nitrates and an NAVJOT inhibitor. We will continue to monitor throughout her hospitalization. 3. Risk factor modification We will continue with aggressive risk factor modification with aspirin as well as lipid-lowering medications. Thank you for allowing me to participate in his care. 06/06/17 1603 <Electronically signed by Mauro Covarrubias MD> Date Mauro Covarrubias MD Cosigner Signature (if applicable): Date CC: Mauro Covarrubias MD; Ronald Calderón MD Signed BEDSIDE GLUCOSE Collected: 06/06/2017 Status: F Source: [place] 3:29 PM [facility] REPOSITORY TYPE CODE TESTS RESULT OUT OF REFERENCE UNITS RANGE LAB L501.080 70-110 mg/dL Low BEDSIDE GLU 45 Result Comment: MANAGEMENT OF PATIENT CARE PER NURSING PROTOCOL Performed By: #### L501.080 #### [facility] Laboratory Point of Care [address] [address] CHEST 1 VIEW Observed: 06/06/2017 Status: F Source: [place] (PORTABLE) 12:48 PM [facility] REPOSITORY [facility] Imaging Services [address] [place] [address] Chest 1 View (Portable) MR#: [id number] Acct: [id number] Name: WEST MANUEL Rep #: [id number] : 1935 M 82 From: Angel Mabry MD PCP: Ronald Calderón MD Status: REG ER Study: Chest 1 View (Portable) Date of Exam: 06/06/17 Exam# [id number] Ordering Dr: Kvng Joseph MD STUDY: X-RAY CHEST REASON FOR EXAM: Male, 82 years old. Chest pain. TECHNIQUE: Single AP portable view of the chest. COMPARISON: Comparison is made with prior study dated December 04, 2016. FINDINGS: EKG electrodes are seen. Stable mild increased linear markings at the left lung base suggestive of a possible scarring. There is no demonstrated pleural abnormality. Normal size heart. Normal mediastinum and dion. Normal visualized pulmonary arteries. There is atherosclerotic tortuosity of the aortic arch and descending thoracic aorta. Normal visualized thoracic spine. Normal visualized ribs, clavicles, and shoulders. There is no demonstrated abnormality of the visualized soft tissue structures of the upper abdomen. RAD/Chest 1 View (Portable) IMPRESSION: Findings suggestive of a mild left basilar scarring. No definite infiltration is seen. Electronically Signed: Angel Mabry MD at 13:23 EST Tel [phone], Service support , CC: Kvng Joseph MD; Ronald Calderón MD Fitness Assistant: Signed CBC W/DIFF, AUTOMATED Collected: 06/06/2017 Status: F Source: [place] 12:45 PM [facility] REPOSITORY TYPE CODE TESTS RESULT OUT OF RANGE REFERENCE UNITS LAB L100.1000 4.4-11.0 K/mm3 Low WBC 4.1 LAB L100.1200 4.6-6.2 M/mm3 Low RBC 4.36 LAB L100.1300 13.0-16.5 g/dl Normal HGB 13.4 LAB L100.1400 40-54 % Low HCT 39.5 LAB L100.1500 80-94 fL Normal MCV 90.6 LAB L100.1600 27.0-32.0 pg Normal MCH 30.7 LAB L100.1700 32-36 g/gl Normal MCHC 33.9 LAB L100.1810 11.6-14.6 % High RDW CV 14.7 LAB L100.1820 35.1-43.9 fl High RDW SD 48.7 LAB L100.1900 150-450 K/mm3 Normal PLT 193 LAB L100.2000 6.2-12.0 fl Normal MPV 10.4 LAB L100.2100 47-70 % Low NEUT% 44.8 LAB L100.2200 19-41 % High LY% 44.5 LAB L100.2300 0-10 % Normal MONO% 9.3 LAB L100.2400 0-5 % Normal EO% 1.0 LAB L100.2500 0-1 % Normal BASO% 0.2 LAB L100.2550 0.0-0.9 % Normal IM GRAN % 0.200 Result Comment: IG% - Immature Granulocytes (promyelocytes, myelocytes and metamyelocytes) > 1% indicates that a LEFT SHIFT is Present. LAB L100.2620 2.0-7.7 X10 3/uL Low Absolute Neut 1.8 LAB L100.2720 0.83-4.51 X10 3/ul Normal Absolute Lymph 1.82 Performed By: #### L100.0100 #### [facility] Laboratory [address] [place], [place], [address] BASIC METABOLIC Collected: 06/06/2017 Status: F Source: [place] PROFILE ([facility]) 12:45 PM [facility] REPOSITORY Order Comment: 'TROP' Serial specimen #1, #2, #3, or #4: 1 TYPE CODE TESTS RESULT OUT OF RANGE REFERENCE UNITS LAB L501.0100 70-110 mg/dL Normal GLU 81 LAB L501.1000 7-18 mg/dL Normal BUN 11 LAB L501.1100 0.70-1.30 mg/dL Normal 1.11 CREAT,SERUM Result Comment: The validity of the calculated GFR AND GFRAA in patients over 70 years has not been determined. Clinical correlation is essential. LAB L501.1110 >60 mL/min Normal EST GFR 68 Result Comment: Non- GFR Calc LAB L501.1115 >60 mL/min Normal EST GFR - AA 82 Result Comment: GFR Calc LAB L501.1255 ml/min Normal Estimated CRCL 50.50 LAB L501.1300 10-20 RATIO Low BUN/CRE 9.9 LAB L501.2200 8.5-10 mg/dL Normal .1 CA 8.7 LAB L501.5300 136-14 mmol/L Normal 5 NA 141 LAB L501.5600 3.5-5. mmol/L Normal 1 K 4.0 LAB L501.5900 98-107 mmol/L Normal CL 106 LAB L501.6100 21.0-3 mmol/L Normal 2.0 CO2 28.0 LAB L501.6200 5-15 Normal GAP 7 Performed By: #### L500.2500, L501.4010 #### [facility] Laboratory [address] [place], [place], [address] TROPONIN-I Collected: 06/06/2017 Status: F Source: [place] 12:45 PM [facility] REPOSITORY Order Comment: 'TROP' Serial specimen #1, #2, #3, or #4: 1 TYPE CODE TESTS RESULT OUT OF RANGE REFERENCE UNITS LAB L501.4010 <0.06 ng/mL Normal < 0.02 TROPONIN-I Result Comment: TROPONIN-I EXPECTED VALUES <0.05 NEGATIVE 0.06 - 0.59 AT RISK OF OK > OR = 0.60 SUGGEST OK Performed By: #### L500.2500, L501.4010 #### [facility] Laboratory [address] [place], [address] ALLERGIES ALLERGIES DATE TYPE / NAME / CODE REACTION SEVERITY SOURCE CODE 05/25/2018 Drug lisinopril/G44440 Other Unknown [place] Allergy/41 0658(RXNORM) [facility] 1061121([facility]) Repository 05/25/2018 Drug chlorpromazine/F0 Other Unknown [place] Allergy/41 71383404(RXNORM) [facility] 5007519([facility]) Repository 04/23/2018 DRUG [facility]RIL COUGH [facility] [place] 0863528([facility] CT) 04/02/2018 Drug Penicillins/F0010 Rash Unknown [place] Allergy/41 99579(RXNORM) Community 7221089( [facility]) Repository 04/02/2018 Drug Sulfa Swelling Unknown [place] Allergy/41 (Sulfonamide Community 4279510( Antibiotics)/F[address]) 447301(RXNORM) Repository 04/02/2018 Drug alfuzosin/G398405 Other Unknown [place] Allergy/41 431(RXNORM) Community 4686956( Hospital [facility]) Repository 11/19/2008 DRUG ALFUZOSIN INTOLERANCE [facility] INGREDI/41 Main [place] 5331707(SN Repository OMED CT) 10/24/2005 Drug PENICILLINS RASH [facility] Class/4195 Main [place] [address]42(SNOM Repository ED CT) 10/24/2005 Drug SULFA SWELLING [facility] Class/4195 (SULFONAMIDE Main [place] [address](SNOM ANTIBIOTICS) Repository ED CT) ENCOUNTERS ENCOUNTERS ADMIT/DISCHARGE ACCOUNT ADMITTING ENCOUNTER LOCATION SOURCE NUMBER CLASS 05/25/2018/05/25/20 [id number] Emergency [place] 18 [facility] ing:ED Repository 04/23/2018/04/23/20 [id number] Ambulatory [address] Main [place] Repository 04/23/2018/04/24/20 [id number] Ambulatory [address] Repository 04/02/2018/04/02/20 [id number] Ambulatory BMSBuilding:B [place] 18 .[facility] Repository 03/13/2018/03/18/20 [id number] Ambulatory [address] Repository 01/23/2018/01/24/20 [id number] Ambulatory BMSBuilding:B [place] 18 .[facility] Repository 01/03/2018/01/07/20 [id number] [place], [place] Inpatient [place] 18 Encounter [facility] ing:PCURoom: Repository [id number]: 1 01/03/2018 [id number] [place] Ambulatory BMSBuilding:B [place] [facility] Repository 01/03/2018 [id number] [place], [place] Ambulatory BMSBuilding[facility]B [place] [facility] 01/03/2018 [id number] [place], [place] Ambulatory BMSBuilding:B [place].[facility] Repository 01/03/2018 [id number] [place], [place] Ambulatory BMSBuilding:B [place] MS.[facility] Repository 12/26/2017/12/27/19 [id number] Ambulatory BMSBuilding:B [place] 18 MS.[facility] Repository 12/09/2017/12/10/19 [id number] Emergency [address] ing:ED Repository 12/06/2017/12/07/19 [id number] Ambulatory [address] Repository 12/05/2017/12/07/19 [id number] Ambulatory [address] Repository 11/28/2017 [id number] Ambulatory BMSBuilding:B [place].[facility] Repository 10/24/2017/10/25/19 [id number] Ambulatory BMSBuilding:B [place] 18 MS.[facility] Repository 10/17/2017 [id number] Ambulatory BMS [facility] Repository 10/14/2017 [id number] Ambulatory BMSBuilding:B [place].[facility] Repository 10/08/2017/10/09/19 [id number] Ambulatory BMSBuilding:B [place] 18 MS.[facility] Repository 09/07/2017/09/08/19 [id number] Ambulatory [address] Repository 08/22/2017/08/23/19 [id number] Ambulatory BMSBuilding:B [place] 18 MS.[facility] Repository 06/06/2017/06/07/20 [id number] [place], Ambulatory [place] 17 [facility] ing:PCURoom: Repository [id number]: 1 PAYERS PAYERS ENCOUNTER GUARANTOR PAYER SUBSCRIBER SOURCE 05/25/2018 [place] Primary [place] [id number] Insurance:MEDICARE FUNDERBURKDOB: [id number] [address]Vqv: Number: Repository [id number] () Date:2018-05-25 05/25/2018 Secondary [place] Insurance:STANDARD FUNDERBURKDOB: Community LIFE ACCIDENTPolicy [id number] Hospital Number: Repository [id number] Date:9290-23-66XB [place] [address]QZ: 05/25/2018 Tertiary NOT GIVENUNK [place] Insurance:SELF PAY [facility] Number: Effective Repository Date:2018-05-25 04/02/2018 [place] Primary [place] [id number] Insurance:MEDICARE FUNDERBURKDOB: Community JOÃO DRWOOSTER, PART A olicy [id number] Health Center [address]Aya: Number: Repository [id number] (HP) Date:2018-03-19 04/02/2018 Secondary [place] Insurance:STANDARD FUNDERBURKDOB: Community [facility] [id number] Hospital Number: Repository [id number] Date:0147-57-73ZN [address] [place] KYMBERLY [address]II: 04/02/2018 Tertiary NOT GIVENUNK [place] Insurance:SELF PAY [facility] Number: Effective Repository Date:2018-04-02 01/23/2018 [place] Primary [place] [id number] Insurance:MEDICARE FUNDERBURKDOB: Community JOÃO DRWOOSTER, PART A olicy [id number] Health Center [address]Suv: Number: Repository [id number] (HP) Date:2017-12-26 01/23/2018 Secondary [place] Insurance:STANDARD FUNDERBURKDOB: Community LIFE ACCIDENTPolicy [id number] Hospital Number: Repository [id number] Date:6108-04-25RL [place] [address]DL: 01/23/2018 Tertiary NOT GIVENUNK [place] Insurance:SELF PAY [facility] Number: Effective Repository Date:2018-01-23 01/03/2018 [place] Primary [place] [id number] Insurance:MEDICARE FUNDERBURKDOB: Community JOÃO DRWOOSTER, PART A [facility] [id number] Hospital [place] [address]Acl: Number: Repository [id number] (HP) Date:2018-01-03 01/03/2018 Secondary [place] Insurance:STANDARD FUNDERBURKDOB: [facility] [id number] Hospital Number: Repository [id number] Date:7022-69-39ZE SAHIL TRAY[place]OR [place] [address]SZ: 01/03/2018 Tertiary NOT GIVENUNK [place] Insurance:SELF PAY [facility] Number: Effective Repository Date:2018-01-03 01/03/2018 [place] [id number] Insurance:MEDICARE FUNDERBURKDOB: Community JOÃO PATELSTER, PART A [facility] [id number] [facility] [address]Bgg: Number: Repository [id number] (HP) Date:2018-01-03 01/03/2018 Secondary [place] Insurance:STANDARD FUNDERBURKDOB: [facility] [id number] Hospital Number: Repository [id number] Date:6919-43-67[address] [place] [address]UJ: 01/03/2018 Tertiary NOT GIVENUNK [place] Insurance:SELF PAY [facility] Number: Effective Repository Date:2018-01-03 01/03/2018 [place] [id number] Insurance:MEDICARE FUNDERBURKDOB: Community JOÃO PATELSTER, PART A [facility] [id number] Hospital [place] [address]Jfi: Number: Repository [id number] (HP) Date:2018-01-03 01/03/2018 Secondary [place] Insurance:STANDARD FUNDERBURKDOB: [facility] [id number] Hospital Number: Repository [id number] Date:6431-66-94BK SAHIL [place] [address]CQ: 01/03/2018 Tertiary NOT GIVENUNK [place] Insurance:SELF PAY [facility] Number: Effective Repository Date:2018-01-03 01/03/2018 [place] [id number] Insurance:MEDICARE FUNDERBURKDOB: Community JOÃO DRWOOSTER, PART A [facility] [id number] Hospital [place] [address]Tby: Number: Repository [id number] (HP) Date:2018-01-03 01/03/2018 Secondary [place] Insurance:STANDARD FUNDERBURKDOB: [facility] [id number] Hospital Number: Repository [id number] Date:1398-04-22QZ SAHIL [place] [address]DG: 01/03/2018 Tertiary NOT GIVENUNK [place] Insurance:SELF PAY [facility] Number: Effective Repository Date:2018-01-03 01/03/2018 [place] [id number] Insurance:MEDICARE FUNDERBURKDOB: Community JOÃO DRWOOSTER, PART A [facility] [id number] Hospital [place] [address]Oyp: Number: Repository [id number] (HP) Date:2018-01-03 01/03/2018 Secondary [place] Insurance:STANDARD FUNDERBURKDOB: [facility] [id number] Hospital Number: Repository [id number] Date:1870-68-87JS SAHIL [place] [address]XH: 01/03/2018 Tertiary NOT GIVENUNK [place] Insurance:SELF PAY [facility] Number: Effective Repository Date:2018-01-03 12/26/2017 [place] [id number] Insurance:MEDICARE FUNDERBURKDOB: Community JOÃO DRWOOSTER, PART A [facility] [id number] [place] [address]Usj: Number: Repository [id number] (HP) Date:2017-12-04 12/26/2017 Secondary [place] Insurance:STANDARD FUNDERBURKDOB: Community LIFE ACCIDENTPolicy [id number] Hospital Number: Repository [id number] Date:2182-41-83GG SAHIL [place] [address]QW: 12/26/2017 Tertiary NOT GIVENUNK [place] Insurance:SELF PAY [facility] Number: Effective Repository Date:2017-12-26 12/09/2017 [place] [id number] Insurance:MEDICARE FUNDERBURKDOB: [facility] [id number] [place] [address]Gur: Number: Repository [id number] (HP) Date:2017-12-09 12/09/2017 Secondary [place] Insurance:STANDARD FUNDERBURKDOB: [facility] [id number] Hospital Number: Repository [id number] Date:6704-81-71RZ [address] [place] [address]UG: 12/09/2017 Tertiary NOT GIVENUNK [place] Insurance:SELF PAY [facility] Number: Effective Repository Date:2017-12-09 11/28/2017 [place] [id number] Insurance:MEDICARE FUNDERBURKDOB: Community JOÃO [place], PART A [facility] [id number] Health Center [address]Yuq: Number: Repository [id number] (HP) Date:2017-09-12 11/28/2017 Secondary [place] Insurance:STANDARD FUNDERBURKDOB: [facility]Hon[facility] [id number] Hospital Number: Repository [id number] Date:5798-77-59EM SAHIL [place] [address]EY: 11/28/2017 Tertiary NOT GIVENUNK [place] Insurance:SELF PAY [facility] Number: Effective Repository Date:2017-09-12 10/24/2017 [place] [id number] Insurance:MEDICARE FUNDERBURKDOB: Community JOÃO PART A [facility] [id number] Number: Repository [id number]: [id number] (HP) Date:2017-06-03 10/24/2017 Secondary [place] Insurance:STANDARD FUNDERBURKDOB: [facility] [id number] Hospital Number: Repository [id number] Date:6957-63-81GV [address] [place] [address]RN: 10/24/2017 Tertiary NOT GIVENUNK [place] Insurance:SELF PAY [facility] Number: Effective Repository Date:2017-10-24 10/17/2017 [place] [id number] Insurance:MEDICARE FUNDERBURKDOB: [facility], PART A [facility] [id number] Health Center [address]Lkj: Number: Repository [id number] () Date:2017-10-17 10/17/2017 Secondary [place] Insurance:STANDARD FUNDERBURKDOB: [facility]Wil[facility] [id number] Hospital Number: Repository [id number] Date:0660-00-48HW [address] [place] [address]MA: 10/17/2017 Tertiary NOT GIVENUNK [place] Insurance:SELF PAY [facility] Number: Effective Repository Date:2017-10-17 10/14/2017 [place] [id number] Insurance:MEDICARE FUNDERBURKDOB: [facility], PART A [facility] [id number] Health Center [address]Ahz: Number: Repository [id number] () Date:2017-10-14 10/14/2017 Secondary [place] Insurance:STANDARD FUNDERBURKDOB: [facility]Wil[facility] [id number] Hospital Number: Repository [id number] Date:4494-03-17UM [address] [place] [address]MP: 10/14/2017 Tertiary NOT GIVENUNK [place] Insurance:SELF PAY [facility] Number: Effective Repository Date:2017-10-14 10/08/2017 [place] [id number] Insurance:MEDICARE FUNDERBURKDOB: Community JOÃO DRWOOSTER, PART A [facility] [id number] [place] [address]Csw: Number: Repository [id number] (HP) Date:2017-09-30 10/08/2017 Secondary [place] Insurance:STANDARD FUNDERBURKDOB: [facility] [id number] Hospital Number: Repository [id number] Date:0894-97-56YM SAHIL [place] [address]ZK: 10/08/2017 Tertiary NOT GIVENUNK [place] Insurance:SELF PAY [facility] Number: Effective Repository Date:2017-10-08 08/22/2017 [place] [id number] Insurance:MEDICARE FUNDERBURKDOB: Community JOÃO DRWOOSTER, PART A [facility] [id number] [place] [address]Gpz: Number: Repository [id number] (HP) Date:2017-05-27 08/22/2017 Secondary [place] Insurance:STANDARD FUNDERBURKDOB: [facility] [id number] Hospital Number: Repository [id number] Date:1692-88-54NZ SAHIL [place] [address]LE: 08/22/2017 Tertiary NOT GIVENUNK [place] Insurance:SELF PAY [facility] Number: Effective Repository Date:2017-08-22 06/06/2017 [place] [id number] Insurance:MEDICARE FUNDERBURKDOB: Community JOÃO DRWOOSTER, PART A [facility] [id number] [place] [address]Ltn: Number: Repository [id number] (HP) Date:2017-06-06 06/06/2017 Secondary [place] Insurance:STANDARD FUNDERBURKDOB: Community LIFE ACCIDENTPolicy [id number] Hospital Number: Repository [id number] Date:1613-58-99KN SAHIL [id number] [place] [address]FV: 06/06/2017 Tertiary NOT GIVENUNK [place] Insurance:SELF PAY [facility] Number: Effective Repository Date:2017-06-06
== END 2018-05-25 11:53 | disposition home or self-care (01) ==
PROVIDERS: Emergency Provider Emergency Medicine; Family Provider Internal Medicine; PCP Internal Medicine
DX: R07.89 Other chest pain (principal); E11.9 Type 2 diabetes mellitus without complications; R06.6 Hiccough; E78.5 Hyperlipidemia, unspecified; I10 Essential (primary) hypertension; K21.9 Gastro-esophageal reflux disease without esophagitis; I25.10 Atherosclerotic heart disease of native coronary artery without angina pectoris; Z79.82 Long term (current) use of aspirin; Z79.4 Long term (current) use of insulin; Z79.51 Long term (current) use of inhaled steroids; Z79.899 Other long term (current) drug therapy
CPT/HCPCS: 71045; 80048; 82962; 84484; 85025; 93005; 99285; J7030; A4216

== ENCOUNTER → 2018-06-20 08:05 | Outpatient (CLI) | payer MEDICARE, OTHER, SELFPAY ==
[2018-05-25 06:20] VITALS: BMI 25.5
[2018-06-20 10:28] LABS: AST(SGOT) 20 U/L (15-37); Alanine Aminotransfer ALT/SGPT 18 U/L (16-61); Albumin, Serum 3.5 g/dL (3.2-5.0); Alkaline Phosphatase 140 U/L (45-117); Bilirubin, Direct 0.17 mg/dL (0.00-0.30); Cholesterol 101 mg/dL (200); Globulin 3.9 g/dL (2.2-4.2); High Density Lipoprotein 39 mg/dL; Protein, Total 7.4 g/dL (6.4-8.2); Triglycerides 56 mg/dL; Very Low Density Lipoprotein 11 mg/dL (5-40)
== END ==
PROVIDERS: Family Provider Internal Medicine; PCP Internal Medicine; Referring Provider Internal Medicine Cardiovascular Disease; Visit Provider Internal Medicine Cardiovascular Disease
DX: E78.5 Hyperlipidemia, unspecified (principal); Z79.899 Other long term (current) drug therapy
CPT/HCPCS: 36415; 80061; 80076

== ENCOUNTER 2018-08-11 02:06 | Observation (INO) | payer MEDICARE, OTHER, SELFPAY ==
[2018-07-10 14:54] VITALS: BMI 24.6
[2018-08-11] VITALS (18 sets, daily range): BP systolic 148–197; BP diastolic 61–88; PULSE 68–82; RESP 16–22; TEMP 36.4–36.9; O2SAT 94–100; BMI 24.6; BMI 24.0; BMI 24.1
--- NOTE | 2018-08-11 02:30 | CT_ITS ---
HISTORY: BLURRY VISION TECHNIQUE: Multiple axial images were obtained of the brain without intravenous contrast. A radiation dose optimization technique was used for this scan. IV Contrast dosage and agent: None. COMPARISON: MR brain 01/03/[address] 01/03/2018 FINDINGS: No significant change. Normal ventricles. Moderate cerebral cortical atrophy. 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 No intracranial mass, hemorrhage, or acute disease seen. Carotid and vertebrobasilar atherosclerotic allocations. No suspicious extra-axial fluid collection. As visualized, mastoids and parent sinuses are clear. CT/Brain/Head without Contrast IMPRESSION: 1. No hemorrhage or acute disease. No significant change. 2. Remote infarcts and white matter chronic ischemic changes. Individualized dose optimization techniques were used for this CT. at 0323 Reported and signed by: Cameron Alejandro MD Electronically Signed: Cameron Alejandro, at 3:22 EST Tel , Service support ,
--- NOTE | 2018-08-11 02:30 | EKG12_ITS ---
Test Reason : NEURO Blood Pressure : / mmHG Vent. Rate : 080 BPM Atrial Rate : 080 BPM P-R Int : 186 ms QRS Dur : 076 ms QT Int : 370 ms P-R-T Axes : 063 -38 -25 degrees QTc Int : 426 ms Normal sinus rhythm Left axis deviation Nonspecific T wave abnormality Abnormal ECG Confirmed by ALEN YU, PAULETTE ([id number]), acquisition editor LALITHA TAM ([id number]) on 08/12/2018 9:06:01 AM Referred By: GABINO Confirmed By:PAULETTE LOWRY MD
--- NOTE | 2018-08-11 02:30 | RAD_ITS ---
HISTORY: Cough EXAM:XR Chest 1 View: COMPARISON: 05/25/2018 FINDINGS: EKG leads in place. Shallow inspiration. Normal heart size. Bibasilar mild interstitial thickening, unchanged. No acute infiltrate. No vascular congestion or pleural effusion. No pneumothorax. The bony thorax appears intact. RAD/Chest 1 View IMPRESSION: No acute cardiopulmonary disease. No significant interval change. at 0326 Reported and signed by: Cameron Alejandro MD Electronically Signed: Cameron Alejandro, at 3:25 EST Tel , Service support ,
[2018-08-11 02:55] LABS: Absolute Lymphocyte Count 1.43 X10^3/ul (0.83-4.51); Absolute Neutrophil Count 2.8 X10^3/uL (2.0-7.7); Basophil# 0.01 X10^3/uL; Basophil% 0.2 % (0-1); Eosinophil# 0.03 X10^3/uL; Eosinophils% 0.6 % (0-5); Hematocrit 38.8 % (40-54); Hemoglobin 13.5 g/dl (13.0-16.5); Lymphocyte # 1.43 X10^3/ul (4.0); Lymphocyte % 30.8 % (19-41); Mean Corp Hgb Conc 34.8 g/gl (32-36); Mean Corpuscular Hgb 31.3 pg (27.0-32.0); Mean Platelet Vol. 10.9 fl (6.2-12.0); Monocyte# 0.39 X10^3/uL; Monocyte% 8.4 % (0-10); Neutrophil # 2.77 X10^3/uL (2.7-7.7); Neutrophil % 59.8 % (47-70); Platelet Count 160 K/mm3 (150-450); RBC Distribution Width CV 14.4 % (11.6-14.6); RBC Distribution Width SD 46.4 fl (35.1-43.9); Red Blood Count 4.31 M/mm3 (4.6-6.2); White Blood Count 4.6 K/mm3 (4.4-11.0)
[2018-08-11 02:56] LABS: POSITIVE COUNT NO; POSITIVE DIFFERENTIAL NO; POSITIVE MORPHOLOGY NO
--- NOTE | 2018-08-11 02:59 | CT_ITS ---
HISTORY: PARESTHESIA TECHNIQUE: Routine [place]/brain CT angiogram protocol was performed following IV contrast. 3D reconstructions were reviewed. A radiation dose optimization technique was used for this scan. IV Contrast dosage and agent: 100 cc Isovue-370 contrast COMPARISON: MRI brain 01/03/2018 and CTA brain 12/05/2016 FINDINGS: With comparison to previous, no significant change. The left vertebral artery is dominant and the right vertebral artery is small in size. Focal atherosclerotic calcification of the distal right vertebral artery at the base of skull level. Atherosclerotic calcification of the cavernous carotids bilaterally. The carotids remain patent. Contrast opacification of the anterior, middle, and posterior cerebral arteries bilaterally. No acute thrombus or acute occlusion. No aneurysm or vascular malformation. No arterial dissection. CT/CTA Head W/WO Contrast IMPRESSION: Stable findings. Carotid and vertebrobasilar atherosclerotic calcifications without findings of occlusion or acute disease. No aneurysm or arterial dissection. Individualized dose optimization techniques were used for this CT. at 0400 Reported and signed by: Cameron Alejandro MD Electronically Signed: Cameron Alejandro, at 3:59 EST Tel , Service support ,
--- NOTE | 2018-08-11 02:59 | CT_ITS ---
HISTORY: PARESTHESIA TECHNIQUE: Routine carotid CT angiogram protocol was performed without and with IV contrast. Nascet criteria using the distal ICAs for comparison were used for evaluation of stenoses. 3D reconstructions were reviewed. A radiation dose optimization technique was used for this scan. IV Contrast dosage and agent: 100 cc Isovue-370 contrast COMPARISON: 12/05/2016 FINDINGS: Right carotid system: Previous right carotid endarterectomy with postsurgical ectasia of the distal common carotid artery and proximal ICA. The ICA remains patent. 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 The right vertebral artery appears developmentally small and shows multifocal areas of luminal narrowing without distal occlusion. Left carotid system: Previous left carotid endarterectomy with postsurgical ectasia of the distal common carotid artery and proximal ICA. The ICA remains patent. Left vertebral artery: The left vertebral artery is dominant and remains patent. CT/CTA Neck W/WO Contrast IMPRESSION: 1. Stable findings. Previous bilateral carotid endarterectomy and the carotids remain patent. 2. 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 The pattern is stable. 3. Dominant left vertebral artery which remains patent. Individualized dose optimization techniques were used for this CT. at 0421 Reported and signed by: Cameron Alejandro MD Electronically Signed: Cameron Alejandro, at 4:20 EST Tel , Service support ,
[2018-08-11 03:00] LABS: International Normalized Ratio 1.1
[2018-08-11 03:01] LABS: Partial Thromboplast Time 30.8 Seconds (24.1-36.2)
[2018-08-11 03:10] LABS: Anion Gap 9 (5-15); BUN 11 mg/dL (7-18); BUN/Creat Ratio 10.1 RATIO (10-20); Chloride 105 mmol/L (98-107); Creatinine, Serum 1.09 mg/dL (0.70-1.30); EST Glomerular Filtration Rate 69 mL/min (>60); Est Glom Filt Rate - Afr Amer 83 mL/min (>60); Estimated Creatinine Clearance 52.25 ml/min; Glucose 267 mg/dL (74-106); Potassium 4.7 mmol/L (3.5-5.1); Sodium Level 139 mmol/L (136-145)
--- NOTE | 2018-08-11 04:00 | ED.VISSUMM ---
- ER Visit Summary Date of Service: 08/11/18 Chief Complaint: Blurry vision, shaky History of Present Illness: The patient is a 83 M who presents with blurred vision and feeling shaky. With symptoms about an hour before presentation. He thought his blood sugar may be low. He called EMS. Blood sugar was normal on their check. He also states he began to feel short of breath once he arrived here. He has had a cough for about a week. No chest pain no fever. He reports nausea without vomiting. No diarrhea. 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 He has symmetric lower extremity weakness. His legs drift to the bed but did not hit the bed before count of 5. He reports decreased sensation to light touch of the left arm face and leg. Test Results: EKG shows sinus rhythm at a rate of 80. Chest x-ray shows no acute disease. CT the head shows no hemorrhage or acute disease. CTA of the head and neck, radiology reads are pending but were reviewed by neurology who notes vertebrobasilar artery system narrowing. CBC BMP unremarkable. Troponin negative. INR normal. Emergency Department Course and Treatment: I did speak to neurology early in the patient's course as if the count the weakness in his legs on NIH as well as his level of consciousness as a 1 he would be an NIH of 4, He noted that given bilateral symptoms related to weakness he would not count these in an NIH making the effective NIH 2. He agrees the patient is not a candidate for TPA at this time. We again spoke after he reviewed the images. He recommended avoiding any hypotension and holding antihypertensives for the next 24 hours. Patient discussed with the hospitalist and admitted. We also added on a respiratory panel given his reported upper respiratory symptoms and cough. Patient admitted. Treatment Plan: [] Disposition: Admit Impression: Blurred vision Left-sided paresthesias Cough This note was generated with [employer] software. It may contain incorrect words, spelling, and punctuation that were not noted in review of the chart prior to signing ED Disposition - Plan for ED Patient: Referrals: Ronald Flannery MD [Primary Care Provider] -
--- NOTE | 2018-08-11 04:04 | ED.DCSUM_ITS ---
- ER Visit Summary Date of Service: 08/11/18 Chief Complaint: Blurry vision, shaky History of Present Illness: The patient is a 83 M who presents with blurred vision and feeling shaky. With symptoms about an hour before presentation. He thought his blood sugar may be low. He called EMS. Blood sugar was normal on their check. He also states he began to feel short of breath once he arrived here. He has had a cough for about a week. No chest pain no fever. He reports nausea without vomiting. No diarrhea. 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 He has symmetric lower extremity weakness. His legs drift to the bed but did not hit the bed before count of 5. He reports decreased sensation to light touch of the left arm face and leg. Test Results: EKG shows sinus rhythm at a rate of 80. Chest x-ray shows no acute disease. CT the head shows no hemorrhage or acute disease. CTA of the head and neck, radiology reads are pending but were reviewed by neurology who no satya vertebrobasilar artery system narrowing. CBC BMP unremarkable. Troponin negative. INR normal. Emergency Department Course and Treatment: I did speak to neurology early in the patient's course as if the count the weakness in his legs on NIH as well as his level of consciousness as a 1 he would be an NIH of 4, He noted that given bilateral symptoms related to weakness he would not count these in an NIH making the effective NIH 2. He agrees the patient is not a candidate for TPA at this time. We again spoke after he reviewed the images. He recommended avoiding any hypotension and holding antihypertensives for the next 24 hours. Patient discussed with the hospitalist and admitted. We also added on a respiratory panel given his reported upper respiratory symptoms and cough. Patient admitted. Treatment Plan: [] Disposition: Admit Impression: Blurred vision Left-sided paresthesias Cough This note was generated with Syn[employer]ia Systems[employer] software. It may contain incorrect words, spelling, and punctuation that were not noted in review of the chart prior to signing ED Disposition - Plan for ED Patient: Referrals: Ronald Flannery MD [Primary Care Provider] -
--- NOTE | 2018-08-11 04:23 | PCM.HP.STD ---
History of Present Illness Date of Admission: 08/11/18 Chief Complaint: Vision changes, L sided paresthesias, BL LE weakness. 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 In the ED work-up included T 98, heart rate 80, BP 157/81, respiratory rate 18, 97% on room air, CBC with W BC 4.6, hemoglobin 13.5, platelet 160 without shift, unremarkable coags, unremarkable BMP aside glucose 267, EKG with no acute evidence of ischemia, troponin 0.022, CT brain with no acute hemorrhage or disease with no significant change, remote infarcts and white matter chronic ischemic changes, chest x-ray with no acute cardiopulmonary disease, CTA of the head with stable findings with carotid and vertebral basilar atherosclerotic calcifications without any evidence of occlusion or acute disease, no aneurysm or arterial dissection, CTA of the neck reviewed per Neurology and noted no acute findings that would preclude admission w/ final radiology reading pending upon admission. In the ED patient administered Past Medical History Past Medical History (Chronic Problems): Chronic Problems (Last Reviewed 07/10/18 @ 15:09 by Mauro Covarrubias MD) Hypotension (Chronic) Carotid bruit (Chronic) Encounter for long-term current use of high risk medication (Chronic) Reviewed medications with family to be sure patient was taking remainder of medications correctly and there were no duplicates Atherosclerotic heart disease of [place] coronary artery without angina pectoris (Chronic) Type 2 diabetes mellitus (Chronic) Cerebrovascular disease (Chronic) Status post acute ischemic stroke with residual lower extremity weakness mild Hyperlipidemia (Chronic) Diverticulitis (Chronic) Hypertension (Chronic) 104/64 Coronary artery disease (Chronic) GERD (gastroesophageal reflux disease) (Chronic) OAB (overactive bladder) (Chronic) Ataxia (Chronic) LEFT FRONTAL LACUNAR INFARCT (Chronic) Dizziness (Chronic) Stroke (Chronic) Diabetes mellitus (Chronic) Had a lengthy discussion with patient and family member. Family members had always agreed they want father to remain at home and they want quality of life for him He is instructed when he sits down at table to eat he is to take his insulin. The insulin is to cover the food he is about to eat. My thought is if the timing remains a problem I will place him on regular insulin which is much slower in action. Gurmeet if this is a barrier to his independence and remaining in the home setting. Medical History: Medical History (Last Reviewed 07/10/18 @ 15:09 by Mauro Covarrubias MD) Carotid bruit (Chronic) R09.89 Atherosclerotic heart disease of ramona coronary artery without angina pectoris (Chronic) I25.10 Type 2 diabetes mellitus (Chronic) E11.9 Cerebrovascular disease (Chronic) I67.9 Status post acute ischemic stroke with residual lower extremity weakness mild Hyperlipidemia (Chronic) E78.5 Diverticulitis (Chronic) K57.92 Hypertension (Chronic) I10 104/64 Coronary artery disease (Chronic) I25.10 GERD (gastroesophageal reflux disease) (Chronic) K21.9 Ataxia (Chronic) R27.0 LEFT FRONTAL LACUNAR INFARCT (Chronic) Stroke (Chronic) I63.9 Gastrointestinal bleed (Inactive) K92.2 Diabetes mellitus (Chronic) E11.9 Had a lengthy discussion with patient and family member. Family members had always agreed they want father to remain at home and they want quality of life for him He is instructed when he sits down at table to eat he is to take his insulin. The insulin is to cover the food he is about to eat. My thought is if the timing remains a problem I will place him on regular insulin which is much slower in action. Gurmeet if this is a barrier to his independence and remaining in the home setting. Allergies alfuzosin Allergy (Verified 08/11/18 02:11) Other chlorpromazine [From Thorazine] Allergy (Verified 08/11/18 02:11) Other Penicillins Allergy (Verified 08/11/18 02:11) Rash Sulfa (Sulfonamide Antibiotics) Allergy (Verified 08/11/18 02:11) Swelling lisinopril Adverse Reaction (Verified 08/11/18 02:11) Other Home Medications: Ambulatory Orders Medication Instructions Recorded Polyethylene Glycol 3350 [Miralax] 0.5 pack PO DAILY 06/06/17 albuterol sulfate HFA 90 2 puff INHALATION Q6H PRN PRN 12/26/17 mcg/actuation aerosol inhaler Atorvastatin Calcium [Lipitor] 80 mg PO QHS 01/03/18 Blood Sugar Diagnostic [Contour 0 ea .ROUTE .MEDSUPPLY 01/03/18 Test Strip] Pen Needle, Diabetic [Incontrol 0 ea .ROUTE .MEDSUPPLY 01/03/18 Pen Needle] Ranitidine HCl [Acid Control] 300 mg PO QHS 01/03/18 Baclofen [Lioresal] 5 mg PO BIDCM tab 01/06/18 insulin lispro (U- 100) 100 See Rx Instructions SC TIDCM ml 01/23/18 unit/mL subcutaneous solution clopidogrel 75 mg tablet 75 mg PO DAILY #30 tab 03/26/18 Insulin Detemir [Levemir FlexTouch 24 unit SUBCUT QHS 05/25/18 U-100 Insuln] Ipratropium [place] 0.06% 2 spray NASAL BID 05/25/18 [ATROVENT NASAL SPRAY (g)] atenolol 25 mg tablet 75 mg PO DAILY 07/10/18 Surgical History: Surgical History (Last Reviewed 07/10/18 @ 15:09 by Mauro Covarrubias MD) H/O carotid endarterectomy (Resolved) Z98.890 H/O hernia repair (Resolved) Z98.890, Z87.19 H/O: hemorrhoidectomy (Resolved) Z98.890 cataract surgery (Resolved) Hx of repair of rotator cuff (Resolved) Z98.890 Surgical History: - - L Rotator cuff surgery, BL carotid endarterectomies, hemorrhoidectomy, T+A. Psychiatric History: No pertinent psych hx Lives: Alone Smoking Status: Former smoker - Quit approximately 20 years prior. Tobacco Use: Non-smoker Alcohol: None Drugs: None - *Family History Maternal Family History: Family History (Last Reviewed 07/10/18 @ 15:09 by Mauro Covarrubias MD) Brother Kidney disease Mother CVA (cerebral vascular accident) Father Liver cirrhosis History Items: Diabetes, Heart Disease, Stroke Paternal Family History: Family History (Last Reviewed 07/10/18 @ 15:09 by Mauro Covarrubias MD) Brother Kidney disease Mother CVA (cerebral vascular accident) Father Liver cirrhosis History Items: - - Patient notes father was an alcoholic with cirrhosis in addition to heart disease. Sibling Family History: Family History (Last Reviewed 07/10/18 @ 15:09 by Mauro Covarrubias MD) Brother Kidney disease Mother CVA (cerebral vascular accident) Father Liver cirrhosis History Items: No pertinent history Review of Systems Constitutional: Reports: Anorexia, Malaise, Weakness, Fatigue. Denies: Chills, Fever, Weight Change Eyes: Reports: Blurred vision, Vision Change HEENT: Denies: Head Aches, Sinus Congestion, Sinus Drainage Cardiovascular: Denies: Chest Pain, Palpitations Respiratory: Reports: Cough, Shortness of breath upon exertion, Sputum production. Denies: Shortness of breath at rest, Wheezing Gastrointestinal: Reports: - - Chronic frequent hiccups.. Denies: Abdominal Pain, Nausea, Vomiting Genitourinary: Denies: Dysuria Musculoskeletal: Reports: Joint Pain. Denies: Joint Tenderness Skin: Denies: Rash, Wounds Neurological: Reports: Numbness, - - BL LE generalized weakness.. Denies: Focal weakness, Tingling Psychiatric: Denies: Anxiety, Depression, Homicidal Ideations, Suicidal Ideations Hematologic/ Lymphatic: Reports: Easy Bruising, Easy Bleeding VTE Information - Inpt Only VTE Present on Admission: No VTE Mechan Device Prophylaxis: SCD's VTE Pharm Prophylaxis ordered?: Yes Subjective: Seated upright in the ED bed, no acute distress, notes that he still has blurred vision bilaterally however upon examination requested description of my face and he was able to give it in detail and states that his view of my face was clear. Objective: Physical Examination: General: awake, alert, oriented x 4 and cooperative, seated upright in the ED bed in no apparent distress. Skin: normal color, turgor, no icterus, cyanosis. HEENT: AT/NC, EOM difficult to assess, R eye deviated laterally but this may be chronic from prior CVA, appears CN III palsy, PERRLA, only dry MM, no carotid bruits or JVD noted. Lungs: Diminished breath sounds bilateral bases, moderate effort, occasional coughing during examination, no rales, ronchi or wheezing. Heart: Regular rate and rhythm; no gallop, rub audible. Abdomen: soft, NTTP, ND, normal BS, no HSM. Extremities: no cyanosis, clubbing, or edema. Neurological: patient awake, alert, oriented x 3; cognitive function appears baseline intact; EOM difficult to assess, R eye deviated laterally but this may be chronic from prior CVA, appears CN III palsy; cranial nerves II-XII aside as noted III appear grossly normal, moving all 4 extremities however limited BL LE movement w/ generalized weakness, sensation subjectively decreased L sided including face, FTN normal, unable to perform HTN, BL LE drift on examination, negative babinski. Psychiatric: affect appears mildly flat, no acute evidence of depressive or anxiety feelings. - Physical Exam Vital Signs Temp Pulse Resp BP Pulse Ox 98.0 F 80 19 H 164/81 H 98 08/11/18 02:07 08/11/18 04:00 08/11/18 04:00 08/11/18 04:00 08/11/18 04:00 Oxygen Delivery Method Room Air Weight: 166 lb 10.711 oz Body Mass Index (BMI) 24.6 Finger Stick Blood Glucose 226 Laboratory Tests Past 24 Hrs 08/11/18 08/11/18 08/11/18 02:45 02:45 02:45 WBC 4.6 RBC 4.31 L Hgb 13.5 Hct 38.8 L MCV 90.0 MCH 31.3 MCHC 34.8 RDW 14.4 RDW Differential 46.4 H Plt Count 160 MPV 10.9 Immature Gran % (Auto) 0.200 Neut % (Auto) 59.8 Lymph % (Auto) 30.8 [place] % (Auto) 8.4 Eos % (Auto) 0.6 Baso % (Auto) 0.2 Absolute Neuts (auto) 2.8 Absolute Lymphs (auto) 1.43 Total Counted Not Reportable PT 14.0 INR 1.1 APTT 30.8 Sodium 139 Potassium 4.7 Chloride 105 Carbon Dioxide 25.0 Anion Gap 9 BUN 11 Creatinine 1.09 Estim Creat Clear Calc 52.25 Est GFR (MDRD) Af Amer 83 Est GFR (MDRD) Non-Af 69 BUN/Creatinine Ratio 10.1 Glucose 267 H Calcium 8.0 L Troponin I 0.022 Assessment/Plan All Active Problems (Last Reviewed 07/10/18 @ 15:09 by Mauro Covarrubias MD) H/O carotid endarterectomy (Resolved) H/O hernia repair (Resolved) H/O: hemorrhoidectomy (Resolved) cataract surgery (Resolved) Hx of repair of rotator cuff (Resolved) Abnormal EKG (Acute) Chest pain (Acute) Hypoglycemia (Acute) Ataxia (Resolved) Dizzinesses (Resolved) GI bleed (Resolved) Sepsis (Resolved) The patient is a 83 y/o M w/ PMHx: HTN, HLD, Diabetes mellitus type II, Hx Prior CVA w/ memory mild impairment and R eye vision deficits with usage Prisms, CAD without PCI hx, BL Carotid stenosis s/p BL CEA who presents to the [facility] ED on 08/11/18 with sudden onset ~ 1 hour CHIEF GUARD in the ED of generalized BL blurry vision, L sided paresthesias including the entire face as well as generalized BL LE weakness prompting evaluation in addition to 4-5 day history of mildly productive cough, congestion, rhinorrhea with mild dyspnea, worse with increased activity attempts. (1) Vision Changes, L sided Paresthesias, BL LE generalized weakness concerning for ? CVA,Atypical: ED work-up included T 98, heart rate 80, BP 157/81, respiratory rate 18, 97% on room air, CBC with W BC 4.6, hemoglobin 13.5, platelet 160 without shift, unremarkable coags, unremarkable BMP aside glucose 267, EKG with no acute evidence of ischemia, troponin 0.022, CT brain with no acute hemorrhage or disease with no significant change, remote infarcts and white matter chronic ischemic changes, chest x-ray with no acute cardiopulmonary disease, CTA of the head with stable findings with carotid and vertebral basilar atherosclerotic calcifications without any evidence of occlusion or acute disease, no aneurysm or arterial dissection, CTA of the neck reviewed per Neurology and noted no acute findings that would preclude admission w/ final radiology reading pending upon admission. Will admit to PCU, will obtain MRI Brain, MRA Head and Neck, ECHO, PT/OT/Speech/Nutrition evaluation per protocol. Will continue consult for Neurology for evaluation. Will allow permissive HTN, maintain on asa and plavix, high dose statin w/ AM FLP, fall precautions. Mag, TSH pending. If unremarkable evaluation will need to consider ophthalmology evaluation. (2) General Malaise, Cough, General Debility secondary to Suspected Viral Syndrome: CXR in the ED w/ no acute cardiopulmonary findings. Admission CBC w/ WBC unremarkable with no shift. Will continue conservative management, respiratory viral panel pending per ED, PRN albuterol, HOB, IS parameters. (3) Carotid Stenosis: s/p BL CEA, maintained on plavix, adding ASA, high dose statin, holding BP regimen as noted. (4) CAD: Continue regimen plavix, adding ASA as noted, high dose statin, holding BB. (5) Hx Prior CVA: Continue regimen plavix, add ASA pending MRI brain, high dose statin, obtain HgBA1c level, BS control goal < 140. (6) Diabetes mellitus type II: Hold oral home regimen, HgbA1c pending, continue home insulin regimen, ADA diet, accu checks w/ ISS. (7) Hypertension: Permissive. (8) Hyperlipidemia: Continue home statin regimen. AM FLP. (9) Chronic Constipation: Continue home miralax regimen. (10) GERD: Ranitidine. (11) DVT Prophylaxis: SCDs, lovenox. Code Visit OBSV E&M: [id number] Initial observation care L3
--- NOTE | 2018-08-11 04:51 | ECHOD_ITS ---
Reason For Study: TIA/CVA Procedure This was a 2D Doppler, Color Flow transthoracic echocardiogram. Exam performed portable in patient room. Left Ventricle Normal LV size. Sigmoid septum. Moderate concentric left ventricular hypertrophy. Left ventricular systolic function is normal. The estimated ejection fraction is 65 %. Stage 1 diastolic dysfunction. No regional wall motion abnormalities noted. Atria Normal left atrium. Normal right atrium. Mitral Valve Normal mitral valve. Tricuspid Valve Normal tricuspid valve. Aortic Valve Trisinus/trileaflet aortic valve. Mild (1+) eccentric aortic valve insufficiency. Pulmonic Valve Normal pulmonic valve. Mild (1+) pulmonic valve insufficiency. Great Vessels Normal aortic root. The pulmonary artery is normal size. Normal inferior vena cava. Pericardium/Pleural No pericardial effusion. MMode/2D Measurements & Calculations LVIDd: 4.2 cm IVSd: 1.3 cm Ao root diam: 3.7 cm LVIDs: 2.3 cm LVPWd: 1.4 cm LA dimension: 3.3 cm FS: 45.2 % LAV(MOD-bp): 39.7 ml LA A4 area: 13.3 cm2 LAV(MOD-bp) Indexed: 21.2 ml/m2 LAV(MOD-sp2): 38.3 ml LAV(MOD-sp4): 33.9 ml Time Measurements MV dec time: 0.30 sec Doppler Measurements & Calculations MV E max christopher: 69.6 cm/sec Lat Peak E' Christopher: 8.2 cm/sec Med Peak E' Christopher: 5.9 cm/sec MV A max christopher: 107.3 cm/sec E/E' lat: 8.5 E/E' med: 11.7 MV E/A: 0.65 MV V2 max: 133.9 cm/sec MV P1/2t max christopher: 79.9 cm/sec Ao V2 max: 110.2 cm/sec MV max P.2 mmHg MV P1/2t: 103.2 msec Ao max P.9 mmHg MV V2 mean: 66.7 cm/sec MV dec slope: 226.9 cm/sec2 MV mean P.2 mmHg MVA(P1/2t): 2.1 cm2 MV V2 VTI: 30.4 cm AI max christopher: 436.7 cm/sec LV V1 max: 93.2 cm/sec PA V2 max: 76.1 cm/sec AI max P.8 mmHg LV V1 max P.5 mmHg AI dec slope: 323.0 cm/sec2 AI P1/2t: 396.0 msec TR max christopher: 181.1 cm/sec TR max P.1 mmHg Interpretation Summary Normal LV size. Sigmoid septum. Moderate concentric left ventricular hypertrophy. Left ventricular systolic function is normal. The estimated ejection fraction is 65 %. Stage 1 diastolic dysfunction. Mild (1+) eccentric aortic valve insufficiency. Ordering Physician: Radha Xie Referring Physician: Ronald Flannery M.D. Performed By: Matty Rm RCS
--- NOTE | 2018-08-11 04:51 | MRI_ITS ---
STUDY: MRI BRAIN WITHOUT CONTRAST REASON FOR EXAM: Male, 83 years old. CVA,blurred vision, leg weakness. TECHNIQUE: Standardized multiplanar fat and water weighted pulse sequences were obtained. COMPARISON: None. FINDINGS: There is moderate cerebral atrophy with widening of the extra-axial spaces and ventricular dilatation. There are multiple white matter hyperintensities, distributed throughout the deep white matter tracts of the cerebral hemispheres, consistent with moderate chronic white matter ischemic changes. Normal bilateral basal ganglia. Normal thalami. There is no extra-axial fluid accumulation. Normal flow voids within the major intracranial circulation suggesting patency by spin echo criteria. Normal sella turcica, pituitary gland, infundibular stalk, optic chiasm and hypothalamus. Normal tectal plate and pineal gland. Normal midbrain, ana maria and medulla. There are bilateral lacunar infarcts of the cerebellar hemispheres. Normal basal cisterns. MRI/Brain without Contrast IMPRESSION: No acute intracranial abnormality. Moderate chronic microvascular ischemic changes and lacunar infarcts. Electronically Signed: Nataliia Her MD at 11:17 EST Tel , Service support ,
[2018-08-11] MEDS: 0.9% Normal Saline 1,000 ML 100 ML IV ×2 (06:02→17:16)
[2018-08-11] MEDS: 0.9% NaCl Peripheral Flush Adult/Peds IV (06:04)
[2018-08-11 06:05] LABS: Absolute Lymphocyte Count 1.93 X10^3/ul (0.83-4.51); Absolute Neutrophil Count 2.8 X10^3/uL (2.0-7.7); Basophil# 0.01 X10^3/uL; Basophil% 0.2 % (0-1); Eosinophil# 0.03 X10^3/uL; Eosinophils% 0.6 % (0-5); Hematocrit 40.2 % (40-54); Hemoglobin 13.7 g/dl (13.0-16.5); Lymphocyte # 1.93 X10^3/ul (4.0); Mean Corp Hgb Conc 34.1 g/gl (32-36); Mean Corpuscular Hgb 30.4 pg (27.0-32.0); Mean Corpuscular Volume 89.3 fL (80-94); Mean Platelet Vol. 10.7 fl (6.2-12.0); Monocyte# 0.47 X10^3/uL; Neutrophil # 2.77 X10^3/uL (2.7-7.7); Neutrophil % 53.2 % (47-70); POSITIVE COUNT NO; POSITIVE DIFFERENTIAL NO; POSITIVE MORPHOLOGY NO; Platelet Count 159 K/mm3 (150-450); RBC Distribution Width CV 14.5 % (11.6-14.6); RBC Distribution Width SD 47.2 fl (35.1-43.9); White Blood Count 5.2 K/mm3 (4.4-11.0)
[2018-08-11 06:26] LABS: Anion Gap 8 (5-15); BUN 11 mg/dL (7-18); BUN/Creat Ratio 11.2 RATIO (10-20); Calcium,Total 8.2 mg/dL (8.5-10.1); Chloride 107 mmol/L (98-107); Cholesterol 96 mg/dL (200); Creatinine, Serum 0.98 mg/dL (0.70-1.30); EST Glomerular Filtration Rate 78 mL/min (>60); Est Glom Filt Rate - Afr Amer 94 mL/min (>60); Estimated Creatinine Clearance 56.22 ml/min; Glucose 236 mg/dL (74-106); High Density Lipoprotein 36 mg/dL; Magnesium 2.1 mg/dL (1.6-2.6); Potassium 4.2 mmol/L (3.5-5.1); Sodium Level 138 mmol/L (136-145); Thyroid Stim Hormone (TSH) 0.64 uIU/mL (0.358-3.74); Triglycerides 54 mg/dL; Very Low Density Lipoprotein 11 mg/dL (5-40)
[2018-08-11 07:06] LABS: Bedside Glucose 192 mg/dL (70-110)
[2018-08-11 07:58] LABS: Hemoglobin A1c 9.8 % (4.2-6.3)
[2018-08-11] MEDS: Insulin Lispro 100 UNIT/ML INSULN.PEN SC ×4 (08:42→22:34)
--- NOTE | 2018-08-11 10:16 | CON.PCM_ITS ---
Reason for Consult Date of Consultation: 08/11/18 Reason for Consultation: double vision History of Present Illness: The patient is a 83 year old M right handed with history of stroke who presents with double vision starting last night, now has persistent double vision and describes skew deviation.daughter who is presents notes eyelid assymetry for unknown length of time. Per admit H&P: The patient is a 83 y/o M w/ PMHx: HTN, HLD, Diabetes mellitus type II, Hx Prior CVA w/ memory mild impairment and R eye vision deficits with usage Prisms, CAD without PCI hx, BL Carotid stenosis s/p BL CEA who presents to the [facility] ED on 08/11/18 with sudden onset ~ 1 hour [employer] in the ED of generalized BL blurry vision, L sided paresthesias including the entire face as well as generalized BL LE weakness prompting evaluation in addition to 4-5 day history of mildly productive cough, congestion, rhinorrhea with mild dyspnea, worse with increased activity attempts. In the ED work-up included T 98, heart rate 80, BP 157/81, respiratory rate 18, 97% on room air, CBC with W BC 4.6, hemoglobin 13.5, platelet 160 without shift, unremarkable coags, unremarkable BMP aside glucose 267, EKG with no acute evidence of ischemia, troponin 0.022, CT brain with no acute hemorrhage or disease with no significant change, remote infarcts and white matter chronic ischemic changes, chest x-ray with no acute cardiopulmonary disease, CTA of the head with stable findings with carotid and vertebral basilar atherosclerotic calcifications without any evidence of occlusion or acute disease, no aneurysm or arterial dissection, CTA of the neck reviewed per Neurology and noted no acute findings that would preclude admission w/ final radiology reading pending upon admission. In the ED patient administered Past Medical History Past Medical History (Chronic Problems): Chronic Problems (Last Reviewed 07/10/18 @ 15:09 by Mauro Covarrubias MD) Hypotension (Chronic) Carotid bruit (Chronic) Encounter for long-term current use of high risk medication (Chronic) Reviewed medications with family to be sure patient was taking remainder of medications correctly and there were no duplicates Atherosclerotic heart disease of [place] coronary artery without angina pectoris (Chronic) Type 2 diabetes mellitus (Chronic) Cerebrovascular disease (Chronic) Status post acute ischemic stroke with residual lower extremity weakness mild Hyperlipidemia (Chronic) Diverticulitis (Chronic) Hypertension (Chronic) 104/64 Coronary artery disease (Chronic) GERD (gastroesophageal reflux disease) (Chronic) OAB (overactive bladder) (Chronic) Ataxia (Chronic) LEFT FRONTAL LACUNAR INFARCT (Chronic) Dizziness (Chronic) Stroke (Chronic) Diabetes mellitus (Chronic) Had a lengthy discussion with patient and family member. Family members had always agreed they want father to remain at home and they want quality of life for him He is instructed when he sits down at table to eat he is to take his insulin. The insulin is to cover the food he is about to eat. My thought is if the timing remains a problem I will place him on regular insulin which is much slower in action. Gurmeet if this is a barrier to his independence and remaining in the home setting. Medical History: Medical History (Last Reviewed 07/10/18 @ 15:09 by Mauro Covarrubias MD) Carotid bruit (Chronic) R09.89 Atherosclerotic heart disease of [place] coronary artery without angina pectoris (Chronic) I25.10 Type 2 diabetes mellitus (Chronic) E11.9 Cerebrovascular disease (Chronic) I67.9 Status post acute ischemic stroke with residual lower extremity weakness mild Hyperlipidemia (Chronic) E78.5 Diverticulitis (Chronic) K57.92 Hypertension (Chronic) I10 104/64 Coronary artery disease (Chronic) I25.10 GERD (gastroesophageal reflux disease) (Chronic) K21.9 Ataxia (Chronic) R27.0 LEFT FRONTAL LACUNAR INFARCT (Chronic) Stroke (Chronic) I63.9 Gastrointestinal bleed (Inactive) K92.2 Diabetes mellitus (Chronic) E11.9 Had a lengthy discussion with patient and family member. Family members had always agreed they want father to remain at home and they want quality of life for him He is instructed when he sits down at table to eat he is to take his insulin. The insulin is to cover the food he is about to eat. My thought is if the timing remains a problem I will place him on regular insulin which is much slower in action. Gurmeet if this is a barrier to his independence and remaining in the home setting. Allergies alfuzosin Allergy (Verified 08/11/18 02:11) Other chlorpromazine [From Thorazine] Allergy (Verified 08/11/18 02:11) Other Penicillins Allergy (Verified 08/11/18 02:11) Rash Sulfa (Sulfonamide Antibiotics) Allergy (Verified 08/11/18 02:11) Swelling lisinopril Adverse Reaction (Verified 08/11/18 02:11) Other Home Medications: Ambulatory Orders Medication Instructions Recorded Polyethylene Glycol 3350 [Miralax] 0.5 pack PO DAILY 06/06/17 albuterol sulfate HFA 90 2 puff INHALATION Q6H PRN PRN 12/26/17 mcg/actuation aerosol inhaler Atorvastatin Calcium [Lipitor] 80 mg PO QHS 01/03/18 Blood Sugar Diagnostic [Contour 0 ea .ROUTE .MEDSUPPLY 01/03/18 Test Strip] Pen Needle, Diabetic [Incontrol 0 ea .ROUTE .MEDSUPPLY 01/03/18 Pen Needle] Ranitidine HCl [Acid Control] 300 mg PO QHS 01/03/18 Baclofen [Lioresal] 5 mg PO BIDCM tab 01/06/18 insulin lispro (U- 100) 100 See Rx Instructions SC TIDCM ml 01/23/18 unit/mL subcutaneous solution clopidogrel 75 mg tablet 75 mg PO DAILY #30 tab 03/26/18 Insulin Detemir [Levemir FlexTouch 24 unit SUBCUT QHS 05/25/18 U-100 Insuln] Ipratropium [place] 0.06% 2 spray NASAL BID 05/25/18 [ATROVENT NASAL SPRAY (g)] atenolol 25 mg tablet 75 mg PO DAILY 07/10/18 Surgical History: Surgical History (Last Reviewed 08/11/18 @ 11:15 by Curt Lee MD) H/O carotid endarterectomy (Resolved) Z98.890 H/O hernia repair (Resolved) Z98.890, Z87.19 H/O: hemorrhoidectomy (Resolved) Z98.890 cataract surgery (Resolved) Hx of repair of rotator cuff (Resolved) Z98.890 Surgical History: - - L Rotator cuff surgery, BL carotid endarterectomies, hemorrhoidectomy, T+A. Psychiatric History: No pertinent psych hx Lives: Alone Smoking Status: Former smoker Tobacco Use: Non-smoker Alcohol: None Drugs: None - *Family History Maternal Family History: Family History (Last Reviewed 08/11/18 @ 11:15 by Curt Lee MD) Brother Kidney disease Mother CVA (cerebral vascular accident) Father Liver cirrhosis History Items: Diabetes, Heart Disease, Stroke Paternal Family History: Family History (Last Reviewed 08/11/18 @ 11:15 by Curt Lee MD) Brother Kidney disease Mother CVA (cerebral vascular accident) Father Liver cirrhosis History Items: - - Patient notes father was an alcoholic with cirrhosis in addition to heart disease. Sibling Family History: Family History (Last Reviewed 08/11/18 @ 11:15 by Curt Lee MD) Brother Kidney disease Mother CVA (cerebral vascular accident) Father Liver cirrhosis History Items: No pertinent history Review of Systems Constitutional: Denies: Chills, Fever, Weight Change HEENT: Denies: Head Aches, Sinus Congestion, Sinus Drainage Cardiovascular: Denies: Chest Pain, Palpitations Respiratory: Denies: Cough, Shortness of breath at rest, Sputum production Gastrointestinal: Denies: Abdominal Pain, Nausea, Vomiting Genitourinary: Denies: Dysuria Musculoskeletal: Denies: Joint Pain, Joint Tenderness Skin: Denies: Rash, Wounds Neurological: Denies: Numbness, Tingling, Focal weakness Psychiatric: Denies: Anxiety, Depression, Homicidal Ideations, Suicidal Ideations Hematologic/ Lymphatic: Denies: Easy Bruising, Easy Bleeding Objective: mild left ptosis unable to gaze to the left with either eye nino intact mild right drift - Physical Exam Vital Signs Temp Pulse Resp BP Pulse Ox 36.8 C 74 16 154/84 H 99 08/11/18 08:50 08/11/18 08:50 08/11/18 08:50 08/11/18 08:50 08/11/18 08:50 Oxygen Delivery Method Room Air Weight: 71.8 kg Body Mass Index (BMI) 24.0 Finger Stick Blood Glucose 226 Laboratory Tests Past 24 Hrs 08/11/18 08/11/18 08/11/18 02:45 02:45 02:45 WBC 4.6 RBC 4.31 L Hgb 13.5 Hct 38.8 L MCV 90.0 MCH 31.3 MCHC 34.8 RDW 14.4 RDW Differential 46.4 H Plt Count 160 MPV 10.9 Immature Gran % (Auto) 0.200 Neut % (Auto) 59.8 Lymph % (Auto) 30.8 [place] % (Auto) 8.4 Eos % (Auto) 0.6 Baso % (Auto) 0.2 Absolute Neuts (auto) 2.8 Absolute Lymphs (auto) 1.43 Total Counted Not Reportable PT 14.0 INR 1.1 APTT 30.8 Sodium 139 Potassium 4.7 Chloride 105 Carbon Dioxide 25.0 Anion Gap 9 BUN 11 Creatinine 1.09 Estim Creat Clear Calc 52.25 Est GFR (MDRD) Af Amer 83 Est GFR (MDRD) Non-Af 69 BUN/Creatinine Ratio 10.1 Glucose 267 H Hemoglobin A1c Calcium 8.0 L Magnesium Troponin I 0.022 Triglycerides Cholesterol LDL Cholesterol VLDL Cholesterol HDL Cholesterol TSH 08/11/18 08/11/18 08/11/18 05:45 05:45 05:45 WBC 5.2 RBC 4.50 L Hgb 13.7 Hct 40.2 MCV 89.3 MCH 30.4 MCHC 34.1 RDW 14.5 RDW Differential 47.2 H Plt Count 159 MPV 10.7 Immature Gran % (Auto) 0.000 Neut % (Auto) 53.2 Lymph % (Auto) 37.0 [place] % (Auto) 9.0 Eos % (Auto) 0.6 Baso % (Auto) 0.2 Absolute Neuts (auto) 2.8 Absolute Lymphs (auto) 1.93 Total Counted Not Reportable PT INR APTT Sodium 138 Potassium 4.2 Chloride 107 Carbon Dioxide 23.0 Anion Gap 8 BUN 11 Creatinine 0.98 Estim Creat Clear Calc 56.22 Est GFR (MDRD) Af Amer 94 Est GFR (MDRD) Non-Af 78 BUN/Creatinine Ratio 11.2 Glucose 236 H Hemoglobin A1c 9.8 H Calcium 8.2 L Magnesium 2.1 Troponin I Triglycerides 54 Cholesterol 96 LDL Cholesterol 49 VLDL Cholesterol 11 HDL Cholesterol 36 L TSH 0.64 POC Glucose 08/11/18 07:00 POC Glucose 192 H Assessment/Plan All Active Problems (Last Reviewed 07/10/18 @ 15:09 by Mauro Covarrubias MD) H/O carotid endarterectomy (Resolved) H/O hernia repair (Resolved) H/O: hemorrhoidectomy (Resolved) cataract surgery (Resolved) Hx of repair of rotator cuff (Resolved) Abnormal EKG (Acute) Chest pain (Acute) Hypoglycemia (Acute) Ataxia (Resolved) Dizzinesses (Resolved) GI bleed (Resolved) Sepsis (Resolved) diplopia, concerning for midbrain infarct however mri negative and multiple confounding factors. family reports abnormal eyes noted months ago, this therefore may not represent an acute family manager event, rather metabolic derangement. asa daily bp contro; sugar control echo tele pt/ot/sp
[2018-08-11] MEDS: Clopidogrel Bisulfate 75 MG Tablet PO (10:24)
[2018-08-11] MEDS: Aspirin 81 MG TAB.CHEW PO (10:24)
[2018-08-11] MEDS: Baclofen 10 MG Tablet 5 MG PO ×2 (10:24→17:16)
[2018-08-11] MEDS: Ipratropium Bromide 0.06% NASAL SPRAY 2 SPRAY NASAL ×2 (10:24→22:27)
[2018-08-11] MEDS: Enoxaparin 40 MG/0.4 ML Syringe SC (10:25)
--- NOTE | 2018-08-11 11:08 | PCM.PN.HOSP ---
Subjective: Patient was seen and examined. He denied any new complaints. He feels well. MRI of the brain showed no acute intracranial abnormality; moderate chronic microvascular changes Vitals/I&O's: Vital Signs Temp Pulse Resp BP Pulse Ox 98.3 F 74 16 154/84 H 99 08/11/18 08:50 08/11/18 08:50 08/11/18 08:50 08/11/18 08:50 08/11/18 08:50 Oxygen Delivery Method Room Air Weight: 71.8 kg Body Mass Index (BMI) 24.0 Finger Stick Blood Glucose 226 General: Alert, Oriented x3, Cooperative, No apparent distress HEENT: Atraumatic, PERRLA, Normocephalic, - - Ptosis of the left eye, Oral: Moist Mucosa Neck: Supple Lungs: Clear to auscultation, Normal air movement Cardiovascular: Regular rate, Regular Rhythm, Normal S1, Normal S2, No murmurs Abdomen: Bowel Sounds Present, Soft, Non Tender, Non-Distended, No Hepato-splenomegaly Extremities: No edema Skin: No rashes, No breakdown Musculoskeletal: No Tenderness to Palpation of Joints or Extremities Neurological: Cranial nerves II-XII grossly intact - except unable to gaze to the left, Neuro grossly intact Psych/Mental Status: Normal Affect, Appropriate Laboratory Results 08/11/18 02:45: WBC 4.6, RBC 4.31 L, Hgb 13.5, Hct 38.8 L, MCV 90.0, MCH 31.3, MCHC 34.8, RDW 14.4, RDW Differential 46.4 H, Plt Count 160, MPV 10.9, Immature Gran % (Auto) 0.200, Neut % (Auto) 59.8, Lymph % (Auto) 30.8, [place] % (Auto) 8.4, Eos % (Auto) 0.6, Baso % (Auto) 0.2, Absolute Neuts (auto) 2.8, Absolute Lymphs (auto) 1.43, Total Counted Not Reportable 08/11/18 02:45: PT 14.0, INR 1.1, APTT 30.8 08/11/18 02:45: Sodium 139, Potassium 4.7, Chloride 105, Carbon Dioxide 25.0, Anion Gap 9, BUN 11, Creatinine 1.09, Estim Creat Clear Calc 52.25, Est GFR (MDRD) Af Amer 83, Est GFR (MDRD) Non-Af 69, BUN/Creatinine Ratio 10.1, Glucose 267 H, Calcium 8.0 L, Troponin I 0.022 08/11/18 05:45: Hemoglobin A1c 9.8 H 08/11/18 05:45: Sodium 138, Potassium 4.2, Chloride 107, Carbon Dioxide 23.0, Anion Gap 8, BUN 11, Creatinine 0.98, Estim Creat Clear Calc 56.22, Est GFR (MDRD) Af Amer 94, Est GFR (MDRD) Non-Af 78, BUN/Creatinine Ratio 11.2, Glucose 236 H, Calcium 8.2 L, Magnesium 2.1, Triglycerides 54, Cholesterol 96, LDL Cholesterol 49, VLDL Cholesterol 11, HDL Cholesterol 36 L, TSH 0.64 08/11/18 05:45: WBC 5.2, RBC 4.50 L, Hgb 13.7, Hct 40.2, MCV 89.3, MCH 30.4, MCHC 34.1, RDW 14.5, RDW Differential 47.2 H, Plt Count 159, MPV 10.7, Immature Gran % (Auto) 0.000, Neut % (Auto) 53.2, Lymph % (Auto) 37.0, [place] % (Auto) 9.0, Eos % (Auto) 0.6, Baso % (Auto) 0.2, Absolute Neuts (auto) 2.8, Absolute Lymphs (auto) 1.93, Total Counted Not Reportable 08/11/18 07:00: POC Glucose 192 H Current Medications Acetaminophen (Tylenol) 650 mg PO Q6H PRN PRN PRN Reason: Non-cardiac pain (mod-severe) Al Hydroxide/Mg Hydroxide (Mylanta Ii) 30 ml PO Q6H PRN PRN PRN Reason: Gastric burning Albuterol Sulfate (Ventolin Aerosols) 2.5 mg INHALATION Q2H PRN PRN PRN Reason: dyspnea, wheezing Aspirin (Aspirin, Baby) 81 mg PO DAILY@0800 [facility] Last Admin: 08/11/18 10:24 Dose: 81 mg Atorvastatin Calcium (Lipitor) 80 mg PO QHS [facility]ofen [facility]al) [facility] Last Admin: 08/11/18 10:24 Dose: 5 mg Clopidogrel Bisulfate (Plavix) 75 mg PO DAILY [facility] Last Admin: 08/11/18 10:24 Dose: 75 mg Enoxaparin Sodium (Lovenox) 40 mg SC DAILY@1000 BING Last Admin: 08/11/18 10:25 Dose: 40 mg Famotidine (Pepcid) 40 mg PO QHS [facility] Sodium Chloride () 1,000 mls @ 100 mls/hr IV .Q10H [facility] Last Admin: 08/11/18 06:02 Dose: 100 mls/hr Insulin Glargine (Lantus (Bkc)) 24 units SC QHS [facility] Insulin Human Lispro (Humalog Kwikpen (Bkc)) 0 unit SC ACHS [facility]; Protocol Last Admin: 08/11/18 08:42 Dose: 2 u Ipratropium [place] (Atrovent Nasal [place] (G)) 2 spray NASAL BID [facility] Last Admin: 08/11/18 10:24 Dose: 2 spray Labetalol HCl (Trandate) 10 mg IV Q10M PRN PRN Reason: MAINTAIN BP < 220/120 Stop: 08/12/18 04:52 Magnesium Hydroxide (Milk Of Magnesia) 30 ml PO DAILY PRN PRN Reason: Constipation Ondansetron HCl (Zofran) 4 mg IV Q8H PRN PRN PRN Reason: NAUSEA/VOMITING Polyethylene Glycol (Miralax) 8.5 gm PO DAILY [facility] Last Admin: 08/11/18 10:25 Dose: 8.5 gm Sodium Chloride () 5 - 15 ml IV UD PRN PRN Reason: SALINE FLUSH Last Admin: 08/11/18 06:04 Dose: 10 ml Medical Necessity - Tobacco Use Smoking Status: Former smoker Tobacco Use: Non-smoker Assessment/Plan All Active Problems (Last Reviewed 07/10/18 @ 15:09 by Mauro Covarrubias MD) H/O carotid endarterectomy (Resolved) H/O hernia repair (Resolved) H/O: hemorrhoidectomy (Resolved) cataract surgery (Resolved) Hx of repair of rotator cuff (Resolved) Abnormal EKG (Acute) Chest pain (Acute) Hypoglycemia (Acute) Ataxia (Resolved) Dizzinesses (Resolved) GI bleed (Resolved) Sepsis (Resolved) 83-year-old male with multiple past medical history comes in with blurred vision, left-sided paresthesias. 1. Visual changes, left-sided paresthesias, unclear etiology, acute stroke ruled out with negative MRI. 2. Debility secondary to recent viral syndrome, respiratory panel is negative, PT and OT have been consulted 3. Carotid stenosis status post bilateral CEA, on Plavix, aspirin, statin 4. Hypertension, uncontrolled, allowed for permissive hypertension, will resume home blood pressure medication on the blood pressures controlled 5. CAD, history of prior CVA, on aspirin, Plavix, statin 6. Type II DM, uncontrolled, HbA1c is 9.8, continue on home insulin, will adjust with Accu-Cheks in a.m. 7. Hyperlipidemia, on statin, lipid profile this morning is controlled except HDL is low 8. DVT PPx- Lovenox SC Code Visit Inpatient E&M: 84137 Subs Hosp L2
[2018-08-11 11:35] LABS: Bedside Glucose 237 mg/dL (70-110)
[2018-08-11] MEDS: guaiFENesin 1,200 MG Tablet 1200 MG PO (13:49)
[2018-08-11] MEDS: Polyethylene Glycol 3350 17 GM PACKET 8.5 GM PO (13:49)
--- NOTE | 2018-08-11 15:52 | CHAPLAIN ---
Type of Pastoral Visit _x__ Initial Visit ___ Follow-up Visit ___ On-call Visit ___ General Patient Visit ___ Spiritual Assessment ___ Family Conference ___ Bereavement ___ Rapid Response ___ Code Blue ___ Other (describe below) Pastoral Care Referral From _x__ Patient ___ Family ___ Nurse ___ Physician ___ Hospital Security Officer ___ Claim Rep ___ Other (describe below) Sacrament/Intervention _x__ Active listening ___ Anointing ___ Orthodoxy ___ Bereavement ___ Communion ___ Jazmine exploration ___ ___ Life review _x__ Prayer ___ Reconciliation ___ Sacrament of Sick _x__ Supportive presence ___ Wedding ___ Other (describe below) Pastoral Comments
[2018-08-11 16:56] LABS: Bedside Glucose 273 mg/dL (70-110)
[2018-08-11] MEDS: Atenolol 25 MG Tablet 75 MG PO (17:53)
[2018-08-11] MEDS: Atorvastatin Calcium 80 MG Tablet PO (22:28)
[2018-08-11] MEDS: Famotidine 20 MG Tablet 40 MG PO (22:28)
[2018-08-11 22:51] LABS: Bedside Glucose 335 mg/dL (70-110)
[2018-08-12] VITALS (8 sets, daily range): BP systolic 142–174; BP diastolic 67–81; PULSE 63–83; RESP 16; TEMP 36.9–37; O2SAT 95–98
[2018-08-12] MEDS: 0.9% NaCl Peripheral Flush Adult/Peds IV (04:26)
[2018-08-12 07:16] LABS: Bedside Glucose 104 mg/dL (70-110)
[2018-08-12] MEDS: Ipratropium Bromide 0.06% NASAL SPRAY 2 SPRAY NASAL (09:34)
[2018-08-12] MEDS: Polyethylene Glycol 3350 17 GM PACKET 8.5 GM PO (09:34)
[2018-08-12] MEDS: Enoxaparin 40 MG/0.4 ML Syringe SC (09:34)
[2018-08-12] MEDS: Aspirin 81 MG TAB.CHEW PO (09:35)
[2018-08-12] MEDS: Baclofen 10 MG Tablet 5 MG PO ×2 (09:35→16:38)
[2018-08-12] MEDS: Clopidogrel Bisulfate 75 MG Tablet PO (09:35)
[2018-08-12] MEDS: guaiFENesin 1,200 MG Tablet 1200 MG PO (09:35)
[2018-08-12] MEDS: Atenolol 25 MG Tablet 75 MG PO (09:35)
--- NOTE | 2018-08-12 10:28 | CASEMGMT ---
RN CM assessment: Face to Face with patient for initial transition planning/care coordination assessment. RN CM introduced self and role at [facility], pt voices understanding and consents to assessment at this time. Pt is sitting up in chair in no distress at this time. Pt is A/Ox4 at this time and answers all questions appropriately at this time but does defer to daughter, Xochitl, for any discharge planning at this time. Care providers, pharmacy, and demographics verified at this time. PCP: Prudencio Steiner Pharmacy: [facility] Insurance: [facility] A/B, Stali Prescription Benefit: Yes Living Will/HPOA: Pt states that he does have LW/HPOA but only LW is on file at [facility] at this time. Pt states that his daughter, Xochitl, is his HPOA. LNOK: Xochitl Acosta, daughter; Lachelle Lee, daughter Living Arrangements: Pt lives alone in a 2 story home and states daughters check in frequently and help with meals, etc. Pt states that his bedroom is on 2nd floor but he does not go upstairs during the day. Pt states that he completes some ADL's independently and daughters/son-in-laws help with others. Transportation: Pt does not drive but states daughters/son-in-laws drive and state no transportation concerns at this time. DME/HHC: Pt states has the following DME: cane, walker, grab bars, and shower chair. Pt states that he has been to [facility] and [facility] in the past and has had [facility]. Call to pt's daughter, Xochitl, per his request and she would like [facility] for pt at discharge. She was also inquiring about further resources for assistance for pt in the future so this RN CM will place [facility] order for RN, PT/OT, BASIL Frias at this time. Message left with referral for pt at this time with [facility] at this time. Pt states some concern with going home at time of discharge but states that he would like to go home. Pt is retired. Pt states he does not smoke or drink ETOH. Pt states no further concerns/needs at this time. CM to follow for any further discharge planning/needs. Jasmine GRACIA is aware of CM consult for financial concerns placed by Dr. Xie on 08/11/18. Advised pt to ask for CM if any further questions/concerns/needs arise, voices understanding. Plan: Home w/ [facility], pending referral. Jocelyne MALLYO CM
[2018-08-12] MEDS: Insulin Lispro 100 UNIT/ML INSULN.PEN SC ×2 (11:19→16:38)
[2018-08-12 11:26] LABS: Bedside Glucose 351 mg/dL (70-110)
--- NOTE | 2018-08-12 15:38 | PCM.DC ---
- Discharge Diagnoses Reason(s) for Visit for Discharge Instructions: Weakness, visual changes You will use the following diet at home:: Calorie/Carbohydrate Controlled (specify 1200, 1400, etc), Cardiac Your food should be the consistency of: Regular Your liquids should be the consistency of: Regular/Thin Discharge Activity: Return to Normal Activity Additional Instructions: Continue on your medications. Follow-up with your primary doctor within 2 weeks. Continue to monitor your blood sugar at least 3 times a day. Your insulin may need to be closely titrated. Allergies/Adverse Reactions: Allergies alfuzosin Allergy (Verified 08/11/18 02:11) Other chlorpromazine [From Thorazine] Allergy (Verified 08/11/18 02:11) Other Penicillins Allergy (Verified 08/11/18 02:11) Rash Sulfa (Sulfonamide Antibiotics) Allergy (Verified 08/11/18 02:11) Swelling lisinopril Adverse Reaction (Verified 08/11/18 02:11) Other Medications to take at Discharge Polyethylene Glycol 3350 [Miralax] 0.5 pack PO DAILY 06/06/17 albuterol sulfate HFA 90 mcg/actuation aerosol inhaler 2 puff INHALATION Q6H PRN PRN 12/26/17 Atorvastatin Calcium [Lipitor] 80 mg PO QHS 01/03/18 Blood Sugar Diagnostic [Contour Test Strip] 0 ea .ROUTE .MEDSUPPLY 01/03/18 Pen Needle, Diabetic [Incontrol Pen Needle] 0 ea .ROUTE .MEDSUPPLY 01/03/18 Ranitidine HCl [Acid Control] 300 mg PO QHS 01/03/18 Baclofen [Lioresal] 5 mg PO BIDCM tab 01/06/18 insulin lispro (U- 100) 100 unit/mL subcutaneous solution See Rx Instructions SC TIDCM ml 01/23/18 clopidogrel 75 mg tablet 75 mg PO DAILY #30 tab 03/26/18 Ipratropium [place] 0.06% [ATROVENT NASAL SPRAY] 2 spray NASAL BID 05/25/18 atenolol 25 mg tablet 75 mg PO DAILY 07/10/18 Aspirin [Aspirin, Baby] 81 mg PO DAILY@0800 #30 tab.chew 08/12/18 Guaifenesin [Mucinex] 1,200 mg PO BID PRN #20 tablet 08/12/18 Insulin Detemir [Levemir Flextouch] 26 unit SUBCUT QHS #0 08/12/18 Insulin Lispro [Humalog KwikPen] See Protocol SC ACHS insuln.pen 08/12/18 The following prescriptions were given: Aspirin [Aspirin, Baby] 81 mg PO DAILY@0800 #30 tab.chew Guaifenesin [Mucinex] 1,200 mg PO BID PRN #20 tablet PRN Reason: COUGH Primary Care Physician: Ronald lFannery MD [Primary Care Provider] - Please follow up with your Primary Care Physician in: within 2 weeks Test Results: Test results from this visit will be discussed in further detail at your follow-up appointment, if applicable. Proposed Discharge Date: 08/12/18
--- NOTE | 2018-08-12 15:41 | DCINST_ITS ---
- Discharge Diagnoses Reason(s) for Visit for Discharge Instructions: Weakness, visual changes You will use the following diet at home:: Calorie/Carbohydrate Controlled (specify 1200, 1400, etc), Cardiac Your food should be the consistency of: Regular Your liquids should be the consistency of: Regular/Thin Discharge Activity: Return to Normal Activity Additional Instructions: Continue on your medications. Follow-up with your primary doctor within 2 weeks. Continue to monitor your blood sugar at least 3 times a day. Your insulin may need to be closely titrated. Allergies/Adverse Reactions: Allergies alfuzosin Allergy (Verified 08/11/18 02:11) Other chlorpromazine [From Thorazine] Allergy (Verified 08/11/18 02:11) Other Penicillins Allergy (Verified 08/11/18 02:11) Rash Sulfa (Sulfonamide Antibiotics) Allergy (Verified 08/11/18 02:11) Swelling lisinopril Adverse Reaction (Verified 08/11/18 02:11) Other Medications to take at Discharge Polyethylene Glycol 3350 [Miralax] 0.5 pack PO DAILY 06/06/17 albuterol sulfate HFA 90 mcg/actuation aerosol inhaler 2 puff INHALATION Q6H PRN PRN 12/26/17 Atorvastatin Calcium [Lipitor] 80 mg PO QHS 01/03/18 Blood Sugar Diagnostic [Contour Test Strip] 0 ea .ROUTE .MEDSUPPLY 01/03/18 Pen Needle, Diabetic [Incontrol Pen Needle] 0 ea .ROUTE .MEDSUPPLY 01/03/18 Ranitidine HCl [Acid Control] 300 mg PO QHS 01/03/18 Baclofen [Lioresal] 5 mg PO BIDCM tab 01/06/18 insulin lispro (U- 100) 100 unit/mL subcutaneous solution See Rx Instructions SC TIDCM ml 01/23/18 clopidogrel 75 mg tablet 75 mg PO DAILY #30 tab 03/26/18 Ipratropium [place] 0.06% [ATROVENT NASAL SPRAY] 2 spray NASAL BID 05/25/18 atenolol 25 mg tablet 75 mg PO DAILY 07/10/18 Aspirin [Aspirin, Baby] 81 mg PO DAILY@0800 #30 tab.chew 08/12/18 Guaifenesin [Mucinex] 1,200 mg PO BID PRN #20 tablet 08/12/18 Insulin Detemir [Levemir Flextouch] 26 unit SUBCUT QHS #0 08/12/18 Insulin Lispro [Humalog KwikPen] See Protocol SC ACHS insuln.pen 08/12/18 The following prescriptions were given: Aspirin [Aspirin, Baby] 81 mg PO DAILY@0800 #30 tab.chew Guaifenesin [Mucinex] 1,200 mg PO BID PRN #20 tablet PRN Reason: COUGH Primary Care Physician: Ronald Flannery MD [Primary Care Provider] - Please follow up with your Primary Care Physician in: within 2 weeks Test Results: Test results from this visit will be discussed in further detail at your follow- up appointment, if applicable. Proposed Discharge Date: 08/12/18
--- NOTE | 2018-08-12 15:41 | PCM.DC.SUM ---
Discharge Date and Diagnosis Date of Admission: 08/11/18 Date of Discharge: 08/12/18 - Primary Discharge Diagnosis Visual changes Debility - Secondary Discharge Diagnosis Chronic Problems (Last Reviewed 07/10/18 @ 15:09 by Mauro Covarrubias MD) Hypotension (Chronic) Carotid bruit (Chronic) Encounter for long-term current use of high risk medication (Chronic) Reviewed medications with family to be sure patient was taking remainder of medications correctly and there were no duplicates Atherosclerotic heart disease of [place] coronary artery without angina pectoris (Chronic) Type 2 diabetes mellitus (Chronic) Cerebrovascular disease (Chronic) Status post acute ischemic stroke with residual lower extremity weakness mild Hyperlipidemia (Chronic) Diverticulitis (Chronic) Hypertension (Chronic) 104/64 Coronary artery disease (Chronic) GERD (gastroesophageal reflux disease) (Chronic) OAB (overactive bladder) (Chronic) Ataxia (Chronic) LEFT FRONTAL LACUNAR INFARCT (Chronic) Dizziness (Chronic) Stroke (Chronic) Diabetes mellitus (Chronic) Had a lengthy discussion with patient and family member. Family members had always agreed they want father to remain at home and they want quality of life for him He is instructed when he sits down at table to eat he is to take his insulin. The insulin is to cover the food he is about to eat. My thought is if the timing remains a problem I will place him on regular insulin which is much slower in action. Gurmeet if this is a barrier to his independence and remaining in the home setting. Hospital Course and Treatment Imaging Results: Clinical Impression(s) from Imaging Studies Brain CT 08/11/18 02:30 IMPRESSION: 1. No hemorrhage or acute disease. No significant change. 2. Remote infarcts and white matter chronic ischemic changes. Individualized dose optimization techniques were used for this CT. at 0323 Reported and signed by: Cameron Alejandro MD Electronically Signed: Cameron Alejandro, at 3:22 EST Tel , Service support , Chest X-Ray 08/11/18 02:30 IMPRESSION: No acute cardiopulmonary disease. No significant interval change. at 0326 Reported and signed by: Cameron Alejandro MD Electronically Signed: Cameron Alejandro, at 3:25 EST Tel , Service support , Head CTA 08/11/18 02:59 IMPRESSION: Stable findings. Carotid and vertebrobasilar atherosclerotic calcifications without findings of occlusion or acute disease. No aneurysm or arterial dissection. Individualized dose optimization techniques were used for this CT. at 0400 Reported and signed by: Cameron Alejandro MD Electronically Signed: Cameron Alejandro, at 3:59 EST Tel , Service support , Neck CTA 08/11/18 02:59 IMPRESSION: 1. Stable findings. Previous bilateral carotid endarterectomy and the carotids remain patent. 2. 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 The pattern is stable. 3. Dominant left vertebral artery which remains patent. Individualized dose optimization techniques were used for this CT. at 0421 Reported and signed by: Cameron Alejandro MD Electronically Signed: Cameron Alejandro, at 4:20 EST Tel , Service support , Brain MRI 08/11/18 04:51 IMPRESSION: No acute intracranial abnormality. Moderate chronic microvascular ischemic changes and lacunar infarcts. Electronically Signed: Nataliia Her MD at 11:17 EST Tel , Service support , Neurology Operations: None Procedures: 2-D Echocardiogram Summary of Care Provided: 83-year-old male with multiple past medical history comes in with blurred vision, left-sided paresthesias, bilateral lower extremity weakness. Patient had also complained of visual changes that have been going on for some time. He admits to recent upper respiratory illness. Respiratory panel was negative. He was admitted to telemetry bed, Neurology was consulted, MRI ruled out acute stroke. Patient was continued on his home medication. His blood sugars were uncontrolled during this admission and adjustments were made to his home insulin. He was seen by PT and OT and recommended for halfway facility for which patient was not willing to be discharged. He was discharged home with home health care. Subjective: The day of discharge, patient had no new complaints, no acute events happened overnight. Denied any chest pain or dizziness or palpitation. Objective: General: Alert, Oriented x3, Cooperative, No apparent distress HEENT: Atraumatic, PERRLA, Normocephalic, - - Ptosis of the left eye, Oral: Moist Mucosa Neck: Supple Lungs: Clear to auscultation, Normal air movement Cardiovascular: Regular rate, Regular Rhythm, Normal S1, Normal S2, No murmurs Abdomen: Bowel Sounds Present, Soft, Non Tender, Non-Distended, No Hepato-splenomegaly Extremities: No edema Skin: No rashes, No breakdown Musculoskeletal: No Tenderness to Palpation of Joints or Extremities Neurological: Cranial nerves II-XII grossly intact - except unable to gaze to the left, Neuro grossly intact Psych/Mental Status: Normal Affect, Appropriate - Physical Exam Vital Signs Temp Pulse Resp BP Pulse Ox 98.6 F 74 16 149/81 H 98 08/12/18 15:30 08/12/18 15:30 08/12/18 15:30 08/12/18 15:30 08/12/18 15:30 Oxygen Delivery Method Room Air Weight: 71.8 kg Body Mass Index (BMI) 24.0 Finger Stick Blood Glucose 226 Intake and Output for Last 24 Hours 08/10/18 08/11/18 08/12/18 23:59 23:59 23:59 Intake Total 1581 / 1581 240 / 240 Output Total 875 / 875 300 / 300 Balance 706 / 706 -60 / -60 Microbiology Past 72 Hours 08/11/18 03:58 Respiratory Panel (PCR) - Final Mucosa - Nasopharyngeal POC Glucose 08/12/18 08/12/18 08/11/18 11:12 07:03 22:29 POC Glucose 351 H 104 335 H 08/11/18 16:47 POC Glucose 273 H Discharge Diet: Low fat/ Low Cholesterol, 2000 mg Sodium Diet Discharge Activity: Return to Normal Activity Home Medications: Medications to take at Discharge Polyethylene Glycol 3350 [Miralax] 0.5 pack PO DAILY 06/06/17 albuterol sulfate HFA 90 mcg/actuation aerosol inhaler 2 puff INHALATION Q6H PRN PRN 12/26/17 Atorvastatin Calcium [Lipitor] 80 mg PO QHS 01/03/18 Blood Sugar Diagnostic [Contour Test Strip] 0 ea .ROUTE .MEDSUPPLY 01/03/18 Pen Needle, Diabetic [Incontrol Pen Needle] 0 ea .ROUTE .MEDSUPPLY 01/03/18 Ranitidine HCl [Acid Control] 300 mg PO QHS 01/03/18 Baclofen [Lioresal] 5 mg PO BIDCM tab 01/06/18 insulin lispro (U- 100) 100 unit/mL subcutaneous solution See Rx Instructions SC TIDCM ml 01/23/18 clopidogrel 75 mg tablet 75 mg PO DAILY #30 tab 03/26/18 Ipratropium [place] 0.06% [ATROVENT NASAL SPRAY] 2 spray NASAL BID 05/25/18 atenolol 25 mg tablet 75 mg PO DAILY 07/10/18 Aspirin [Aspirin, Baby] 81 mg PO DAILY@0800 #30 tab.chew 08/12/18 Guaifenesin [Mucinex] 1,200 mg PO BID PRN #20 tablet 08/12/18 Insulin Detemir [Levemir Flextouch] 26 unit SUBCUT QHS #0 08/12/18 Insulin Lispro [Humalog KwikPen] See Protocol SC ACHS insuln.pen 08/12/18 Following Prescrptions Were Given to Patient: Aspirin [Aspirin, Baby] 81 mg PO DAILY@0800 #30 tab.chew Guaifenesin [Mucinex] 1,200 mg PO BID PRN #20 tablet PRN Reason: COUGH Primary Care Physician: Ronald Flannery MD [Primary Care Provider] - Please follow up with your Primary Care Physician in: within 2 weeks Disposition: Home with Home Health Minutes spent on discharge:: 40 Patient Condition:: Stable Medical Necessity - Tobacco Use Smoking Status: Former smoker Tobacco Use: Non-smoker Meaningful Use Info Meaningful Use Diagnoses (Choose all that apply): None applicable Code Visit OBSV E&M: 68527 Observation care discharge
--- NOTE | 2018-08-12 15:42 | CASEMGMT ---
This RN CATHY to room with MAHER form at this time, explanation done-pt voices understanding at this time, and signs MAHER form at this time. Pt voices no further questions/concerns/needs at this time. SStaten GAMA CM
--- NOTE | 2018-08-12 15:58 | CASEMGMT ---
Adore at [facility] is aware that pt will be discharged today, voices understanding. Pt also agreed to CCN referral at this time and [facility] aware. Message also left with Dhiraj regarding same. Jocelyne MALLOY CM
[2018-08-12 16:46] LABS: Bedside Glucose 258 mg/dL (70-110)
== END 2018-08-12 15:34 | disposition home health service (06) ==
LOC: ED 02:51 → PCU 04:42
PROVIDERS: Admitting Provider Family Medicine; Emergency Provider Emergency Medicine; Family Provider Internal Medicine; PCP Internal Medicine; Visit Provider Internal Medicine
DX: H53.8 Other visual disturbances (principal); R20.2 Paresthesia of skin; R06.02 Shortness of breath; R29.704 NIHSS score 4; E78.5 Hyperlipidemia, unspecified; I10 Essential (primary) hypertension; E11.9 Type 2 diabetes mellitus without complications; I69.311 Memory deficit following cerebral infarction; I25.10 Atherosclerotic heart disease of native coronary artery without angina pectoris; I69.359 Hemiplegia and hemiparesis following cerebral infarction affecting unspecified side; K21.9 Gastro-esophageal reflux disease without esophagitis; N32.81 Overactive bladder; Z79.899 Other long term (current) drug therapy; Z79.4 Long term (current) use of insulin; Z79.02 Long term (current) use of antithrombotics/antiplatelets; Z87.891 Personal history of nicotine dependence; K59.09 Other constipation
CPT/HCPCS: 36415; 70450; 70496; 70498; 70551; 71045; 80048; 80061; 82962; 83036; 83735; 84443; 84484; 85025; 85610; 85730; 87633; 92526; 92610; 93005; 93306; 96361; 96372; 96374; 97110; 97162; 97166; 97530; 97535; 97802; 99218; 99285; J7030; Q9967; A4216; G0378

== ENCOUNTER 2018-09-01 10:56 | Inpatient (IN) | payer MEDICARE, OTHER, SELFPAY ==
[2018-08-11 05:02] VITALS: BMI 24.0
[2018-09-01] VITALS (10 sets, daily range): BP systolic 114–167; BP diastolic 56–72; PULSE 62–98; RESP 16–23; TEMP 36.8–36.9; O2SAT 90–100; BMI 24.6; BMI 24.4
[2018-09-01 11:15] LABS: Bedside Glucose 267 mg/dL (70-110)
--- NOTE | 2018-09-01 11:21 | EKG12_ITS ---
Test Reason : WEAKNESS Blood Pressure : / mmHG Vent. Rate : 089 BPM Atrial Rate : 089 BPM P-R Int : 192 ms QRS Dur : 078 ms QT Int : 364 ms P-R-T Axes : 069 -38 -59 degrees QTc Int : 442 ms Normal sinus rhythm Left axis deviation ST & T wave abnormality, consider lateral ischemia Abnormal ECG Confirmed by ALEN YU, PAULETTE ([id number]), communications editor SHA HYATT ([id number]) on 09/04/2018 10:34:24 AM Referred By: Ovidio Ibarra Confirmed By:PAULETTE LOWRY MD
--- NOTE | 2018-09-01 11:27 | RAD_ITS ---
STUDY: X-RAY CHEST REASON FOR EXAM: Male, 83 years old. Sella onset of weakness and confusion. TECHNIQUE: Single AP portable view of the chest. COMPARISON: Comparison is made with prior study dated August 11, 2018. FINDINGS: EKG likely suggesting. Increased markings with areas of confluence seen in the right lower lobe suggestive of early right lower lobe infiltrate. Follow-up is recommended. There is no demonstrated pleural abnormality. Normal size heart. Normal mediastinum and dion. Normal visualized pulmonary arteries. There is atherosclerotic tortuosity of the aortic arch and descending thoracic aorta. Normal visualized thoracic spine. Normal visualized ribs, clavicles, and shoulders. There is no demonstrated abnormality of the visualized soft tissue structures of the upper abdomen. RAD/Chest 1 View (Portable) IMPRESSION: Right lower lobe infiltrate. Electronically Signed: Angel Mabry, at 12:16 EDT , Service support ,
[2018-09-01 11:57] LABS: International Normalized Ratio 1.3; Prothrombin Time (Protime)PT. 15.5 SECONDS (11.7-14.9)
[2018-09-01 11:58] LABS: Partial Thromboplast Time 30.9 Seconds (24.1-36.2)
[2018-09-01 11:59] LABS: Absolute Lymphocyte Count 0.74 X10^3/ul (0.83-4.51); Absolute Neutrophil Count 6.9 X10^3/uL (2.0-7.7); Differential Indicated SCAN CRITERIA MET; Hematocrit 42.5 % (40-54); Hemoglobin 14.2 g/dl (13.0-16.5); Lymphocyte # 0.74 X10^3/ul (4.0); Lymphocyte % 9.1 % (19-41); Mean Corp Hgb Conc 33.4 g/gl (32-36); Mean Corpuscular Hgb 30.1 pg (27.0-32.0); Mean Platelet Vol. 11.1 fl (6.2-12.0); Monocyte# 0.48 X10^3/uL; Monocyte% 5.9 % (0-10); Neutrophil # 6.87 X10^3/uL (2.7-7.7); Neutrophil % 84.9 % (47-70); POSITIVE COUNT NO; POSITIVE DIFFERENTIAL NO; POSITIVE MORPHOLOGY YES; Platelet Count 189 K/mm3 (150-450); RBC Distribution Width CV 14.9 % (11.6-14.6); RBC Distribution Width SD 48.9 fl (35.1-43.9); Red Blood Count 4.72 M/mm3 (4.6-6.2); White Blood Count 8.1 K/mm3 (4.4-11.0)
[2018-09-01 12:05] LABS: Mucous, Urine 0 SEEN /hpf (<or=2+); Red Blood Cells-Urine 0 SEEN /hpf (0-5)
[2018-09-01 12:06] LABS: Color, Urine Yellow (Yellow); Glucose, Dipstick 1000 mg/dl (Normal); Ketone-Dipstick 5 mg/dl (Negative); Leukocyte Esterase-Dipstick 500 /ul (Negative); Nitrite-Dipstick Negative (Negative); Occult Blood-Urine Negative /ul (Negative); Protein-Dipstick 30 mg/dl (Negative); Urine Bilirubin Dipstick Negative (Negative); Urine Clarity Sl. Cloudy (Clear); Urine Urobilinogen 1 mg/dl (Normal)
[2018-09-01 12:07] LABS: ALB/GLOB Ratio 0.8 RATIO (0.9-2.4); AST(SGOT) 16 U/L (15-37); Alanine Aminotransfer ALT/SGPT 13 U/L (16-61); Albumin, Serum 3.2 g/dL (3.2-5.0); Alkaline Phosphatase 120 U/L (45-117); Anion Gap 13 (5-15); BUN 21 mg/dL (7-18); BUN/Creat Ratio 14.3 RATIO (10-20); Calcium,Total 8.2 mg/dL (8.5-10.1); Chloride 106 mmol/L (98-107); Creatinine, Serum 1.47 mg/dL (0.70-1.30); EST Glomerular Filtration Rate 49 mL/min (>60); Est Glom Filt Rate - Afr Amer 59 mL/min (>60); Estimated Creatinine Clearance 37.48 ml/min; Globulin 3.8 g/dL (2.2-4.2); Glucose 294 mg/dL (74-106); Lipase 26 U/L (73-393); Potassium 3.7 mmol/L (3.5-5.1); Sodium Level 141 mmol/L (136-145)
[2018-09-01 12:11] LABS: Bacteria 1+ /hpf (None Seen); Squamous Epithelial Cells - UA 0-5 SEEN /hpf (0-5); White Blood Cells 25-50 SEEN /hpf (0-5)
--- NOTE | 2018-09-01 12:19 | CT_ITS ---
STUDY: CT BRAIN WITHOUT CONTRAST REASON FOR EXAM: Male, 83 years old. Confusion. RADIATION DOSAGE (If Supplied By Facility): CTDIvol = ( 44.99 ) mGy, DLP = ( 796.11 ) mGycm TECHNIQUE: Transaxial CT imaging of the brain was performed without administration of intravenous contrast material. Individualized dose optimization techniques were used for this CT. COMPARISON: Comparison is made with prior study dated August 11, 2018. FINDINGS: Normal soft tissue structures. Normal calvarium. There is mild cerebral atrophy with widening of the extra-axial spaces and ventricular dilatation. There are areas of decreased attenuation within the white matter tracts of the supratentorial brain, consistent with microvascular disease changes. Stable old lacunar infarct in the basal ganglia. Normal brainstem. Normal cerebellum. There is no intracranial hemorrhage. There are no findings of an acute ischemic infarction. Atherosclerotic calcification of the cavernous portions of the internal carotid arteries bilaterally. Normal visualized paranasal sinuses. CT/Brain/Head without Contrast IMPRESSION: Chronic involutional changes of the brain. Electronically Signed: Angle Mabry, at 14:21 EDT , Service support ,
--- NOTE | 2018-09-01 12:19 | CT_ITS ---
STUDY: CTA CHEST REASON FOR EXAM: Male, 83 years old. Chest pain. RADIATION DOSAGE (If Supplied By Facility): CTDIvol = ( 12.18 ) mGy, DLP = ( 464.40 ) mGycm TECHNIQUE: The examination was performed with the intravenous administration of Isovue 370 100 IV. Post-processing of the angiographic images was performed, with multiplanar reformation and 3D reconstruction. Individualized dose optimization techniques were used for this CT. COMPARISON: Comparison is made with prior CT scan of the thorax dated November 20, 2014 and prior chest radiograph done earlier today. FINDINGS: Normal enhancement of the main pulmonary artery and right and left pulmonary arteries. Normal enhancement of the bilateral peripheral pulmonary arteries. There is no demonstrated pulmonary embolism. There is atherosclerotic calcification of the aortic arch with tortuosity. There is no demonstrated aortic dissection. There are calcifications of the coronary arteries. There are visualized mediastinal lymph nodes, which are within normal size limits, and with normal morphology. Normal hilar regions. Normal visualized trachea and bronchi. Hyperinflation. Emphysematous changes worse in the right upper lobe with areas of the bleb formation. There is evidence of airspace disease in the superior segment of the right lower lobe as well as in the posteromedial segment of the right lower lobe. This is superimposed on chronic scarring at the lung bases with honeycombing. Normal pleura. Normal chest wall structures. There are degenerative changes of thoracic spine. There is a 3.1 cm x 3.1 cm cyst in the upper pole of the right kidney. CT/CTA Chest W/WO Contrast IMPRESSION: Diffuse emphysematous changes with bullous formation worse in the right upper lobe. Infiltration in the right lower lobe superimposed on bibasilar scarring worse on the right side. Electronically Signed: Angel Mabry, at 14:25 EDT , Service support ,
[2018-09-01] MEDS: Ipratropium/Albuterol Sulfate 3 ML AMPUL.NEB INHALATION ×2 (14:45→19:35)
[2018-09-01] MEDS: Ceftriaxone 1 GM/50 ML BAG IV (14:50)
--- NOTE | 2018-09-01 15:11 | ED.DCSUM_ITS ---
- ER Visit Summary Date of Service: 09/01/18 Chief Complaint: Confusion History of Present Illness: The patient is a 83 M who was with his family yesterday. They state that they last talked to him last evening and he seemed well. Today the cleaning lady came and found his glasses on the floor in the laundry baskets in disarray. He was confused and unable to stand. Patient was admitted in the middle of July for rule out stroke. Had a swallow study at that time that was negative. Family notes his blood sugars have been relatively uncontrolled recently ranging anywhere from the 200s-500 range. Physical Examination: Afebrile vital signs are stable Gen: Well-nourished well-developed Head: Normocephalic atraumatic Eyes: Perrl EOMI ENT: TMs clear no rhinorrhea moist mucous membranes Neck: Supple no lymphadenopathy no JVD nontender CVS: Regular rate rhythm no murmurs normal S1-S2 Respiratory: No distress moist cough with rhonchi at the right base. Tender to palpation over the right mid axillary lower chest wall. Abdomen: Soft nontender nondistended normal bowel sounds no masses Back: Nontender Extremity: Nontender no edema Skin: Normal color no rash Neuro: alert but confused. He can move all 4 extremities. He appears globally fatigued. Unable to ambulate Psych: Test Results: Chest x-ray is concerning for infiltrate on the right. Head CT was negative. Chest CT demonstrates infiltrative changes on the right. EKG sinus rate of 89. Troponin 0 0.03. White count 8.1. Urinalysis 25-50 white cells 1+ bacteria this was sent for culture. Emergency Department Course and Treatment: Patient received IV fluids and a DuoNeb. He azithromycin after blood cultures were obtained. Our plan is admission into the hospital. Impression: 1. Pneumonia 2. Encephalopathy This note was generated with [employer] dictation software. It may contain incorrect words, spelling, and punctuation that were not noted in review of the chart prior to signing ED Disposition - Plan for ED Patient: Referrals: Ronald Flannery MD [Primary Care Provider] -
--- NOTE | 2018-09-01 15:20 | HP.PCM_ITS ---
Problem List (1) CVA (cerebral vascular accident) Status: Chronic Comment: Status post acute ischemic stroke with residual lower extremity weakness mild (2) Carotid bruit Status: Chronic (3) Encounter for long-term current use of high risk medication Status: Chronic Comment: Reviewed medications with family to be sure patient was taking remainder of medications correctly and there were no duplicates (4) Atherosclerotic heart disease of [place] coronary artery without angina pectoris Status: Chronic Qualifiers: [place] vs. transplanted heart: [place] heart Qualified Code(s): I25.10 - Atherosclerotic heart disease of [place] coronary artery without angina pectoris (5) Hyperlipidemia Status: Chronic Qualifiers: Hyperlipidemia type: unspecified Qualified Code(s): E78.5 - Hyperlipidemia, unspecified (6) Diverticulitis Status: Chronic Qualifiers: (7) Hypertension Status: Chronic Qualifiers: Hypertension type: essential hypertension Qualified Code(s): I10 - Essential (primary) hypertension Comment: (8) Confusion Status: Acute (9) Aspiration pneumonia Status: Acute (10) Acute cystitis Status: Acute History of Present Illness Date of Admission: 09/01/18 Chief Complaint: Confusion The patient is a 83 year old M multiple comorbidities including CVA who was brought to the emergency department with confusion. Patient was apparently found by home health aide confused at home. There was also a question whether patient had falling. Patient could not provide much history in view of his presenting complaints. In the ED CTA of the chest obtained as part of patient evaluation demonstrated right lower lobe infiltrate consistent with aspiration. Patient was also found to have acute cystitis. His blood glucose at home recorded by his home office representative was greater than 500. Past Medical History Past Medical History (Chronic Problems): Chronic Problems (Last Reviewed 09/01/18 @ 15:45 by Ovidio Ibarra MD) CVA (cerebral vascular accident) (Chronic) Status post acute ischemic stroke with residual lower extremity weakness mild Carotid bruit (Chronic) Encounter for long-term current use of high risk medication (Chronic) Reviewed medications with family to be sure patient was taking remainder of medications correctly and there were no duplicates Atherosclerotic heart disease of [place] coronary artery without angina pectoris (Chronic) Hyperlipidemia (Chronic) Diverticulitis (Chronic) Hypertension (Chronic) 104/64 Medical History: Medical History (Last Reviewed 09/01/18 @ 15:45 by Ovidio Ibarra MD) CVA (cerebral vascular accident) (Chronic) I63.9 Status post acute ischemic stroke with residual lower extremity weakness mild Carotid bruit (Chronic) R09.89 Atherosclerotic heart disease of [place] coronary artery without angina pectoris (Chronic) I25.10 Hyperlipidemia (Chronic) E78.5 Diverticulitis (Chronic) K57.92 Hypertension (Chronic) I10 104/64 GERD (gastroesophageal reflux disease) K21.9 GI bleed K92.2 OAB (overactive bladder) N32.81 Type 2 diabetes mellitus E11.9 Allergies alfuzosin Allergy (Verified 09/01/18 11:37) Other chlorpromazine [From Thorazine] Allergy (Verified 09/01/18 11:37) Other Penicillins Allergy (Verified 09/01/18 11:37) Rash Sulfa (Sulfonamide Antibiotics) Allergy (Verified 09/01/18 11:37) Swelling lisinopril Adverse Reaction (Verified 09/01/18 11:37) Other Home Medications: Ambulatory Orders Medication Instructions Recorded Polyethylene Glycol 3350 [Miralax] 0.5 pack PO DAILY 06/06/17 albuterol sulfate HFA 90 2 puff INHALATION Q6H PRN PRN 12/26/17 mcg/actuation aerosol inhaler Atorvastatin Calcium [Lipitor] 80 mg PO QHS 01/03/18 Ranitidine HCl [Acid Control] 300 mg PO QHS 01/03/18 Baclofen [Lioresal] 5 mg PO BIDCM tab 01/06/18 insulin lispro (U- 100) 100 See Rx Instructions SC TIDCM ml 01/23/18 unit/mL subcutaneous solution Ipratropium [place] 0.06% 2 spray NASAL BID 05/25/18 [ATROVENT NASAL SPRAY] atenolol 25 mg tablet 75 mg PO DAILY 07/10/18 Aspirin [Aspirin, Baby] 81 mg PO DAILY@0800 #30 tab.chew 08/12/18 Insulin Lispro [Humalog KwikPen] See Protocol SC ACHS insuln.pen 08/12/18 Clopidogrel Bisulfate [Clopidogrel] 75 mg PO DAILY 09/01/18 Insulin Detemir [Levemir Flextouch] 26 unit SC QHS 09/01/18 Surgical History: Surgical History (Last Reviewed 09/01/18 @ 15:45 by Ovidio Ibarra MD) H/O repair of rotator cuff Z98.890 History of carotid endarterectomy Z98.890 History of cataract surgery Z98.49 History of hemorrhoidectomy Z98.890 Surgical History: - - L Rotator cuff surgery, BL carotid endarterectomies, hemorrhoidectomy, T+A. Psychiatric History: No pertinent psych hx Smoking Status: Former smoker - *Family History Maternal Family History: Family History (Last Reviewed 09/01/18 @ 15:45 by Ovidio Ibarra MD) Brother Kidney disease Mother CVA (cerebral vascular accident) Father Liver cirrhosis History Items: Diabetes, Heart Disease, Stroke Paternal Family History: Family History (Last Reviewed 09/01/18 @ 15:45 by Ovidio Ibarra MD) Brother Kidney disease Mother CVA (cerebral vascular accident) Father Liver cirrhosis History Items: - - Patient notes father was an alcoholic with cirrhosis in addition to heart disease. Sibling Family History: Family History (Last Reviewed 09/01/18 @ 15:45 by Ovidio Ibarra MD) Brother Kidney disease Mother CVA (cerebral vascular accident) Father Liver cirrhosis History Items: No pertinent history Review of Systems Unable to obtain accurate/complete ROS d/t: Patient presenting with confusion VTE Information - Inpt Only VTE Present on Admission: No VTE Mechan Device Prophylaxis: Knee High CARIN Hose VTE Pharm Prophylaxis ordered?: Yes Patient Problems: Active and Suspected Problems (Last Reviewed 09/01/18 @ 15:45 by Ovidio Ibarra MD) Confusion (Acute) Aspiration pneumonia (Acute) Acute cystitis (Acute) Objective: GENERAL: Patient hiccuping HEENT: Atraumatic; moist oral mucosa EYES; Anicteric, Normal Conjunctiva NECK; supple, normal thyroid, no distended JVD. RESPIRATORY: Diminished to auscultation bilaterally, CARDIOVASCULAR: Regular S1 S2, no audible murmurs GI: soft, non-tender, normoactive bowel sounds, : No Renal angle tenderness; EXTREMITIES: No edema, no clubbing, no cyanosis. MUSCULOSKELETAL: No Joint Tenderness; no muscle waisting NEURO: Awake; no lateralizing signs. SKIN: No Rash PSYCH; flat affect - Physical Exam Vital Signs Temp Pulse Resp BP Pulse Ox 98.4 F 95 23 H 118/63 90 09/01/18 10:58 09/01/18 15:11 09/01/18 15:11 09/01/18 15:11 09/01/18 15:11 Oxygen Delivery Method Room Air Weight: 73.482 kg Body Mass Index (BMI) 24.6 Finger Stick Blood Glucose 226 Laboratory Tests Past 24 Hrs 09/01/18 09/01/18 09/01/18 11:30 11:30 11:30 WBC 8.1 RBC 4.72 Hgb 14.2 Hct 42.5 MCV 90.0 MCH 30.1 MCHC 33.4 RDW 14.9 H RDW Differential 48.9 H Plt Count 189 MPV 11.1 Immature Gran % (Auto) 0.100 Neut % (Auto) 84.9 H Lymph % (Auto) 9.1 L [place] % (Auto) 5.9 Eos % (Auto) 0.0 Baso % (Auto) 0.0 Absolute Neuts (auto) 6.9 Absolute Lymphs (auto) 0.74 L Total Counted Not Reportable PT 15.5 H INR 1.3 APTT 30.9 Sodium 141 Potassium 3.7 Chloride 106 Carbon Dioxide 22.0 Anion Gap 13 BUN 21 H Creatinine 1.47 H Estim Creat Clear Calc 37.48 Est GFR (MDRD) Af Amer 59 L Est GFR (MDRD) Non-Af 49 L BUN/Creatinine Ratio 14.3 Glucose 294 H Calcium 8.2 L Total Bilirubin 0.80 AST 16 ALT 13 L Alkaline Phosphatase 120 H Troponin I 0.031 Total Protein 7.0 Albumin 3.2 Globulin 3.8 Albumin/Globulin Ratio 0.8 L Lipase 26 L Urine Color Urine Clarity Urine pH Ur Specific [place] Urine Protein Urine Glucose (UA) Urine Ketones Urine Occult Blood Urine Nitrite Urine Bilirubin Urine Urobilinogen Ur Leukocyte Esterase Urine RBC Urine WBC Ur Squamous Epith Cells Urine Bacteria Urine Mucus Ethyl Alcohol 09/01/18 09/01/18 11:30 12:00 WBC RBC Hgb Hct MCV MCH MCHC RDW RDW Differential Plt Count MPV Immature Gran % (Auto) Neut % (Auto) Lymph % (Auto) [place] % (Auto) Eos % (Auto) Baso % (Auto) Absolute Neuts (auto) Absolute Lymphs (auto) Total Counted PT INR APTT Sodium Potassium Chloride Carbon Dioxide Anion Gap BUN Creatinine Estim Creat Clear Calc Est GFR (MDRD) Af Amer Est GFR (MDRD) Non-Af BUN/Creatinine Ratio Glucose Calcium Total Bilirubin AST ALT Alkaline Phosphatase Troponin I Total Protein Albumin Globulin Albumin/Globulin Ratio Lipase Urine Color Yellow Urine Clarity Sl. Cloudy Urine pH 5.0 Ur Specific [place] 1.020 Urine Protein 30 H Urine Glucose (UA) 1000 H Urine Ketones 5 H Urine Occult Blood Negative Urine Nitrite Negative Urine Bilirubin Negative Urine Urobilinogen 1 H Ur Leukocyte Esterase 500 H Urine RBC 0 SEEN Urine WBC 25-50 SEEN Ur Squamous Epith Cells 0-5 SEEN Urine Bacteria 1+ Urine Mucus 0 SEEN Ethyl Alcohol 4.0 POC Glucose 09/01/18 11:10 POC Glucose 267 H Assessment/Plan All Active Problems (Last Reviewed 09/01/18 @ 15:45 by Ovidio Ibarra MD) Confusion (Acute) Aspiration pneumonia (Acute) Acute cystitis (Acute) Ataxia (Resolved) Chest pain (Resolved) Dizzinesses (Resolved) GI bleed (Resolved) Hypoglycemia (Resolved) Sepsis (Resolved) Patient is an 83-year-old gentleman with multiple comorbidities including diabetes mellitus type 2, previous CVA, admitted with altered mental status 1. Acute metabolic encephalopathy secondary to patient hyperglycemia. Patient has been admitted to regular nursing floor for subsequent treatment of his hyperglycemia as well as his other admitting comorbidities 2. Right lower lobe infiltrate secondary to suspected aspiration pneumonia patient was kept n.p.o. pending speech and swallow evaluation. Started on Levaquin and clindamycin admitted to regular nursing floor. In addition to above patient was placed on aerosol treatment and supplemental oxygen titrated to keep oxygen saturation greater than 90 3. Diabetes mellitus type 2 uncontrolled with hyperglycemia with patient being kept n.p.o. we held off with his long-acting insulin instead covered with sliding scale coverage 4. Carotid artery disease with previous bilateral endarterectomy 5. History of previous CVA with no residual effects 6. Dyslipidemia-patient is on statin therapy, continued at home dose 7. Mild CAD 8. GERD 9. BPH 10. DVT prophylaxis SC Lovenox Clinical Impression(s) from Imaging Studies Chest X-Ray 09/01/18 11:27 IMPRESSION: Right lower lobe infiltrate. Electronically Signed: Angel Mabry, at 12:16 EDT , Service support , Brain CT 09/01/18 12:19 IMPRESSION: Chronic involutional changes of the brain. Electronically Signed: Angel Mabry, at 14:21 EDT , Service support , Chest CTA 09/01/18 12:19 IMPRESSION: Diffuse emphysematous changes with bullous formation worse in the right upper lobe. Infiltration in the right lower lobe superimposed on bibasilar scarring worse on the right side. Electronically Signed: Angel Mabry, at 14:25 EDT , Service support , Code Visit Inpatient E&M: [id number] Init Hosp L3
--- NOTE | 2018-09-01 16:36 | CASEMGMT ---
RN CM Assessment Introduced role of RN CM to family at bedside, information obtained from Daughter Xochitl who appeared abrupt with this sheet writer as patient was actively spitting up when CM entered and provided them with tissue and emesis bag. Daughter denied any further needs when CM inquired. Care providers, pharmacy, and demographics verified. Presentation: Admitted for PNA. CC: Weakness, Confusion, Difficulty following directions. H/o CVA. Currently getting [facility] and refferal from last admit 08/11-08/12/18 obs for CVA- was DC'd with [facility] and CCN referral- per daughter CCN has not started yet. PCP: Dr Ronald Flannery Specialists: Cardio- Dr Covarrubias, Neuro- Dr Lee, Endo- Dr Ish Negron Preferred Pharmacy: [facility] Insurance: Medicare A&B, [employer] Accidental Prescription Benefit: Yes LNOK: Sari Acosta, and daughter Lachelle Lee Living Arrangements: Lives alone in a 2 story home, [facility] but stays mostly lower level. Daughters/son-in-law visit frequently and assist with some ADL's such as meals, transportation, etc. Patient otherwise independent. Transportation: Daughter/son-in-law DME: Cane, Walker, Grab bars, Shower Chair, CPAP. HHC: [facility] Currently SNF: [facility] and [facility] in past. DC PLAN: If patient still confused, may need SNF for Medication- Abx and PT/OT vs. SW Consult for In home support. Rodrigo Yi RNCM
[2018-09-01] MEDS: 0.9% Normal Saline 1,000 ML 75 ML IV (16:58)
[2018-09-01 17:11] LABS: Bedside Glucose 305 mg/dL (70-110)
[2018-09-01] MEDS: Insulin Lispro 100 UNIT/ML INSULN.PEN SQ ×2 (17:12→21:54)
[2018-09-01] MEDS: Baclofen 10 MG Tablet 5 MG PO (17:13)
[2018-09-01] MEDS: levoFLOXacin IV 750 MG/150 ML BAG 100 MG IV (18:27)
[2018-09-01] MEDS: Ipratropium Bromide 0.06% NASAL SPRAY 2 SPRAY NASAL (21:50)
[2018-09-01] MEDS: Atorvastatin Calcium 80 MG Tablet PO (21:50)
[2018-09-01] MEDS: guaiFENesin 1,200 MG Tablet 1200 MG PO (21:50)
[2018-09-01] MEDS: Famotidine 20 MG Tablet PO (21:50)
[2018-09-01 22:36] LABS: Bedside Glucose 319 mg/dL (70-110)
[2018-09-02] VITALS (8 sets, daily range): BP systolic 97–143; BP diastolic 53–77; PULSE 82–88; RESP 16–26; TEMP 36.8–37.2; O2SAT 91–96
[2018-09-02] MEDS: Ipratropium/Albuterol Sulfate 3 ML AMPUL.NEB INHALATION ×2 (06:27→19:06)
[2018-09-02] MEDS: Insulin Lispro 100 UNIT/ML INSULN.PEN SQ ×4 (06:32→22:04)
[2018-09-02 06:41] LABS: Bedside Glucose 244 mg/dL (70-110)
[2018-09-02 07:00] LABS: Hematocrit 33.4 % (40-54); Hemoglobin 11.2 g/dl (13.0-16.5); Mean Corp Hgb Conc 33.5 g/gl (32-36); Mean Corpuscular Hgb 30.3 pg (27.0-32.0); Mean Corpuscular Volume 90.3 fL (80-94); Mean Platelet Vol. 10.9 fl (6.2-12.0); Platelet Count 149 K/mm3 (150-450); RBC Distribution Width CV 15.3 % (11.6-14.6); RBC Distribution Width SD 50.6 fl (35.1-43.9); White Blood Count 8.5 K/mm3 (4.4-11.0)
[2018-09-02 07:04] LABS: Scan Indicated on CBC? Y/N NO
[2018-09-02 07:15] LABS: Anion Gap 8 (5-15); BUN 15 mg/dL (7-18); BUN/Creat Ratio 13.8 RATIO (10-20); Calcium,Total 7.8 mg/dL (8.5-10.1); Chloride 107 mmol/L (98-107); Creatinine, Serum 1.09 mg/dL (0.70-1.30); EST Glomerular Filtration Rate 69 mL/min (>60); Est Glom Filt Rate - Afr Amer 83 mL/min (>60); Estimated Creatinine Clearance 50.55 ml/min; Glucose 227 mg/dL (74-106); Magnesium 1.8 mg/dL (1.6-2.6); Potassium 3.7 mmol/L (3.5-5.1); Sodium Level 139 mmol/L (136-145)
[2018-09-02] MEDS: 0.9% Normal Saline 1,000 ML 75 ML IV ×2 (08:20→22:42)
[2018-09-02] MEDS: Baclofen 10 MG Tablet 5 MG PO ×2 (08:21→17:10)
[2018-09-02] MEDS: Aspirin 81 MG TAB.CHEW PO (08:21)
[2018-09-02] MEDS: Polyethylene Glycol 3350 17 GM PACKET 8.5 GM PO (08:54)
[2018-09-02] MEDS: Enoxaparin 40 MG/0.4 ML Syringe SC (08:56)
[2018-09-02] MEDS: Clopidogrel Bisulfate 75 MG Tablet PO (08:56)
[2018-09-02] MEDS: Atenolol 25 MG Tablet 75 MG PO (08:56)
[2018-09-02] MEDS: Famotidine 20 MG Tablet PO ×2 (08:56→22:04)
[2018-09-02] MEDS: guaiFENesin 1,200 MG Tablet 1200 MG PO ×2 (08:56→22:04)
[2018-09-02] MEDS: Ipratropium Bromide 0.06% NASAL SPRAY 2 SPRAY NASAL ×2 (08:57→22:05)
--- NOTE | 2018-09-02 08:57 | PCM.PN.HOSP ---
Patient Problems: Active and Suspected Problems (Last Reviewed 09/01/18 @ 15:45 by Ovidio Ibarra MD) Confusion (Acute) Aspiration pneumonia (Acute) Acute cystitis (Acute) Subjective: Patient is an 83-year-old gentleman with multiple comorbidities including diabetes mellitus type 2, previous CVA, admitted with altered mental status. An assessment of acute metabolic encephalopathy as well as aspiration pneumonia made patient admitted to regular nursing floor where he is currently being managed Objective: GENERAL: Patient hiccuping HEENT: Atraumatic; moist oral mucosa EYES; Anicteric, Normal Conjunctiva NECK; supple, normal thyroid, no distended JVD. RESPIRATORY: Diminished to auscultation bilaterally, CARDIOVASCULAR: Regular S1 S2, no audible murmurs GI: soft, non-tender, normoactive bowel sounds, : No Renal angle tenderness; EXTREMITIES: No edema, no clubbing, no cyanosis. MUSCULOSKELETAL: No Joint Tenderness; no muscle waisting NEURO: Awake; no lateralizing signs. SKIN: No Rash PSYCH; flat affect Vitals/I&O's: Vital Signs Temp Pulse Resp BP Pulse Ox 98.7 F 87 18 107/57 L 94 09/02/18 08:50 09/02/18 08:50 09/02/18 08:50 09/02/18 08:50 09/02/18 08:50 Oxygen Delivery Method Room Air Weight: 72.8 kg Body Mass Index (BMI) 24.4 Finger Stick Blood Glucose 226 Intake and Output for Last 24 Hours 08/31/18 09/01/18 09/02/18 23:59 23:59 23:59 Intake Total 2655 / 2655 Output Total 700 / 700 Balance 1954 / 1954 Microbiology Past 72 Hours 09/01/18 12:00 Interface Orders Streptococcus pneumoniae Antigen (M - Final 09/01/18 12:00 Interface Orders Legionella Antigen - Final Laboratory Results 09/01/18 11:10: POC Glucose 267 H 09/01/18 11:30: WBC 8.1, RBC 4.72, Hgb 14.2, Hct 42.5, MCV 90.0, MCH 30.1, MCHC 33.4, RDW 14.9 H, RDW Differential 48.9 H, Plt Count 189, MPV 11.1, Immature Gran % (Auto) 0.100, Neut % (Auto) 84.9 H, Lymph % (Auto) 9.1 L, [place] % (Auto) 5.9, Eos % (Auto) 0.0, Baso % (Auto) 0.0, Absolute Neuts (auto) 6.9, Absolute Lymphs (auto) 0.74 L, Total Counted Not Reportable 09/01/18 11:30: PT 15.5 H, INR 1.3, APTT 30.9 09/01/18 11:30: Sodium 141, Potassium 3.7, Chloride 106, Carbon Dioxide 22.0, Anion Gap 13, BUN 21 H, Creatinine 1.47 H, Estim Creat Clear Calc 37.48, Est GFR (MDRD) Af Amer 59 L, Est GFR (MDRD) Non-Af 49 L, BUN/Creatinine Ratio 14.3, Glucose 294 H, Calcium 8.2 L, Total Bilirubin 0.80, AST 16, ALT 13 L, Alkaline Phosphatase 120 H, Troponin I 0.031, Total Protein 7.0, Albumin 3.2, Globulin 3.8, Albumin/Globulin Ratio 0.8 L, Lipase 26 L 09/01/18 11:30: Ethyl Alcohol 4.0 09/01/18 12:00: Urine Color Yellow, Urine Clarity Sl. Cloudy, Urine pH 5.0, Ur Specific [place] 1.020, Urine Protein 30 H, Urine Glucose (UA) 1000 H, Urine Ketones 5 H, Urine Occult Blood Negative, Urine Nitrite Negative, Urine Bilirubin Negative, Urine Urobilinogen 1 H, Ur Leukocyte Esterase 500 H, Urine RBC 0 SEEN, Urine WBC 25-50 SEEN, Ur Squamous Epith Cells 0-5 SEEN, Urine Bacteria 1+, Urine Mucus 0 SEEN 09/01/18 16:56: POC Glucose 305 H 09/01/18 21:53: POC Glucose 319 H 09/02/18 05:45: Sodium 139, Potassium 3.7, Chloride 107, Carbon Dioxide 24.0, Anion Gap 8, BUN 15, Creatinine 1.09, Estim Creat Clear Calc 50.55, Est GFR (MDRD) Af Amer 83, Est GFR (MDRD) Non-Af 69, BUN/Creatinine Ratio 13.8, Glucose 227 H, Calcium 7.8 L, Magnesium 1.8 09/02/18 05:45: WBC 8.5, RBC 3.70 L, Hgb 11.2 L, Hct 33.4 L, MCV 90.3, MCH 30.3, MCHC 33.5, RDW 15.3 H, RDW Differential 50.6 H, Plt Count 149 L, MPV 10.9 09/02/18 06:31: POC Glucose 244 H Current Medications Acetaminophen (Tylenol) 650 mg PO Q6H PRN PRN PRN Reason: Mild Pain (1-3)/Temp > 100.7 F Al Hydroxide/Mg Hydroxide (Mylanta Ii) 30 ml PO Q6H PRN PRN PRN Reason: Gastric burning Albuterol Sulfate (Ventolin Aerosols) 2.5 mg INHALATION Q4H PRN PRN Reason: SOB &/OR WHEEZING Albuterol/Ipratropium (Duoneb) 3 ml INHALATION Q6H.RT [facility] Last Admin: 09/02/18 06:27 Dose: 3 ml Artificial Tears (Tears Naturale, Artificial Tears) 1 - 2 drop EACH EYE Q4H PRN PRN PRN Reason: DRY EYES Aspirin (Aspirin, Baby) 81 mg PO DAILY@0800 [facility] Last Admin: 09/02/18 08:21 Dose: 81 mg Atenolol (Tenormin (Beta Marbin)) 75 mg PO DAILY [facility] Atorvastatin Calcium (Lipitor) 80 mg PO QHS [facility] Last Admin: 09/01/18 21:50 Dose: 80 mg [facility] ([facility]) [facility] Last Admin: 09/02/18 08:21 Dose: 5 mg Clopidogrel Bisulfate (Plavix) 75 mg PO DAILY [facility] Dextrose (D50w Syringe) 0 gm IV X1 PRN; Protocol PRN Reason: Hypoglycemia Enoxaparin Sodium (Lovenox) 40 mg SC DAILY@1000 [facility] Famotidine (Pepcid) 20 mg PO BID [facility] Last Admin: 09/01/18 21:50 Dose: 20 mg Glucagon () 1 mg IM .X1 PRN PRN Reason: Hypoglycemia Guaifenesin (Mucinex) 1,200 mg PO BID [facility] Last Admin: 09/01/18 21:50 Dose: 1,200 mg Sodium Chloride () 1,000 mls @ 75 mls/hr IV .[id number] [facility] Last Admin: 09/02/18 08:20 Dose: 75 mls/hr Clindamycin Phosphate 300 mg/ (Dextrose) 52 mls @ 150 mls/hr IV Q6 [facility] Last Admin: 09/02/18 06:05 Dose: 150 mls/hr Levofloxacin (Levaquin Iv) 750 mg in 150 mls @ 100 mls/hr IV Q48H [facility] Last Admin: 09/01/18 18:27 Dose: 100 mls/hr Insulin Glargine (Lantus (Bk)) 26 units SC QHS [facility] Last Admin: 09/01/18 21:53 Dose: 26 units Insulin Human Lispro (Humalog Kwikpen ([facility])) 0 unit SQ ACHS [facility]; Protocol Last Admin: 09/02/18 06:32 Dose: 4 u Ipratropium [place] (Atrovent Nasal [place] (G)) 2 spray NASAL BID [facility] Last Admin: 09/01/18 21:50 Dose: 2 spray Magnesium Hydroxide (Milk Of Magnesia) 30 ml PO DAILY PRN PRN PRN Reason: Constipation Ondansetron HCl (Zofran) 4 mg IV Q8H PRN PRN PRN Reason: NAUSEA Oxycodone HCl (Oxyir) 5 - 10 mg PO Q4H PRN PRN PRN Reason: MOD-SEVERE PAIN (4-10/10) Polyethylene Glycol (Miralax) 8.5 gm PO DAILY [facility] Psyllium Hydrophilic Mucilloid (Metamucil) 1 packet PO DAILY PRN PRN PRN Reason: CONSTIPATION Sodium Chloride () 5 - 15 ml IV UD PRN PRN Reason: SALINE FLUSH Medical Necessity - Tobacco Use Smoking Status: Former smoker Assessment/Plan All Active Problems (Last Reviewed 09/01/18 @ 15:45 by Ovidio Ibarra MD) Confusion (Acute) Aspiration pneumonia (Acute) Acute cystitis (Acute) Ataxia (Resolved) Chest pain (Resolved) Dizzinesses (Resolved) GI bleed (Resolved) Hypoglycemia (Resolved) Sepsis (Resolved) Patient is an 83-year-old gentleman with multiple comorbidities including diabetes mellitus type 2, previous CVA, admitted with altered mental status 1. Acute metabolic encephalopathy secondary to patient hyperglycemia. Patient has been admitted to regular nursing floor for subsequent treatment of his hyperglycemia as well as his other admitting comorbidities 2. Right lower lobe infiltrate secondary to suspected aspiration pneumonia patient was kept n.p.o. pending speech and swallow evaluation. Started on Levaquin and clindamycin admitted to regular nursing floor. In addition to above patient was placed on aerosol treatment and supplemental oxygen titrated to keep oxygen saturation greater than 90 3. Acute kidney injury present on admission patient was managed with fluids kidney function improving 4. Diabetes mellitus type 2 uncontrolled with hyperglycemia with patient being kept n.p.o. we held off with his long-acting insulin instead covered with sliding scale coverage 5. Chronic hiccups patient is on baclofen 6. Carotid artery disease with previous bilateral endarterectomy 7. History of previous CVA with no residual effects 8. Dyslipidemia-patient is on statin therapy, continued at home dose 9. Mild CAD 10. GERD 11. BPH 12. DVT prophylaxis SC Lovenox Active Medications Acetaminophen (Tylenol) 650 mg PO Q6H PRN PRN PRN Reason: Mild Pain (1-3)/Temp > 100.7 F Al Hydroxide/Mg Hydroxide (Mylanta Ii) 30 ml PO Q6H PRN PRN PRN Reason: Gastric burning Albuterol Sulfate (Ventolin Aerosols) 2.5 mg INHALATION Q4H PRN PRN Reason: SOB &/OR WHEEZING Albuterol/Ipratropium (Duoneb) 3 ml INHALATION Q6H.RT [facility] Last Admin: 09/02/18 06:27 Dose: 3 ml Artificial Tears (Tears [place], Artificial Tears) 1 - 2 drop EACH EYE Q4H PRN PRN PRN Reason: DRY EYES Aspirin (Aspirin, Baby) 81 mg PO DAILY@0800 [facility] Last Admin: 09/02/18 08:21 Dose: 81 mg Atenolol (Tenormin (Beta [place]bin)) 75 mg PO DAILY [facility] Last Admin: 09/02/18 08:56 Dose: 75 mg Atorvastatin Calcium (Lipitor) 80 mg PO QHS [facility] Last Admin: 09/01/18 21:50 Dose: 80 mg Baclofen (Lioresal) 5 mg PO BIDCM [facility] Last Admin: 09/02/18 08:21 Dose: 5 mg Clopidogrel Bisulfate (Plavix) 75 mg PO DAILY [facility] Last Admin: 09/02/18 08:56 Dose: 75 mg Dextrose (D50w Syringe) 0 gm IV X1 PRN; Protocol PRN Reason: Hypoglycemia Enoxaparin Sodium (Lovenox) 40 mg SC DAILY@1000 [facility] Last Admin: 09/02/18 08:56 Dose: 40 mg Famotidine (Pepcid) 20 mg PO BID [facility] Last Admin: 09/02/18 08:56 Dose: 20 mg Glucagon () 1 mg IM .X1 PRN PRN Reason: Hypoglycemia Guaifenesin (Mucinex) 1,200 mg PO BID [facility] Last Admin: 09/02/18 08:56 Dose: 1,200 mg Sodium Chloride () 1,000 mls @ 75 mls/hr IV .[id number] [facility] Last Admin: 09/02/18 08:20 Dose: 75 mls/hr Clindamycin Phosphate 300 mg/ (Dextrose) 52 mls @ 150 mls/hr IV Q6 [facility] Last Admin: 09/02/18 06:05 Dose: 150 mls/hr Levofloxacin (Levaquin Iv) 750 mg in 150 mls @ 100 mls/hr IV Q48H [facility] Last Admin: 09/01/18 18:27 Dose: 100 mls/hr Insulin Glargine (Lantus (Bkc)) 26 units SC QHS [facility] Last Admin: 09/01/18 21:53 Dose: 26 units Insulin Human Lispro (Humalog Kwikpen (Bkc)) 0 unit SQ ACHS [facility]; Protocol Last Admin: 09/02/18 06:32 Dose: 4 u Ipratropium [place] (Atrovent Nasal [place] (G)) 2 spray NASAL BID [facility] Last Admin: 09/02/18 08:57 Dose: 2 spray Magnesium Hydroxide (Milk Of Magnesia) 30 ml PO DAILY PRN PRN PRN Reason: Constipation Ondansetron HCl (Zofran) 4 mg IV Q8H PRN PRN PRN Reason: NAUSEA Oxycodone HCl (Oxyir) 5 - 10 mg PO Q4H PRN PRN PRN Reason: MOD-SEVERE PAIN (4-10/10) Polyethylene Glycol (Miralax) 8.5 gm PO DAILY [facility] Last Admin: 09/02/18 08:54 Dose: 8.5 gm Psyllium Hydrophilic Mucilloid (Metamucil) 1 packet PO DAILY PRN PRN PRN Reason: CONSTIPATION Sodium Chloride () 5 - 15 ml IV UD PRN PRN Reason: SALINE FLUSH Code Visit Inpatient E&M: [id number] [facility]
--- NOTE | 2018-09-02 09:02 | PN_ITS ---
Patient Problems: Active and Suspected Problems (Last Reviewed 09/01/18 @ 15:45 by Ovidio Ibrara MD) Confusion (Acute) Aspiration pneumonia (Acute) Acute cystitis (Acute) Subjective: Patient is an 83-year-old gentleman with multiple comorbidities including diabetes mellitus type 2, previous CVA, admitted with altered mental status. An assessment of acute metabolic encephalopathy as well as aspiration pneumonia made patient admitted to regular nursing floor where he is currently being managed Objective: GENERAL: Patient hiccuping HEENT: Atraumatic; moist oral mucosa EYES; Anicteric, Normal Conjunctiva NECK; supple, normal thyroid, no distended JVD. RESPIRATORY: Diminished to auscultation bilaterally, CARDIOVASCULAR: Regular S1 S2, no audible murmurs GI: soft, non-tender, normoactive bowel sounds, : No Renal angle tenderness; EXTREMITIES: No edema, no clubbing, no cyanosis. MUSCULOSKELETAL: No Joint Tenderness; no muscle waisting NEURO: Awake; no lateralizing signs. SKIN: No Rash PSYCH; flat affect Vitals/I&O's: Vital Signs Temp Pulse Resp BP Pulse Ox 98.7 F 87 18 107/57 L 94 09/02/18 08:50 09/02/18 08:50 09/02/18 08:50 09/02/18 08:50 09/02/18 08:50 Oxygen Delivery Method Room Air Weight: 72.8 kg Body Mass Index (BMI) 24.4 Finger Stick Blood Glucose 226 Intake and Output for Last 24 Hours 08/31/18 09/01/18 09/02/18 23:59 23:59 23:59 Intake Total 2655 / 2655 Output Total 700 / 700 Balance 1954 / 1954 Microbiology Past 72 Hours 09/01/18 12:00 Interface Orders Streptococcus pneumoniae Antigen (M - Final 09/01/18 12:00 Interface Orders Legionella Antigen - Final Laboratory Results 09/01/18 11:10: POC Glucose 267 H 09/01/18 11:30: WBC 8.1, RBC 4.72, Hgb 14.2, Hct 42.5, MCV 90.0, MCH 30.1, MCHC 33.4, RDW 14.9 H, RDW Differential 48.9 H, Plt Count 189, MPV 11.1, Immature Gran % (Auto) 0.100, Neut % (Auto) 84.9 H, Lymph % (Auto) 9.1 L, [place] % (Auto) 5.9, Eos % (Auto) 0.0, Baso % (Auto) 0.0, Absolute Neuts (auto) 6.9, Absolute Lymphs (auto) 0.74 L, Total Counted Not Reportable 09/01/18 11:30: PT 15.5 H, INR 1.3, APTT 30.9 09/01/18 11:30: Sodium 141, Potassium 3.7, Chloride 106, Carbon Dioxide 22.0, Anion Gap 13, BUN 21 H, Creatinine 1.47 H, Estim Creat Clear Calc 37.48, Est GFR (MDRD) Af Amer 59 L, Est GFR (MDRD) Non-Af 49 L, BUN/Creatinine Ratio 14.3, Glucose 294 H, Calcium 8.2 L, Total Bilirubin 0.80, AST 16, ALT 13 L, Alkaline Phosphatase 120 H, Troponin I 0.031, Total Protein 7.0, Albumin 3.2, Globulin 3.8, Albumin/Globulin Ratio 0.8 L, Lipase 26 L 09/01/18 11:30: Ethyl Alcohol 4.0 09/01/18 12:00: Urine Color Yellow, Urine Clarity Sl. Cloudy, Urine pH 5.0, Ur Specific House 1.020, Urine Protein 30 H, Urine Glucose (UA) 1000 H, Urine Ketones 5 H, Urine Occult Blood Negative, Urine Nitrite Negative, Urine Bilirubin Negative, Urine Urobilinogen 1 H, Ur Leukocyte Esterase 500 H, Urine RBC 0 SEEN, Urine WBC 25-50 SEEN, Ur Squamous Epith Cells 0-5 SEEN, Urine Bacteria 1+, Urine Mucus 0 SEEN 09/01/18 16:56: POC Glucose 305 H 09/01/18 21:53: POC Glucose 319 H 09/02/18 05:45: Sodium 139, Potassium 3.7, Chloride 107, Carbon Dioxide 24.0, Anion Gap 8, BUN 15, Creatinine 1.09, Estim Creat Clear Calc 50.55, Est GFR (MDRD) Af Amer 83, Est GFR (MDRD) Non-Af 69, BUN/Creatinine Ratio 13.8, Glucose 227 H, Calcium 7.8 L, Magnesium 1.8 09/02/18 05:45: WBC 8.5, RBC 3.70 L, Hgb 11.2 L, Hct 33.4 L, MCV 90.3, MCH 30.3, MCHC 33.5, RDW 15.3 H, RDW Differential 50.6 H, Plt Count 149 L, MPV 10.9 09/02/18 06:31: POC Glucose 244 H Current Medications Acetaminophen (Tylenol) 650 mg PO Q6H PRN PRN PRN Reason: Mild Pain (1-3)/Temp > 100.7 F Al Hydroxide/Mg Hydroxide (Mylanta Ii) 30 ml PO Q6H PRN PRN PRN Reason: Gastric burning Albuterol Sulfate (Ventolin Aerosols) 2.5 mg INHALATION Q4H PRN PRN Reason: SOB &/OR WHEEZING Albuterol/Ipratropium (Duoneb) 3 ml INHALATION Q6H.RT [facility] Last Admin: 09/02/18 06:27 Dose: 3 ml Artificial Tears (Tears Naturale, Artificial Tears) 1 - 2 drop EACH EYE Q4H PRN PRN PRN Reason: DRY EYES Aspirin (Aspirin, Baby) 81 mg PO DAILY@0800 [facility] Last Admin: 09/02/18 08:21 Dose: 81 mg Atenolol (Tenormin (Beta Marbin)) 75 mg PO DAILY [facility] Atorvastatin Calcium (Lipitor) 80 mg PO QHS [facility] Last Admin: 09/01/18 21:50 Dose: 80 mg Baclofen (Lioresal) [facility] Last Admin: 09/02/18 08:21 Dose: 5 mg Clopidogrel Bisulfate (Plavix) 75 mg PO DAILY [facility] Dextrose (D50w Syringe) 0 gm IV X1 PRN; Protocol PRN Reason: Hypoglycemia Enoxaparin Sodium (Lovenox) 40 mg SC DAILY@1000 [facility] Famotidine (Pepcid) 20 mg PO BID [facility] Last Admin: 09/01/18 21:50 Dose: 20 mg Glucagon () 1 mg IM .X1 PRN PRN Reason: Hypoglycemia Guaifenesin (Mucinex) 1,200 mg PO BID [facility] Last Admin: 09/01/18 21:50 Dose: 1,200 mg Sodium Chloride () 1,000 mls @ 75 mls/hr IV .[id number] [facility] Last Admin: 09/02/18 08:20 Dose: 75 mls/hr Clindamycin Phosphate 300 mg/ (Dextrose) 52 mls @ 150 mls/hr IV Q6 [facility] Last Admin: 09/02/18 06:05 Dose: 150 mls/hr Levofloxacin (Levaquin Iv) 750 mg in 150 mls @ 100 mls/hr IV Q48H [facility] Last Admin: 09/01/18 18:27 Dose: 100 mls/hr Insulin Glargine (Lantus (Bk)) 26 units SC QHS [facility] Last Admin: 09/01/18 21:53 Dose: 26 units Insulin Human Lispro (Humalog Kwikpen ([facility])) 0 unit SQ ACHS [facility]; Protocol Last Admin: 09/02/18 06:32 Dose: 4 u Ipratropium [place] (Atrovent Nasal [place] (G)) 2 spray NASAL BID [facility] Last Admin: 09/01/18 21:50 Dose: 2 spray Magnesium Hydroxide (Milk Of Magnesia) 30 ml PO DAILY PRN PRN PRN Reason: Constipation Ondansetron HCl (Zofran) 4 mg IV Q8H PRN PRN PRN Reason: NAUSEA Oxycodone HCl (Oxyir) 5 - 10 mg PO Q4H PRN PRN PRN Reason: MOD-SEVERE PAIN (4-10/10) Polyethylene Glycol (Miralax) 8.5 gm PO DAILY [facility] Psyllium Hydrophilic Mucilloid (Metamucil) 1 packet PO DAILY PRN PRN PRN Reason: CONSTIPATION Sodium Chloride () 5 - 15 ml IV UD PRN PRN Reason: SALINE FLUSH Medical Necessity - Tobacco Use Smoking Status: Former smoker Assessment/Plan All Active Problems (Last Reviewed 09/01/18 @ 15:45 by Ovidio Ibarra MD) Confusion (Acute) Aspiration pneumonia (Acute) Acute cystitis (Acute) Ataxia (Resolved) Chest pain (Resolved) Dizzinesses (Resolved) GI bleed (Resolved) Hypoglycemia (Resolved) Sepsis (Resolved) Patient is an 83-year-old gentleman with multiple comorbidities including diabetes mellitus type 2, previous CVA, admitted with altered mental status 1. Acute metabolic encephalopathy secondary to patient hyperglycemia. Patient has been admitted to regular nursing floor for subsequent treatment of his hyperglycemia as well as his other admitting comorbidities 2. Right lower lobe infiltrate secondary to suspected aspiration pneumonia patient was kept n.p.o. pending speech and swallow evaluation. Started on Levaquin and clindamycin admitted to regular nursing floor. In addition to above patient was placed on aerosol treatment and supplemental oxygen titrated to keep oxygen saturation greater than 90 3. Acute kidney injury present on admission patient was managed with fluids kidney function improving 4. Diabetes mellitus type 2 uncontrolled with hyperglycemia with patient being kept n.p.o. we held off with his long-acting insulin instead covered with sliding scale coverage 5. Chronic hiccups patient is on baclofen 6. Carotid artery disease with previous bilateral endarterectomy 7. History of previous CVA with no residual effects 8. Dyslipidemia-patient is on statin therapy, continued at home dose 9. Mild CAD 10. GERD 11. BPH 12. DVT prophylaxis SC Lovenox Active Medications Acetaminophen (Tylenol) 650 mg PO Q6H PRN PRN PRN Reason: Mild Pain (1-3)/Temp > 100.7 F Al Hydroxide/Mg Hydroxide (Mylanta Ii) 30 ml PO Q6H PRN PRN PRN Reason: Gastric burning Albuterol Sulfate (Ventolin Aerosols) 2.5 mg INHALATION Q4H PRN PRN Reason: SOB &/OR WHEEZING Albuterol/Ipratropium (Duoneb) 3 ml INHALATION Q6H.RT [facility] Last Admin: 09/02/18 06:27 Dose: 3 ml Artificial Tears (Tears Naturale, Artificial Tears) 1 - 2 drop EACH EYE Q4H PRN PRN PRN Reason: DRY EYES Aspirin (Aspirin, Baby) 81 mg PO DAILY@0800 [facility] Last Admin: 09/02/18 08:21 Dose: 81 mg Atenolol (Tenormin (Beta Marbin)) 75 mg PO DAILY [facility] Last Admin: 09/02/18 08:56 Dose: 75 mg Atorvastatin Calcium (Lipitor) 80 mg PO QHS [facility] Last Admin: 09/01/18 21:50 Dose: 80 mg Baclofen (Lioresal) 5 mg PO BIDCM [facility] Last Admin: 09/02/18 08:21 Dose: 5 mg Clopidogrel Bisulfate (Plavix) 75 mg PO DAILY [facility] Last Admin: 09/02/18 08:56 Dose: 75 mg Dextrose (D50w Syringe) 0 gm IV X1 PRN; Protocol PRN Reason: Hypoglycemia Enoxaparin Sodium (Lovenox) 40 mg SC DAILY@1000 [facility] Last Admin: 09/02/18 08:56 Dose: 40 mg Famotidine (Pepcid) 20 mg PO BID [facility] Last Admin: 09/02/18 08:56 Dose: 20 mg Glucagon () 1 mg IM .X1 PRN PRN Reason: Hypoglycemia Guaifenesin (Mucinex) 1,200 mg PO BID [facility] Last Admin: 09/02/18 08:56 Dose: 1,200 mg Sodium Chloride () 1,000 mls @ 75 mls/hr IV .[id number] [facility] Last Admin: 09/02/18 08:20 Dose: 75 mls/hr Clindamycin Phosphate 300 mg/ (Dextrose) 52 mls @ 150 mls/hr IV Q6 [facility] Last Admin: 09/02/18 06:05 Dose: 150 mls/hr Levofloxacin (Levaquin Iv) 750 mg in 150 mls @ 100 mls/hr IV Q48H [facility] Last Admin: 09/01/18 18:27 Dose: 100 mls/hr Insulin Glargine (Lantus (Bkc)) 26 units SC QHS [facility] Last Admin: 09/01/18 21:53 Dose: 26 units Insulin Human Lispro (Humalog Kwikpen (Bkc)) 0 unit SQ ACHS [facility]; Protocol Last Admin: 09/02/18 06:32 Dose: 4 u Ipratropium [place] (Atrovent Nasal [place] (G)) 2 spray NASAL BID [facility] Last Admin: 09/02/18 08:57 Dose: 2 spray Magnesium Hydroxide (Milk Of Magnesia) 30 ml PO DAILY PRN PRN PRN Reason: Constipation Ondansetron HCl (Zofran) 4 mg IV Q8H PRN PRN PRN Reason: NAUSEA Oxycodone HCl (Oxyir) 5 - 10 mg PO Q4H PRN PRN PRN Reason: MOD-SEVERE PAIN (4-10/10) Polyethylene Glycol (Miralax) 8.5 gm PO DAILY [facility] Last Admin: 09/02/18 08:54 Dose: 8.5 gm Psyllium Hydrophilic Mucilloid (Metamucil) 1 packet PO DAILY PRN PRN PRN Reason: CONSTIPATION Sodium Chloride () 5 - 15 ml IV UD PRN PRN Reason: SALINE FLUSH Code Visit Inpatient E&M: [id number] [facility] Hosp
[2018-09-02 12:10] LABS: Bedside Glucose 288 mg/dL (70-110)
--- NOTE | 2018-09-02 15:49 | CHAPLAIN ---
Type of Pastoral Visit _x__ Initial Visit ___ Follow-up Visit ___ On-call Visit ___ General Patient Visit ___ Spiritual Assessment ___ Family Conference ___ Bereavement ___ Rapid Response ___ Code Blue ___ Other (describe below) Pastoral Care Referral From _x__ Patient ___ Family ___ Nurse ___ Physician ___ Machine Silk Screen Printer ___ Stogy Roller ___ Other (describe below) Sacrament/Intervention _x__ Active listening ___ Anointing ___ Yarsanism ___ Bereavement ___ Communion ___ Jazmine exploration ___ ___ Life review _x__ Prayer ___ Reconciliation ___ Sacrament of Sick _x__ Supportive presence ___ Wedding ___ Other (describe below) Pastoral Comments
[2018-09-02 16:46] LABS: Bedside Glucose 200 mg/dL (70-110)
[2018-09-02] MEDS: Atorvastatin Calcium 80 MG Tablet PO (22:04)
[2018-09-02 22:26] LABS: Bedside Glucose 198 mg/dL (70-110)
[2018-09-03] VITALS (8 sets, daily range): BP systolic 123–152; BP diastolic 63–66; PULSE 74–91; RESP 14–20; TEMP 36.6–36.9; O2SAT 94–97
[2018-09-03 05:58] LABS: Hematocrit 35.7 % (40-54); Mean Corp Hgb Conc 33.6 g/gl (32-36); Mean Corpuscular Hgb 30.5 pg (27.0-32.0); Mean Corpuscular Volume 90.8 fL (80-94); Mean Platelet Vol. 10.9 fl (6.2-12.0); Platelet Count 135 K/mm3 (150-450); RBC Distribution Width CV 14.9 % (11.6-14.6); RBC Distribution Width SD 48.5 fl (35.1-43.9); Red Blood Count 3.93 M/mm3 (4.6-6.2); White Blood Count 7.3 K/mm3 (4.4-11.0)
[2018-09-03 06:11] LABS: Scan Indicated on CBC? Y/N NO
[2018-09-03 06:25] LABS: Anion Gap 9 (5-15); BUN 11 mg/dL (7-18); BUN/Creat Ratio 11.7 RATIO (10-20); Calcium,Total 7.7 mg/dL (8.5-10.1); Chloride 109 mmol/L (98-107); Creatinine, Serum 0.94 mg/dL (0.70-1.30); EST Glomerular Filtration Rate 82 mL/min (>60); Est Glom Filt Rate - Afr Amer 99 mL/min (>60); Estimated Creatinine Clearance 58.62 ml/min; Glucose 211 mg/dL (74-106); Potassium 3.6 mmol/L (3.5-5.1); Sodium Level 141 mmol/L (136-145)
[2018-09-03] MEDS: Ipratropium/Albuterol Sulfate 3 ML AMPUL.NEB INHALATION ×3 (06:35→19:32)
[2018-09-03] MEDS: Insulin Lispro 100 UNIT/ML INSULN.PEN SQ ×4 (06:37→21:42)
[2018-09-03 06:46] LABS: Bedside Glucose 268 mg/dL (70-110)
[2018-09-03] MEDS: Aspirin 81 MG TAB.CHEW PO (08:14)
[2018-09-03] MEDS: Baclofen 10 MG Tablet 5 MG PO ×2 (08:14→15:46)
--- NOTE | 2018-09-03 09:41 | PCM.PN.HOSP ---
Patient Problems: Active and Suspected Problems (Last Reviewed 09/01/18 @ 15:45 by Ovidio Ibarra MD) Confusion (Acute) Aspiration pneumonia (Acute) Acute cystitis (Acute) Subjective: Patient seen clinical condition continues to improve. He however complains of weakness in his legs. Currently receiving physical therapy with plans for patient to be transferred to residential facility when medically stable Objective: GENERAL: Patient hiccuping HEENT: Atraumatic; moist oral mucosa EYES; Anicteric, Normal Conjunctiva NECK; supple, normal thyroid, no distended JVD. RESPIRATORY: Diminished to auscultation bilaterally, CARDIOVASCULAR: Regular S1 S2, no audible murmurs GI: soft, non-tender, normoactive bowel sounds, : No Renal angle tenderness; EXTREMITIES: No edema, no clubbing, no cyanosis. MUSCULOSKELETAL: No Joint Tenderness; no muscle waisting NEURO: Awake; no lateralizing signs. SKIN: No Rash PSYCH; flat affect Vitals/I&O's: Vital Signs Temp Pulse Resp BP Pulse Ox 98.5 F 91 15 131/63 H 95 09/03/18 09:00 09/03/18 09:00 09/03/18 09:00 09/03/18 09:00 09/03/18 09:00 Oxygen Delivery Method Room Air Weight: 72.8 kg Body Mass Index (BMI) 24.4 Finger Stick Blood Glucose 226 Intake and Output for Last 24 Hours 09/01/18 09/02/18 09/03/18 23:59 23:59 23:59 Intake Total 4238 / 4238 1213 / 1213 Output Total 1100 / 1100 300 / 300 Balance 3138 / 3138 913 / 913 Microbiology Past 72 Hours 09/01/18 19:40 Interface Orders Respiratory Panel (PCR) - Final 09/01/18 21:18 Sputum, Expectorated/Coughed Gram Stain - Final 09/01/18 12:00 Interface Orders Streptococcus pneumoniae Antigen (M - Final 09/01/18 12:00 Interface Orders Legionella Antigen - Final Laboratory Results 09/02/18 12:06: POC Glucose 288 H 09/02/18 16:21: POC Glucose 200 H 09/02/18 22:03: POC Glucose 198 H 09/03/18 05:18: Sodium 141, Potassium 3.6, Chloride 109 H, Carbon Dioxide 23.0, Anion Gap 9, BUN 11, Creatinine 0.94, Estim Creat Clear Calc 58.62, Est GFR (MDRD) Af Amer 99, Est GFR (MDRD) Non-Af 82, BUN/Creatinine Ratio 11.7, Glucose 211 H, Calcium 7.7 L 09/03/18 05:18: WBC 7.3, RBC 3.93 L, Hgb 12.0 L, Hct 35.7 L, MCV 90.8, MCH 30.5, MCHC 33.6, RDW 14.9 H, RDW Differential 48.5 H, Plt Count 135 L, MPV 10.9 09/03/18 06:34: POC Glucose 268 H Current Medications Acetaminophen (Tylenol) 650 mg PO Q6H PRN PRN PRN Reason: Mild Pain (1-3)/Temp > 100.7 F Al Hydroxide/Mg Hydroxide (Mylanta Ii) 30 ml PO Q6H PRN PRN PRN Reason: Gastric burning Albuterol Sulfate (Ventolin Aerosols) 2.5 mg INHALATION Q4H PRN PRN Reason: SOB &/OR WHEEZING Albuterol/Ipratropium (Duoneb) 3 ml INHALATION Q6H.RT [facility] Last Admin: 09/03/18 06:35 Dose: 3 ml Artificial Tears (Tears Naturale, Artificial Tears) 1 - 2 drop EACH EYE Q4H PRN PRN PRN Reason: DRY EYES Aspirin (Aspirin, Baby) 81 mg PO DAILY@0800 [facility] Last Admin: 09/03/18 08:14 Dose: 81 mg Atenolol (Tenormin (Beta Marbin)) 75 mg PO DAILY [facility] Last Admin: 09/02/18 08:56 Dose: 75 mg Atorvastatin Calcium (Lipitor) 80 mg PO QHS [facility] Last Admin: 09/02/18 22:04 Dose: 80 mg Baclofen (Lioresal) 5 mg PO BIDCM [facility] Last Admin: 09/03/18 08:14 Dose: 5 mg Clopidogrel Bisulfate (Plavix) 75 mg PO DAILY [facility] Last Admin: 09/02/18 08:56 Dose: 75 mg Dextrose (D50w Syringe) 0 gm IV X1 PRN; Protocol PRN Reason: Hypoglycemia Enoxaparin Sodium (Lovenox) 40 mg SC DAILY@1000 [facility] Last Admin: 09/02/18 08:56 Dose: 40 mg Famotidine (Pepcid) 20 mg PO BID [facility] Last Admin: 09/02/18 22:04 Dose: 20 mg Glucagon () 1 mg IM .X1 PRN PRN Reason: Hypoglycemia Guaifenesin (Mucinex) 1,200 mg PO BID [facility] Last Admin: 09/02/18 22:04 Dose: 1,200 mg Sodium Chloride () 1,000 mls @ 75 mls/hr IV .[id number] [facility] Last Admin: 09/02/18 22:42 Dose: 75 mls/hr Clindamycin Phosphate 300 mg/ (Dextrose) 52 mls @ 150 mls/hr IV Q6 [facility] Last Admin: 09/03/18 05:48 Dose: 150 mls/hr Levofloxacin (Levaquin Iv) 750 mg in 150 mls @ 100 mls/hr IV Q48H [facility] Last Admin: 09/01/18 18:27 Dose: 100 mls/hr Insulin Glargine (Lantus (Bkc)) 26 units SC QHS [facility] Last Admin: 09/02/18 22:04 Dose: 26 units Insulin Human Lispro (Humalog Kwikpen (Bkc)) 0 unit SQ ACHS [facility]; Protocol Last Admin: 09/03/18 06:37 Dose: 6 u Ipratropium [place] (Atrovent Nasal [place] (G)) 2 spray NASAL BID [facility] Last Admin: 09/02/18 22:05 Dose: 2 spray Magnesium Hydroxide (Milk Of Magnesia) 30 ml PO DAILY PRN PRN PRN Reason: Constipation Ondansetron HCl (Zofran) 4 mg IV Q8H PRN PRN PRN Reason: NAUSEA Oxycodone HCl (Oxyir) 5 - 10 mg PO Q4H PRN PRN PRN Reason: MOD-SEVERE PAIN (4-10/10) Polyethylene Glycol (Miralax) 8.5 gm PO DAILY [facility] Last Admin: 09/02/18 08:54 Dose: 8.5 gm Psyllium Hydrophilic Mucilloid (Metamucil) 1 packet PO DAILY PRN PRN PRN Reason: CONSTIPATION Sodium Chloride () 5 - 15 ml IV UD PRN PRN Reason: SALINE FLUSH Medical Necessity - Tobacco Use Smoking Status: Former smoker Assessment/Plan All Active Problems (Last Reviewed 09/01/18 @ 15:45 by Ovidio Ibarra MD) Confusion (Acute) Aspiration pneumonia (Acute) Acute cystitis (Acute) Ataxia (Resolved) Chest pain (Resolved) Dizzinesses (Resolved) GI bleed (Resolved) Hypoglycemia (Resolved) Sepsis (Resolved) Patient is an 83-year-old gentleman with multiple comorbidities including diabetes mellitus type 2, previous CVA, admitted with altered mental status 1. Acute metabolic encephalopathy secondary to patient hyperglycemia. Patient has been admitted to regular nursing floor for subsequent treatment of his hyperglycemia as well as his other admitting comorbidities. Acute metabolic encephalopathy resolved. 2. Right lower lobe infiltrate secondary to suspected aspiration pneumonia patient was kept n.p.o. pending speech and swallow evaluation. Started on Levaquin and clindamycin admitted to regular nursing floor. In addition to above patient was placed on aerosol treatment and supplemental oxygen titrated to keep oxygen saturation greater than 90 patient improving clinically 3. Acute kidney injury present on admission patient was managed with fluids kidney function improving 4. Diabetes mellitus type 2 uncontrolled with hyperglycemia with patient being kept n.p.o. we held off with his long-acting insulin instead covered with sliding scale coverage 5. Chronic hiccups patient is on baclofen 6. Carotid artery disease with previous bilateral endarterectomy 7. History of previous CVA with no residual effects 8. Dyslipidemia-patient is on statin therapy, continued at home dose 9. Mild CAD 10. GERD 11. BPH 12. DVT prophylaxis SC Lovenox 13. Physical deconditioning requested for PT OT eval and mental health social worker to assist with discharge planning. Patient himself requested for possible discharge to [facility] nursing [facility] for rehab prior to going home Advance planning; did discuss with the patient and family (her daughters were present) regarding advanced directives as well as CODE STATUS. Did explain the various scenarios involved ( FULL CODE, DNR CCA, DNR CCA with no intubation, and DNR CC and what each meant) family and patient elected to remain full code order placed time spent on discussion 20 minutes Active Medications Acetaminophen (Tylenol) 650 mg PO Q6H PRN PRN PRN Reason: Mild Pain (1-3)/Temp > 100.7 F Al Hydroxide/Mg Hydroxide (Mylanta Ii) 30 ml PO Q6H PRN PRN PRN Reason: Gastric burning Albuterol Sulfate (Ventolin Aerosols) 2.5 mg INHALATION Q4H PRN PRN Reason: SOB &/OR WHEEZING Albuterol/Ipratropium (Duoneb) 3 ml INHALATION Q6H.RT [facility] Last Admin: 09/02/18 06:27 Dose: 3 ml Artificial Tears (Tears Naturale, Artificial Tears) 1 - 2 drop EACH EYE Q4H PRN PRN PRN Reason: DRY EYES Aspirin (Aspirin, Baby) 81 mg PO DAILY@0800 [facility] Last Admin: 09/02/18 08:21 Dose: 81 mg Atenolol (Tenormin (Beta Marbin)) 75 mg PO DAILY [facility] Last Admin: 09/02/18 08:56 Dose: 75 mg Atorvastatin Calcium (Lipitor) 80 mg PO QHS [facility] Last Admin: 09/01/18 21:50 Dose: 80 mg Baclofen (Lioresal) 5 mg PO BIDCM [facility] Last Admin: 09/02/18 08:21 Dose: 5 mg Clopidogrel Bisulfate (Plavix) 75 mg PO DAILY [facility] Last Admin: 09/02/18 08:56 Dose: 75 mg Dextrose (D50w Syringe) 0 gm IV X1 PRN; Protocol PRN Reason: Hypoglycemia Enoxaparin Sodium (Lovenox) 40 mg SC DAILY@1000 [facility] Last Admin: 09/02/18 08:56 Dose: 40 mg Famotidine (Pepcid) 20 mg PO BID [facility] Last Admin: 09/02/18 08:56 Dose: 20 mg Glucagon () 1 mg IM .X1 PRN PRN Reason: Hypoglycemia Guaifenesin (Mucinex) 1,200 mg PO BID [facility] Last Admin: 09/02/18 08:56 Dose: 1,200 mg Sodium Chloride () 1,000 mls @ 75 mls/hr IV .[id number] [facility] Last Admin: 09/02/18 08:20 Dose: 75 mls/hr Clindamycin Phosphate 300 mg/ (Dextrose) 52 mls @ 150 mls/hr IV Q6 [facility] Last Admin: 09/02/18 06:05 Dose: 150 mls/hr Levofloxacin (Levaquin Iv) 750 mg in 150 mls @ 100 mls/hr IV Q48H [facility] Last Admin: 09/01/18 18:27 Dose: 100 mls/hr Insulin Glargine (Lantus (Bkc)) 26 units SC QHS [facility] Last Admin: 09/01/18 21:53 Dose: 26 units Insulin Human Lispro (Humalog Kwikpen (Bkc)) 0 unit SQ ACHS [facility]; Protocol Last Admin: 09/02/18 06:32 Dose: 4 u Ipratropium [place] (Atrovent Nasal [place] (G)) 2 spray NASAL BID [facility] Last Admin: 09/02/18 08:57 Dose: 2 spray Magnesium Hydroxide (Milk Of Magnesia) 30 ml PO DAILY PRN PRN PRN Reason: Constipation Ondansetron HCl (Zofran) 4 mg IV Q8H PRN PRN PRN Reason: NAUSEA Oxycodone HCl (Oxyir) 5 - 10 mg PO Q4H PRN PRN PRN Reason: MOD-SEVERE PAIN (4-10/10) Polyethylene Glycol (Miralax) 8.5 gm PO DAILY [facility] Last Admin: 09/02/18 08:54 Dose: 8.5 gm Psyllium Hydrophilic Mucilloid (Metamucil) 1 packet PO DAILY PRN PRN PRN Reason: CONSTIPATION Sodium Chloride () 5 - 15 ml IV UD PRN PRN Reason: SALINE FLUSH Code Visit Inpatient E&M: 00780 Subs Hosp L2 Procedures: 12707 Advncd Care Plan 30 Min
--- NOTE | 2018-09-03 09:46 | PN_ITS ---
Patient Problems: Active and Suspected Problems (Last Reviewed 09/01/18 @ 15:45 by Ovidio Ibarra MD) Confusion (Acute) Aspiration pneumonia (Acute) Acute cystitis (Acute) Subjective: Patient seen clinical condition continues to improve. He however complains of weakness in his legs. Currently receiving physical therapy with plans for patient to be transferred to detention facility when medically stable Objective: GENERAL: Patient hiccuping HEENT: Atraumatic; moist oral mucosa EYES; Anicteric, Normal Conjunctiva NECK; supple, normal thyroid, no distended JVD. RESPIRATORY: Diminished to auscultation bilaterally, CARDIOVASCULAR: Regular S1 S2, no audible murmurs GI: soft, non-tender, normoactive bowel sounds, : No Renal angle tenderness; EXTREMITIES: No edema, no clubbing, no cyanosis. MUSCULOSKELETAL: No Joint Tenderness; no muscle waisting NEURO: Awake; no lateralizing signs. SKIN: No Rash PSYCH; flat affect Vitals/I&O's: Vital Signs Temp Pulse Resp BP Pulse Ox 98.5 F 91 15 131/63 H 95 09/03/18 09:00 09/03/18 09:00 09/03/18 09:00 09/03/18 09:00 09/03/18 09:00 Oxygen Delivery Method Room Air Weight: 72.8 kg Body Mass Index (BMI) 24.4 Finger Stick Blood Glucose 226 Intake and Output for Last 24 Hours 09/01/18 09/02/18 09/03/18 23:59 23:59 23:59 Intake Total 4238 / 4238 1213 / 1213 Output Total 1100 / 1100 300 / 300 Balance 3138 / 3138 913 / 913 Microbiology Past 72 Hours 09/01/18 19:40 Interface Orders Respiratory Panel (PCR) - Final 09/01/18 21:18 Sputum, Expectorated/Coughed Gram Stain - Final 09/01/18 12:00 Interface Orders Streptococcus pneumoniae Antigen (M - Final 09/01/18 12:00 Interface Orders Legionella Antigen - Final Laboratory Results 09/02/18 12:06: POC Glucose 288 H 09/02/18 16:21: POC Glucose 200 H 09/02/18 22:03: POC Glucose 198 H 09/03/18 05:18: Sodium 141, Potassium 3.6, Chloride 109 H, Carbon Dioxide 23.0, Anion Gap 9, BUN 11, Creatinine 0.94, Estim Creat Clear Calc 58.62, Est GFR (MDRD) Af Amer 99, Est GFR (MDRD) Non-Af 82, BUN/Creatinine Ratio 11.7, Glucose 211 H, Calcium 7.7 L 09/03/18 05:18: WBC 7.3, RBC 3.93 L, Hgb 12.0 L, Hct 35.7 L, MCV 90.8, MCH 30.5, MCHC 33.6, RDW 14.9 H, RDW Differential 48.5 H, Plt Count 135 L, MPV 10.9 09/03/18 06:34: POC Glucose 268 H Current Medications Acetaminophen (Tylenol) 650 mg PO Q6H PRN PRN PRN Reason: Mild Pain (1-3)/Temp > 100.7 F Al Hydroxide/Mg Hydroxide (Mylanta Ii) 30 ml PO Q6H PRN PRN PRN Reason: Gastric burning Albuterol Sulfate (Ventolin Aerosols) 2.5 mg INHALATION Q4H PRN PRN Reason: SOB &/OR WHEEZING Albuterol/Ipratropium (Duoneb) 3 ml INHALATION Q6H.RT [facility] Last Admin: 09/03/18 06:35 Dose: 3 ml Artificial Tears (Tears Naturale, Artificial Tears) 1 - 2 drop EACH EYE Q4H PRN PRN PRN Reason: DRY EYES Aspirin (Aspirin, Baby) 81 mg PO DAILY@0800 [facility] Last Admin: 09/03/18 08:14 Dose: 81 mg Atenolol (Tenormin (Beta Marbin)) 75 mg PO DAILY [facility] Last Admin: 09/02/18 08:56 Dose: 75 mg Atorvastatin Calcium (Lipitor) 80 mg PO QHS [facility] Last Admin: 09/02/18 22:04 Dose: 80 mg Baclofen (Lioresal) 5 mg PO BIDCM [facility] Last Admin: 09/03/18 08:14 Dose: 5 mg Clopidogrel Bisulfate (Plavix) 75 mg PO DAILY [facility] Last Admin: 09/02/18 08:56 Dose: 75 mg Dextrose (D50w Syringe) 0 gm IV X1 PRN; Protocol PRN Reason: Hypoglycemia Enoxaparin Sodium (Lovenox) 40 mg SC DAILY@1000 [facility] Last Admin: 09/02/18 08:56 Dose: 40 mg Famotidine (Pepcid) 20 mg PO BID [facility] Last Admin: 09/02/18 22:04 Dose: 20 mg Glucagon () 1 mg IM .X1 PRN PRN Reason: Hypoglycemia Guaifenesin (Mucinex) 1,200 mg PO BID [facility] Last Admin: 09/02/18 22:04 Dose: 1,200 mg Sodium Chloride () 1,000 mls @ 75 mls/hr IV .[id number] [facility] Last Admin: 09/02/18 22:42 Dose: 75 mls/hr Clindamycin Phosphate 300 mg/ (Dextrose) 52 mls @ 150 mls/hr IV Q6 [facility] Last Admin: 09/03/18 05:48 Dose: 150 mls/hr Levofloxacin (Levaquin Iv) 750 mg in 150 mls @ 100 mls/hr IV Q48H [facility] Last Admin: 09/01/18 18:27 Dose: 100 mls/hr Insulin Glargine (Lantus (Bkc)) 26 units SC QHS [facility] Last Admin: 09/02/18 22:04 Dose: 26 units Insulin Human Lispro (Humalog Kwikpen (Bkc)) 0 unit SQ ACHS [facility]; Protocol Last Admin: 09/03/18 06:37 Dose: 6 u Ipratropium Louise (Atrovent Nasal Advance (G)) 2 spray NASAL BID [facility] Last Admin: 09/02/18 22:05 Dose: 2 spray Magnesium Hydroxide (Milk Of Magnesia) 30 ml PO DAILY PRN PRN PRN Reason: Constipation Ondansetron HCl (Zofran) 4 mg IV Q8H PRN PRN PRN Reason: NAUSEA Oxycodone HCl (Oxyir) 5 - 10 mg PO Q4H PRN PRN PRN Reason: MOD-SEVERE PAIN (4-10/10) Polyethylene Glycol (Miralax) 8.5 gm PO DAILY [facility] Last Admin: 09/02/18 08:54 Dose: 8.5 gm Psyllium Hydrophilic Mucilloid (Metamucil) 1 packet PO DAILY PRN PRN PRN Reason: CONSTIPATION Sodium Chloride () 5 - 15 ml IV UD PRN PRN Reason: SALINE FLUSH Medical Necessity - Tobacco Use Smoking Status: Former smoker Assessment/Plan All Active Problems (Last Reviewed 09/01/18 @ 15:45 by Ovidio Ibarra MD) Confusion (Acute) Aspiration pneumonia (Acute) Acute cystitis (Acute) Ataxia (Resolved) Chest pain (Resolved) Dizzinesses (Resolved) GI bleed (Resolved) Hypoglycemia (Resolved) Sepsis (Resolved) Patient is an 83-year-old gentleman with multiple comorbidities including d iabetes mellitus type 2, previous CVA, admitted with altered mental status 1. Acute metabolic encephalopathy secondary to patient hyperglycemia. Patient has been admitted to regular nursing floor for subsequent treatment of his hyperglycemia as well as his other admitting comorbidities. Acute metabolic encephalopathy resolved. 2. Right lower lobe infiltrate secondary to suspected aspiration pneumonia patient was kept n.p.o. pending speech and swallow evaluation. Started on Levaquin and clindamycin admitted to regular nursing floor. In addition to above patient was placed on aerosol treatment and supplemental oxygen titrated to keep oxygen saturation greater than 90 patient improving clinically 3. Acute kidney injury present on admission patient was managed with fluids kidney function improving 4. Diabetes mellitus type 2 uncontrolled with hyperglycemia with patient being kept n.p.o. we held off with his long-acting insulin instead covered with sliding scale coverage 5. Chronic hiccups patient is on baclofen 6. Carotid artery disease with previous bilateral endarterectomy 7. History of previous CVA with no residual effects 8. Dyslipidemia-patient is on statin therapy, continued at home dose 9. Mild CAD 10. GERD 11. BPH 12. DVT prophylaxis SC Lovenox 13. Physical deconditioning requested for PT OT eval and social insurance adviser to assist with discharge planning. Patient himself requested for possible discharge to [facility] nursing [facility] for rehab prior to going home Advance planning; did discuss with the patient and family (her daughters were present) regarding advanced directives as well as CODE STATUS. Did explain the various scenarios involved ( FULL CODE, DNR CCA, DNR CCA with no intubation, and DNR CC and what each meant) family and patient elected to remain full code order placed time spent on discussion 20 minutes Active Medications Acetaminophen (Tylenol) 650 mg PO Q6H PRN PRN PRN Reason: Mild Pain (1-3)/Temp > 100.7 F Al Hydroxide/Mg Hydroxide (Mylanta Ii) 30 ml PO Q6H PRN PRN PRN Reason: Gastric burning Albuterol Sulfate (Ventolin Aerosols) 2.5 mg INHALATION Q4H PRN PRN Reason: SOB &/OR WHEEZING Albuterol/Ipratropium (Duoneb) 3 ml INHALATION Q6H.RT [facility] Last Admin: 09/02/18 06:27 Dose: 3 ml Artificial Tears (Tears Naturale, Artificial Tears) 1 - 2 drop EACH EYE Q4H PRN PRN PRN Reason: DRY EYES Aspirin (Aspirin, Baby) 81 mg PO DAILY@0800 [facility] Last Admin: 09/02/18 08:21 Dose: 81 mg Atenolol (Tenormin (Beta Marbin)) 75 mg PO DAILY [facility] Last Admin: 09/02/18 08:56 Dose: 75 mg Atorvastatin Calcium (Lipitor) 80 mg PO QHS [facility] Last Admin: 09/01/18 21:50 Dose: 80 mg Baclofen (Lioresal) 5 mg PO BIDCM [facility] Last Admin: 09/02/18 08:21 Dose: 5 mg Clopidogrel Bisulfate (Plavix) 75 mg PO DAILY [facility] Last Admin: 09/02/18 08:56 Dose: 75 mg Dextrose (D50w Syringe) 0 gm IV X1 PRN; Protocol PRN Reason: Hypoglycemia Enoxaparin Sodium (Lovenox) 40 mg SC DAILY@1000 [facility] Last Admin: 09/02/18 08:56 Dose: 40 mg Famotidine (Pepcid) 20 mg PO BID [facility] Last Admin: 09/02/18 08:56 Dose: 20 mg Glucagon () 1 mg IM .X1 PRN PRN Reason: Hypoglycemia Guaifenesin (Mucinex) 1,200 mg PO BID [facility] Last Admin: 09/02/18 08:56 Dose: 1,200 mg Sodium Chloride () 1,000 mls @ 75 mls/hr IV .[id number] [facility] Last Admin: 09/02/18 08:20 Dose: 75 mls/hr Clindamycin Phosphate 300 mg/ (Dextrose) 52 mls @ 150 mls/hr IV Q6 [facility] Last Admin: 09/02/18 06:05 Dose: 150 mls/hr Levofloxacin (Levaquin Iv) 750 mg in 150 mls @ 100 mls/hr IV Q48H [facility] Last Admin: 09/01/18 18:27 Dose: 100 mls/hr Insulin Glargine (Lantus (Bkc)) 26 units SC QHS [facility] Last Admin: 09/01/18 21:53 Dose: 26 units Insulin Human Lispro (Humalog Kwikpen (Bkc)) 0 unit SQ ACHS [facility]; Protocol Last Admin: 09/02/18 06:32 Dose: 4 u Ipratropium Louise (Atrovent Nasal Advance (G)) 2 spray NASAL BID [facility] Last Admin: 09/02/18 08:57 Dose: 2 spray Magnesium Hydroxide (Milk Of Magnesia) 30 ml PO DAILY PRN PRN PRN Reason: Constipation Ondansetron HCl (Zofran) 4 mg IV Q8H PRN PRN PRN Reason: NAUSEA Oxycodone HCl (Oxyir) 5 - 10 mg PO Q4H PRN PRN PRN Reason: MOD-SEVERE PAIN (4-10/10) Polyethylene Glycol (Miralax) 8.5 gm PO DAILY [facility] Last Admin: 09/02/18 08:54 Dose: 8.5 gm Psyllium Hydrophilic Mucilloid (Metamucil) 1 packet PO DAILY PRN PRN PRN Reason: CONSTIPATION Sodium Chloride () 5 - 15 ml IV UD PRN PRN Reason: SALINE FLUSH Code Visit Inpatient E&M: 86169 Subs Hosp L2 Procedures: 31352 Advncd Care Plan 30 Min
[2018-09-03] MEDS: Atenolol 25 MG Tablet 75 MG PO (09:50)
[2018-09-03] MEDS: Famotidine 20 MG Tablet PO ×2 (09:51→21:38)
[2018-09-03] MEDS: guaiFENesin 1,200 MG Tablet 1200 MG PO ×2 (09:51→21:38)
[2018-09-03] MEDS: Enoxaparin 40 MG/0.4 ML Syringe SC (09:52)
[2018-09-03] MEDS: Ipratropium Bromide 0.06% NASAL SPRAY 2 SPRAY NASAL ×2 (09:53→21:38)
[2018-09-03] MEDS: Polyethylene Glycol 3350 17 GM PACKET 8.5 GM PO (09:54)
[2018-09-03] MEDS: Clopidogrel Bisulfate 75 MG Tablet PO (09:56)
--- NOTE | 2018-09-03 10:00 | CASEMGMT ---
GAMA MORGAN updated by hospitalist that patient is requesting [facility] at discharge. GAMA CM in to discuss discharge plans. Patient states that he would like to go to [facility] at discharge. BASIL Mayer updated regarding request for [facility] at discharge.
[2018-09-03 11:01] LABS: Bedside Glucose 326 mg/dL (70-110)
[2018-09-03] MEDS: 0.9% Normal Saline 1,000 ML 75 ML IV (11:33)
--- NOTE | 2018-09-03 14:06 | NURSING ---
STUDENT CHARTING REVIEWED AND USED FOR EDUCATIONAL LEARNING PURPOSES BY PHILLIP MALLOY.
[2018-09-03 15:55] LABS: Bedside Glucose 245 mg/dL (70-110)
--- NOTE | 2018-09-03 16:15 | CASEMGMT ---
Social Work Note RN CATHY Enamorado updated this worker that pt is agreeable to [facility] at discharge. SW placed a call to Elsie at [facility] and faxed referral. SW received message from Elsie at [facility] stating she is able to accept pt tomorrow. Plan: [facility] tomorrow Belle Mayer SLAG WORKER, VALUE ANALYST
[2018-09-03] MEDS: levoFLOXacin IV 750 MG/150 ML BAG 100 MG IV (17:29)
[2018-09-03] MEDS: Atorvastatin Calcium 80 MG Tablet PO (21:38)
[2018-09-03 21:56] LABS: Bedside Glucose 288 mg/dL (70-110)
[2018-09-04] MEDS: 0.9% Normal Saline 1,000 ML 75 ML IV (02:43)
[2018-09-04 03:42] VITALS: BP 150/76; PULSE 87; RESP 18; TEMP 36.7; O2SAT 97
[2018-09-04 06:15] LABS: Hematocrit 35.2 % (40-54); Mean Corp Hgb Conc 34.1 g/gl (32-36); Mean Corpuscular Hgb 30.8 pg (27.0-32.0); Mean Corpuscular Volume 90.5 fL (80-94); Mean Platelet Vol. 10.9 fl (6.2-12.0); Platelet Count 139 K/mm3 (150-450); RBC Distribution Width CV 14.7 % (11.6-14.6); RBC Distribution Width SD 47.8 fl (35.1-43.9); Red Blood Count 3.89 M/mm3 (4.6-6.2); White Blood Count 3.9 K/mm3 (4.4-11.0)
[2018-09-04 06:18] LABS: Anion Gap 7 (5-15); BUN 8 mg/dL (7-18); BUN/Creat Ratio 9.6 RATIO (10-20); Calcium,Total 7.8 mg/dL (8.5-10.1); Chloride 109 mmol/L (98-107); Creatinine, Serum 0.84 mg/dL (0.70-1.30); EST Glomerular Filtration Rate 94 mL/min (>60); Est Glom Filt Rate - Afr Amer 113 mL/min (>60); Glucose 201 mg/dL (74-106); Potassium 3.5 mmol/L (3.5-5.1); Sodium Level 139 mmol/L (136-145)
[2018-09-04 06:20] LABS: Scan Indicated on CBC? Y/N NO
[2018-09-04] MEDS: Insulin Lispro 100 UNIT/ML INSULN.PEN SQ ×2 (06:45→12:46)
[2018-09-04 06:50] LABS: Bedside Glucose 221 mg/dL (70-110)
[2018-09-04 08:01] VITALS: O2SAT 95
[2018-09-04] MEDS: Aspirin 81 MG TAB.CHEW PO (09:19)
[2018-09-04] MEDS: Baclofen 10 MG Tablet 5 MG PO (09:20)
[2018-09-04] MEDS: Ipratropium Bromide 0.06% NASAL SPRAY 2 SPRAY NASAL (09:21)
[2018-09-04] MEDS: Polyethylene Glycol 3350 17 GM PACKET 8.5 GM PO (09:22)
[2018-09-04] MEDS: Atenolol 25 MG Tablet 75 MG PO (09:23)
[2018-09-04] MEDS: Famotidine 20 MG Tablet PO (09:23)
[2018-09-04] MEDS: guaiFENesin 1,200 MG Tablet 1200 MG PO (09:23)
[2018-09-04] MEDS: Clopidogrel Bisulfate 75 MG Tablet PO (09:23)
--- NOTE | 2018-09-04 09:53 | TREXTCAR_ITS ---
- Diet 09/01/18 16:21 Diet: Calorie Controlled Food consistency:: Regular Liquid Consistency:: [place] Thick Diet Comments: [employer] How many daily calories?: 1800 calorie - Routine Orders/Code Status Code Status: Full Code - Therapies Physical Therapy: Eval and Treat Occupational Therapy: Eval and Treat Speech Therapy: Eval and Treat - Problem/Diagnosis (1) CVA (cerebral vascular accident) Status: Chronic Comment: Status post acute ischemic stroke with residual lower extremity weakness mild Current Visit: No (2) Carotid bruit Status: Chronic Current Visit: No (3) Encounter for long-term current use of high risk medication Status: Chronic Comment: Reviewed medications with family to be sure patient was taking remainder of medications correctly and there were no duplicates Current Visit: No (4) Atherosclerotic heart disease of [place] coronary artery without angina pectoris Status: Chronic Current Visit: No (5) Hyperlipidemia Status: Chronic Current Visit: No (6) Diverticulitis Status: Chronic Current Visit: No (7) Hypertension Status: Chronic Comment: 104/64 Current Visit: No (8) Confusion Status: Acute Current Visit: Yes (9) Aspiration pneumonia Status: Acute Current Visit: Yes (10) Acute cystitis Status: Acute Current Visit: Yes - Allergies/Procedures Done in Hospital Allergies/Adverse Reactions: Allergies alfuzosin Allergy (Verified 09/01/18 11:37) Other chlorpromazine [From Thorazine] Allergy (Verified 09/01/18 11:37) Other Penicillins Allergy (Verified 09/01/18 11:37) Rash Sulfa (Sulfonamide Antibiotics) Allergy (Verified 09/01/18 11:37) Swelling lisinopril Adverse Reaction (Verified 09/01/18 11:37) Other - Type of Care/Length of Stay Estimated LOS: Convalescent Care Less Than 30 days Type of Care Needed: Skilled Rehab Potential: Fair Prognosis: Fair - Additional Orders/Day of Discharge Day of Discharge: 09/04/18 - Dietary and Speech Recommendations Dietitian Recommendations/Changes: Continue 1800 calorie/cardiac diet with texture/consistency as per speech. - Follow Up Care Primary Care Physician: Ronald Flannery MD [Primary Care Provider] - Please follow up with your Primary Care Physician in: in 1-2 weeks
--- NOTE | 2018-09-04 09:53 | PCM.DC.SUM ---
Discharge Date and Diagnosis - Problem List Patient Problems: Active and Suspected Problems (Last Reviewed 09/01/18 @ 15:45 by Ovidio Ibarra MD) Confusion (Acute) Aspiration pneumonia (Acute) Acute cystitis (Acute) Date of Admission: 09/01/18 Date of Discharge: 09/04/18 - Primary Discharge Diagnosis Active and Suspected Problems (Last Reviewed 09/01/18 @ 15:45 by Ovidio Ibarra MD) Confusion (Acute) Aspiration pneumonia (Acute) Acute cystitis (Acute) - Secondary Discharge Diagnosis Chronic Problems (Last Reviewed 09/01/18 @ 15:45 by Ovidio Ibarra MD) CVA (cerebral vascular accident) (Chronic) Status post acute ischemic stroke with residual lower extremity weakness mild Carotid bruit (Chronic) Encounter for long-term current use of high risk medication (Chronic) Reviewed medications with family to be sure patient was taking remainder of medications correctly and there were no duplicates Atherosclerotic heart disease of [place] coronary artery without angina pectoris (Chronic) Hyperlipidemia (Chronic) Diverticulitis (Chronic) Hypertension (Chronic) 104/64 Hospital Course and Treatment Imaging Results: Clinical Impression(s) from Imaging Studies Chest X-Ray 09/01/18 11:27 IMPRESSION: Right lower lobe infiltrate. Electronically Signed: Angel Mabry, at 12:16 EDT , Service support , Brain CT 09/01/18 12:19 IMPRESSION: Chronic involutional changes of the brain. Electronically Signed: Angel Mabry, at 14:21 EDT , Service support , Chest CTA 09/01/18 12:19 IMPRESSION: Diffuse emphysematous changes with bullous formation worse in the right upper lobe. Infiltration in the right lower lobe superimposed on bibasilar scarring worse on the right side. Electronically Signed: Angel Mabry, at 14:25 EDT , Service support , Operations: None Summary of Care Provided: Patient is an 83-year-old gentleman with multiple comorbidities including diabetes mellitus type 2, previous CVA, admitted with altered mental status 1. Acute metabolic encephalopathy secondary to patient hyperglycemia. Patient has been admitted to regular nursing floor for subsequent treatment of his hyperglycemia as well as his other admitting comorbidities. Acute metabolic encephalopathy resolved. 2. Right lower lobe infiltrate secondary to suspected aspiration pneumonia Started on Levaquin and clindamycin admitted to regular nursing floor. In addition to above patient was placed on aerosol treatment and supplemental oxygen titrated to keep oxygen saturation greater than 90 patient improved clinically 3. Acute kidney injury present on admission patient was managed with fluids resolved at the time of discharge 4. Diabetes mellitus type 2 uncontrolled with hyperglycemia with patient being kept n.p.o. we held off with his long-acting insulin instead covered with sliding scale coverage 5. Chronic hiccups patient is on baclofen 6. Carotid artery disease with previous bilateral endarterectomy 7. History of previous CVA with no residual effects 8. Dyslipidemia-patient is on statin therapy, continued at home dose 9. Mild CAD 10. GERD 11. BPH 12. DVT prophylaxis SC Lovenox 13. Physical deconditioning requested for PT OT eval and social work coordinator to assist with discharge planning. Patient Problems: Active and Suspected Problems (Last Reviewed 09/01/18 @ 15:45 by Ovidio Ibarra MD) Confusion (Acute) Aspiration pneumonia (Acute) Acute cystitis (Acute) Objective: GENERAL: Patient hiccuping HEENT: Atraumatic; moist oral mucosa EYES; Anicteric, Normal Conjunctiva NECK; supple, normal thyroid, no distended JVD. RESPIRATORY: Diminished to auscultation bilaterally, CARDIOVASCULAR: Regular S1 S2, no audible murmurs NEURO: Awake; no lateralizing signs. SKIN: No Rash PSYCH; flat affect - Physical Exam Vital Signs Temp Pulse Resp BP Pulse Ox 98.1 F 87 18 150/76 H 95 09/04/18 03:42 09/04/18 03:42 09/04/18 03:42 09/04/18 03:42 09/04/18 08:01 Oxygen Delivery Method Room Air Weight: 72.8 kg Body Mass Index (BMI) 24.4 Finger Stick Blood Glucose 226 Intake and Output for Last 24 Hours 09/02/18 09/03/18 09/04/18 23:59 23:59 23:59 Intake Total 4238 / 4238 2167 / 2167 513 / 513 Output Total 1100 / 1100 300 / 300 Balance 3138 / 3138 1867 / 1867 513 / 513 Microbiology Past 72 Hours 09/01/18 21:18 Gram Stain - Final Sputum, Expectorated/Coughed Respiratory Culture - Final 09/01/18 19:40 Respiratory Panel (PCR) - Final Interface Orders 09/01/18 12:00 Streptococcus pneumoniae Antigen (M - Final Interface Orders 09/01/18 12:00 Legionella Antigen - Final Interface Orders Laboratory Tests Past 24 Hrs 09/04/18 09/04/18 05:30 05:30 WBC 3.9 L RBC 3.89 L Hgb 12.0 L Hct 35.2 L MCV 90.5 MCH 30.8 MCHC 34.1 RDW 14.7 H RDW Differential 47.8 H Plt Count 139 L MPV 10.9 Sodium 139 Potassium 3.5 Chloride 109 H Carbon Dioxide 23.0 Anion Gap 7 BUN 8 Creatinine 0.84 Estim Creat Clear Calc 65.60 Est GFR (MDRD) Af Amer 113 Est GFR (MDRD) Non-Af 94 BUN/Creatinine Ratio 9.6 L Glucose 201 H Calcium 7.8 L POC Glucose 09/04/18 09/03/18 09/03/18 06:43 21:42 15:43 POC Glucose 221 H 288 H 245 H 09/03/18 10:53 POC Glucose 326 H Discharge Diet: Swallowing Precautions Discharge Activity: Return to Normal Activity Home Medications: Medications to take at Discharge Polyethylene Glycol 3350 [Miralax] 0.5 pack PO DAILY 06/06/17 albuterol sulfate HFA 90 mcg/actuation aerosol inhaler 2 puff INHALATION Q6H PRN PRN 12/26/17 Atorvastatin Calcium [Lipitor] 80 mg PO QHS 01/03/18 Ranitidine HCl [Acid Control] 300 mg PO QHS 01/03/18 Baclofen [Lioresal] 5 mg PO BIDCM tab 01/06/18 insulin lispro (U- 100) 100 unit/mL subcutaneous solution See Rx Instructions SC TIDCM ml 01/23/18 Ipratropium Melvin 0.06% [ATROVENT NASAL SPRAY] 2 spray NASAL BID 05/25/18 atenolol 25 mg tablet 75 mg PO DAILY 07/10/18 Aspirin [Aspirin, Baby] 81 mg PO DAILY@0800 #30 tab.chew 08/12/18 Insulin Lispro [Humalog KwikPen] See Protocol SC ACHS insuln.pen 08/12/18 Clopidogrel Bisulfate [Clopidogrel] 75 mg PO DAILY 09/01/18 Insulin Detemir [Levemir Flextouch] 26 unit SC QHS 09/01/18 Acetaminophen [Tylenol Tablet] 650 mg PO Q6H PRN PRN tablet 09/04/18 Clindamycin [Cleocin] 300 mg PO TID #9 cap 09/04/18 Dextran 70/He-Cell [Tears Naturale, Artificial Tears] 1 - 2 drop EACH EYE Q4H PRN PRN bottle 09/04/18 Guaifenesin [Mucinex] 1,200 mg PO BID tablet 09/04/18 Insulin Lispro [Humalog KwikPen] See Protocol SQ ACHS insuln.pen 09/04/18 Lactobacillus Acidophilus [Acidophilus] 1 tab PO DAILY #30 tab 09/04/18 Mag Hydrox/Al Hydrox/Simeth [Mylanta II] 30 ml PO Q6H PRN PRN udc 09/04/18 Magnesium Hydroxide [Milk Of Magnesia] 30 ml PO DAILY PRN PRN udc 09/04/18 Psyllium [Metamucil] 1 packet PO DAILY PRN PRN packet 09/04/18 levoFLOXacin tablet [Levaquin tablet] 750 mg PO DAILY@0600 #3 tab 09/04/18 Following Prescrptions Were Given to Patient: Clindamycin [Cleocin] 300 mg PO TID #9 cap Lactobacillus Acidophilus [Acidophilus] 1 tab PO DAILY #30 tab levoFLOXacin tablet [Levaquin tablet] 750 mg PO DAILY@0600 #3 tab Primary Care Physician: Ronald Flannery MD [Primary Care Provider] - Please follow up with your Primary Care Physician in: in 1-2 weeks Disposition: Shelter facility Minutes spent on discharge:: 35 Patient Condition:: Stable Medical Necessity - Tobacco Use Smoking Status: Former smoker Meaningful Use Info Meaningful Use Diagnoses (Choose all that apply): None applicable Code Visit Inpatient E&M: 80403 Disch Hosp
--- NOTE | 2018-09-04 09:56 | DS.PCM_ITS ---
Discharge Date and Diagnosis - Problem List Patient Problems: Active and Suspected Problems (Last Reviewed 09/01/18 @ 15:45 by Ovidio Ibarra MD) Confusion (Acute) Aspiration pneumonia (Acute) Acute cystitis (Acute) Date of Admission: 09/01/18 Date of Discharge: 09/04/18 - Primary Discharge Diagnosis Active and Suspected Problems (Last Reviewed 09/01/18 @ 15:45 by Ovidio Ibarra MD) Confusion (Acute) Aspiration pneumonia (Acute) Acute cystitis (Acute) - Secondary Discharge Diagnosis Chronic Problems (Last Reviewed 09/01/18 @ 15:45 by Ovidio Ibarra MD) CVA (cerebral vascular accident) (Chronic) Status post acute ischemic stroke with residual lower extremity weakness mild Carotid bruit (Chronic) Encounter for long-term current use of high risk medication (Chronic) Reviewed medications with family to be sure patient was taking remainder of medications correctly and there were no duplicates Atherosclerotic heart disease of [place] coronary artery without angina pectoris (Chronic) Hyperlipidemia (Chronic) Diverticulitis (Chronic) Hypertension (Chronic) 104/64 Hospital Course and Treatment Imaging Results: Clinical Impression(s) from Imaging Studies Chest X-Ray 09/01/18 11:27 IMPRESSION: Right lower lobe infiltrate. Electronically Signed: Angel Mabry, at 12:16 EDT , Service support , Brain CT 09/01/18 12:19 IMPRESSION: Chronic involutional changes of the brain. Electronically Signed: Angel Mabry, at 14:21 EDT , Service support , Chest CTA 09/01/18 12:19 IMPRESSION: Diffuse emphysematous changes with bullous formation worse in the right upper lobe. Infiltration in the right lower lobe superimposed on bibasilar scarring worse on the right side. Electronically Signed: Angel Mabry, at 14:25 EDT , Service support , Operations: None Summary of Care Provided: Patient is an 83-year-old gentleman with multiple comorbidities including diabetes mellitus type 2, previous CVA, admitted with altered mental status 1. Acute metabolic encephalopathy secondary to patient hyperglycemia. Patient has been admitted to regular nursing floor for subsequent treatment of his hyperglycemia as well as his other admitting comorbidities. Acute metabolic encephalopathy resolved. 2. Right lower lobe infiltrate secondary to suspected aspiration pneumonia Started on Levaquin and clindamycin admitted to regular nursing floor. In addition to above patient was placed on aerosol treatment and supplemental oxygen titrated to keep oxygen saturation greater than 90 patient improved clinically 3. Acute kidney injury present on admission patient was managed with fluids resolved at the time of discharge 4. Diabetes mellitus type 2 uncontrolled with hyperglycemia with patient being kept n.p.o. we held off with his long-acting insulin instead covered with sliding scale coverage 5. Chronic hiccups patient is on baclofen 6. Carotid artery disease with previous bilateral endarterectomy 7. History of previous CVA with no residual effects 8. Dyslipidemia-patient is on statin therapy, continued at home dose 9. Mild CAD 10. GERD 11. BPH 12. DVT prophylaxis SC Lovenox 13. Physical deconditioning requested for PT OT eval and social services technician to assist with discharge planning. Patient Problems: Active and Suspected Problems (Last Reviewed 09/01/18 @ 15:45 by Ovidio Ibarra MD) Confusion (Acute) Aspiration pneumonia (Acute) Acute cystitis (Acute) Objective: GENERAL: Patient hiccuping HEENT: Atraumatic; moist oral mucosa EYES; Anicteric, Normal Conjunctiva NECK; supple, normal thyroid, no distended JVD. RESPIRATORY: Diminished to auscultation bilaterally, CARDIOVASCULAR: Regular S1 S2, no audible murmurs NEURO: Awake; no lateralizing signs. SKIN: No Rash PSYCH; flat affect - Physical Exam Vital Signs Temp Pulse Resp BP Pulse Ox 98.1 F 87 18 150/76 H 95 09/04/18 03:42 09/04/18 03:42 09/04/18 03:42 09/04/18 03:42 09/04/18 08:01 Oxygen Delivery Method Room Air Weight: 72.8 kg Body Mass Index (BMI) 24.4 Finger Stick Blood Glucose 226 Intake and Output for Last 24 Hours 09/02/18 09/03/18 09/04/18 23:59 23:59 23:59 Intake Total 4238 / 4238 2167 / 2167 513 / 513 Output Total 1100 / 1100 300 / 300 Balance 3138 / 3138 1867 / 1867 513 / 513 Microbiology Past 72 Hours 09/01/18 21:18 Gram Stain - Final Sputum, Expectorated/Coughed Respiratory Culture - Final 09/01/18 19:40 Respiratory Panel (PCR) - Final Interface Orders 09/01/18 12:00 Streptococcus pneumoniae Antigen (M - Final Interface Orders 09/01/18 12:00 Legionella Antigen - Final Interface Orders Laboratory Tests Past 24 Hrs 09/04/18 09/04/18 05:30 05:30 WBC 3.9 L RBC 3.89 L Hgb 12.0 L Hct 35.2 L MCV 90.5 MCH 30.8 MCHC 34.1 RDW 14.7 H RDW Differential 47.8 H Plt Count 139 L MPV 10.9 Sodium 139 Potassium 3.5 Chloride 109 H Carbon Dioxide 23.0 Anion Gap 7 BUN 8 Creatinine 0.84 Estim Creat Clear Calc 65.60 Est GFR (MDRD) Af Amer 113 Est GFR (MDRD) Non-Af 94 BUN/Creatinine Ratio 9.6 L Glucose 201 H Calcium 7.8 L POC Glucose 09/04/18 09/03/18 09/03/18 06:43 21:42 15:43 POC Glucose 221 H 288 H 245 H 09/03/18 10:53 POC Glucose 326 H Discharge Diet: Swallowing Precautions Discharge Activity: Return to Normal Activity Home Medications: Medications to take at Discharge Polyethylene Glycol 3350 [Miralax] 0.5 pack PO DAILY 06/06/17 albuterol sulfate HFA 90 mcg/actuation aerosol inhaler 2 puff INHALATION Q6H PRN PRN 12/26/17 Atorvastatin Calcium [Lipitor] 80 mg PO QHS 01/03/18 Ranitidine HCl [Acid Control] 300 mg PO QHS 01/03/18 Baclofen [Lioresal] 5 mg PO BIDCM tab 01/06/18 insulin lispro (U- 100) 100 unit/mL subcutaneous solution See Rx Instructions SC TIDCM ml 01/23/18 Ipratropium [place] 0.06% [ATROVENT NASAL SPRAY] 2 spray NASAL BID 05/25/18 atenolol 25 mg tablet 75 mg PO DAILY 07/10/18 Aspirin [Aspirin, Baby] 81 mg PO DAILY@0800 #30 tab.chew 08/12/18 Insulin Lispro [Humalog KwikPen] See Protocol SC ACHS insuln.pen 08/12/18 Clopidogrel Bisulfate [Clopidogrel] 75 mg PO DAILY 09/01/18 Insulin Detemir [Levemir Flextouch] 26 unit SC QHS 09/01/18 Acetaminophen [Tylenol Tablet] 650 mg PO Q6H PRN PRN tablet 09/04/18 Clindamycin [Cleocin] 300 mg PO TID #9 cap 09/04/18 Dextran 70/He-Cell [Tears Naturale, Artificial Tears] 1 - 2 drop EACH EYE Q4H PRN PRN bottle 09/04/18 Guaifenesin [Mucinex] 1,200 mg PO BID tablet 09/04/18 Insulin Lispro [Humalog KwikPen] See Protocol SQ ACHS insuln.pen 09/04/18 Lactobacillus Acidophilus [Acidophilus] 1 tab PO DAILY #30 tab 09/04/18 Mag Hydrox/Al Hydrox/Simeth [Mylanta II] 30 ml PO Q6H PRN PRN udc 09/04/18 Magnesium Hydroxide [Milk Of Magnesia] 30 ml PO DAILY PRN PRN udc 09/04/18 Psyllium [Metamucil] 1 packet PO DAILY PRN PRN packet 09/04/18 levoFLOXacin tablet [Levaquin tablet] 750 mg PO DAILY@0600 #3 tab 09/04/18 Following Prescrptions Were Given to Patient: Clindamycin [Cleocin] 300 mg PO TID #9 cap Lactobacillus Acidophilus [Acidophilus] 1 tab PO DAILY #30 tab levoFLOXacin tablet [Levaquin tablet] 750 mg PO DAILY@0600 #3 tab Primary Care Physician: Ronald Flannery MD [Primary Care Provider] - Please follow up with your Primary Care Physician in: in 1-2 weeks Disposition: [facility] facility Minutes spent on discharge:: 35 Patient Condition:: Stable Medical Necessity - Tobacco Use Smoking Status: Former smoker Meaningful Use Info Meaningful Use Diagnoses (Choose all that apply): None applicable Code Visit Inpatient E&M: 37624 Disch Hosp
[2018-09-04 10:07] VITALS: BP 151/84; PULSE 77; RESP 18; TEMP 37; O2SAT 96
--- NOTE | 2018-09-04 10:36 | CASEMGMT ---
Addendum entered by Belle Mayer 09/04/18 11:41: SW placed a call to pt's daughter Xochitl and spoke with her and updated her on discharge to [facility] today and transportation time. Xochitl states understanding. Original Note: Social Work Note Pt is discharging today to [facility]. [employer]IL faxed completed discharge paperwork to [facility] including transfer to extended care facility, signed medication list and any scripts. Originals in SNF folder and copy on pt's chart. [facility] completed [facility] in [facility]. Originals in SNF folder and copy on pt's chart. [employer] Charlene arranged for transportation at 12:30pm. SW updated pt on discharge and discharge time. Pt gave this worker permission to call his daughter Xochitl. SW attempted to call Xochitl but voicemail is full and unable to leave message. SW placed call to Elsie to [facility] and updated on transportation time. Plan: Pt to discharge to [facility] skilled today Belle Mayer OPTICAL INSTRUMENT SPECIALIST, PERSONAL INSURANCE ADVISOR
[2018-09-04 13:01] LABS: Bedside Glucose 291 mg/dL (70-110)
== END 2018-09-04 12:47 | disposition skilled nursing facility (03) | DRG 177 ==
LOC: ED 11:23 → MS3 15:49
PROVIDERS: Admitting Provider Internal Medicine; Emergency Provider Emergency Medicine; Family Provider Internal Medicine; PCP Internal Medicine; Referring Provider Internal Medicine; Visit Provider Internal Medicine
DX: J69.0 Pneumonitis due to inhalation of food and vomit (principal); G93.41 Metabolic encephalopathy; N17.9 Acute kidney failure, unspecified; N30.00 Acute cystitis without hematuria; E78.5 Hyperlipidemia, unspecified; I25.10 Atherosclerotic heart disease of native coronary artery without angina pectoris; E11.65 Type 2 diabetes mellitus with hyperglycemia; Z79.4 Long term (current) use of insulin; R06.6 Hiccough; N40.0 Benign prostatic hyperplasia without lower urinary tract symptoms; K21.9 Gastro-esophageal reflux disease without esophagitis; Z79.899 Other long term (current) drug therapy; I10 Essential (primary) hypertension; Z87.891 Personal history of nicotine dependence; Z86.73 Personal history of transient ischemic attack (TIA), and cerebral infarction without residual deficits
CPT/HCPCS: 36415; 70450; 71045; 71275; 80048; 80053; 80320; 81001; 82962; 83690; 83735; 84484; 85025; 85027; 85610; 85730; 87040; 87070; 87205; 87449; 87633; 92526; 92610; 93005; 94640; 94667; 94668; 97162; 97166; 97530; 97535; 99283; J7030; J7040; Q9967; A4216; G0480

== ENCOUNTER 2018-10-21 11:53 | Observation (INO) | payer MEDICARE, OTHER, SELFPAY ==
[2018-09-01 16:02] VITALS: BMI 24.4
[2018-10-21] VITALS (11 sets, daily range): BP systolic 123–172; BP diastolic 65–78; PULSE 75–94; RESP 14–21; TEMP 36.5–36.7; O2SAT 95–99; BMI 25.6; BMI 25.0
--- NOTE | 2018-10-21 12:20 | EKG12_ITS ---
Test Reason : Blood Pressure : / mmHG Vent. Rate : 082 BPM Atrial Rate : 082 BPM P-R Int : 164 ms QRS Dur : 084 ms QT Int : 372 ms P-R-T Axes : 047 -28 014 degrees QTc Int : 434 ms Normal sinus rhythm Minimal voltage criteria for LVH, may be normal variant Borderline ECG Confirmed by ROCIO YU, PHYLLIS ([id number]), newspaper editor managing SHA HYATT ([id number]) on 10/23/2018 9:29:41 AM Referred By: Loida Mac Confirmed By:PHYLLIS CHAN MD
--- NOTE | 2018-10-21 12:20 | RAD_ITS ---
STUDY: X-RAY CHEST REASON FOR EXAM: Male, 83 years old. Chest pain TECHNIQUE: Single AP portable view of the chest. COMPARISON: Chest x-ray 09/01/2018. FINDINGS: The lungs are clear and expanded. There is no demonstrated pleural abnormality. Normal size heart. Normal mediastinum and dion. Normal visualized pulmonary arteries. Normal visualized aortic arch and descending thoracic aorta. Normal visualized thoracic spine. Normal visualized ribs, clavicles, and shoulders. There is no demonstrated abnormality of the visualized soft tissue structures of the upper abdomen. RAD/Chest 1 View (Portable) IMPRESSION: Normal x-ray examination of the chest. Electronically Signed: Emily Martin, at 13:31 EDT Tel , Service support ,
--- NOTE | 2018-10-21 12:21 | ED.VIS.GEN ---
History of Present Illness Chief Complaint: Chest Pain Informant: Patient, Family Onset: Today Narrative: Patient here with daughter from [facility] for evaluation chest pain half hour prior to arrival. He is been there for rehab after being diagnosed with pneumonia has been there for approximately 30 days, states return after therapy when he felt symptoms. Pain on the middle chest radiates to his jaw currently resolved. No cardiac history. Always had a stroke in the past, carotid endarterectomies bilaterally. History of hypertension, diabetes, hypercholesterolemia. Daughter thinks he may have had a heart cath in the past with no intervention. Denies any history of [place]. Denies any cough. Prior similar symptoms: No Past Medical History - Allergies and Home Meds Allergies/Adverse Reactions: Allergies alfuzosin Allergy (Verified 10/21/18 11:55) Other chlorpromazine [From Thorazine] Allergy (Verified 10/21/18 11:55) Other Penicillins Allergy (Verified 10/21/18 11:55) Rash Sulfa (Sulfonamide Antibiotics) Allergy (Verified 10/21/18 11:55) Swelling lisinopril Adverse Reaction (Verified 10/21/18 11:55) Other Primary Care Physician: Ronald Flannery MD [Primary Care Provider] - Surgical History: - - L Rotator cuff surgery, BL carotid endarterectomies, hemorrhoidectomy, T+A. Smoking Status: Former smoker - Family History Maternal Family History: Family History (Last Reviewed 09/01/18 @ 15:45 by Ovidio Ibarra MD) Brother Kidney disease Mother CVA (cerebral vascular accident) Father Liver cirrhosis Family History: Reports: Diabetes, Heart Disease, Stroke Paternal Family History: Family History (Last Reviewed 09/01/18 @ 15:45 by Ovidio Ibarra MD) Brother Kidney disease Mother CVA (cerebral vascular accident) Father Liver cirrhosis Family History: Reports: - - Patient notes father was an alcoholic with cirrhosis in addition to heart disease. Sibling Family History: Family History (Last Reviewed 09/01/18 @ 15:45 by Ovidio Ibarra MD) Brother Kidney disease Mother CVA (cerebral vascular accident) Father Liver cirrhosis Family History: Reports: No pertinent history Review of Systems General: Denies: Chills, Fever, Sweats Eyes: Denies: Visual changes - bilaterally, Diplopia ENT: Denies: Rhinorrhea, Sore throat Cardiovascular: Reports: Chest pain Respiratory: Denies: Dyspnea, Cough, Dyspnea on exertion Gastrointestinal: Denies: Abdominal pain, Nausea, Vomiting, Diarrhea, Melena, Hematochezia Genitourinary: Denies: Dysuria, Hematuria, Frequency Musculoskeletal: Denies: Back pain, Extremity Pain Skin: Denies: Rash, Wounds Neurological: Denies: Headache, Weakness, Numbness Physical Exam Vital Signs/Narrative: Vital Signs Temp Pulse Resp BP 10/21/18 11:59 98.1 F 94 20 H 172/78 H Inital Vital Signs reviewed: Yes General: Well nourished, Well developed, No Acute Distress Head: Normocephalic, Atraumatic Eyes: Perrl, EOMI ENT: Moist mucous membranes, No rhinorrhea Neck: Supple, Nontender Cardiovascular: Regular rate, Regular rhythm, No murmurs Respiratory: No distress, CTA bilaterally, Chest nontender Abdomen: Soft, Nontender, Nondistended, Normal bowel sounds Back: Nontender, Normal Inspection Extremities: Nontender, No edema Skin: Normal color, No rash Neurological: Alert, Cranial nerves II-XII grossly intact, Normal Strength, Normal Sensation, - - slow on speech, follow commands Psychological: Normal affect, Normal Mood Diagnostic/Tx/Re-eval Chest X-Ray - ED: 1 View, Read by ED Physician, Read by Radiologist, No Acute Disease Abnormal Lab Results 10/21/18 10/21/18 10/21/18 12:25 12:25 12:25 WBC 8.3 RBC 4.54 L Hgb 13.4 Hct 40.1 MCV 88.3 MCH 29.5 MCHC 33.4 RDW 14.7 H RDW Differential 47.0 H Plt Count 221 MPV 10.1 Immature Gran % (Auto) 0.100 Neut % (Auto) 34.3 L Lymph % (Auto) 53.7 H [place] % (Auto) 10.2 H Eos % (Auto) 1.6 Baso % (Auto) 0.1 Absolute Neuts (auto) 2.9 Absolute Lymphs (auto) 4.48 Total Counted Not Reportable PT 13.8 INR 1.1 APTT 30.3 Sodium 139 Potassium 3.8 Chloride 107 Carbon Dioxide 30.0 Anion Gap 2 L BUN 15 Creatinine 0.99 Estim Creat Clear Calc 55.66 Est GFR (MDRD) Af Amer 93 Est GFR (MDRD) Non-Af 77 BUN/Creatinine Ratio 15.2 Glucose 45 L Calcium 8.7 Troponin I < 0.015 POC Glucose 10/21/18 12:55 WBC RBC Hgb Hct MCV MCH MCHC RDW RDW Differential Plt Count MPV Immature Gran % (Auto) Neut % (Auto) Lymph % (Auto) [place] % (Auto) Eos % (Auto) Baso % (Auto) Absolute Neuts (auto) Absolute Lymphs (auto) Total Counted PT INR APTT Sodium Potassium Chloride Carbon Dioxide Anion Gap BUN Creatinine Estim Creat Clear Calc Est GFR (MDRD) Af Amer Est GFR (MDRD) Non-Af BUN/Creatinine Ratio Glucose Calcium Troponin I POC Glucose 32 L* - EKG Initial EKG Interpretation: Sinus Rhythm - Sinus rhythm 82, no ST changes. Artifact at baseline, T wave inversion in V6, more flattening inferior lateral leads. - Medical Decision Making Patient presented with chest pain, nonspecific EKG changes. Cardiac work-up negative. Chest x-ray negative. However laboratory noted glucose in the 40s, he was given D50. Provided meal. On reevaluation his mentation was extremely improved from initial evaluation. Concerns likely had hypoglycemia during my evaluation. However he was alert at that time. Initial troponin negative. He is a DNR CCA, discussed with daughter with his DNR CCA status, she is unsure how aggressive she would want cardiac work-up in the hospital. She reports may be had a stress test in the last 6 months however on evaluation he had an echo in July however there is no stress test seen. She would like at minimum serial enzymes for cardiac rule out. BOBO score is 2. Heart score is 4. I discussed with hospitalist, Dr. Mac for admission. ED Disposition - Plan for ED Patient: Disposition: Acute Care Hospital [facility] Diagnosis: Chest pain, Hypoglycemic event in diabetes Referrals: Ronald Flannery MD [Primary Care Provider] -
[2018-10-21 12:33] LABS: Absolute Lymphocyte Count 4.48 X10^3/ul (0.83-4.51); Absolute Neutrophil Count 2.9 X10^3/uL (2.0-7.7); Basophil# 0.01 X10^3/uL; Basophil% 0.1 % (0-1); Eosinophil# 0.13 X10^3/uL; Eosinophils% 1.6 % (0-5); Hematocrit 40.1 % (40-54); Hemoglobin 13.4 g/dl (13.0-16.5); Lymphocyte # 4.48 X10^3/ul (4.0); Lymphocyte % 53.7 % (19-41); Mean Corp Hgb Conc 33.4 g/gl (32-36); Mean Corpuscular Hgb 29.5 pg (27.0-32.0); Mean Corpuscular Volume 88.3 fL (80-94); Mean Platelet Vol. 10.1 fl (6.2-12.0); Monocyte# 0.85 X10^3/uL; Monocyte% 10.2 % (0-10); Neutrophil # 2.86 X10^3/uL (2.7-7.7); Neutrophil % 34.3 % (47-70); Platelet Count 221 K/mm3 (150-450); RBC Distribution Width CV 14.7 % (11.6-14.6); Red Blood Count 4.54 M/mm3 (4.6-6.2); White Blood Count 8.3 K/mm3 (4.4-11.0)
[2018-10-21 12:37] LABS: POSITIVE COUNT NO; POSITIVE DIFFERENTIAL NO; POSITIVE MORPHOLOGY NO
[2018-10-21 12:48] LABS: International Normalized Ratio 1.1; Prothrombin Time (Protime)PT. 13.8 SECONDS (11.7-14.9)
[2018-10-21 12:49] LABS: Partial Thromboplast Time 30.3 Seconds (24.1-36.2)
[2018-10-21 12:50] LABS: Anion Gap 2 (5-15); BUN 15 mg/dL (7-18); BUN/Creat Ratio 15.2 RATIO (10-20); Calcium,Total 8.7 mg/dL (8.5-10.1); Chloride 107 mmol/L (98-107); Creatinine, Serum 0.99 mg/dL (0.70-1.30); EST Glomerular Filtration Rate 77 mL/min (>60); Est Glom Filt Rate - Afr Amer 93 mL/min (>60); Estimated Creatinine Clearance 55.66 ml/min; Glucose 45 mg/dL (74-106); Potassium 3.8 mmol/L (3.5-5.1); Sodium Level 139 mmol/L (136-145)
--- NOTE | 2018-10-21 12:55 | ED.RN ---
PATIENT'S DAUGHTER RINGS OUT STATING THAT SHE THINKS PT'S BLOOD SUGAR IS GETTING LOW, THIS RN TO BEDSIDE TO CHECK BLOOD SUGAR, 32 MG/dL, DR. PAREDES MADE AWARE. ORDERS OBTAINED FOR 1 AMP OF D50 IVP, PATIENT GIVEN SNACKS AND BEVERAGE.
[2018-10-21] MEDS: Dextrose 50%-Water 25 GM/50 ML DISP.SYRIN IV (12:59)
[2018-10-21 13:00] LABS: Bedside Glucose 32 mg/dL (70-110)
--- NOTE | 2018-10-21 14:02 | NURSING ---
PCU OBS CP, HYPOGLYCEMIC EVENT
[2018-10-21 14:15] LABS: Bedside Glucose 169 mg/dL (70-110)
--- NOTE | 2018-10-21 14:17 | PCM.HP.STD ---
Problem List (1) Chest pain Status: Acute (2) CVA (cerebral vascular accident) Status: Chronic Comment: Status post acute ischemic stroke with residual lower extremity weakness mild (3) Atherosclerotic heart disease of [place] coronary artery without angina pectoris Status: Chronic Qualifiers: [place] vs. transplanted heart: [place] heart Qualified Code(s): I25.10 - Atherosclerotic heart disease of [place] coronary artery without angina pectoris (4) Hyperlipidemia Status: Chronic Qualifiers: Hyperlipidemia type: unspecified Qualified Code(s): E78.5 - Hyperlipidemia, unspecified (5) Hypertension Status: Chronic Qualifiers: Hypertension type: essential hypertension Qualified Code(s): I10 - Essential (primary) hypertension Comment: History of Present Illness Date of Admission: 10/21/18 Chief Complaint: Chest pain. The patient is a 83 year old M with past medical history as mentioned above presented to the emergency room because of chest pain. [facility] and after he is done, he started having chest pain. The chest pain was in the middle of his chest, retrosternal, initially was dull aching pain and then became sharp, 6 out of 10 in severity, radiates to his left jaw, associated with mild shortness of breath and nausea and without aggravating or relieving factors. At this time, he denies any more chest pain. In the emergency department, his blood pressure was slightly elevated and other vital signs were stable. He was found to have blood sugar of 32 mg/dL. His routine blood work was unremarkable. EKG revealed normal sinus rhythm without evidence of acute ischemic changes. First troponin is negative. Chest x-ray showed no acute findings. He is being admitted for chest pain for evaluation as well as hypoglycemia. Past Medical History Past Medical History (Chronic Problems): Chronic Problems (Last Reviewed 09/01/18 @ 15:45 by Ovidio Ibarra MD) CVA (cerebral vascular accident) (Chronic) Status post acute ischemic stroke with residual lower extremity weakness mild Carotid bruit (Chronic) Encounter for long-term current use of high risk medication (Chronic) Reviewed medications with family to be sure patient was taking remainder of medications correctly and there were no duplicates Atherosclerotic heart disease of [place] coronary artery without angina pectoris (Chronic) Hyperlipidemia (Chronic) Diverticulitis (Chronic) Hypertension (Chronic) /64 Medical History: Medical History (Last Reviewed 09/01/18 @ 15:45 by Ovidio Ibarra MD) CVA (cerebral vascular accident) (Chronic) I63.9 Status post acute ischemic stroke with residual lower extremity weakness mild Carotid bruit (Chronic) R09.89 Atherosclerotic heart disease of [place] coronary artery without angina pectoris (Chronic) I25.10 Hyperlipidemia (Chronic) E78.5 Diverticulitis (Chronic) K57.92 Hypertension (Chronic) I10 104/64 GERD (gastroesophageal reflux disease) K21.9 GI bleed K92.2 OAB (overactive bladder) N32.81 Type 2 diabetes mellitus E11.9 Allergies alfuzosin Allergy (Verified 10/21/18 11:55) Other chlorpromazine [From Thorazine] Allergy (Verified 10/21/18 11:55) Other Penicillins Allergy (Verified 10/21/18 11:55) Rash Sulfa (Sulfonamide Antibiotics) Allergy (Verified 10/21/18 11:55) Swelling lisinopril Adverse Reaction (Verified 10/21/18 11:55) Other Home Medications: Ambulatory Orders Medication Instructions Recorded Aspirin [Aspirin, Baby] 81 mg PO DAILY@0800 10/21/18 Atenolol [Tenormin (Beta [place])] 75 mg PO DAILY 10/21/18 Atorvastatin Calcium [Lipitor] 80 mg PO QHS 10/21/18 Baclofen 5 mg PO BID 10/21/18 Clopidogrel Bisulfate [Plavix] 75 mg PO DAILY 10/21/18 Docusate Sodium [Colace] 100 mg PO QHS 10/21/18 Furosemide [Lasix] 20 mg PO DAILY 10/21/18 Guaifenesin [Mucinex] 2 tab PO BID 10/21/18 Guaifenesin [Robitussin] 10 ml PO Q4H PRN PRN 10/21/18 Insulin Glargine,Hum.rec.anlog 26 unit SQ QHS 10/21/18 [Basaglar Kwikpen U-100] Insulin Lispro [Humalog] 12 unit SQ 4X/DAY 10/21/18 Ipratropium [place] 0.06% 2 spray NASAL BID 10/21/18 [ATROVENT NASAL SPRAY (g)] Lactobacillus Rhamnosus GG 1 each PO DAILY 10/21/18 [Culturelle] Mag Hydrox/Aluminum Hyd/Simeth 30 ml PO Q4H PRN 10/21/18 [Antacid Suspension] Magnesium Hydroxide [Milk Of 30 ml PO DAILY PRN PRN 10/21/18 Magnesia] Metoclopramide [Reglan] 10 mg PO TIDCM 10/21/18 Pantoprazole Sodium [Protonix] 40 mg PO DAILY 10/21/18 Surgical History: Surgical History (Last Reviewed 09/01/18 @ 15:45 by Ovidio Ibarra MD) H/O repair of rotator cuff Z98.890 History of carotid endarterectomy Z98.890 History of cataract surgery Z98.49 History of hemorrhoidectomy Z98.890 Surgical History: - - L Rotator cuff surgery, BL carotid endarterectomies, hemorrhoidectomy, T+A. 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 Sibling Family History: Family History (Last Reviewed 09/01/18 @ 15:45 by Ovidio Ibarra MD) Brother Kidney disease Mother CVA (cerebral vascular accident) Father Liver cirrhosis History Items: No pertinent history Review of Systems Constitutional: Denies: Anorexia, Chills, Fever, Weakness Eyes: Denies: Blurred vision, Double vision, Drainage, Redness HEENT: Denies: Difficulty Hearing, Ear Pain, Eye Pain, Nasal Congestion, Sore Throat Cardiovascular: Reports: Chest Pain. Denies: Edema, Heaviness, Light Headedness, Orthopnea, Palpitations, Paroxysmal Noc. Dyspnea, Syncope Respiratory: Reports: Shortness of Breath. Denies: Cough, Sputum production, Wheezing Gastrointestinal: Reports: Nausea. Denies: Abdominal Pain, Constipation, Diarrhea, Vomiting Genitourinary: Denies: Dysuria, Frequency, Hematuria Musculoskeletal: Denies: Arm Pain, Back Pain, Foot Pain Skin: Denies: Dryness, Rash Neurological: Denies: Balance problems, Double vision, Change in Speech, Slurred speech, Confusion, Headaches, Incoordination Psychiatric: Denies: Anxiety, Depression Endocrine: Denies: Change in Body Habitus, Polydipsia VTE Information - Inpt Only VTE Present on Admission: No VTE Mechan Device Prophylaxis: None VTE Pharm Prophylaxis ordered?: Yes Patient Problems: Active and Suspected Problems (Last Reviewed 09/01/18 @ 15:45 by Ovidio Ibarra MD) Hypoglycemic event in diabetes (Acute) Chest pain (Acute) - Physical Exam General: Alert, Oriented x3, Cooperative, No apparent distress HEENT: Atraumatic, PERRLA, EOMI, Normocephalic Oral: Moist Mucosa, No Gingival or Mucosal Lesions/ Ulcerations Neck: Supple, No JVD, Negative Carotid Bruits, Trachea Midline, Thyroid Normal Size and Texture Lungs: Clear to auscultation, No rhonchi, No wheeze, No rales, Diminished Cardiovascular: Regular rate, Regular Rhythm, Normal S1, Normal S2, PMI Normal Abdomen: Bowel Sounds Present, Soft, Non Tender, Non-Distended, No Hepato-splenomegaly Extremities: No clubbing, No cyanosis, Edema - Trace edema. Skin: No rashes, No breakdown Lymphatic: No Cervical, Supraclavicular, or Inguinal Adenopathy Neurological: Cranial nerves II-XII grossly intact, Motor Exam 5/5 strength throughout Psych/Mental Status: Normal Affect, Appropriate, Alert and oriented to time, place, person, mood and affect Vital Signs Temp Pulse Resp BP Pulse Ox 98.1 F 77 21 H 151/74 H 98 10/21/18 11:59 10/21/18 14:13 10/21/18 14:13 10/21/18 14:13 10/21/18 13:10 Oxygen Flow Rate (L/min) 2 Oxygen Delivery Method Nasal Cannula Weight: 168 lb 10.458 oz Body Mass Index (BMI) 25.6 Finger Stick Blood Glucose 169 Laboratory Tests Past 24 Hrs 10/21/18 10/21/18 10/21/18 12:25 12:25 12:25 WBC 8.3 RBC 4.54 L Hgb 13.4 Hct 40.1 MCV 88.3 MCH 29.5 MCHC 33.4 RDW 14.7 H RDW Differential 47.0 H Plt Count 221 MPV 10.1 Immature Gran % (Auto) 0.100 Neut % (Auto) 34.3 L Lymph % (Auto) 53.7 H [place] % (Auto) 10.2 H Eos % (Auto) 1.6 Baso % (Auto) 0.1 Absolute Neuts (auto) 2.9 Absolute Lymphs (auto) 4.48 Total Counted Not Reportable PT 13.8 INR 1.1 APTT 30.3 Sodium 139 Potassium 3.8 Chloride 107 Carbon Dioxide 30.0 Anion Gap 2 L BUN 15 Creatinine 0.99 Estim Creat Clear Calc 55.66 Est GFR (MDRD) Af Amer 93 Est GFR (MDRD) Non-Af 77 BUN/Creatinine Ratio 15.2 Glucose 45 L Calcium 8.7 Troponin I < 0.015 POC Glucose 10/21/18 10/21/18 14:13 12:55 POC Glucose 169 H 32 L* Clinical Impression(s) from Imaging Studies Chest X-Ray 10/21/18 12:20 IMPRESSION: Normal x-ray examination of the chest. Electronically Signed: Marylinh Martin, at 13:31 EDT Tel , Service support , Assessment/Plan All Active Problems (Last Reviewed 09/01/18 @ 15:45 by Ovidio Ibarra MD) Hypoglycemic event in diabetes (Acute) Chest pain (Acute) This is an 83 years old male patient presented to the emergency room because of chest pain, found to have hypoglycemia and he is being admitted for treatment and evaluation. #1 chest pain: Initial EKG revealed no acute ischemic changes. First troponin is negative. Chest x-ray showed no acute findings. He had stress test done on May, that revealed no evidence of stress induced myocardial ischemia. At this time, patient is not decisive regarding pursuing further cardiac work-up. I explained to the patient and his daughter if they wanted to do further cardiac work-up at this time. The patient and his daughter was not decisive. They agreed to do serial cardiac enzymes and stress test tomorrow morning and then they will decide upon the results of the stress test. Plan: Admit to PCU for observation, cardiac monitoring, serial cardiac enzymes, sublingual nitro as needed for pain, IV antiemetics repeat EKG tomorrow morning, nuclear stress test tomorrow morning if cardiac enzymes are negative, continue aspirin, Plavix, statins and beta-blockers, IV fluids with dextrose 5% with normal saline, PT OT evaluation and treatment. #2 hypoglycemia: Blood sugar was 52 upon arrival to ER. It came up to 169 with D50. Patient is on glargine insulin as well as Humalog 4 times a day and probably, he [facility]. Plan: IV fluids with D5 percent normal saline, Accu-Cheks every 4 hours, insulin sliding scale, hold glargine and Humalog insulin for now. #3 type 2 diabetes mellitus: Plan as above, ADA diet, Accu-Cheks every 4 hours, hold insulin, start insulin sliding scale. #4 hypertension: Blood pressure stable, continue atenolol and aspirin. #5 hyperlipidemia: Continue statins. #6 CAD: EKG without acute ischemic changes, troponin is negative. Plan as above. Continue aspirin, statins, Plavix, beta-blockers. #7 history of CVA: Stable, no acute issues, continue aspirin, statin and Plavix. #8 carotid stenosis: Status post bilateral carotid endarterectomy, stable, continue aspirin, statin and Plavix. #9 DVT prophylaxis: Subcu Lovenox. This note was generated with [employer] dictation software. It may contain incorrect words, spelling, and punctuation that were not noted in checking the note before signing. Code Visit OBSV E&M: [id number] Initial observation care L3
--- NOTE | 2018-10-21 15:09 | EKG12_ITS ---
Test Reason : CP ADMISSION Blood Pressure : / mmHG Vent. Rate : 076 BPM Atrial Rate : 076 BPM P-R Int : 182 ms QRS Dur : 076 ms QT Int : 380 ms P-R-T Axes : 058 -31 -11 degrees QTc Int : 427 ms Normal sinus rhythm Left axis deviation Abnormal ECG When compared with ECG of 21-OCT-2018 11:59, MANUAL COMPARISON REQUIRED, DATA IS UNCONFIRMED Confirmed by ALEX WAGGONER ([id number]), research editor LALITHA TAM ([id number] on 10/27/2018 2:24:18 PM Referred By: Loida Mac Confirmed By:PAULA WAGGONER
[2018-10-21] MEDS: Albuterol 2.5 MG/3 ML VIAL.NEB. INHALATION ×2 (15:20→19:18)
[2018-10-21 16:30] LABS: Bedside Glucose 245 mg/dL (70-110)
[2018-10-21] MEDS: Metoclopramide 10 MG Tablet PO (17:48)
[2018-10-21] MEDS: Insulin Lispro 100 UNIT/ML INSULN.PEN SC ×2 (17:54→21:00)
[2018-10-21 18:21] LABS: Bedside Glucose 241 mg/dL (70-110)
[2018-10-21] MEDS: Baclofen 10 MG Tablet 5 MG PO (20:59)
[2018-10-21] MEDS: Atorvastatin Calcium 80 MG Tablet PO (21:00)
[2018-10-21] MEDS: Docusate Sodium 100 MG Capsule PO (21:00)
[2018-10-21] MEDS: guaiFENesin 600 MG Tablet 1200 MG PO (21:00)
[2018-10-21 21:36] LABS: Bedside Glucose 327 mg/dL (70-110)
[2018-10-22] VITALS (7 sets, daily range): BP systolic 117–165; BP diastolic 59–80; PULSE 76–85; RESP 16–18; TEMP 36.6–37.1; O2SAT 94–97
[2018-10-22] MEDS: Insulin Lispro 100 UNIT/ML INSULN.PEN SC ×3 (02:14→14:57)
[2018-10-22 03:55] LABS: Bedside Glucose 231 mg/dL (70-110)
--- NOTE | 2018-10-22 04:39 | NURSING ---
On 10/22/18 at 03:25, this RN received report from Beverley Elizabeth RN. This RN resumed care.
[2018-10-22] MEDS: Aspirin 81 MG TAB.CHEW PO (05:15)
[2018-10-22] MEDS: Clopidogrel Bisulfate 75 MG Tablet PO (05:15)
[2018-10-22 05:18] LABS: Absolute Lymphocyte Count 1.93 X10^3/ul (0.83-4.51); Absolute Neutrophil Count 1.8 X10^3/uL (2.0-7.7); Basophil# 0.01 X10^3/uL; Basophil% 0.2 % (0-1); Eosinophil# 0.08 X10^3/uL; Eosinophils% 1.8 % (0-5); Hematocrit 33.7 % (40-54); Hemoglobin 11.2 g/dl (13.0-16.5); Lymphocyte # 1.93 X10^3/ul (4.0); Lymphocyte % 44.5 % (19-41); Mean Corp Hgb Conc 33.2 g/gl (32-36); Mean Corpuscular Hgb 29.4 pg (27.0-32.0); Mean Corpuscular Volume 88.5 fL (80-94); Mean Platelet Vol. 10.1 fl (6.2-12.0); Monocyte# 0.49 X10^3/uL; Monocyte% 11.3 % (0-10); Neutrophil # 1.83 X10^3/uL (2.7-7.7); Neutrophil % 42.2 % (47-70); Platelet Count 172 K/mm3 (150-450); RBC Distribution Width CV 14.4 % (11.6-14.6); RBC Distribution Width SD 45.8 fl (35.1-43.9); Red Blood Count 3.81 M/mm3 (4.6-6.2); White Blood Count 4.3 K/mm3 (4.4-11.0)
[2018-10-22 05:28] LABS: International Normalized Ratio 1.2; Prothrombin Time (Protime)PT. 14.8 SECONDS (11.7-14.9)
[2018-10-22 05:29] LABS: Partial Thromboplast Time 31.4 Seconds (24.1-36.2)
[2018-10-22 05:32] LABS: POSITIVE COUNT NO; POSITIVE DIFFERENTIAL NO; POSITIVE MORPHOLOGY NO
[2018-10-22 05:36] LABS: Anion Gap 5 (5-15); BUN 14 mg/dL (7-18); BUN/Creat Ratio 14.6 RATIO (10-20); Calcium,Total 8.1 mg/dL (8.5-10.1); Chloride 106 mmol/L (98-107); Creatinine, Serum 0.96 mg/dL (0.70-1.30); EST Glomerular Filtration Rate 80 mL/min (>60); Est Glom Filt Rate - Afr Amer 96 mL/min (>60); Glucose 197 mg/dL (74-106); Potassium 4.1 mmol/L (3.5-5.1); Sodium Level 138 mmol/L (136-145)
--- NOTE | 2018-10-22 05:55 | EKG12_ITS ---
Test Reason : AM EKG Blood Pressure : / mmHG Vent. Rate : 076 BPM Atrial Rate : 076 BPM P-R Int : 196 ms QRS Dur : 092 ms QT Int : 376 ms P-R-T Axes : 061 -26 -25 degrees QTc Int : 423 ms Normal sinus rhythm Nonspecific T wave abnormality Abnormal ECG When compared with ECG of 21-OCT-2018 15:16, MANUAL COMPARISON REQUIRED, DATA IS UNCONFIRMED Confirmed by ALEX WAGGONER ([id number]), editor index LALITHA TAM ([id number]) on 10/27/2018 2:22:00 PM Referred By: Loida Mac Confirmed By:PAULA WAGGONER
[2018-10-22] MEDS: Metoclopramide 10 MG Tablet PO ×2 (06:43→12:00)
--- NOTE | 2018-10-22 08:38 | STRESSREP ---
Stress Test Report Date: 10-22-18 Procedure: Pharmacologic stress nuclear imaging study Indications: Chest pain; CAD; PAD Consent: Per the patient Procedure: The patient underwent pharmacologic (Regadenoson) evaluation with a peak heart rate of 90 beats per minute (65 %predicted maximal heart rate) and a peak blood pressure of 148/80 mmHg. The baseline ECG demonstrated normal sinus rhythm; nonspecific T wave abnormality. The peak pharmacologic ECG demonstrated continued nonspecific T wave abnormality. There were no cardiac dysrhythmias pretest, during pharmacologic infusion, or recovery. There was no complaint of chest discomfort during pharmacologic infusion or recovery. The examination was discontinued secondary to completion of protocol. Impression: 1. Pharmacologic (Regadenoson) evaluation 2. Peak pharmacologic ECG with continued nonspecific T wave abnormality. 3. There were no cardiac dysrhythmias pretest, during pharmacologic infusion, or recovery. 4. Nuclear images pending Myocardial perfusion imaging study: Technique: The patient was injected with 11.5 millicuries of technetium 99m Cardiolite and subsequently rest SPECT Cardiolite nuclear imaging was obtained in the horizontal long, vertical long, and short axis views. The patient underwent pharmacologic (Regadenoson) evaluation with a peak heart rate of 90 beats per minute (65 % percent predicted maximal heart rate) and a peak blood pressure of 148/80 mmHg. The patient was injected with 34.1 millicuries of technetium 99m Cardiolite and subsequently stress SPECT Cardiolite nuclear imaging was obtained in the horizontal long, vertical long, and short axis views. A gated Cardiolite study at peak stress was obtained. Interpretation: Rest and stress SPECT Cardiolite nuclear imaging status post realignment, normalization, and attenuation correction demonstrate relative uniform tracer uptake and myocardial perfusion appearing within normal limits. There is end systolic thickening and brightening. The gated Cardiolite study demonstrates myocardial thickening and inward wall motion. The reported LVEF is 64 %. Impression: 1. Rest and stress SPECT Cardiolite nuclear imaging demonstrate relative uniform tracer uptake and myocardial perfusion appearing within normal limits. 2. The gated Cardiolite study reports an LVEF of 64 %. This note was generated with [employer] software. It may contain incorrect words, spelling, and punctuation that were not noted in checking the note before signing.
[2018-10-22] MEDS: guaiFENesin 600 MG Tablet 1200 MG PO (09:03)
[2018-10-22] MEDS: Pantoprazole Sodium 40 MG Tablet PO (09:03)
[2018-10-22] MEDS: Atenolol 25 MG Tablet 75 MG PO (09:03)
[2018-10-22] MEDS: Baclofen 10 MG Tablet 5 MG PO (09:04)
[2018-10-22] MEDS: Enoxaparin 30 MG/0.3 ML Syringe SC (09:06)
[2018-10-22] MEDS: Ipratropium Bromide 0.06% NASAL SPRAY 2 SPRAY NASAL (09:07)
[2018-10-22] MEDS: Furosemide 20 MG Tablet PO (09:07)
[2018-10-22 09:15] LABS: Bedside Glucose 293 mg/dL (70-110)
--- NOTE | 2018-10-22 10:07 | PCM.EXTCARCO ---
- Diet 10/22/18 08:49 Diet: Cardiac: Calorie-Controlled Is pt able to select menu?: No How many daily calories?: 1800 calorie - Routine Orders/Code Status Enema Type: Fleetz Enema Frequency: Daily PRN Suppository Type: Dulcolax 10mg Suppository Frequency: Daily PRN O2 Liters per Minute: 2 O2 Frequency: PRN Keep PO Greater than or Equal to (%): 90 Routine Lab Work: - - CBC, BMP Every other week. Code Status: Full Code - Suggestions for Active Care Change Position every (hours): 2 Times a day to sit in chair: 3 - Therapies Physical Therapy: Eval and Treat Occupational Therapy: Eval and Treat - Problem/Diagnosis (1) Hypoglycemic event in diabetes Status: Acute Current Visit: Yes (2) Chest pain Status: Acute Current Visit: Yes (3) CVA (cerebral vascular accident) Status: Chronic Comment: Status post acute ischemic stroke with residual lower extremity weakness mild Current Visit: No (4) Carotid bruit Status: Chronic Current Visit: No (5) Encounter for long-term current use of high risk medication Status: Chronic Comment: Reviewed medications with family to be sure patient was taking remainder of medications correctly and there were no duplicates Current Visit: No (6) Atherosclerotic heart disease of [place] coronary artery without angina pectoris Status: Chronic Current Visit: No (7) Hyperlipidemia Status: Chronic Current Visit: No (8) Diverticulitis Status: Chronic Current Visit: No (9) Hypertension Status: Chronic Comment: 104/64 Current Visit: No - Allergies/Procedures Done in Hospital Allergies/Adverse Reactions: Allergies alfuzosin Allergy (Verified 10/21/18 11:55) Other chlorpromazine [From Thorazine] Allergy (Verified 10/21/18 11:55) Other Penicillins Allergy (Verified 10/21/18 11:55) Rash Sulfa (Sulfonamide Antibiotics) Allergy (Verified 10/21/18 11:55) Swelling lisinopril Adverse Reaction (Verified 10/21/18 11:55) Other Procedures: Stress Test - Type of Care/Length of Stay Estimated LOS: More Than 30 Days Type of Care Needed: Skilled Rehab Potential: Fair Prognosis: Fair - Additional Orders/Day of Discharge H&P will serve as current which was dated: 10/21/18 Day of Discharge: 10/22/18 - Follow Up Care Primary Care Physician: Ronald Flannery MD [Primary Care Provider] - Please follow up with your Primary Care Physician in: 1 Week Please Follow Up With: Mauro Covarrubias MD When: As scheduled
--- NOTE | 2018-10-22 10:26 | DS.PCM_ITS ---
<Joelle Graec - Last Filed: 10/22/18 10:26> Discharge Date and Diagnosis Date of Admission: 10/21/18 Date of Discharge: 10/22/18 - Primary Discharge Diagnosis Active and Suspected Problems (Last Reviewed 09/01/18 @ 15:45 by Ovidio Ibarra MD) 1. Musculoskeletal chest pain 2. Hypoglycemia 3. Type 2 diabetes mellitus 4. Hyperlipidemia 5. Hypertension 6. CAD 7. History of CVA 8. Carotid stenosis - Secondary Discharge Diagnosis Chronic Problems (Last Reviewed 09/01/18 @ 15:45 by Ovidio Ibarra MD) CVA (cerebral vascular accident) (Chronic) Status post acute ischemic stroke with residual lower extremity weakness mild Carotid bruit (Chronic) Encounter for long-term current use of high risk medication (Chronic) Reviewed medications with family to be sure patient was taking remainder of medications correctly and there were no duplicates Atherosclerotic heart disease of [place] coronary artery without angina pectoris (Chronic) Hyperlipidemia (Chronic) Diverticulitis (Chronic) Hypertension (Chronic) 104/64 Hospital Course and Treatment Imaging Results: Diagnostic Data Chest X-Ray 10/21/18 12:20 IMPRESSION: Normal x-ray examination of the chest. Electronically Signed: Emily Mario, at 13:31 EDT Tel , Service support , Operations: None Procedures: Stress test Summary of Care Provided: The patient is a 83 year old M admitted 10/21/2018 due to chest pain. 1. Musculoskeletal chest pain-patient reports chest pain occurred following PT at SNF. Denies further chest pain. EKG without ST-T changes. Troponin negative. Patient underwent nuclear stress test which was negative for ischemia. Follow-up with cardiology as scheduled. Follow-up with primary care provider in 1 week. 2. Hypoglycemia-home Lantus and Humalog regimen reduced to half a former dosing. Glucose stable. 3. Type 2 diabetes mellitus-Home regimen reduced as noted above. 4. Hyperlipidemia- continue statin. 5. Hypertension-stable, continue current regimen. 6. CAD-continue aspirin, statin, Plavix, beta-blockers. 7. History of CVA-continue aspirin, statin and Plavix. 8. Carotid stenosis-status post bilateral carotid endarterectomy. Continue aspirin, statin, Plavix. General: Alert, Oriented x3, Cooperative, No apparent distress HEENT: Atraumatic, PERRLA, EOMI, Normocephalic Oral: Moist Mucosa, No Gingival or Mucosal Lesions/ Ulcerations Neck: Supple, No JVD, Negative Carotid Bruits, Trachea Midline Lungs: Clear to auscultation, Diminished Cardiovascular: Regular rate, Regular Rhythm, Normal S1, Normal S2 Abdomen: Bowel Sounds Present, Soft, Non Tender, Non-Distended, No Hepato- splenomegaly Extremities: No clubbing, No cyanosis, Edema Skin: No rashes, No breakdown Lymphatic: No Cervical, Supraclavicular, or Inguinal Adenopathy Neurological: Cranial nerves II-XII grossly intact, Motor Exam 5/5 strength throughout Psych/Mental Status: Normal Affect, Appropriate Patient seen and examined prior to discharge. Physical assessment as noted above. Patient is stable for discharge with follow up recommendations as noted above. This patient was seen by JOCELYN Brenner under the supervision of Dr. Malhotra. - Physical Exam Vital Signs Temp Pulse Resp BP Pulse Ox 98.8 F 84 16 117/59 L 97 10/22/18 08:31 10/22/18 09:03 10/22/18 08:31 10/22/18 08:31 10/22/18 08:31 Oxygen Flow Rate (L/min) 2 Oxygen Delivery Method Room Air Weight: 164 lb 7.437 oz Body Mass Index (BMI) 25.0 Finger Stick Blood Glucose 169 Intake and Output for Last 24 Hours 10/20/18 10/21/18 10/22/18 23:59 23:59 23:59 Intake Total 600 / 600 Output Total 400 / 400 585 / 585 Balance 200 / 200 -555 / -555 Laboratory Tests Past 24 Hrs 10/21/18 10/21/18 10/21/18 12:25 12:25 12:25 WBC 8.3 RBC 4.54 L Hgb 13.4 Hct 40.1 MCV 88.3 MCH 29.5 MCHC 33.4 RDW 14.7 H RDW Differential 47.0 H Plt Count 221 MPV 10.1 Immature Gran % (Auto) 0.100 Neut % (Auto) 34.3 L Lymph % (Auto) 53.7 H [place] % (Auto) 10.2 H Eos % (Auto) 1.6 Baso % (Auto) 0.1 Absolute Neuts (auto) 2.9 Absolute Lymphs (auto) 4.48 Total Counted Not Reportable PT 13.8 INR 1.1 APTT 30.3 Sodium 139 Potassium 3.8 Chloride 107 Carbon Dioxide 30.0 Anion Gap 2 L BUN 15 Creatinine 0.99 Estim Creat Clear Calc 55.66 Est GFR (MDRD) Af Amer 93 Est GFR (MDRD) Non-Af 77 BUN/Creatinine Ratio 15.2 Glucose 45 L Calcium 8.7 Troponin I < 0.015 10/21/18 10/21/18 10/22/18 16:00 18:45 05:00 WBC 4.3 L RBC 3.81 L Hgb 11.2 L Hct 33.7 L MCV 88.5 MCH 29.4 MCHC 33.2 RDW 14.4 RDW Differential 45.8 H Plt Count 172 MPV 10.1 Immature Gran % (Auto) 0.000 Neut % (Auto) 42.2 L Lymph % (Auto) 44.5 H [place] % (Auto) 11.3 H Eos % (Auto) 1.8 Baso % (Auto) 0.2 Absolute Neuts (auto) 1.8 L Absolute Lymphs (auto) 1.93 Total Counted Not Reportable PT INR APTT Sodium Potassium Chloride Carbon Dioxide Anion Gap BUN Creatinine Estim Creat Clear Calc Est GFR (MDRD) Af Amer Est GFR (MDRD) Non-Af BUN/Creatinine Ratio Glucose Calcium Troponin I < 0.015 < 0.015 10/22/18 10/22/18 05:00 05:00 WBC RBC Hgb Hct MCV MCH MCHC RDW RDW Differential Plt Count MPV Immature Gran % (Auto) Neut % (Auto) Lymph % (Auto) [place] % (Auto) Eos % (Auto) Baso % (Auto) Absolute Neuts (auto) Absolute Lymphs (auto) Total Counted PT 14.8 INR 1.2 APTT 31.4 Sodium 138 Potassium 4.1 Chloride 106 Carbon Dioxide 27.0 Anion Gap 5 BUN 14 Creatinine 0.96 Estim Creat Clear Calc 57.40 Est GFR (MDRD) Af Amer 96 Est GFR (MDRD) Non-Af 80 BUN/Creatinine Ratio 14.6 Glucose 197 H Calcium 8.1 L Troponin I POC Glucose 10/22/18 10/22/18 10/21/18 08:59 02:13 20:42 POC Glucose 293 H 231 H 327 H 10/21/18 10/21/18 10/21/18 17:46 16:26 14:13 POC Glucose 241 H 245 H 169 H 10/21/18 12:55 POC Glucose 32 L* Home Medications: Medications to take at Discharge Aspirin [Aspirin, Baby] 81 mg PO DAILY@0800 10/21/18 Atenolol [Tenormin (beta naty)] 75 mg PO DAILY 10/21/18 Atorvastatin Calcium [Lipitor] 80 mg PO QHS 10/21/18 Baclofen 5 mg PO BID 10/21/18 Clopidogrel Bisulfate [Plavix] 75 mg PO DAILY 10/21/18 Docusate Sodium [Colace] 100 mg PO QHS 10/21/18 Furosemide [Lasix] 20 mg PO DAILY 10/21/18 Guaifenesin [Mucinex] 2 tab PO BID 10/21/18 Guaifenesin [Robitussin] 10 ml PO Q4H PRN PRN 10/21/18 Ipratropium [place] 0.06% [ATROVENT NASAL SPRAY] 2 spray NASAL BID 10/21/18 Lactobacillus Rhamnosus GG [Culturelle] 1 each PO DAILY 10/21/18 Mag Hydrox/Aluminum Hyd/Simeth [Antacid Suspension] 30 ml PO Q4H PRN 10/21/18 Magnesium Hydroxide [Milk Of Magnesia] 30 ml PO DAILY PRN PRN 10/21/18 Metoclopramide [Reglan] 10 mg PO TIDCM 10/21/18 Pantoprazole Sodium [Protonix] 40 mg PO DAILY 10/21/18 Insulin Glargine [Lantus SoloStar Pen] 13 units SC QHS pen 10/22/18 Insulin Lispro [Humalog KwikPen] 6 unit SC ACHS insuln.pen 10/22/18 Primary Care Physician: Ronald Flannery MD [Primary Care Provider] - Please follow up with your Primary Care Physician in: 1 Week Please Follow Up With: Mauro Covarrubias MD When: As scheduled [facility] facility Minutes spent on discharge:: 35 Patient Condition:: Stable Medical Necessity - Tobacco Use Smoking Status: Former smoker Tobacco Use: Cigarettes Meaningful Use Info Meaningful Use Diagnoses (Choose all that apply): None applicable <Ranjit Malhotra - Last Filed: 10/22/18 10:57> Discharge Date and Diagnosis - Secondary Discharge Diagnosis Chronic Problems (Last Reviewed 09/01/18 @ 15:45 by Ovidio Ibarra MD) CVA (cerebral vascular accident) (Chronic) Status post acute ischemic stroke with residual lower extremity weakness mild Carotid bruit (Chronic) Encounter for long-term current use of high risk medication (Chronic) Reviewed medications with family to be sure patient was taking remainder of medications correctly and there were no duplicates Atherosclerotic heart disease of [place] coronary artery without angina pectoris (Chronic) Hyperlipidemia (Chronic) Diverticulitis (Chronic) Hypertension (Chronic) 104/64 Hospital Course and Treatment Imaging Results: 10/22/18 05:55 Nuclear Stress Test - Chemical [NM] AM (NON MEDS) Operations: None Procedures: Stress test Summary of Care Provided: Patient seen and examined independently. Data reviewed. I agree with the above note by the nurse practitioner. The patient is a 83 year old M presents with midsternal chest pain rating up to his left side of his jaw. Patient underwent a stress test that was unremarkable for cardiac etiology. Etiology of chest pain may be musculoskeletal versus GI but subsequent resolved. Additionally, patient did have hypoglycemia. Patient was on 26 units of Lantus 12 units of Humalog. This tests were held patient did receive IV fluids of D5 and blood sugars have been in the 3 and 200s subsequently. Patient's insulin regimen will be cut in half and that may need to be adjusted further at his facility. Patient be discharged in stable condition. [] - Physical Exam General: Alert, No apparent distress HEENT: Atraumatic, Normocephalic Oral: Moist Mucosa, No Gingival or Mucosal Lesions/ Ulcerations Neck: No Nodes, Thyroid Normal Size and Texture Lungs: Clear to auscultation, Normal air movement, No rhonchi, No wheeze Cardiovascular: Regular rate, Regular Rhythm, Normal S1, Normal S2, No murmurs Abdomen: Bowel Sounds Present, Soft, Non Tender, Non-Distended, No Hepato- splenomegaly Extremities: No edema, No Calf Tenderness Vital Signs Temp Pulse Resp BP Pulse Ox 37.1 C 84 16 117/59 L 97 10/22/18 08:31 10/22/18 09:03 10/22/18 08:31 10/22/18 08:31 10/22/18 08:31 Oxygen Flow Rate (L/min) 2 Oxygen Delivery Method Room Air Weight: 74.6 kg Body Mass Index (BMI) 25.0 Finger Stick Blood Glucose 169 Intake and Output for Last 24 Hours 10/20/18 10/21/18 10/22/18 23:59 23:59 23:59 Intake Total 600 / 600 Output Total 400 / 400 585 / 585 Balance 200 / 200 -555 / -555 Laboratory Tests Past 24 Hrs 10/21/18 10/21/18 10/21/18 12:25 12:25 12:25 WBC 8.3 RBC 4.54 L Hgb 13.4 Hct 40.1 MCV 88.3 MCH 29.5 MCHC 33.4 RDW 14.7 H RDW Differential 47.0 H Plt Count 221 MPV 10.1 Immature Gran % (Auto) 0.100 Neut % (Auto) 34.3 L Lymph % (Auto) 53.7 H [place] % (Auto) 10.2 H Eos % (Auto) 1.6 Baso % (Auto) 0.1 Absolute Neuts (auto) 2.9 Absolute Lymphs (auto) 4.48 Total Counted Not Reportable PT 13.8 INR 1.1 APTT 30.3 Sodium 139 Potassium 3.8 Chloride 107 Carbon Dioxide 30.0 Anion Gap 2 L BUN 15 Creatinine 0.99 Estim Creat Clear Calc 55.66 Est GFR (MDRD) Af Amer 93 Est GFR (MDRD) Non-Af 77 BUN/Creatinine Ratio 15.2 Glucose 45 L Calcium 8.7 Troponin I < 0.015 10/21/18 10/21/18 10/22/18 16:00 18:45 05:00 WBC 4.3 L RBC 3.81 L Hgb 11.2 L Hct 33.7 L MCV 88.5 MCH 29.4 MCHC 33.2 RDW 14.4 RDW Differential 45.8 H Plt Count 172 MPV 10.1 Immature Gran % (Auto) 0.000 Neut % (Auto) 42.2 L Lymph % (Auto) 44.5 H [place] % (Auto) 11.3 H Eos % (Auto) 1.8 Baso % (Auto) 0.2 Absolute Neuts (auto) 1.8 L Absolute Lymphs (auto) 1.93 Total Counted Not Reportable PT INR APTT Sodium Potassium Chloride Carbon Dioxide Anion Gap BUN Creatinine Estim Creat Clear Calc Est GFR (MDRD) Af Amer Est GFR (MDRD) Non-Af BUN/Creatinine Ratio Glucose Calcium Troponin I < 0.015 < 0.015 10/22/18 10/22/18 05:00 05:00 WBC RBC Hgb Hct MCV MCH MCHC RDW RDW Differential Plt Count MPV Immature Gran % (Auto) Neut % (Auto) Lymph % (Auto) [place] % (Auto) Eos % (Auto) Baso % (Auto) Absolute Neuts (auto) Absolute Lymphs (auto) Total Counted PT 14.8 INR 1.2 APTT 31.4 Sodium 138 Potassium 4.1 Chloride 106 Carbon Dioxide 27.0 Anion Gap 5 BUN 14 Creatinine 0.96 Estim Creat Clear Calc 57.40 Est GFR (MDRD) Af Amer 96 Est GFR (MDRD) Non-Af 80 BUN/Creatinine Ratio 14.6 Glucose 197 H Calcium 8.1 L Troponin I POC Glucose 10/22/18 10/22/18 10/21/18 08:59 02:13 20:42 POC Glucose 293 H 231 H 327 H 10/21/18 10/21/18 10/21/18 17:46 16:26 14:13 POC Glucose 241 H 245 H 169 H 10/21/18 12:55 POC Glucose 32 L* Discharge Diet: 1800 Calorie Control Diet Discharge Activity: Return to Normal Activity Call your doctor if you observe: Chest pain [facility]position: [facility] facility Minutes spent on discharge:: 35 Patient Condition:: Stable Medical Necessity - Tobacco Use Smoking Status: Former smoker Tobacco Use: Cigarettes Meaningful Use Info Meaningful Use Diagnoses (Choose all that apply): None applicable Code Visit OBSV E&M: 61928 Observation care discharge
--- NOTE | 2018-10-22 10:52 | CASEMGMT ---
Addendum entered by Jackie Tompkins 10/22/18 11:02: RN, [facility], and patient notified of supervisor picking crew time. Plan: d/c back to [facility] under skilled level of care. Patient came to [facility] from [facility]. Jackie LOPES Original Note: Patient is ready for discharge back to [facility]. SW notified Raquel at [facility]. BASIL spoke with patient about transportation back to [facility]. He asked SW to call his daughter Xochitl. BASIL called Xochitl and she said last time insurance would not pay for it. BASIL told her that is accurate and it would be between $63 and $80 approximately. She said she will take him back, but she would not be able to pick him up until between 3 and 330. BASIL told her that is fine and BASIL will notify [facility], RN, and patient. She said if her gets off earlier he may be able to pick him up also. She thanked for the update. Orders faxed to [facility]. Jackie LOPES
[2018-10-22 11:40] LABS: Bedside Glucose 178 mg/dL (70-110)
[2018-10-22] MEDS: Insulin Lispro 100 UNIT/ML INSULN.PEN 6 UNIT SC (11:59)
[2018-10-22 12:15] LABS: Bedside Glucose 350 mg/dL (70-110)
[2018-10-22] MEDS: Albuterol 2.5 MG/3 ML VIAL.NEB. INHALATION (14:13)
--- NOTE | 2018-10-22 14:16 | CHAPLAIN ---
Type of Pastoral Visit _x__ Initial Visit ___ Follow-up Visit ___ On-call Visit ___ General Patient Visit ___ Spiritual Assessment ___ Family Conference ___ Bereavement ___ Rapid Response ___ Code Blue ___ Other (describe below) Pastoral Care Referral From _x__ Patient ___ Family ___ Nurse ___ Physician ___ Registered Respiratory Technician ___ Rn Plastics ___ Other (describe below) Sacrament/Intervention _x__ Active listening ___ Anointing ___ Rastafari ___ Bereavement ___ Communion ___ Jazmine exploration ___ _x__ Life review _x__ Prayer ___ Reconciliation ___ Sacrament of Sick _x__ Supportive presence ___ Wedding ___ Other (describe below) Pastoral Comments
[2018-10-22 15:05] LABS: Bedside Glucose 256 mg/dL (70-110)
--- NOTE | 2018-10-22 15:48 | NURSING ---
report called to [facility]
== END 2018-10-22 16:00 | disposition skilled nursing facility (03) ==
LOC: ED 14:03 → PCU 14:22
PROVIDERS: Admitting Provider Hospitalist; Emergency Provider Emergency Medicine; Family Provider Internal Medicine; PCP Internal Medicine; Referring Provider Hospitalist
DX: R07.89 Other chest pain (principal); E11.649 Type 2 diabetes mellitus with hypoglycemia without coma; E78.5 Hyperlipidemia, unspecified; I10 Essential (primary) hypertension; I25.10 Atherosclerotic heart disease of native coronary artery without angina pectoris; N32.81 Overactive bladder; Z87.891 Personal history of nicotine dependence; Z79.899 Other long term (current) drug therapy; Z79.4 Long term (current) use of insulin; Z79.02 Long term (current) use of antithrombotics/antiplatelets; Z79.82 Long term (current) use of aspirin; I69.359 Hemiplegia and hemiparesis following cerebral infarction affecting unspecified side
CPT/HCPCS: 36415; 71045; 78452; 80048; 82962; 84484; 85025; 85610; 85730; 93005; 93017; 94640; 96372; 96374; 99218; 99285; A9500; A4216; G0378; J2785

== ENCOUNTER → 2018-12-03 | Outpatient (CLI) | payer MEDICARE, OTHER, SELFPAY ==
[2018-10-21 14:40] VITALS: BMI 25.0
--- NOTE | 2018-12-03 13:51 | CT_ITS ---
STUDY: CT CHEST WITH CONTRAST REASON FOR EXAM: Male, 83 years old. Intractable pain in coccyx for 2 years, worse when laying down. History of diabetes, hypertension and prior CVA. RADIATION DOSAGE (If Supplied By Facility): CTDIvol = ( 11.99 ) mGy, DLP = ( 377.55 ) mGycm TECHNIQUE: Transaxial imaging was performed following intravenous administration of 100mL IV Isovue 300. Multiplanar coronal and sagittal images were reformatted. Individualized dose optimization techniques were used for this CT. COMPARISON: CTA of the chest, September 01, 2018. FINDINGS: There is diffuse emphysematous changes of the lungs. There is mild scarring versus infiltrate posteriorly in the right upper lobe just anterior to the oblique fissure. No other mass or infiltrate is seen. There is no demonstrated pleural abnormality. Normal heart and pericardium. There are calcifications of the coronary arteries. Normal mediastinum. Normal hilar regions. Normal enhanced pulmonary arteries. There is atherosclerotic calcification of the aortic arch with tortuosity and elongation of the aortic arch and descending thoracic aorta. Normal osseous structures. There is a large retrocardiac hiatal hernia. There is a large cyst in the upper pole of the right kidney. The visualized abdomen is otherwise grossly normal. CT/Chest WITH Contrast IMPRESSION: 1. Near complete resolution of the right upper lobe infiltrate noted on the previous study. The right lower lobe infiltrate has resolved. 2. Diffuse emphysematous changes of lungs. 3. Atherosclerotic changes of the coronary arteries and thoracic aorta. 4. Stable degenerative changes of the lumbar spine. 5. Stable hiatal hernia. Electronically Signed: Wilfrid Strong DO at 17:50 EDT Tel [phone], Service support ,
== END | disposition home or self-care (01) ==
LOC: CT 13:49
PROVIDERS: Family Provider Internal Medicine; PCP Internal Medicine; Referring Provider Internal Medicine Gastroenterology; Visit Provider Internal Medicine Gastroenterology
DX: R06.6 Hiccough (principal)
CPT/HCPCS: 71260; Q9967

== ENCOUNTER 2019-01-12 12:00 | Inpatient (IN) | payer MEDICARE, OTHER, SELFPAY ==
[2019-01-09 14:08] VITALS: BMI 24.3
[2019-01-12] VITALS (10 sets, daily range): BP systolic 120–161; BP diastolic 64–100; PULSE 73–89; RESP 15–20; TEMP 36.6–36.8; O2SAT 94–983; BMI 25.3
--- NOTE | 2019-01-12 12:19 | CT_ITS ---
STUDY: CT BRAIN WITHOUT CONTRAST REASON FOR EXAM: Male, 83 years old. Mental status change RADIATION DOSAGE (If Supplied By Facility): CTDIvol = ( 44.99 ) mGy, DLP = ( 796.11 ) mGycm TECHNIQUE: Transaxial CT imaging of the brain was performed without administration of intravenous contrast material. Individualized dose optimization techniques were used for this CT. COMPARISON: No relevant priors. FINDINGS: Normal soft tissue structures. Normal calvarium. There is mild cerebral atrophy with widening of the extra-axial spaces and ventricular dilatation. There are areas of decreased attenuation within the white matter tracts of the supratentorial brain, consistent with microvascular disease changes. Old lacunar infarcts in the basal ganglia. Normal brainstem. There is mild cerebellar atrophy. There is no intracranial hemorrhage. There are no findings of an acute ischemic infarction. Normal visualized paranasal sinuses. CT/Brain/Head without Contrast IMPRESSION: Chronic involutional changes of the brain. No acute hemorrhage Electronically Signed: Yao Kenney MD at 13:22 EDT , Service support ,
--- NOTE | 2019-01-12 12:19 | EKG12_ITS ---
Test Reason : MENTAL STATUS CHG Blood Pressure : / mmHG Vent. Rate : 080 BPM Atrial Rate : 080 BPM P-R Int : 160 ms QRS Dur : 074 ms QT Int : 402 ms P-R-T Axes : 046 -33 000 degrees QTc Int : 463 ms Normal sinus rhythm Left axis deviation Abnormal ECG Confirmed by ALEN YU, PAULETTE ([id number]), index editor SHA HYATT ([id number]) on 01/14/2019 1:36:05 PM Referred By: ISIDORO Confirmed By:PAULETTE LOWRY MD
--- NOTE | 2019-01-12 12:19 | RAD_ITS ---
STUDY: X-RAY CHEST REASON FOR EXAM: Male, 83 years old. Unresponsive TECHNIQUE: Single AP portable view of the chest. COMPARISON: 10/21/2018 FINDINGS: EKG leads overlie the chest The lungs are clear and expanded. There is no demonstrated pleural abnormality. Normal size heart. Normal mediastinum and dion. Normal visualized pulmonary arteries. Normal visualized aortic arch and descending thoracic aorta. Normal visualized thoracic spine. Normal visualized ribs, clavicles, and shoulders. There is no demonstrated abnormality of the visualized soft tissue structures of the upper abdomen. RAD/Chest 1 View (Portable) IMPRESSION: Normal x-ray examination of the chest. Electronically Signed: Yao Kenney MD at 13:17 EDT , Service support ,
--- NOTE | 2019-01-12 12:20 | CT_ITS ---
STUDY: CT CERVICAL SPINE WITHOUT CONTRAST REASON FOR EXAM: Male, 83 years old. Unresponsive, possible neck injury RADIATION DOSAGE (If Supplied By Facility): CTDIvol = ( 23.85 ) mGy, DLP = ( 480.88 ) mGycm TECHNIQUE: High resolution transaxial imaging was performed without contrast material. Sagittal and coronal images were reconstructed. Individualized dose optimization techniques were used for this CT. COMPARISON: None FINDINGS: Normal craniovertebral junction. There are degenerative changes of the anterior atlantoaxial articulation. Normal odontoid process. There is straightening of the normal cervical lordosis. Bones are demineralized. Intervertebral disc space narrowing noted throughout the cervical spine which aligns anatomically. Prominent posterior spurs noted at C3-4 and C5-6 contributing to borderline central canal stenosis. Bilateral foraminal narrowing noted throughout the cervical spine. No demonstrated fracture. Normal visualized soft tissue structures. No upper rib fracture or pneumothorax. CT/Spine Cervical without Contras IMPRESSION: Multilevel degenerative changes, as described above. Electronically Signed: Yao Kenney MD at 13:27 EDT , Service support ,
[2019-01-12] MEDS: 0.9% Normal Saline 1,000 ML 150 ML IV (12:33)
[2019-01-12 12:50] LABS: Absolute Lymphocyte Count 0.98 X10^3/uL (0.83-4.51); Absolute Neutrophil Count 5.8 X10^3/uL (2.0-7.7); Basophil# 0.02 X10^3/uL; Basophil% 0.3 % (0-1); Eosinophil# 0.01 X10^3/uL; Eosinophils% 0.1 % (0-5); Hematocrit 39.1 % (40-54); Lymphocyte # 0.98 X10^3/ul (4.0); Lymphocyte % 13.6 % (19-41); Mean Corp Hgb Conc 33.2 g/dL (32-36); Mean Corpuscular Hgb 29.5 pg (27.0-32.0); Mean Corpuscular Volume 88.9 fL (80-94); Mean Platelet Vol. 11.2 fl (6.2-12.0); Monocyte# 0.41 X10^3/uL; Monocyte% 5.7 % (0-10); NRBC Flagged by Analyzer 0 % (0-5); Neutrophil # 5.77 X10^3/uL (2.7-7.7); Neutrophil % 79.9 % (47-70); Platelet Count 198 K/mm3 (150-450); RBC Distribution Width CV 14.9 % (11.6-14.6); RBC Distribution Width SD 48.2 fl (35.1-43.9); White Blood Count 7.2 K/mm3 (4.4-11.0)
[2019-01-12 13:03] LABS: International Normalized Ratio 1.1; Partial Thromboplast Time 22.1 Seconds (24.1-36.2); Prothrombin Time (Protime)PT. 14.1 SECONDS (11.7-14.9)
[2019-01-12 13:04] LABS: ALB/GLOB Ratio 0.7 RATIO (0.9-2.4); AST(SGOT) 32 U/L (15-37); Alanine Aminotransfer ALT/SGPT 11 U/L (16-61); Albumin, Serum 3.3 g/dL (3.2-5.0); Alkaline Phosphatase 176 U/L (45-117); Anion Gap 11 (5-15); BUN 19 mg/dL (7-18); BUN/Creat Ratio 14.7 RATIO (10-20); Calcium,Total 8.6 mg/dL (8.5-10.1); Chloride 104 mmol/L (98-107); Creatinine, Serum 1.29 mg/dL (0.70-1.30); EST Glomerular Filtration Rate 57 mL/min (>60); Est Glom Filt Rate - Afr Amer 68 mL/min (>60); Estimated Creatinine Clearance 4.82 ml/min; Globulin 4.7 g/dL (2.2-4.2); Glucose 282 mg/dL (74-106); Potassium 4.6 mmol/L (3.5-5.1); Sodium Level 138 mmol/L (136-145)
[2019-01-12 13:08] LABS: Alcohol, Blood (Medical)-Serum < 3.0 mg/dL
[2019-01-12 13:17] LABS: Lactic Acid 1.9 mmol/L (0.4-2.0)
[2019-01-12 13:18] LABS: CPK Total, Creatine Kinase 123 U/L (39-308)
--- NOTE | 2019-01-12 13:24 | CT_ITS ---
STUDY: CTA HEAD AND NECK WITH CONTRAST REASON FOR EXAM: Male, 83 years old. Mental status change RADIATION DOSAGE (If Supplied By Facility): CTDIvol = ( 19.4 ) mGy, DLP = ( 700.56 ) mGycm TECHNIQUE: CT angiography was performed with a multi-detector CT scanner. Data acquisition was obtained from the skull base through the vertex following intravenous administration of 100 IV Isovue 370. MIP images were reconstructed from the axial data set. Post-processing of the angiographic images was performed, with multiplanar reformation and 3D reconstruction. Individualized dose optimization techniques were used for this CT. COMPARISON: No relevant priors. FINDINGS: Normal bilateral petrous carotid arteries. Normal right cavernous carotid artery with a normal supraclinoid bifurcation. Normal left cavernous carotid artery with a normal supraclinoid bifurcation. Mild peripheral atherosclerotic calcifications noted. Normal right A1 segments of the anterior cerebral artery. Normal left A1 segments of the anterior cerebral artery. Normal intact anterior communicating artery (ACOM). Normal bilateral A2 segments of the anterior cerebral arteries. Normal right M1 and M2 segments of the middle cerebral arteries, with a normal M1 bifurcation. Normal left M1 and M2 segments of the middle cerebral arteries, with a normal M1 bifurcation. Normal right posterior communicating artery (PCOM). Normal left posterior communicating artery (PCOM). Normal bilateral vertebral arteries. Normal basilar artery with a normal basilar bifurcation. The visualized bilateral superior cerebellar (SCA) arteries are normal. Normal bilateral P1, P2 and visualized P3 segments of the posterior cerebral arteries. There is no demonstrated aneurysm of the [place] of [place]. There is no demonstrated abnormality of the visualized brain. AORTIC ARCH: Normal visualized aortic arch. Normal origins of the brachiocephalic, left common carotid, and left subclavian arteries. RIGHT CAROTID ARTERIES: Normal right common carotid artery (CCA). There is mild atherosclerotic plaque formation with minimal narrowing of the right carotid bulb. Normal origin of the right internal carotid (ICA) artery without a hemodynamically significant stenosis. Normal visualized cervical portion of the right internal carotid artery. Normal origin of the right external carotid artery (ECA). LEFT CAROTID ARTERIES: Normal left common carotid artery (CCA). There is mild atherosclerotic plaque formation with minimal narrowing of the left carotid bulb. Normal origin of the left internal carotid (ICA) artery without a hemodynamically significant stenosis. Normal visualized cervical portion of the left internal carotid artery. Normal origin of the left external carotid artery (ECA). VERTEBRAL ARTERIES: There is enhancement within the bilateral vertebral arteries with a small right vertebral artery, and a dominant left vertebral artery. CT/CTA Head AND Neck W/ Contrast IMPRESSION: Normal CTA Head and neck with contrast. Mild atherosclerotic calcifications. Small right vertebral artery Electronically Signed: Yao Kenney MD at 14:35 EDT , Service support ,
[2019-01-12 14:46] LABS: Bacteria 0 SEEN /hpf (None Seen); Red Blood Cells-Urine 0 SEEN /hpf (0-5); Squamous Epithelial Cells - UA 0 SEEN /hpf (0-5); White Blood Cells 0 SEEN /hpf (0-5)
--- NOTE | 2019-01-12 14:51 | ED.DCSUM_ITS ---
- ER Visit Summary Date of Service: 01/12/19 Chief Complaint: [Mental status change] History of Present Illness: The patient is a 83 M [presents to the emergency department via EMS from home. Patient apparently was found down on the floor by [employer] workers this morning. Initial call went out as a full arrest. On EMS arrival patient was found on the floor with some items on top of him. Patient however was conscious and was actually able to shuffle to the cot. Patient really cannot give me any history and the history comes from his daughter. Patient does have history of prior stroke however normally he is verbal and follows commands and quite alert. Patient has not been ill recently. Daughter last talked to him yesterday 2:30 PM and his other daughter spoke with him around 7 PM and he was his normal self. Patient has a history of diabetes, hypertension, and prior stroke.] Physical Examination: [HEENT-PERRLA, EOMI. Cranial nerves II through XII grossly intact. TMs clear. Mucous membranes moist. No adenopathy. No facial droop noted. Cardiovascular-regular rate and rhythm without murmur or ectopy Lungs-clear to auscultation, chest wall stable without crepitus or subcu emphysema Abdomen-normoactive bowel sounds, soft, nontender, no rebound or rigidity, no peritoneal signs. Neuro exam-no obvious focal weakness noted however patient really will not follow commands. His eyes will track at times but he will not verbalize. No obvious facial droop noted. Patient does withdraw all 4 extremities from painful stimulus. Patient's eyes are open and he was awake. Extremities-intact ?4, normal range of motion, normal pulses, atraumatic] Test Results: [EKG obtained arrival shows sinus rhythm with a ventricular rate of 80 bpm with no acute segment changes. CBC with differential 7.2, hemoglobin 13, hematocrit 39, plates 198. Chemistries unremarkable. LFTs unremarkable. Troponin was less than 0.015. CPK was 123. Alcohol was less than 3. Lactate was 1.9. CT scan of the brain without contrast unremarkable just chronic involutional changes. Chest x-ray showed nothing acute. CT of the head and neck obtained was normal. Urinalysis pending.] Emergency Department Course and Treatment: [She had an IV line established and was given normal saline.] Treatment Plan: [Admit for further work-up and evaluation of his mental status change.] Disposition: [Admit] Impression: [Mental status change-etiology uncertain] This note was generated with [employer] dictation software. It may contain incorrect words, spelling, and punctuation that were not noted in review of the chart prior to signing ED Disposition - Plan for ED Patient: Referrals: Ronald Flannery MD [Primary Care Provider] -
[2019-01-12 14:54] LABS: Color, Urine Yellow (Yellow); Glucose, Dipstick 1000 mg/dl (Normal); Ketone-Dipstick 15 mg/dl (Negative); Leukocyte Esterase-Dipstick Negative /ul (Negative); Nitrite-Dipstick Negative (Negative); Occult Blood-Urine Negative /ul (Negative); Protein-Dipstick 15 mg/dl (Negative); Urine Bilirubin Dipstick Negative (Negative); Urine Clarity Clear (Clear); Urine Urobilinogen Normal (Normal)
[2019-01-12 15:15] LABS: Hyaline Cast 0-5 SEEN /lpf (0-5); Mucous, Urine 1+ /hpf (<or=2+)
[2019-01-12 15:20] LABS: Bedside Glucose 255 mg/dL (70-110)
--- NOTE | 2019-01-12 15:27 | NURSING ---
PCU AMS JAMES
--- NOTE | 2019-01-12 16:21 | PCM.HP.STD ---
<Joelle Grace - Last Filed: 01/12/19 17:06> Problem List (1) CVA (cerebral vascular accident) Status: Chronic Comment: Status post acute ischemic stroke with residual lower extremity weakness mild (2) Carotid bruit Status: Chronic (3) Encounter for long-term current use of high risk medication Status: Chronic Comment: Reviewed medications with family to be sure patient was taking remainder of medications correctly and there were no duplicates (4) Atherosclerotic heart disease of [place] coronary artery without angina pectoris Status: Chronic (5) Hyperlipidemia Status: Chronic (6) Diverticulitis Status: Chronic (7) Hypertension Status: Chronic (8) Type 2 diabetes mellitus Status: Chronic History of Present Illness Date of Admission: 01/12/19 Chief Complaint: Altered mental status, found down at home. Patient is an 83-year-old male who presents to the emergency room after being found down at his home this morning by [employer] staff. Family at bedside reports patient was last seen well yesterday afternoon. He was recently released from SNF and has been at home for approximately 2 weeks and overall been doing well per family. Patient is unable to provide HPI. Per ER/EMS report patient was initially thought to be unresponsive when found at home lying on the ground however he was then able to walk to cot to be transported to emergency room. Patient has a past medical history of hypertension, hyperlipidemia, type 2 diabetes mellitus, history of CVA. Past Medical History Past Medical History (Chronic Problems): Chronic Problems (Last Reviewed 09/01/18 @ 15:45 by Ovidio Ibarra MD) Type 2 diabetes mellitus (Chronic) CVA (cerebral vascular accident) (Chronic) Status post acute ischemic stroke with residual lower extremity weakness mild Carotid bruit (Chronic) Encounter for long-term current use of high risk medication (Chronic) Reviewed medications with family to be sure patient was taking remainder of medications correctly and there were no duplicates Atherosclerotic heart disease of [place] coronary artery without angina pectoris (Chronic) Hyperlipidemia (Chronic) Diverticulitis (Chronic) Hypertension (Chronic) Medical History: Medical History (Last Reviewed 09/01/18 @ 15:45 by Ovidio Ibarra MD) CVA (cerebral vascular accident) (Chronic) I63.9 Status post acute ischemic stroke with residual lower extremity weakness mild Carotid bruit (Chronic) R09.89 Atherosclerotic heart disease of [place] coronary artery without angina pectoris (Chronic) I25.10 Hyperlipidemia (Chronic) E78.5 Diverticulitis (Chronic) K57.92 Hypertension (Chronic) I10 GERD (gastroesophageal reflux disease) K21.9 GI bleed K92.2 OAB (overactive bladder) N32.81 Type 2 diabetes mellitus E11.9 Allergies alfuzosin Allergy (Verified 01/09/19 14:14) Other chlorpromazine [From Thorazine] Allergy (Verified 01/09/19 14:14) Other Penicillins Allergy (Verified 01/09/19 14:14) Rash Sulfa (Sulfonamide Antibiotics) Allergy (Verified 01/09/19 14:14) Swelling lisinopril Adverse Reaction (Verified 01/09/19 14:14) Other Home Medications: Ambulatory Orders Medication Instructions Recorded Ipratropium [place] 0.06% 2 spray NASAL BID 10/21/18 [ATROVENT NASAL SPRAY] Lactobacillus Rhamnosus GG 1 ea PO DAILY 10/21/18 [Culturelle] Pantoprazole Sodium [Protonix] 40 mg PO DAILY 10/21/18 aspirin 81 mg chewable tablet 81 mg PO DAILY@0800 #30 tab 01/02/19 atorvastatin 80 mg tablet 80 mg PO QHS #30 tab 01/02/19 clopidogrel 75 mg tablet 75 mg PO DAILY #30 tab 01/02/19 furosemide 20 mg tablet 20 mg PO DAILY #30 tab 01/02/19 docusate sodium 100 mg capsule 100 mg PO DAILY 01/09/19 Atenolol 75 mg PO DAILY 01/12/19 Fluticasone 0.05% [Flonase Nasal 2 spray NASAL DAILY 01/12/19 Opal] Guaifenesin [Mucinex] 1,200 mg PO BID 01/12/19 Insulin Aspart [Novolog Flexpen 10 units SUBCUT TIDCM 01/12/19 ([facility])] Insulin Aspart [Novolog Flexpen See Protocol SUBCUT TIDCM 01/12/19 ([facility])] Insulin Glargine,Hum.rec.anlog 13 units SUBCUT QHS 01/12/19 [Basaglar Kwikpen U-100] Surgical History: Surgical History (Last Reviewed 01/09/19 @ 14:15 by Carolina Valencia) H/O repair of rotator cuff Z98.890 History of carotid endarterectomy Z98.890 History of cataract surgery Z98.49 History of hemorrhoidectomy Z98.890 Surgical History: - - L Rotator cuff surgery, BL carotid endarterectomies, hemorrhoidectomy, T+A. Psychiatric History: No pertinent psych hx Lives: Alone Smoking Status: Former smoker Alcohol: None Drugs: None - *Family History Maternal Family History: Family History (Last Reviewed 01/12/19 @ 16:30 by JOCELYN Brenner) Brother Kidney disease Mother CVA (cerebral vascular accident) Father Liver cirrhosis History Items: Diabetes, Heart Disease, Stroke Paternal Family History: Family History (Last Reviewed 01/12/19 @ 16:30 by JOCELYN Brenner) Brother Kidney disease Mother CVA (cerebral vascular accident) Father Liver cirrhosis History Items: - - Patient notes father was an alcoholic with cirrhosis in addition to heart disease. Sibling Family History: Family History (Last Reviewed 01/12/19 @ 16:30 by JOCELYN Brenner) Brother Kidney disease Mother CVA (cerebral vascular accident) Father Liver cirrhosis History Items: No pertinent history Review of Systems Unable to obtain accurate/complete ROS d/t: Altered mental status. Comment: Patient denies current sx however unable to obtain accurate ROS due to AMS. VTE Information - Inpt Only VTE Present on Admission: No VTE Mechan Device Prophylaxis: None VTE Pharm Prophylaxis ordered?: Yes - Physical Exam General: Alert, Cooperative, No apparent distress HEENT: Atraumatic, PERRLA, EOMI, Normocephalic Oral: Dry Mucosa Neck: Supple, No JVD, Negative Carotid Bruits Lungs: Clear to auscultation, Diminished Cardiovascular: Regular rate, Regular Rhythm, Normal S1, Normal S2, No murmurs Abdomen: Bowel Sounds Present, Soft, Non Tender, Non-Distended Extremities: No clubbing, No cyanosis, No edema, Capillary Refill Less than 3 Seconds Skin: No rashes, No breakdown Musculoskeletal: No Tenderness to Palpation of Joints or Extremities Neurological: Cranial nerves II-XII grossly intact, Neuro grossly intact Psych/Mental Status: Normal Affect, Appropriate Vital Signs Temp Pulse Resp BP Pulse Ox 97.8 F 85 19 H 153/78 H 97 01/12/19 12:01 01/12/19 14:51 01/12/19 14:51 01/12/19 14:51 01/12/19 14:51 Oxygen Flow Rate (L/min) 4 Oxygen Delivery Method Nasal Cannula Weight: 17 lb Body Mass Index (BMI) 2.8 Finger Stick Blood Glucose 169 Laboratory Tests Past 24 Hrs 01/12/19 01/12/19 01/12/19 12:25 12:25 12:25 WBC 7.2 RBC 4.40 L Hgb 13.0 Hct 39.1 L MCV 88.9 MCH 29.5 MCHC 33.2 RDW Std Deviation 48.2 H RDW Coeff of Wes 14.9 H Plt Count 198 MPV 11.2 Immature Gran % (Auto) 0.400 Neut % (Auto) 79.9 H Lymph % (Auto) 13.6 L [place] % (Auto) 5.7 Eos % (Auto) 0.1 Baso % (Auto) 0.3 Absolute Neuts (auto) 5.8 Absolute Lymphs (auto) 0.98 Absolute Nucleated RBC 0.00 Nucleated RBC % 0 PT 14.1 INR 1.1 APTT 22.1 L Sodium 138 Potassium 4.6 Chloride 104 Carbon Dioxide 23.0 Anion Gap 11 BUN 19 H Creatinine 1.29 Estim Creat Clear Calc 4.82 Est GFR (MDRD) Af Amer 68 Est GFR (MDRD) Non-Af 57 L BUN/Creatinine Ratio 14.7 Glucose 282 H Lactic Acid Calcium 8.6 Total Bilirubin 0.60 AST 32 ALT 11 L Alkaline Phosphatase 176 H Total Creatine Kinase Troponin I < 0.015 Total Protein 8.0 Albumin 3.3 Globulin 4.7 H Albumin/Globulin Ratio 0.7 L Urine Color Urine Clarity Urine pH Ur Specific [place] Urine Protein Urine Glucose (UA) Urine Ketones Urine Occult Blood Urine Nitrite Urine Bilirubin Urine Urobilinogen Ur Leukocyte Esterase Urine RBC Urine WBC Ur Squamous Epith Cells Urine Bacteria Hyaline Casts Urine Mucus Ethyl Alcohol 01/12/19 01/12/19 01/12/19 12:25 12:30 12:30 WBC RBC Hgb Hct MCV MCH MCHC RDW Std Deviation RDW Coeff of Wes Plt Count MPV Immature Gran % (Auto) Neut % (Auto) Lymph % (Auto) [place] % (Auto) Eos % (Auto) Baso % (Auto) Absolute Neuts (auto) Absolute Lymphs (auto) Absolute Nucleated RBC Nucleated RBC % PT INR APTT Sodium Potassium Chloride Carbon Dioxide Anion Gap BUN Creatinine Estim Creat Clear Calc Est GFR (MDRD) Af Amer Est GFR (MDRD) Non-Af BUN/Creatinine Ratio Glucose Lactic Acid 1.9 Calcium Total Bilirubin AST ALT Alkaline Phosphatase Total Creatine Kinase 123 Troponin I Total Protein Albumin Globulin Albumin/Globulin Ratio Urine Color Urine Clarity Urine pH Ur Specific [place] Urine Protein Urine Glucose (UA) Urine Ketones Urine Occult Blood Urine Nitrite Urine Bilirubin Urine Urobilinogen Ur Leukocyte Esterase Urine RBC Urine WBC Ur Squamous Epith Cells Urine Bacteria Hyaline Casts Urine Mucus Ethyl Alcohol < 3.0 01/12/19 14:30 WBC RBC Hgb Hct MCV MCH MCHC RDW Std Deviation RDW Coeff of Wes Plt Count MPV Immature Gran % (Auto) Neut % (Auto) Lymph % (Auto) [place] % (Auto) Eos % (Auto) Baso % (Auto) Absolute Neuts (auto) Absolute Lymphs (auto) Absolute Nucleated RBC Nucleated RBC % PT INR APTT Sodium Potassium Chloride Carbon Dioxide Anion Gap BUN Creatinine Estim Creat Clear Calc Est GFR (MDRD) Af Amer Est GFR (MDRD) Non-Af BUN/Creatinine Ratio Glucose Lactic Acid Calcium Total Bilirubin AST ALT Alkaline Phosphatase Total Creatine Kinase Troponin I Total Protein Albumin Globulin Albumin/Globulin Ratio Urine Color Yellow Urine Clarity Clear Urine pH 5.0 Ur Specific [place] 1.020 Urine Protein 15 H Urine Glucose (UA) 1000 H Urine Ketones 15 H Urine Occult Blood Negative Urine Nitrite Negative Urine Bilirubin Negative Urine Urobilinogen Normal Ur Leukocyte Esterase Negative Urine RBC 0 SEEN Urine WBC 0 SEEN Ur Squamous Epith Cells 0 SEEN Urine Bacteria 0 SEEN Hyaline Casts 0-5 SEEN Urine Mucus 1+ Ethyl Alcohol POC Glucose 01/12/19 15:14 POC Glucose 255 H Assessment/Plan 1. Altered mental status, new CVA vs syncopal event? Brain CT unremarkable. Chest x-ray without acute process. CTA of head and neck without significant findings. Urinalysis unremarkable. Obtain echocardiogram. Trend enzymes. Obtain orthostatic vitals. Check TSH, mag. Obtain MRI of brain. PT/OT. Check CK. Fall precautions. Case management consult for discharge planning. Patient prior from SNF. 2. Type 2 diabetes mellitus-continue home insulin regimen. Accu-Chek ACHS. 3. Hyperlipidemia- continue statin. 4. Hypertension-stable, continue current regimen. 5. CAD-continue aspirin, statin, Plavix, beta-blockers. 6. History of CVA-continue aspirin, statin and Plavix. 7. Carotid stenosis-status post bilateral carotid endarterectomy. Continue aspirin, statin, Plavix. DVT prophylaxis-Lovenox sc Discharge planning: Recently discharged from SNF. Anticipate possible need for return to SNF at discharge. This patient was seen by JOCELYN Brenner under the supervision of Dr. Traore. <Brock Traore - Last Filed: 01/12/19 19:52> History of Present Illness The patient is a 83 year old M with history of CVA with residual some loss of vision although not clear acuity of vision/field of vision was brought in by EMS after he was found unresponsiveness on floor by [employer] staff. As per the daughter's talked in the ER, . Marissa Acosta, power of contracts attorney of [facility] [place] and Lachelle Lee, was last seen well about 2:30 PM. As per the daughter, he also answered phone on last time 7 PM. Time of unresponsiveness and unconsciousness unclear. EMS thought of cardiac arrest but heart rate and breathing was present and therefore brought to ED. EKG shows normal sinus rhythm with LAD at 80 bpm. Patient is not able to answer any question and noncommunicative. He also does not have direct eye to eye contact but eyes are open. [] Past Medical History Medical History: Medical History (Last Reviewed 09/01/18 @ 15:45 by Ovidio Ibarra MD) CVA (cerebral vascular accident) (Chronic) I63.9 Status post acute ischemic stroke with residual lower extremity weakness mild Carotid bruit (Chronic) R09.89 Atherosclerotic heart disease of [place] coronary artery without angina pectoris (Chronic) I25.10 Hyperlipidemia (Chronic) E78.5 Diverticulitis (Chronic) K57.92 Hypertension (Chronic) I10 GERD (gastroesophageal reflux disease) K21.9 GI bleed K92.2 OAB (overactive bladder) N32.81 Type 2 diabetes mellitus E11.9 Allergies alfuzosin Allergy (Verified 01/09/19 14:14) Other chlorpromazine [From Thorazine] Allergy (Verified 01/09/19 14:14) Other Penicillins Allergy (Verified 01/09/19 14:14) Rash Sulfa (Sulfonamide Antibiotics) Allergy (Verified 01/09/19 14:14) Swelling lisinopril Adverse Reaction (Verified 01/09/19 14:14) Other Surgical History: Surgical History (Last Reviewed 01/09/19 @ 14:15 by Carolina Valencia) H/O repair of rotator cuff Z98.890 History of carotid endarterectomy Z98.890 History of cataract surgery Z98.49 History of hemorrhoidectomy Z98.890 - *Family History Maternal Family History: Family History (Last Reviewed 01/12/19 @ 16:30 by JOCELYN Brenner) Brother Kidney disease Mother CVA (cerebral vascular accident) Father Liver cirrhosis Paternal Family History: Family History (Last Reviewed 01/12/19 @ 16:30 by JOCELYN Brenner) Brother Kidney disease Mother CVA (cerebral vascular accident) Father Liver cirrhosis Sibling Family History: Family History (Last Reviewed 01/12/19 @ 16:30 by JOCELYN Brenner) Brother Kidney disease Mother CVA (cerebral vascular accident) Father Liver cirrhosis Review of Systems Unable to obtain accurate/complete ROS d/t: Altered mental status. Patient is nonresponsive, noncommunicative - Physical Exam General: Confused, Disoriented, Lethargic, - - Noncommunicative, nonverbal and does not follow commands. HEENT: Atraumatic, PERRLA, EOMI, Normocephalic, - - Not able to keep eyes persistently open. No response to visual field on hand movement from different direction. Seems visual neglect Oral: Dry Mucosa Neck: Supple, No JVD, Negative Carotid Bruits Lungs: No rhonchi, No wheeze, No rales, Diminished Cardiovascular: Regular rate, Regular Rhythm, Normal S1, Normal S2, No murmurs Abdomen: Bowel Sounds Present, Soft, Non Tender, Non-Distended Extremities: No edema, Capillary Refill Less than 3 Seconds Musculoskeletal: Arthritic Changes Neurological: Neuro grossly intact, - - Complete neuro exam is not possible. Psych/Mental Status: Normal Affect, Appropriate Vital Signs Temp Pulse Resp BP Pulse Ox 98.2 F 79 20 H 153/71 H 983 01/12/19 16:39 01/12/19 16:39 01/12/19 16:39 01/12/19 16:39 01/12/19 16:39 Oxygen Flow Rate (L/min) 2 Oxygen Delivery Method Nasal Cannula Weight: 152 lb 1.903 oz Body Mass Index (BMI) 25.3 Finger Stick Blood Glucose 169 Laboratory Tests Past 24 Hrs 01/12/19 01/12/19 01/12/19 12:25 12:25 12:25 WBC 7.2 RBC 4.40 L Hgb 13.0 Hct 39.1 L MCV 88.9 MCH 29.5 MCHC 33.2 RDW Std Deviation 48.2 H RDW Coeff of Wes 14.9 H Plt Count 198 MPV 11.2 Immature Gran % (Auto) 0.400 Neut % (Auto) 79.9 H Lymph % (Auto) 13.6 L [place] % (Auto) 5.7 Eos % (Auto) 0.1 Baso % (Auto) 0.3 Absolute Neuts (auto) 5.8 Absolute Lymphs (auto) 0.98 Absolute Nucleated RBC 0.00 Nucleated RBC % 0 PT 14.1 INR 1.1 APTT 22.1 L Sodium 138 Potassium 4.6 Chloride 104 Carbon Dioxide 23.0 Anion Gap 11 BUN 19 H Creatinine 1.29 Estim Creat Clear Calc 4.82 Est GFR (MDRD) Af Amer 68 Est GFR (MDRD) Non-Af 57 L BUN/Creatinine Ratio 14.7 Glucose 282 H Lactic Acid Calcium 8.6 Total Bilirubin 0.60 AST 32 ALT 11 L Alkaline Phosphatase 176 H Total Creatine Kinase Troponin I < 0.015 Total Protein 8.0 Albumin 3.3 Globulin 4.7 H Albumin/Globulin Ratio 0.7 L Urine Color Urine Clarity Urine pH Ur Specific [place] Urine Protein Urine Glucose (UA) Urine Ketones Urine Occult Blood Urine Nitrite Urine Bilirubin Urine Urobilinogen Ur Leukocyte Esterase Urine RBC Urine WBC Ur Squamous Epith Cells Urine Bacteria Hyaline Casts Urine Mucus Ethyl Alcohol 01/12/19 01/12/19 01/12/19 12:25 12:30 12:30 WBC RBC Hgb Hct MCV MCH MCHC RDW Std Deviation RDW Coeff of Wes Plt Count MPV Immature Gran % (Auto) Neut % (Auto) Lymph % (Auto) [place] % (Auto) Eos % (Auto) Baso % (Auto) Absolute Neuts (auto) Absolute Lymphs (auto) Absolute Nucleated RBC Nucleated RBC % PT INR APTT Sodium Potassium Chloride Carbon Dioxide Anion Gap BUN Creatinine Estim Creat Clear Calc Est GFR (MDRD) Af Amer Est GFR (MDRD) Non-Af BUN/Creatinine Ratio Glucose Lactic Acid 1.9 Calcium Total Bilirubin AST ALT Alkaline Phosphatase Total Creatine Kinase 123 Troponin I Total Protein Albumin Globulin Albumin/Globulin Ratio Urine Color Urine Clarity Urine pH Ur Specific [place] Urine Protein Urine Glucose (UA) Urine Ketones Urine Occult Blood Urine Nitrite Urine Bilirubin Urine Urobilinogen Ur Leukocyte Esterase Urine RBC Urine WBC Ur Squamous Epith Cells Urine Bacteria Hyaline Casts Urine Mucus Ethyl Alcohol < 3.0 01/12/19 14:30 WBC RBC Hgb Hct MCV MCH MCHC RDW Std Deviation RDW Coeff of Wes Plt Count MPV Immature Gran % (Auto) Neut % (Auto) Lymph % (Auto) [place] % (Auto) Eos % (Auto) Baso % (Auto) Absolute Neuts (auto) Absolute Lymphs (auto) Absolute Nucleated RBC Nucleated RBC % PT INR APTT Sodium Potassium Chloride Carbon Dioxide Anion Gap BUN Creatinine Estim Creat Clear Calc Est GFR (MDRD) Af Amer Est GFR (MDRD) Non-Af BUN/Creatinine Ratio Glucose Lactic Acid Calcium Total Bilirubin AST ALT Alkaline Phosphatase Total Creatine Kinase Troponin I Total Protein Albumin Globulin Albumin/Globulin Ratio Urine Color Yellow Urine Clarity Clear Urine pH 5.0 Ur Specific [place] 1.020 Urine Protein 15 H Urine Glucose (UA) 1000 H Urine Ketones 15 H Urine Occult Blood Negative Urine Nitrite Negative Urine Bilirubin Negative Urine Urobilinogen Normal Ur Leukocyte Esterase Negative Urine RBC 0 SEEN Urine WBC 0 SEEN Ur Squamous Epith Cells 0 SEEN Urine Bacteria 0 SEEN Hyaline Casts 0-5 SEEN Urine Mucus 1+ Ethyl Alcohol POC Glucose 01/12/19 15:14 POC Glucose 255 H Assessment/Plan This patient was seen in conjunction with LETTUCE CUTTER, Joelle. I have independently interviewed and examined the patient and reviewed pertinent history, examination findings, laboratory and plan of management. I have reviewed the note and agree with the documented findings with the few additional points. In brief, patient is 83-year-old gentleman with history of CVA with prior residual loss of vision although unclear degree of loss of acuity and field of vision was brought in unresponsive state to ED. Patient is awake but noncommunicative and nonverbal. CT brain was unremarkable. CTA of head and neck was normal with mild atherosclerotic calcification. MRI brain without contrast ordered discussed with the neurologist Dr. Lee who agreed to see the patient. He advised EEG is ordered. EKG shows normal sinus rhythm with LAD at 80 bpm. No significant change from previous EKG of October 2018. 2 serial troponin enzymes are negative. Discussed with the patient's daughter. On further discussion with patient's power of contracts attorney, . Xochitl Acosta, she will bring the copy of patient of advanced directive from home. Patient has living will in medical record which is reviewed. It is states the patient is not terminal/unresponsive condition, he does not want artificial life support or something to delay his and just make comfort care without suffering. I think, overall it means DNR CC arrest. I have discussed my assessment with LETTUCE CUTTER, Joelle and orders have been reviewed. Clinical Impression(s) from Imaging Studies Brain CT 01/12/19 12:19 IMPRESSION: Chronic involutional changes of the brain. No acute hemorrhage Chest X-Ray 01/12/19 12:19 IMPRESSION: Normal x-ray examination of the chest. Cervical Spine CT 01/12/19 12:20 IMPRESSION: Multilevel degenerative changes, as described above. Head/Neck CTA 01/12/19 13:24 IMPRESSION: Normal CTA Head and neck with contrast. Mild atherosclerotic calcifications. Small right vertebral artery Code Visit Inpatient E&M: 81061 Init Hosp L3 Procedures: 88603 Advncd Care Plan 30 Min
--- NOTE | 2019-01-12 16:33 | MRI_ITS ---
STUDY: MRI BRAIN WITHOUT CONTRAST REASON FOR EXAM: Male, 83 years old. AMS and unresponsive TECHNIQUE: Standardized multiplanar fat and water weighted pulse sequences were obtained. COMPARISON: 08/11/2018 FINDINGS: Mild cortical atrophy. There are multiple white matter hyperintensities, distributed throughout the deep white matter tracts of the cerebral hemispheres, consistent with moderate chronic white matter ischemic changes. Focal acute infarct in the left centrum semiovale. Right frontal encephalomalacia. Remote bilateral thalamic infarcts. There is no extra-axial fluid accumulation. Normal flow voids within the major intracranial circulation suggesting patency by spin echo criteria. Normal sella turcica, pituitary gland, infundibular stalk, optic chiasm and hypothalamus. Normal tectal plate and pineal gland. Normal midbrain, ana maria and medulla. Remote bilateral cerebellar infarcts. Normal basal cisterns. Normal bilateral temporal bones. Normal bilateral internal auditory canals. There are bilateral ocular lens implants with otherwise normal intraorbital contents. Normal visualized paranasal sinuses. Normal calvarium and skull base. Normal visualized soft tissue structures. Normal visualized upper cervical spine. MRI/Brain without Contrast IMPRESSION: Focal acute infarct in the left centrum semiovale. Multiple remote infarcts as described. Electronically Signed: Jean Castro MD at 21:12 EDT Tel , Service support ,
--- NOTE | 2019-01-12 17:11 | ECHOCS_ITS ---
Reason For Study: TIA/CVA Procedure This was a 2D Doppler, Color Flow transthoracic echocardiogram. Exam performed portable in patient room. Left Ventricle Normal LV size. Left ventricular systolic function is hyperdynamic. The estimated ejection fraction is 70 %. Stage 1 diastolic dysfunction. No regional wall motion abnormalities noted. Right Ventricle Normal RV size. Normal systolic function. Atria Normal left atrium. Normal right atrium. Mitral Valve There is mild mitral annular calcification. Tricuspid Valve Normal tricuspid valve. Aortic Valve Mild focal aortic valve calcification. Pulmonic Valve Normal pulmonic valve. Great Vessels Normal aortic root. The pulmonary artery is normal size. Normal inferior vena cava. Pericardium/Pleural No pericardial effusion. Medication Diluted definity 3ml given slow IV push to enhance endocardial definition. MMode/2D Measurements & Calculations LVIDd: 4.0 cm IVSd: 0.95 cm Ao root diam: 3.4 cm LVIDs: 2.0 cm LVPWd: 0.91 cm FS: 50.7 % LAV(MOD-bp): 29.4 ml LVAd ap4: 24.7 cm2 SV(MOD-sp4): 45.9 ml LAV(MOD-bp) Indexed: 16.7 ml/m2 EDV(MOD-sp4): 69.8 ml LAV(MOD-sp2): 21.6 ml EDV(sp4-el): 71.3 ml LAV(MOD-sp4): 38.3 ml LVAs ap4: 13.6 cm2 ESV(MOD-sp4): 23.9 ml ESV(sp4-el): 24.1 ml EF(MOD-sp4): 65.7 % EF(sp4-el): 66.2 % SV(sp4-el): 47.2 ml LA A4 area: 14.3 cm2 LA dimension(2D): 3.0 cm RA A4 area: 14.8 cm2 Time Measurements MV dec time: 0.26 sec Doppler Measurements & Calculations MV E max christopher: 57.1 cm/sec Lat Peak E' Christopher: 6.1 cm/sec Med Peak E' Christopher: 3.8 cm/sec MV A max christopher: 115.5 cm/sec E/E' lat: 9.3 E/E' med: 15.0 MV E/A: 0.49 Ao V2 max: 127.7 cm/sec AI max christopher: 326.4 cm/sec LV V1 max: 128.0 cm/sec Ao max P.5 mmHg AI max P.6 mmHg LV V1 max P.6 mmHg AI dec slope: 198.7 cm/sec2 AI P1/2t: 481.1 msec PA V2 max: 99.2 cm/sec TR max christopher: 259.6 cm/sec TR max P.0 mmHg Interpretation Summary Normal LV size. Left ventricular systolic function is hyperdynamic. The estimated ejection fraction is 70 %. Stage 1 diastolic dysfunction. Contrast injection was performed. Ordering Physician: Joelle Grace Referring Physician: JUSTYN CALDERÓN Performed By: Mary Kraus RDCS
[2019-01-12 18:36] LABS: Bedside Glucose 211 mg/dL (70-110)
[2019-01-12] MEDS: 0.9% NaCl Peripheral Flush Adult/Peds IV (21:29)
[2019-01-12 21:36] LABS: Bedside Glucose 226 mg/dL (70-110)
--- NOTE | 2019-01-12 21:46 | NURSING ---
Pt was down at MRI, [facility] and [facility] late for this reason
[2019-01-12] MEDS: Insulin Lispro 100 UNIT/ML INSULN.PEN SC (22:03)
[2019-01-13] VITALS (13 sets, daily range): BP systolic 104–171; BP diastolic 48–75; PULSE 70–77; RESP 16–20; TEMP 36.6–36.9; O2SAT 95–97; BMI 25.3
[2019-01-13 00:15] LABS: Bedside Glucose 169 mg/dL (70-110)
[2019-01-13] MEDS: Insulin Lispro 100 UNIT/ML INSULN.PEN SC ×3 (00:26→11:55)
[2019-01-13] MEDS: Enoxaparin 40 MG/0.4 ML Syringe SC (06:14)
[2019-01-13 06:26] LABS: Bedside Glucose 168 mg/dL (70-110)
[2019-01-13 07:45] LABS: Cholesterol 104 mg/dL (200); High Density Lipoprotein 36 mg/dL; Thyroid Stim Hormone (TSH) 1.33 uIU/mL (0.358-3.74); Triglycerides 63 mg/dL; Very Low Density Lipoprotein 13 mg/dL (5-40)
[2019-01-13 08:05] LABS: Bedside Glucose 248 mg/dL (70-110)
[2019-01-13] MEDS: Fluticasone 0.05% 1 SPRAY NASAL.SRY 2 SPRAY NASAL (09:53)
--- NOTE | 2019-01-13 10:03 | CON.PCM_ITS ---
Reason for Consult Date of Consultation: 01/13/19 Reason for Consultation: altered ms History of Present Illness: The patient is a 83 year old M presented as below, now improved per daughter since eating. reports sugars high at home but this apparently has been planned. daughter notes sugars over 300 at times at home. daughter reports he was alone for a few days prior to hospitalization. pt doesnt remember the events leading up to hospitaliztion. has life alert which he did not trigger. [facility] [employer] [facility] triggered ems when he didnt answer the door. when he is intermittently alone he has to manage his own meds (bubble packed). missed saturday night meds per family. [employer] [facility] noted sbp 105 on saturday, 5d ago. Per admission H&P: Chief Complaint: Altered mental status, found down at home. Patient is an 83-year-old male who presents to the emergency room after being found down at his home this morning by [facility] [facility] staff. Family at bedside reports patient was last seen well yesterday afternoon. He was recently released from SNF and has been at home for approximately 2 weeks and overall been doing well per family. Patient is unable to provide HPI. Per ER/EMS report patient was initially thought to be unresponsive when found at home lying on the ground however he was then able to walk to cot to be transported to emergency room. Patient has a past medical history of hypertension, hyperlipidemia, type 2 diabetes mellitus, history of CVA. Past Medical History Past Medical History (Chronic Problems): Chronic Problems (Last Reviewed 09/01/18 @ 15:45 by Ovidio Ibarra MD) Type 2 diabetes mellitus (Chronic) CVA (cerebral vascular accident) (Chronic) Status post acute ischemic stroke with residual lower extremity weakness mild Carotid bruit (Chronic) Encounter for long-term current use of high risk medication (Chronic) Reviewed medications with family to be sure patient was taking remainder of medications correctly and there were no duplicates Atherosclerotic heart disease of [place] coronary artery without angina pectoris (Chronic) Hyperlipidemia (Chronic) Diverticulitis (Chronic) Hypertension (Chronic) Medical History: Medical History (Last Reviewed 09/01/18 @ 15:45 by Ovidio Ibarra MD) CVA (cerebral vascular accident) (Chronic) I63.9 Status post acute ischemic stroke with residual lower extremity weakness mild Carotid bruit (Chronic) R09.89 Atherosclerotic heart disease of [place] coronary artery without angina pectoris (Chronic) I25.10 Hyperlipidemia (Chronic) E78.5 Diverticulitis (Chronic) K57.92 Hypertension (Chronic) I10 GERD (gastroesophageal reflux disease) K21.9 GI bleed K92.2 OAB (overactive bladder) N32.81 Type 2 diabetes mellitus E11.9 Allergies alfuzosin Allergy (Verified 01/09/19 14:14) Other Penicillins Allergy (Verified 01/09/19 14:14) Rash Sulfa (Sulfonamide Antibiotics) Allergy (Verified 01/09/19 14:14) Swelling chlorpromazine [From Thorazine] Adverse Reaction (Verified 01/12/19 17:20) heavy sedation lisinopril Adverse Reaction (Verified 01/12/19 16:56) cough Home Medications: Ambulatory Orders Medication Instructions Recorded Ipratropium Bagley 0.06% 2 spray NASAL BID 10/21/18 [ATROVENT NASAL SPRAY] Lactobacillus Rhamnosus GG 1 ea PO DAILY 10/21/18 [Culturelle] Pantoprazole Sodium [Protonix] 40 mg PO DAILY 10/21/18 aspirin 81 mg chewable tablet 81 mg PO DAILY@0800 #30 tab 01/02/19 atorvastatin 80 mg tablet 80 mg PO QHS #30 tab 01/02/19 clopidogrel 75 mg tablet 75 mg PO DAILY #30 tab 01/02/19 furosemide 20 mg tablet 20 mg PO DAILY #30 tab 01/02/19 docusate sodium 100 mg capsule 100 mg PO DAILY 01/09/19 Atenolol 75 mg PO DAILY 01/12/19 Fluticasone 0.05% [Flonase Nasal 2 spray NASAL DAILY 01/12/19 [place]] Guaifenesin [Mucinex] 1,200 mg PO BID 01/12/19 Insulin Aspart [Novolog Flexpen 10 units SUBCUT TIDCM 01/12/19 ([facility])] Insulin Aspart [Novolog Flexpen See Protocol SUBCUT TIDCM 01/12/19 ([facility])] Insulin Glargine,Hum.rec.anlog 13 units SUBCUT QHS 01/12/19 [Basaglar Kwikpen U-100] Surgical History: Surgical History (Last Reviewed 01/09/19 @ 14:15 by Carolina Valencia) H/O repair of rotator cuff Z98.890 History of carotid endarterectomy Z98.890 History of cataract surgery Z98.49 History of hemorrhoidectomy Z98.890 Surgical History: - - L Rotator cuff surgery, BL carotid endarterectomies, hemorrhoidectomy, T+A. Psychiatric History: No pertinent psych hx Lives: Alone Smoking Status: Former smoker Tobacco Use: Cigarettes Alcohol: None Drugs: None - *Family History Maternal Family History: Family History (Last Reviewed 01/12/19 @ 16:30 by JOCELYN Brenner) Brother Kidney disease Mother CVA (cerebral vascular accident) Father Liver cirrhosis History Items: Diabetes, Heart Disease, Stroke Paternal Family History: Family History (Last Reviewed 01/12/19 @ 16:30 by JOCELYN Brenner) Brother Kidney disease Mother CVA (cerebral vascular accident) Father Liver cirrhosis History Items: - - Patient notes father was an alcoholic with cirrhosis in addition to heart disease. Sibling Family History: Family History (Last Reviewed 01/12/19 @ 16:30 by JOCELYN Brenner) Brother Kidney disease Mother CVA (cerebral vascular accident) Father Liver cirrhosis History Items: No pertinent history Review of Systems Constitutional: Denies: Fever, Weight Change HEENT: Denies: Head Aches, Sinus Congestion, Sinus Drainage Cardiovascular: Denies: Chest Pain, Palpitations Respiratory: Denies: Cough, Shortness of breath at rest, Sputum production Gastrointestinal: Denies: Abdominal Pain, Nausea, Vomiting Genitourinary: Denies: Dysuria Musculoskeletal: Denies: Joint Pain, Joint Tenderness Skin: Denies: Rash, Wounds Neurological: Denies: Numbness, Tingling, Focal weakness Psychiatric: Denies: Anxiety, Depression, Homicidal Ideations, Suicidal Ideations Hematologic/ Lymphatic: Denies: Easy Bruising, Easy Bleeding - Physical Exam General: Alert, Oriented x3 Neurological: Slurred Speech Vital Signs Temp Pulse Resp BP Pulse Ox 36.8 C 77 18 124/48 H 97 01/13/19 08:10 01/13/19 08:10 01/13/19 08:10 01/13/19 08:10 01/13/19 08:10 Oxygen Flow Rate (L/min) 2 Oxygen Delivery Method Room Air Weight: 69 kg Body Mass Index (BMI) 25.3 Finger Stick Blood Glucose 169 Intake and Output for Last 24 Hours 07/21/19 07/22/19 07/23/19 23:59 23:59 23:59 Intake Total 0 / 0 Output Total 250 / 250 Balance -250 / -250 0 / 0 Laboratory Tests Past 24 Hrs 01/12/19 01/12/19 01/12/19 12:25 12:25 12:25 WBC 7.2 RBC 4.40 L Hgb 13.0 Hct 39.1 L MCV 88.9 MCH 29.5 MCHC 33.2 RDW Std Deviation 48.2 H RDW Coeff of Wes 14.9 H Plt Count 198 MPV 11.2 Immature Gran % (Auto) 0.400 Neut % (Auto) 79.9 H Lymph % (Auto) 13.6 L Green % (Auto) 5.7 Eos % (Auto) 0.1 Baso % (Auto) 0.3 Absolute Neuts (auto) 5.8 Absolute Lymphs (auto) 0.98 Absolute Nucleated RBC 0.00 Nucleated RBC % 0 PT 14.1 INR 1.1 APTT 22.1 L Sodium 138 Potassium 4.6 Chloride 104 Carbon Dioxide 23.0 Anion Gap 11 BUN 19 H Creatinine 1.29 Estim Creat Clear Calc 4.82 Est GFR (MDRD) Af Amer 68 Est GFR (MDRD) Non-Af 57 L BUN/Creatinine Ratio 14.7 Glucose 282 H Lactic Acid Calcium 8.6 Magnesium Total Bilirubin 0.60 AST 32 ALT 11 L Alkaline Phosphatase 176 H Total Creatine Kinase Troponin I < 0.015 Total Protein 8.0 Albumin 3.3 Globulin 4.7 H Albumin/Globulin Ratio 0.7 L Triglycerides Cholesterol LDL Cholesterol VLDL Cholesterol HDL Cholesterol TSH Urine Color Urine Clarity Urine pH Ur Specific [place] Urine Protein Urine Glucose (UA) Urine Ketones Urine Occult Blood Urine Nitrite Urine Bilirubin Urine Urobilinogen Ur Leukocyte Esterase Urine RBC Urine WBC Ur Squamous Epith Cells Urine Bacteria Hyaline Casts Urine Mucus Ethyl Alcohol 01/12/19 01/12/19 01/12/19 12:25 12:30 12:30 WBC RBC Hgb Hct MCV MCH MCHC RDW Std Deviation RDW Coeff of Wes Plt Count MPV Immature Gran % (Auto) Neut % (Auto) Lymph % (Auto) Green % (Auto) Eos % (Auto) Baso % (Auto) Absolute Neuts (auto) Absolute Lymphs (auto) Absolute Nucleated RBC Nucleated RBC % PT INR APTT Sodium Potassium Chloride Carbon Dioxide Anion Gap BUN Creatinine Estim Creat Clear Calc Est GFR (MDRD) Af Amer Est GFR (MDRD) Non-Af BUN/Creatinine Ratio Glucose Lactic Acid 1.9 Calcium Magnesium Total Bilirubin AST ALT Alkaline Phosphatase Total Creatine Kinase 123 Troponin I Total Protein Albumin Globulin Albumin/Globulin Ratio Triglycerides Cholesterol LDL Cholesterol VLDL Cholesterol HDL Cholesterol TSH Urine Color Urine Clarity Urine pH Ur Specific [place] Urine Protein Urine Glucose (UA) Urine Ketones Urine Occult Blood Urine Nitrite Urine Bilirubin Urine Urobilinogen Ur Leukocyte Esterase Urine RBC Urine WBC Ur Squamous Epith Cells Urine Bacteria Hyaline Casts Urine Mucus Ethyl Alcohol < 3.0 01/12/19 01/12/19 01/12/19 14:30 17:40 21:05 WBC RBC Hgb Hct MCV MCH MCHC RDW Std Deviation RDW Coeff of Wes Plt Count MPV Immature Gran % (Auto) Neut % (Auto) Lymph % (Auto) Green % (Auto) Eos % (Auto) Baso % (Auto) Absolute Neuts (auto) Absolute Lymphs (auto) Absolute Nucleated RBC Nucleated RBC % PT INR APTT Sodium Potassium Chloride Carbon Dioxide Anion Gap BUN Creatinine Estim Creat Clear Calc Est GFR (MDRD) Af Amer Est GFR (MDRD) Non-Af BUN/Creatinine Ratio Glucose Lactic Acid Calcium Magnesium Total Bilirubin AST ALT Alkaline Phosphatase Total Creatine Kinase Troponin I < 0.015 < 0.015 Total Protein Albumin Globulin Albumin/Globulin Ratio Triglycerides Cholesterol LDL Cholesterol VLDL Cholesterol HDL Cholesterol TSH Urine Color Yellow Urine Clarity Clear Urine pH 5.0 Ur Specific [place] 1.020 Urine Protein 15 H Urine Glucose (UA) 1000 H Urine Ketones 15 H Urine Occult Blood Negative Urine Nitrite Negative Urine Bilirubin Negative Urine Urobilinogen Normal Ur Leukocyte Esterase Negative Urine RBC 0 SEEN Urine WBC 0 SEEN Ur Squamous Epith Cells 0 SEEN Urine Bacteria 0 SEEN Hyaline Casts 0-5 SEEN Urine Mucus 1+ Ethyl Alcohol 01/12/19 01/13/19 23:25 06:55 WBC RBC Hgb Hct MCV MCH MCHC RDW Std Deviation RDW Coeff of Wes Plt Count MPV Immature Gran % (Auto) Neut % (Auto) Lymph % (Auto) Green % (Auto) Eos % (Auto) Baso % (Auto) Absolute Neuts (auto) Absolute Lymphs (auto) Absolute Nucleated RBC Nucleated RBC % PT INR APTT Sodium Potassium Chloride Carbon Dioxide Anion Gap BUN Creatinine Estim Creat Clear Calc Est GFR (MDRD) Af Amer Est GFR (MDRD) Non-Af BUN/Creatinine Ratio Glucose Lactic Acid Calcium Magnesium 2.0 Total Bilirubin AST ALT Alkaline Phosphatase Total Creatine Kinase Troponin I 0.016 Total Protein Albumin Globulin Albumin/Globulin Ratio Triglycerides 63 Cholesterol 104 LDL Cholesterol 55 VLDL Cholesterol 13 HDL Cholesterol 36 L TSH 1.33 Urine Color Urine Clarity Urine pH Ur Specific [place] Urine Protein Urine Glucose (UA) Urine Ketones Urine Occult Blood Urine Nitrite Urine Bilirubin Urine Urobilinogen Ur Leukocyte Esterase Urine RBC Urine WBC Ur Squamous Epith Cells Urine Bacteria Hyaline Casts Urine Mucus Ethyl Alcohol POC Glucose 01/13/19 01/13/19 01/12/19 06:11 00:07 21:24 POC Glucose 168 H 169 H 226 H 01/12/19 01/12/19 01/12/19 18:30 15:14 12:02 POC Glucose 211 H 255 H 248 H MRI reviewed. He has an acute punctate infarct in the left subcortical white matter. CTA reviewed, no significant stenosis. He has very large carotid bifurcations. EEG reviewed. Mild nonspecific slowing. No seizures. Assessment/Plan encephalopathy, improved, suspect multifactorial and small cva is incidental. keep sbp 120-145 pt/ot/sp bs control rec fluids, iv until able to take po based on cva and numbers of antihypertensives in hospital would avoid bp meds unless sbp > 150 consistently
--- NOTE | 2019-01-13 10:16 | EEG_ITS ---
- Electroencephalogram Date of service 01/13/2019 This is an 18 channel electroencephalogram performed on this 83-year-old male with an altered mental status. There is history of stroke. He apparently has been confused at home. The test is performed utilizing the International 10-20 electrode placement protocol as well as photic stimulation, hyperventilation and EKG reference leads. Background activity is mild to moderately slow at 5 to 6 Hz symmetrically. Hyperventilation is performed for 2 minutes with good effort with no lateralizing or epileptiform changes. The patient remained awake throughout the recording. There are no lateralizing or epileptiform changes and photic stimulation generates a normal symmetric driving response in the posteri or leads. EKG is normal sinus rhythm. Impression: Abnormal electroencephalogram due to the presence of mild to moderate diffuse nonspecific slowing.
--- NOTE | 2019-01-13 10:55 | CASEMGMT ---
Patient was recently discharged from [facility] around 2 weeks ago. [facility] called [facility] and spoke with Landy. She said patient was admitted with them 09-04-18 and discharged 12-14-18. 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 Patient has exhausted his 100 Medicare days and he has not had a 60 day break to reset his Medicare days. [facility] will follow and talk with family regarding a discharge plan. Jackie RUSSELL MSW
[2019-01-13 12:10] LABS: Bedside Glucose 176 mg/dL (70-110)
[2019-01-13] MEDS: 0.9% Normal Saline 1,000 ML 125 ML IV ×2 (13:21→19:57)
--- NOTE | 2019-01-13 14:17 | PN_ITS ---
<Joelle Grace - Last Filed: 01/13/19 14:26> Subjective: Patient seen and examined. Family at bedside. Patient more alert and coherent today. Intractable hiccups currently resolved. No new neurologic deficits. - Physical Exam General: Alert, Oriented x3, Cooperative HEENT: Atraumatic, PERRLA, EOMI, Normocephalic Oral: Dry Mucosa Neck: Supple, No JVD, Negative Carotid Bruits Lungs: Clear to auscultation, Normal air movement Cardiovascular: Regular rate, Regular Rhythm, Normal S1, Normal S2, No murmurs Abdomen: Bowel Sounds Present, Soft, Non Tender, Non-Distended Extremities: No clubbing, No cyanosis, No edema, Capillary Refill Less than 3 Seconds Skin: No rashes, No breakdown Musculoskeletal: No Tenderness to Palpation of Joints or Extremities Neurological: Cranial nerves II-XII grossly intact, Neuro grossly intact, - - Mild slurred speech Psych/Mental Status: Normal Affect, Appropriate Vital Signs Temp Pulse Resp BP Pulse Ox 98.3 F 76 16 124/48 H 97 01/13/19 10:00 01/13/19 11:00 01/13/19 10:00 01/13/19 10:00 01/13/19 10:00 Oxygen Flow Rate (L/min) 2 Oxygen Delivery Method Room Air Weight: 152 lb 1.903 oz Body Mass Index (BMI) 25.3 Finger Stick Blood Glucose 169 Intake and Output for Last 24 Hours 01/11/19 01/12/19 01/13/19 23:59 23:59 23:59 Intake Total 0 / 0 Output Total 250 / 250 Balance -250 / -250 0 / 0 Laboratory Tests Past 24 Hrs 01/12/19 01/12/19 01/12/19 14:30 17:40 21:05 Magnesium Troponin I < 0.015 < 0.015 Triglycerides Cholesterol LDL Cholesterol VLDL Cholesterol HDL Cholesterol TSH Urine Color Yellow Urine Clarity Clear Urine pH 5.0 Ur Specific [place] 1.020 Urine Protein 15 H Urine Glucose (UA) 1000 H Urine Ketones 15 H Urine Occult Blood Negative Urine Nitrite Negative Urine Bilirubin Negative Urine Urobilinogen Normal Ur Leukocyte Esterase Negative Urine RBC 0 SEEN Urine WBC 0 SEEN Ur Squamous Epith Cells 0 SEEN Urine Bacteria 0 SEEN Hyaline Casts 0-5 SEEN Urine Mucus 1+ 01/12/19 01/13/19 23:25 06:55 Magnesium 2.0 Troponin I 0.016 Triglycerides 63 Cholesterol 104 LDL Cholesterol 55 VLDL Cholesterol 13 HDL Cholesterol 36 L TSH 1.33 Urine Color Urine Clarity Urine pH Ur Specific [place] Urine Protein Urine Glucose (UA) Urine Ketones Urine Occult Blood Urine Nitrite Urine Bilirubin Urine Urobilinogen Ur Leukocyte Esterase Urine RBC Urine WBC Ur Squamous Epith Cells Urine Bacteria Hyaline Casts Urine Mucus POC Glucose 01/13/19 01/13/19 01/13/19 11:54 06:11 00:07 POC Glucose 176 H 168 H 169 H 01/12/19 01/12/19 01/12/19 21:24 18:30 15:14 POC Glucose 226 H 211 H 255 H 01/12/19 12:02 POC Glucose 248 H Medical Necessity - Tobacco Use Smoking Status: Former smoker Tobacco Use: Cigarettes Assessment/Plan 1. Acute punctate infarct in the left subcortical white matter- brain CT unremarkable. Chest x-ray without acute process. CTA of head and neck without significant findings. Urinalysis unremarkable. Troponin negative. Echocardiogram pending. Per neurology, MRI demonstrated acute punctate infarct in the left subcortical white matter, report pending. PT/OT/ST. Fall precauti ons. EEG completed and shows mild nonspecific slowing. No seizures. Neurology not convinced acute stroke caused presenting altered mental status. Continue aspirin, statin, Plavix. Neurology recommending keeping blood pressure greater than 120, less than 150. Atenolol regimen discontinued. Plan for rehab unit pending acceptance. 2. Dysphagia- ST consulted. Continue dietary modifications per speech therapy recommendations. To undergo swallow study tomorrow morning. 3. Chronic intractable hiccups-speech therapy feels this may be related to dysphagia/aspiration risk. Per family, patient has tried multiple medication regimens in the past which have not been successful. He has not tried gabapentin prior. Initiate gabapentin 100 mg 3 times daily and titrate as needed. 4. Type 2 diabetes mellitus-continue home insulin regimen. Accu-Chek ACHS. 5. Hyperlipidemia- continue statin. 6. Hypertension-stable, neuro recommending DC atenolol and keep BP 120-145. 7. CAD-continue aspirin, statin, Plavix. 8. History of CVA-continue aspirin, statin and Plavix. 9. Carotid stenosis-status post bilateral carotid endarterectomy. Continue aspirin, statin, Plavix. DVT prophylaxis-Lovenox ar Discharge planning: Recently discharged from SNF. Possible rehab unit at discharge pending acceptance. This patient was seen by JOCELYN Brenner under the supervision of Dr. Mac. <Loida Mac E - Last Filed: 01/13/19 14:45> - Physical Exam Vital Signs Temp Pulse Resp BP Pulse Ox 98.3 F 76 16 124/48 H 97 01/13/19 10:00 01/13/19 12:00 01/13/19 10:00 01/13/19 10:00 01/13/19 10:00 Oxygen Flow Rate (L/min) 2 Oxygen Delivery Method Room Air Weight: 152 lb 1.903 oz Body Mass Index (BMI) 25.3 Finger Stick Blood Glucose 169 Intake and Output for Last 24 Hours 01/11/19 01/12/19 01/13/19 23:59 23:59 23:59 Intake Total 0 / 0 Output Total 250 / 250 Balance -250 / -250 0 / 0 Laboratory Tests Past 24 Hrs 01/12/19 01/12/19 01/12/19 14:30 17:40 21:05 Magnesium Troponin I < 0.015 < 0.015 Triglycerides Cholesterol LDL Cholesterol VLDL Cholesterol HDL Cholesterol TSH Urine Color Yellow Urine Clarity Clear Urine pH 5.0 Ur Specific R[place]on 1.020 Urine Protein 15 H Urine Glucose (UA) 1000 H Urine Ketones 15 H Urine Occult Blood Negative Urine Nitrite Negative Urine Bilirubin Negative Urine Urobilinogen Normal Ur Leukocyte Esterase Negative Urine RBC 0 SEEN Urine WBC 0 SEEN Ur Squamous Epith Cells 0 SEEN Urine Bacteria 0 SEEN Hyaline Casts 0-5 SEEN Urine Mucus 1+ 01/12/19 01/13/19 23:25 06:55 Magnesium 2.0 Troponin I 0.016 Triglycerides 63 Cholesterol 104 LDL Cholesterol 55 VLDL Cholesterol 13 HDL Cholesterol 36 L TSH 1.33 Urine Color Urine Clarity Urine pH Ur Specific R[place]on Urine Protein Urine Glucose (UA) Urine Ketones Urine Occult Blood Urine Nitrite Urine Bilirubin Urine Urobilinogen Ur Leukocyte Esterase Urine RBC Urine WBC Ur Squamous Epith Cells Urine Bacteria Hyaline Casts Urine Mucus POC Glucose 01/13/19 01/13/19 01/13/19 11:54 06:11 00:07 POC Glucose 176 H 168 H 169 H 01/12/19 01/12/19 01/12/19 21:24 18:30 15:14 POC Glucose 226 H 211 H 255 H 01/12/19 12:02 POC Glucose 248 H Assessment/Plan Hospitalist note: I am seeing this patient in conjunction with Joelle Grace. I independently seen and examined the patient. Progress note above, laboratory data and imaging studies reviewed and I concur with the above treatment plan. Patient was seen and examined. Patient's daughters were at the bedside. He does have dysarthria but his speech was coherent and understandable. He is more alert today. He has no more hiccups. His vital signs are stable. - Physical Exam General: Alert, Oriented x3, Cooperative, No apparent distress. HEENT: Atraumatic, PERRLA, EOMI. Neck: Supple, No JVD, Negative Carotid Bruits, Trachea Midline, Thyroid Normal. Lungs: Diminished breath sounds bilateral, otherwise clear, No rhonchi, No wheeze, No rales. Cardiovascular: Regular rate, Regular Rhythm, Normal S1, Normal S2, PMI Normal. Abdomen: Bowel Sounds Present, Soft, Non Tender, Non-Distended, No Hepato-spleno megaly. Extremities: No clubbing, No cyanosis, No edema Skin: No rashes, No breakdown Neurological: Cranial nerves are intact, mild dysarthria, normal power and tone of all limbs. Vital Signs are stable. Assessment and plan: #1 acute punctate infarct of the left subcortical white matter: CT scan brain was unremarkable. MRI brain read by neurology as acute punctate infarct in the left subcortical white matter. EKG revealed normal sinus rhythm, no cardiac arrhythmias. Troponin is negative. CTA of the clinic was unremarkable for hemodynamically significant vascular disease or stenosis. 2D echocardiogram ordered. Neurology consulted, appreciate recommendations. Patient is on aspirin, Plavix and statins. His vital signs are stable, blood pressure stable. EEG was done, revealed diffuse slowing, no seizure activity. Plan to continue same treatment, awaiting 2D echocardiogram, patient will need to be admitted to rehabilitation unit upon discharge. #2 dysphagia: Speech therapy consulted, dietary modifications noted. Plan for barium swallow tomorrow morning. #3 intractable chronic hiccups: It is chronic, has been on different medications. Started on gabapentin 3 times daily. #4 other chronic medical problems: Stable, continue current medications as above. This note was generated with [employer] dictation software. It may contain incorrect words, spelling, and punctuation that were not noted in checking the note before signing. Code Visit Inpatient E&M: 04170 Subs Hosp L2
--- NOTE | 2019-01-13 15:44 | CASEMGMT ---
Addendum entered by Jackie Tompkins 01/13/19 15:56: SW called patient's daughter/POAnil Leung. SW asked if she had a plan for d/c. SW said he has exhausted his Medicare days. She said she does not have a plan and she guesses he will have to come home with her. She asked if they are talking about discharging him already. SW told her he will possibly be discharged tomorrow. SW told her SW will follow up with her tomorrow. Jackie LOPES Original Note: BASIL met with patient's family. His POA was not present. One of patient's daughters said he does not need to be alone in his home anymore. The other visitor said [facility] may need [facility]. BASIL asked if SW should talk with Xochitl regarding the plan. Family did advise this would be best. BASIL did talk with Doris in Rehab as he did have a Stroke and therapy thought he would be a good candidate. She was checking with therapists. Jackie LOPES
[2019-01-13 17:40] LABS: Bedside Glucose 146 mg/dL (70-110)
[2019-01-13] MEDS: Gabapentin 100 MG Capsule PO (17:48)
[2019-01-13] MEDS: Atorvastatin Calcium 80 MG Tablet PO (21:27)
[2019-01-13 21:36] LABS: Bedside Glucose 133 mg/dL (70-110)
[2019-01-14] VITALS (14 sets, daily range): BP systolic 143–188; BP diastolic 70–89; PULSE 76–80; RESP 16–18; TEMP 36.8–37.1; O2SAT 95–99; BMI 25.3
--- NOTE | 2019-01-14 | RAD_ITS ---
STUDY: SWALLOWING STUDY REASON FOR EXAM: Male, 83 years old. Dysphagia TECHNIQUE: The examination was performed with Speech Pathology in attendance. Under fluoroscopic observation, the patient ingested thin barium, thick barium, barium pudding, and barium coated cracker. FLUOROSCOPY TIME: 0:02 minutes/seconds RADIOLOGIST INVOLVEMENT: Radiologist was not present during the procedure, but did review the images. COMPARISON: None. FINDINGS: The following was observed during swallowing of the various mixtures of barium: There was significant delay in initiation of swallowing with all consistencies. Thin Barium: There was no evidence of aspiration or laryngeal penetration. Thick Barium: There was no evidence of aspiration or laryngeal penetration. Barium Pudding: There was no evidence of aspiration or laryngeal penetration. Barium Coated Cracker: There was no evidence of aspiration or laryngeal penetration. RAD/Swallowing Function w/Video IMPRESSION: No demonstrated aspiration or early pharyngeal penetration. There was however significant delay in initiation of swallowing of barium with all consistencies The swallow study findings were discussed with the patient by the speech pathologist at the conclusion of the examination. Please see speech pathology report for more information and recommendations. The procedure was performed by Phil Ruiz, which there appears Electronically Signed: Yao Kenney MD at 14:35 EDT , Service support ,
[2019-01-14 00:10] LABS: Bedside Glucose 141 mg/dL (70-110)
[2019-01-14] MEDS: 0.9% Normal Saline 1,000 ML 125 ML IV (04:09)
[2019-01-14 05:43] LABS: Anion Gap 7 (5-15); BUN 16 mg/dL (7-18); BUN/Creat Ratio 18.2 RATIO (10-20); Chloride 113 mmol/L (98-107); Creatinine, Serum 0.88 mg/dL (0.70-1.30); EST Glomerular Filtration Rate 88 mL/min (>60); Est Glom Filt Rate - Afr Amer 107 mL/min (>60); Glucose 143 mg/dL (74-106); Potassium 3.8 mmol/L (3.5-5.1); Sodium Level 142 mmol/L (136-145)
[2019-01-14] MEDS: Enoxaparin 40 MG/0.4 ML Syringe SC (06:25)
[2019-01-14 06:50] LABS: Bedside Glucose 128 mg/dL (70-110)
[2019-01-14] MEDS: Gabapentin 100 MG Capsule PO ×2 (08:34→11:36)
[2019-01-14] MEDS: Aspirin 81 MG TAB.CHEW PO (08:34)
[2019-01-14] MEDS: Clopidogrel Bisulfate 75 MG Tablet PO (08:35)
[2019-01-14] MEDS: Fluticasone 0.05% 1 SPRAY NASAL.SRY 2 SPRAY NASAL (08:35)
[2019-01-14] MEDS: Pantoprazole Sodium 40 MG Tablet PO (08:35)
[2019-01-14] MEDS: Docusate Sodium 100 MG Capsule PO (08:35)
--- NOTE | 2019-01-14 10:34 | CASEMGMT ---
Patient has a Healthcare POA and Healthcare LW on file at [facility]. Jackie [employer]IC[employer]
[2019-01-14 12:11] LABS: Bedside Glucose 130 mg/dL (70-110)
[2019-01-14] MEDS: 0.9% Normal Saline 1,000 ML 75 ML IV (12:40)
--- NOTE | 2019-01-14 12:54 | CASEMGMT ---
BASIL spoke with patient's daughter, Karen regarding discharge plan. She said that they talked about it last night and the plan is to take him home and he will stay with the 2 daughters that live in [place]. Karen is a teacher so she is off for the summer and she will also be helping take care of patient. There will be someone with patient all the time. She asked about home health and BASIL told her this could be set up. She asked about patient's Medicare days. BASIL told her that once he has a 60 day break from the hospital and assisted his days will start over. She thanked BASIL for the clarification as her sister thought his days would not start over until June. BASIL also told her the RN at [facility] would be able to educate them on administering insulin. She thanked BASIL for the information. d/c plan: d/c home with 2 of the daughters and [facility] HH. He will have / supervision Jackie LOPES
--- NOTE | 2019-01-14 13:39 | PN_ITS ---
<Joelle Grace - Last Filed: 01/14/19 13:47> Subjective: Patient seen and examined. Family reports increased confusion this morning however patient responds appropriately to orientation questions. No new neurologic symptoms. To undergo swallow test today. - Physical Exam General: Alert, Cooperative, No apparent distress HEENT: Atraumatic, PERRLA, EOMI, Normocephalic Oral: Dry Mucosa Neck: Supple, No JVD, Negative Carotid Bruits Lungs: Clear to auscultation, Diminished Cardiovascular: Regular rate, Regular Rhythm, Normal S1, Normal S2, No murmurs Abdomen: Bowel Sounds Present, Soft, Non Tender, Non-Distended Extremities: No clubbing, No cyanosis, No edema, Capillary Refill Less than 3 Seconds Skin: No rashes, No breakdown Musculoskeletal: No Tenderness to Palpation of Joints or Extremities Neurological: Cranial nerves II-XII grossly intact, Neuro grossly intact Psych/Mental Status: Normal Affect, Appropriate Vital Signs Temp Pulse Resp BP Pulse Ox 98.4 F 79 17 169/77 H 97 01/14/19 11:08 01/14/19 11:08 01/14/19 11:08 01/14/19 11:08 01/14/19 11:20 Oxygen Flow Rate (L/min) 2 Oxygen Delivery Method Room Air Weight: 152 lb 1.903 oz Body Mass Index (BMI) 25.3 Finger Stick Blood Glucose 169 Intake and Output for Last 24 Hours 01/12/19 01/13/19 01/14/19 23:59 23:59 23:59 Intake Total 1511 / 1511 1382 / 1382 Output Total 250 / 250 225 / 225 Balance -250 / -250 1511 / 1511 1157 / 1157 Laboratory Tests Past 24 Hrs 01/14/19 05:10 Sodium 142 Potassium 3.8 Chloride 113 H Carbon Dioxide 22.0 Anion Gap 7 BUN 16 Creatinine 0.88 Estim Creat Clear Calc 56.30 Est GFR (MDRD) Af Amer 107 Est GFR (MDRD) Non-Af 88 BUN/Creatinine Ratio 18.2 Glucose 143 H Calcium 8.0 L POC Glucose 01/14/19 01/14/19 01/13/19 11:11 06:24 23:56 POC Glucose 130 H 128 H 141 H 01/13/19 01/13/19 21:26 17:33 POC Glucose 133 H 146 H Medical Necessity - Tobacco Use Smoking Status: Former smoker Tobacco Use: Cigarettes Assessment/Plan 1. Acute punctate infarct in the left subcortical white matter- brain CT unremarkable. Chest x-ray without acute process. CTA of head and neck without significant findings. Urinalysis unremarkable. Troponin negative. Echocardiogram pending. Per neurology, MRI demonstrated acute punctate infarct in the left subcortical white matter, report pending. PT/OT/ST. Fall precautions. EEG completed and shows mild nonspecific slowing. No seizures. Neurology not convinced acute stroke caused presenting altered mental status. Continue aspirin, statin, Plavix. Neurology recommending keeping blood pressure greater than 120, less than 150. Atenolol regimen discontinued. 2. Dysphagia- ST consulted. Continue dietary modifications per speech therapy recommendations. To undergo swallow study today, pending. Further discharge plans pending swallow study. 3. Chronic intractable hiccups-speech therapy feels this may be related to dys phagia/aspiration risk. Per family, patient has tried multiple medication regimens in the past which have not been successful. He has not tried gabapentin prior. Initiate gabapentin 100 mg 3 times daily and titrate as needed. Hiccups have currently subsided on gabapentin regimen. 4. Type 2 diabetes mellitus-continue home insulin regimen. Accu-Chek ACHS. 5. Hyperlipidemia- continue statin. 6. Hypertension-stable, neuro recommending DC atenolol and keep BP 120-145. PRN hydralazine for systolic blood pressure greater than 160. 7. CAD-continue aspirin, statin, Plavix. 8. History of CVA-continue aspirin, statin and Plavix. 9. Carotid stenosis-status post bilateral carotid endarterectomy. Continue aspirin, statin, Plavix. DVT prophylaxis-Lovenox mi Discharge planning: Recently discharged from SNF. Plan for home with family at [place]. Possible DC tomorrow pending swallow study results. This patient was seen by JOCELYN Brenner under the supervision of Dr. Mac. <Loida Mac - Last Filed: 01/14/19 15:07> - Physical Exam Vital Signs Temp Pulse Resp BP Pulse Ox 98.4 F 79 17 169/77 H 97 01/14/19 11:08 01/14/19 11:08 01/14/19 11:08 01/14/19 11:08 01/14/19 11:20 Oxygen Flow Rate (L/min) 2 Oxygen Delivery Method Room Air Weight: 152 lb 1.903 oz Body Mass Index (BMI) 25.3 Finger Stick Blood Glucose 169 Intake and Output for Last 24 Hours 01/12/19 01/13/19 01/14/19 23:59 23:59 23:59 Intake Total 1511 / 1511 1382 / 1382 Output Total 250 / 250 225 / 225 Balance -250 / -250 1511 / 1511 1157 / 1157 Laboratory Tests Past 24 Hrs 01/14/19 05:10 Sodium 142 Potassium 3.8 Chloride 113 H Carbon Dioxide 22.0 Anion Gap 7 BUN 16 Creatinine 0.88 Estim Creat Clear Calc 56.30 Est GFR (MDRD) Af Amer 107 Est GFR (MDRD) Non-Af 88 BUN/Creatinine Ratio 18.2 Glucose 143 H Calcium 8.0 L POC Glucose 01/14/19 01/14/19 01/13/19 11:11 06:24 23:56 POC Glucose 130 H 128 H 141 H 01/13/19 01/13/19 21:26 17:33 POC Glucose 133 H 146 H Assessment/Plan Hospitalist note: I am seeing this patient in conjunction with Joelle Grace. I independently seen and examined the patient. Progress note above, laboratory data and imaging studies reviewed and I concur with the above treatment plan. Patient's daughter mentioned that patient has been more confused for me, patient knew his name, date of and he knows where he is at. His vital signs are stable. - Physical Exam General: Alert, Oriented x3, Cooperative, No apparent distress. HEENT: Atraumatic, PERRLA, EOMI. Neck: Supple, No JVD, Negative Carotid Bruits, Trachea Midline, Thyroid Normal. Lungs: Diminished breath sounds bilateral, otherwise clear, No rhonchi, No wheeze, No rales. Cardiovascular: Regular rate, Regular Rhythm, Normal S1, Normal S2, PMI Normal. Abdomen: Bowel Sounds Present, Soft, Non Tender, Non-Distended, No Hepato- splenomegaly. Extremities: No clubbing, No cyanosis, No edema Skin: No rashes, No breakdown Neurological: Cranial nerves are intact, mild dysarthria, normal power and tone of all limbs. Vital Signs are stable. Assessment and plan: #1 acute punctate infarcts of the left subcortical white matter: Remains on aspirin, Plavix and statins. Blood pressure started to go up. Other vital signs are stable. MRI brain report read as focal acute infarct of the left multiple remote infarcts. EKG revealed normal sinus rhythm, no cardiac arrhythmias. Troponin is negative. CTA of the clinic was unremarkable for hemodynamically significant vascular disease or stenosis. 2D echocardiogram revealed normal LV size and function, ejection fraction of 70%, stage I diastolic dysfunction. Plan for swallowing study today, continue same treatment. #2 dysphagia: Speech therapy consulted, dietary modifications noted. Plan for swallowing study today. #3 intractable chronic hiccups: It is chronic, has been on different medications in the past, started on gabapentin on admission. Patient has no more hiccups, plan to continue gabapentin. #4 other chronic medical problems: Stable, continue current medications as above. This note was generated with [employer] dictation software. It may contain incorrect words, spelling, and punctuation that were not noted in checking the note before signing. Code Visit Inpatient E&M: 30257 Subs Hosp L2
--- NOTE | 2019-01-14 14:00 | SP.MBSS_ITS ---
PRIMARY / SECONDARY DIAGNOSIS: dysphagia (R13.10) REFERRING PHYSICIAN: JOCELYN Brenner CURRENT DIET: NPO DENTITION: upper dentures, natural lower MENTAL STATUS: NPO RESPIRATORY STATUS: O2 via room air REASON FOR REFERRAL: The Patient is an 83 year old male referred for a modified barium swallow (MBS) study to objectively assess the Patients oropharyngeal swallow function under fluoroscopy secondary to a recent cerebrovascular accident involving the left centrum semiovale with multiple prior areas of infarction. MEDICAL HISTORY: Cerebrovascular accident involving the right frontal lobe, bilateral thalamus, and bilateral cerebellum w/ residual lower extremity weakness; carotid bruit, atherosclerotic heart disease of cachil dehe coronary artery without angina pectoris, hyperlipidemia, diverticulitis, hypertension, gastroesophageal reflux disease, overactive bladder, type 2 diabetes mellitus. PREVIOUS MODIFIED BARIUM SWALLOW STUDY: 01/12/2019 MRI revealed focal acute infarct in the left centrum semiovale; multiple remote infarcts involving the right frontal lobe, remote bilateral thalamic infarcts, and bilateral cerebellar infarcts. ASSESSMENT PARAMETERS: The Patient participated in a Modified Barium Swallow (MBS) study on 01/14/2019. Dr. Kenney was the radiologist present for this evaluation. This study was recorded in the lateral view and images were sent to PACs for storage. Scoring was completed through each trial using the 8-point Penetration-Aspiration Scale (PAS) and Videofluoroscopic Scale Score (VSS), and summarized via the Modified Barium Swallow Impairment Profile (MBSImP) and the Bolus Residue Scale (BRS), with severity scoring through the Dysphagia Severity Rating Scale (DSRS) and Swallowing Performance Scale (SPS), and recommended diet textures through the International Dysphagia Diet Standardisation Initiative (IDDSI). RESULTS OF THE EVALUATION: The Patient presents with moderate oropharyngeal dysphagia (DSRS: 4; SPS: 5) secondary to a recent cerebrovascular accident involving the left centrum semiovale with multiple prior areas of infarction to include the right frontal lobe, bilateral thalamus, and bilateral cerebellum. OBJECTIVE ASSESSMENT OF SWALLOW FUNCTION (QUANTITATIVE ? PER TRIAL): PENETRATION / ASPIRATION SCALE (RESENDEZ): 1 = does not enter airway 2 = enters airway/above vocal folds/ejected 3 = enters airway/above vocal folds/not ejected 4 = enters airway/contacts vocal folds/ejected 5 = enters airway/contacts vocal folds/not ejected 6 = enters airway/below vocal folds/ejected 7 = enters airway/below vocal folds/not ejected despite effort 8 = enters airway/below vocal folds/no effort PENETRATION / ASPIRATION SCALE (SCORE): Thin liquid - 5 mL tsp.: 1 Thin liquids via cup (single sip): 1 Thin liquids via cup (single sip): 1 Thin liquids via straw (single sip): 1 Thin liquids via straw (single sip): 1 Thin liquids via straw (chin tuck): 1* Pudding via spoon: 1 Regular textured cookie: 1 Thin liquids via straw (sequential swallows): 1 * denotes suboptimal execution denotes very trace amounts of barium coating the vocal folds and posterior trachea following trials of regular textures upon review. OBJECTIVE ASSESSMENT OF SWALLOW FUNCTION (QUANTITATIVE ? AGGREGATE): MODIFIED BARIUM SWALLOW IMPAIRMENT PROFILE (MBSImP) LABIAL SEAL: 0 (of 4) no labial escape TONGUE CONTROL: 3 (of 3) posterior escape > 50% BOLUS PREPARATION / MASTICATION: 0 (of 3) timely and efficient BOLUS TRANSPORT / LINGUAL MOTION: 3 (of 4) repetitive / disorganized motion ORAL RESIDUE: 1 (of 4) trace residue lining oral structures INITIATION OF PHARYNGEAL SWALLOW: 3 (of 4) pyriforms SOFT PALATE ELEVATION: 0 (of 4) no bolus between soft palate & pharyngeal wall LARYNGEAL ELEVATION: 1 (of 3) partial superior movement / approximation ANTERIOR HYOID EXCURSION: 1 (of 2) partial movement EPIGLOTTIC MOVEMENT: 0 (of 2) complete inversion LARYNGEAL VESTIBULE CLOSURE: 0 (of 2) complete closure PHARYNGEAL STRIPPING WAVE: 0 (of 2) present / complete PE SEGMENT OPENIN (of 3) partial distension / duration / obstruction TONGUE BASE RETRACTION: 1 (of 4) trace column of contrast PHARYNGEAL RESIDUE: 2 (of 4) collection of residue ESOPHAGEAL BOLUS CLEARANCE: could not view BOLUS RESIDUE SCALE (BRS): 4 (of 6) residue in valleculae and piriform sinus DYSPHAGIA SEVERITY RATING SCALE (DSRS): 4 (moderate) SWALLOWING PERFORMANCE SCALE (SPS): 5 (moderate) OBJECTIVE ASSESSMENT OF SWALLOW FUNCTION (QUALITATIVE): ORAL PREPARATORY PHASE: sufficient mastication rate and quality; sufficient anterior oral containment during presentation / manipulation; preserved management of breathing / bolus formation without disrupted E ? S ? E pattern. ORAL TRANSITIONAL PHASE: trace discoordinated lingual movements (undulations) with infrequent oral phase swallow onset delay (upwards of 7 seconds in length on one occasion); overall sufficient oral clearance; insufficient oral containment with consistent premature posterior bolus loss most prominently with less viscous textures. PHARYNGEAL PHASE: consistent pharyngeal swallow dyssynchrony; mild reduction in hyolaryngeal excursion and duration; inconsistent pharyngeal clearance without a significant pharyngeal dysmotility, appears attributed to synchrony disruptions; no signs of velopharyngeal impairments; noted very trace amounts of barium coating the vocal folds and posterior trachea following trials of regular textures upon review, with unexplained throat clearing post deglutition of regular textures possibly indicating an overt response. ESOPHAGEAL PHASE: no obvious esophageal phase abnormalities observed. CONTRIBUTING / COMPLICATING FACTORS AND NOTABLE FINDINGS: noted surgical bing scattered adjacent to the pharyngeal and laryngeal spaces complicating assessment. RESPONSE TO STRATEGIES: no benefit during attempted postural adjustments (chin tuck), as the Patient was unable to sufficiently follow commands for execution. DYSPHAGIA ASSOCIATED MEDICAL CONSIDERATIONS / INTERVENTION CONSIDERATIONS: Very trace amounts of barium coating the vocal folds and posterior trachea following trials of regular textures upon review, with unexplained throat clearing post deglutition of regular textures possibly indicating an overt response. Regardless, this would not alter the recommendations provided below, with anticipated improved performance if the Patient is able to execute the chin tuck posture. Would consider the Patient to be at a somewhat higher risk of aspiration related medical complications / aspiration pneumonia / aspiration related pulmonary syndrome secondary to recent cerebrovascular accident / multiple prior cerebrovascular accidents, impaired cognition, presence of dysphagia, and advanced age. Would consider this Patient to be a high risk for malnutrition and dehydration due to and presence of cognitive impairments, recent cerebrovascular accident, and the Patients advanced age. INTERVENTION RECOMMENDATIONS AND CONSIDERATIONS: The Patient requires intensive skilled speech-language intervention targeting diet texture management and training / implementation of recommended compensatory strategies; Patient / caregiver education regarding stroke associated dysphagia; and Patient / caregiver training targeting meal preparation / thickened liquid preparation if unable to advance to baseline diet textures prior to discharge. POST ASSESSMENT EDUCATION: Results and recommendations were discussed with the Patient immediately following MBS completion, with the Patient verbalizing understanding and agreement with all recommendations and education provided, though will likely require continued education. DIET TEXTURE RECOMMENDATIONS: Will recommend a mechanical soft textured (IDDSI: 5), thin liquid diet (IDDSI: 0) diet RECOMMENDED COMPENSATORY STRATEGIES: Direct supervision, chin tuck, reduced bolus volume / rate of ingestion, seated upright at 90 degrees during PO intake, remain upright for 30-60 minutes post meal (GERD precaution), medications one at a time with puregris. IMAGE COUNT: [id number] Phil Anderson M.A., CCC-SCALLOP CUTTER MBSImP Certified, LSVT Certified [facility] Speech-Language Pathology Department [email or web address]
--- NOTE | 2019-01-14 15:34 | CASEMGMT ---
BASIL spoke with patient's daughter Karen. She is concerned about taking him home as he gets worse as the day goes on. He seems to get more confused and is trying to get up. She asked about private pay pricing. BASIL told her the facilities in this area range from $170's per day up to $270's per day. BASIL did try and call [facility] while in room to obtain their pricing, but she was not available so SW left a message. SW mentioned Medicaid, but they are not ready to sell his home, patient is not ready to sell his home. She was concerned as SW told her patient may be discharged tomorrow. She said they need more time. SW told her that SW can let physician know they are working on a plan, but have not got details figured out completely. Jackie LOPES
--- NOTE | 2019-01-14 15:52 | CASEMGMT ---
BASIL received a phone call from [facility] and the self pay prices are $235 for semi private and $275 for private. They would like a month up front. She said she could ask the district administrator if this could be bypassed. BASIL spoke with patient's daughter Karen and gave her this information. Jackie RUSSELL MSW
[2019-01-14 17:40] LABS: Bedside Glucose 190 mg/dL (70-110)
[2019-01-14] MEDS: Insulin Lispro 100 UNIT/ML INSULN.PEN SC (18:31)
[2019-01-14] MEDS: Glucerna Shake 120 ML LIQUID PO (18:35)
[2019-01-14] MEDS: 0.9% NaCl Peripheral Flush Adult/Peds IV (18:53)
[2019-01-14] MEDS: hydrALAZINE 20 MG/ML Vial 5 MG IV (18:57)
[2019-01-14] MEDS: Atorvastatin Calcium 80 MG Tablet PO (22:52)
[2019-01-14 22:55] LABS: Bedside Glucose 139 mg/dL (70-110)
[2019-01-15] VITALS (12 sets, daily range): BP systolic 133–173; BP diastolic 68–88; PULSE 65–98; RESP 16–21; TEMP 36.6–37.1; O2SAT 79–99; BMI 25.3
[2019-01-15] MEDS: 0.9% Normal Saline 1,000 ML 75 ML IV ×2 (01:45→15:06)
--- NOTE | 2019-01-15 03:35 | NURSING ---
[facility] and [facility] late due to patient being confused and uncooperative
[2019-01-15] MEDS: hydrALAZINE 20 MG/ML Vial 5 MG IV (06:21)
[2019-01-15] MEDS: Enoxaparin 40 MG/0.4 ML Syringe SC (06:38)
[2019-01-15 06:49] LABS: Anion Gap 9 (5-15); BUN 9 mg/dL (7-18); BUN/Creat Ratio 11.2 RATIO (10-20); Chloride 111 mmol/L (98-107); EST Glomerular Filtration Rate 98 mL/min (>60); Est Glom Filt Rate - Afr Amer 118 mL/min (>60); Estimated Creatinine Clearance 61.93 ml/min; Glucose 121 mg/dL (74-106); Potassium 3.4 mmol/L (3.5-5.1); Sodium Level 142 mmol/L (136-145)
[2019-01-15 06:55] LABS: Bedside Glucose 101 mg/dL (70-110)
[2019-01-15] MEDS: Clopidogrel Bisulfate 75 MG Tablet PO (10:28)
[2019-01-15] MEDS: Pantoprazole Sodium 40 MG Tablet PO (10:28)
[2019-01-15] MEDS: Aspirin 81 MG TAB.CHEW PO (10:28)
[2019-01-15] MEDS: Docusate Sodium 100 MG Capsule PO (10:28)
[2019-01-15] MEDS: Glucerna Shake 120 ML LIQUID PO ×3 (10:29→17:07)
[2019-01-15] MEDS: Fluticasone 0.05% 1 SPRAY NASAL.SRY 2 SPRAY NASAL (10:29)
--- NOTE | 2019-01-15 14:00 | CASEMGMT ---
Addendum entered by Jackie Tompkins 01/15/19 15:36: SW spoke with patient's daughters per their request. They asked if SW could check with [facility] ([facility] to see if they have any private rooms available. SW spoke with Liat at [facility] and she said they do have a private bed available. SW let patient's daughters know this information. They asked if [facility] would offer a discount due to their situation. SW told them SW could ask and will let them know. BASIL called Liat back and asked if they could offer any discounts. She said she would have to ask the weed cooking operator and would get back to . She said she should get back with BASIL today. BASIL faxed the referral to [facility]. Await return call. Jackie LOPES Original Note: BASIL spoke with patient's daughter, Karen. SW asked where they were on a decision. She said she is waiting on her sisters as they both work. BASIL offered to call other facilities to find out private pay pricing and she said this would be helpful. BASIL called all [facility] facilities and obtained pricing. SW gave this list to patient's daughter. BASIL checked back with Karen a little while later. BASIL told her SW did obtain [facility]'s information. She asked SW to call [facility] and [facility] to check on beds. BASIL called both facilities and neither of them have beds available. SW went to room to let Karen know, and patient's other daughter, Xochitl arrived. SW let them both know that [facility] nor [facility] has a bed available. BASIL told them if they need SW to call any other facilities to let SW know. Jackie LOPES
[2019-01-15] MEDS: Insulin Lispro 100 UNIT/ML INSULN.PEN SC ×3 (14:03→22:31)
[2019-01-15 14:21] LABS: Bedside Glucose 184 mg/dL (70-110)
--- NOTE | 2019-01-15 14:34 | PN_ITS ---
<Rebel Vang - Last Filed: 01/15/19 14:40> Subjective: Little to no change. Pt upright in chair NAD. He has had intermittent confusion and combativeness. Pt very weak and frail, he needs rigorous ongoing PTOT. He exhausted his SNF stays. Family does not want to take him home. They are debating their options. Hiccups now resolved. - Physical Exam General: Alert, Cooperative, Confused HEENT: Atraumatic, PERRLA, EOMI, Normocephalic Neck: Supple, No JVD, Negative Carotid Bruits Lungs: Clear to auscultation, Normal air movement Cardiovascular: Regular rate, No murmurs Abdomen: Bowel Sounds Present, Soft, Non Tender Extremities: No edema, Capillary Refill Less than 3 Seconds Skin: No rashes, No breakdown Musculoskeletal: No Tenderness to Palpation of Joints or Extremities Neurological: Cranial nerves II-XII grossly intact Psych/Mental Status: Normal Affect, Appropriate Vital Signs Temp Pulse Resp BP Pulse Ox 98.5 F 98 18 164/87 H 79 01/15/19 14:08 01/15/19 14:08 01/15/19 14:08 01/15/19 14:08 01/15/19 14:08 Oxygen Flow Rate (L/min) 2 Oxygen Delivery Method Room Air Weight: 152 lb 1.903 oz Body Mass Index (BMI) 25.3 Finger Stick Blood Glucose 169 Intake and Output for Last 24 Hours 01/13/19 01/14/19 01/15/19 23:59 23:59 23:59 Intake Total 1511 / 1511 2653 / 2653 1267 / 1267 Output Total 675 / 675 425 / 425 Balance 1511 / 1511 1977 / 1977 842 / 842 Laboratory Tests Past 24 Hrs 01/15/19 05:55 Sodium 142 Potassium 3.4 L Chloride 111 H Carbon Dioxide 22.0 Anion Gap 9 BUN 9 Creatinine 0.80 Estim Creat Clear Calc 61.93 Est GFR (MDRD) Af Amer 118 Est GFR (MDRD) Non-Af 98 BUN/Creatinine Ratio 11.2 Glucose 121 H Calcium 8.0 L POC Glucose 01/15/19 01/15/19 01/14/19 14:01 06:35 22:50 POC Glucose 184 H 101 139 H 01/14/19 17:31 POC Glucose 190 H Medical Necessity - Tobacco Use Smoking Status: Former smoker Tobacco Use: Cigarettes Assessment/Plan 1. Acute punctate infarcts left subcortical white matter. - asa/plavix/statin. resume atenolol at dc. Neuro following. Echo done, unremarkable. CTA unremarkable. EEG with generalized slowing. 2. Dysphagia - continue ST, modified diet. Mechanical soft, thin liquids with supervision of aspiration precautions. 3. Hiccups - zo stopped. no further hiccups. Family felt gabapentin may have been making him more confused. 4. DMt2 - home insulin, ssi 5. HLD - statin 6. HTN - as above - restart atenolol at dc. 7. Carotid stenosis - prior BL carotid endarterectomy 8. Hx CAD, CVA DC planning: SNF vs Home. Family to meet this afternoon to discuss. This patient was seen by Rebel Vang PA-C under the supervision of Dr. Mac <Loida Mac - Last Filed: 01/16/19 11:50> - Physical Exam Vital Signs Temp Pulse Resp BP Pulse Ox 98 F 74 17 158/88 H 99 01/15/19 16:47 01/15/19 16:47 01/15/19 16:47 01/15/19 16:47 01/15/19 16:47 Oxygen Flow Rate (L/min) 2 Oxygen Delivery Method Room Air Weight: 152 lb 1.903 oz Body Mass Index (BMI) 25.3 Finger Stick Blood Glucose 169 Intake and Output for Last 24 Hours 01/13/19 01/14/19 01/15/19 23:59 23:59 23:59 Intake Total 1511 / 1511 2653 / 2653 1267 / 1267 Output Total 675 / 675 425 / 425 Balance 1511 / 1511 1977 / 1977 842 / 842 Laboratory Tests Past 24 Hrs 01/15/19 05:55 Sodium 142 Potassium 3.4 L Chloride 111 H Carbon Dioxide 22.0 Anion Gap 9 BUN 9 Creatinine 0.80 Estim Creat Clear Calc 61.93 Est GFR (MDRD) Af Amer 118 Est GFR (MDRD) Non-Af 98 BUN/Creatinine Ratio 11.2 Glucose 121 H Calcium 8.0 L POC Glucose 01/15/19 01/15/19 01/14/19 14:01 06:35 22:50 POC Glucose 184 H 101 139 H 01/14/19 17:31 POC Glucose 190 H Assessment/Plan Hospitalist note: I am seeing this patient in conjunction with Rebel Vang. I independently seen and examined the patient. Progress note above and laboratory data reviewed and I concur with the above treatment plan. Patient seen and examined. He remained intermittently confused. He denies any specific complaints. His vital signs are stable. - Physical Exam General: Alert, Oriented x3, Cooperative, No apparent distress. HEENT: Atraumatic, PERRLA, EOMI. Neck: Supple, No JVD, Negative Carotid Bruits, Trachea Midline, Thyroid Normal. Lungs: Diminished breath sounds bilateral, otherwise clear, No rhonchi, No wh eeze, No rales. Cardiovascular: Regular rate, Regular Rhythm, Normal S1, Normal S2, PMI Normal. Abdomen: Bowel Sounds Present, Soft, Non Tender, Non-Distended, No Hepato- splenomegaly. Extremities: No clubbing, No cyanosis, No edema Skin: No rashes, No breakdown Neurological: Cranial nerves are intact, mild dysarthria, normal power and tone of all limbs. Vital Signs are stable. Assessment and plan: #1 acute punctate infarcts of the left subcortical white matter: Remains on aspirin, Plavix and statins. Blood pressure at target, other vital signs are stable. MRI brain report read as focal acute infarct of the left multiple remote infarcts. EKG revealed normal sinus rhythm, no cardiac arrhythmias. Troponin is negative. CTA of the clinic was unremarkable for hemodynamically significant vascular disease or stenosis. 2D echocardiogram revealed normal LV size and function, ejection fraction of 70%, stage I diastolic dysfunction. Awaiting family decision about placement to correction facility. #2 dysphagia: Speech therapy consulted, dietary modifications noted. Modified barium swallow reviewed. Started on modified diet.. #3 intractable chronic hiccups: Resolved with gabapentin. #4 other chronic medical problems: Stable, continue current medications as above. This note was generated with [employer] dictation software. It may contain incorrect words, spelling, and punctuation that were not noted in checking the note before signing. Code Visit Inpatient E&M: 15687 Subs Hosp L2
--- NOTE | 2019-01-15 16:25 | CASEMGMT ---
Liat from [facility] called BASIL back. They can offer a discounted rate of $175 per day for 7 days and would need that up front. Then if they decided he needed to stay longer it would go back to the regular rate of $225 per day. She said they would need the check before patient came. BASIL told her SW will talk with family and get back to her. BASIL spoke with patient's family and let them know the information. They agreed to this and want him to go to [facility]. However, they will have to go to the bank and have money transferred to his account so they can write the check. Therefore, this won't happen until tomorrow. BASIL called Liat back and let her know the plan is for him to come there tomorrow. Notified cardiac rehabilitation specialist who notified PA. Plan: [facility] self-pay. Jackie RUSSELL NITROGLYCERIN SEPARATOR OPERATOR
[2019-01-15 17:20] LABS: Bedside Glucose 232 mg/dL (70-110)
[2019-01-15] MEDS: Atorvastatin Calcium 80 MG Tablet PO (22:37)
[2019-01-16 00:31] LABS: Bedside Glucose 247 mg/dL (70-110)
[2019-01-16 03:05] VITALS: PULSE 73
[2019-01-16] MEDS: 0.9% Normal Saline 1,000 ML 75 ML IV (04:33)
[2019-01-16 04:56] VITALS: BP 117/64; PULSE 71; RESP 25; TEMP 37.2; O2SAT 100
[2019-01-16] MEDS: Enoxaparin 40 MG/0.4 ML Syringe SC (05:19)
[2019-01-16 06:34] VITALS: BP 128/61; PULSE 71; RESP 25; TEMP 37.1; O2SAT 96
[2019-01-16 06:55] VITALS: PULSE 70
[2019-01-16 07:05] LABS: Bedside Glucose 149 mg/dL (70-110)
[2019-01-16 07:25] LABS: Anion Gap 6 (5-15); BUN 9 mg/dL (7-18); BUN/Creat Ratio 10.4 RATIO (10-20); Calcium,Total 7.7 mg/dL (8.5-10.1); Chloride 112 mmol/L (98-107); Creatinine, Serum 0.86 mg/dL (0.70-1.30); EST Glomerular Filtration Rate 90 mL/min (>60); Est Glom Filt Rate - Afr Amer 109 mL/min (>60); Estimated Creatinine Clearance 57.61 ml/min; Glucose 158 mg/dL (74-106); Potassium 3.8 mmol/L (3.5-5.1); Sodium Level 140 mmol/L (136-145)
[2019-01-16] MEDS: Aspirin 81 MG TAB.CHEW PO (08:28)
[2019-01-16 08:33] VITALS: BP 128/65; PULSE 74; RESP 18; TEMP 36.8; O2SAT 96
--- NOTE | 2019-01-16 09:54 | PCM.TXEXTCAR ---
- Diet 01/14/19 14:49 Diet: Cardiac: Carb-Controlled Food consistency:: Mechanical Soft/Ground Liquid Consistency:: Regular/Thin Is pt able to select menu?: No Diet Comments: Supervision; seated at 90 degrees during intake; meds w/ purees - Routine Orders/Code [facility] - Suggestions for Active Care Change Position every (hours): 3 Hours to sit in a chair: 2 Times a day to sit in chair: 3 - Therapies Weight Bearing: Weight bearing as tolerated Physical Therapy: Eval and Treat Occupational Therapy: Eval and Treat Speech Therapy: Eval and Treat - Allergies/Procedures Done in Hospital Allergies/Adverse Reactions: Allergies alfuzosin Allergy (Verified 01/09/19 14:14) Other Penicillins Allergy (Verified 01/09/19 14:14) Rash Sulfa (Sulfonamide Antibiotics) Allergy (Verified 01/09/19 14:14) Swelling chlorpromazine [From Thorazine] Adverse Reaction (Verified 01/12/19 17:20) heavy sedation lisinopril Adverse Reaction (Verified 01/12/19 16:56) cough - Type of Care/Length of Stay Estimated LOS: More Than 30 Days Type of Care Needed: Intermediate Rehab Potential: Fair Prognosis: Fair - Additional Orders/Day of Discharge H&P will serve as current which was dated: 01/12/19 Day of Discharge: 01/16/19 - Dietary and Speech Recommendations Dietitian Recommendations/Changes: 1.) Suggest advance diet as tolerated when safe PO indicated to therapeutic diet of Carb-controlled/cardiac with texture/consistency as per INFUSION PHARMACIST. 2.) Consider TF support if PO remains contraindicated to prevent further wt loss--consult RD for TF recs as indicated. 3.) Please reweigh patient. - Follow Up Care Primary Care Physician: Ronald Flannery MD [Primary Care Provider] - Please follow up with your Primary Care Physician in: 1 week. Please Follow Up With: Curt Lee MD When: 2-4 weeks.
[2019-01-16] MEDS: Glucerna Shake 120 ML LIQUID PO (10:13)
[2019-01-16] MEDS: Clopidogrel Bisulfate 75 MG Tablet PO (10:14)
[2019-01-16] MEDS: Fluticasone 0.05% 1 SPRAY NASAL.SRY 2 SPRAY NASAL (10:14)
[2019-01-16] MEDS: Pantoprazole Sodium 40 MG Tablet PO (10:14)
[2019-01-16] MEDS: Docusate Sodium 100 MG Capsule PO (10:14)
--- NOTE | 2019-01-16 10:34 | CASEMGMT ---
Patient is ready for discharge to [facility]. Completed convalescent on HENS. BASIL faxed orders to [facility]. Called [facility] and arranged for patient to get picked up at 1130a via cot. BASIL notified patient, his daughter Karen RN, medical secretary, and Beth Rico at [facility]. Plan: d/c to [facility] under intermediate level of care on a convalescent stay. [facility] transported via cot. Patient used all 100 of his Medicare days so he is going private pay which is why he is intermediate level of care. Jackie RUSSELL DIESEL CRANE OPERATOR
--- NOTE | 2019-01-16 11:15 | NURSING ---
report called to [facility] .[phone]
--- NOTE | 2019-01-16 12:10 | PCM.DC.SUM ---
Discharge Date and Diagnosis Date of Admission: 01/12/19 Date of Discharge: 01/16/19 - Primary Discharge Diagnosis #1 acute infarct of the left centrum semiovale/acute punctate infarcts of the left subcortical white matter. #2 dysphagia. #3 intractable hiccups. - Secondary Discharge Diagnosis Chronic Problems (Last Reviewed 09/01/18 @ 15:45 by Ovidio Ibarra MD) Type 2 diabetes mellitus (Chronic) CVA (cerebral vascular accident) (Chronic) Status post acute ischemic stroke with residual lower extremity weakness mild Carotid bruit (Chronic) Encounter for long-term current use of high risk medication (Chronic) Reviewed medications with family to be sure patient was taking remainder of medications correctly and there were no duplicates Atherosclerotic heart disease of [place] coronary artery without angina pectoris (Chronic) Hyperlipidemia (Chronic) Diverticulitis (Chronic) Hypertension (Chronic) Hospital Course and Treatment Imaging Results: Clinical Impression(s) from Imaging Studies Brain CT 01/12/19 12:19 IMPRESSION: Chronic involutional changes of the brain. No acute hemorrhage Electronically Signed: Yao Kenney MD at 13:22 EDT , Service support , Chest X-Ray 01/12/19 12:19 IMPRESSION: Normal x-ray examination of the chest. Electronically Signed: Yao Kenney MD at 13:17 EDT , Service support , Cervical Spine CT 01/12/19 12:20 IMPRESSION: Multilevel degenerative changes, as described above. Electronically Signed: Yao Kenney MD at 13:27 EDT , Service support , Head/Neck CTA 01/12/19 13:24 IMPRESSION: Normal CTA Head and neck with contrast. Mild atherosclerotic calcifications. Small right vertebral artery Electronically Signed: Yao Kenney MD at 14:35 EDT , Service support , Brain MRI 01/12/19 16:33 IMPRESSION: Focal acute infarct in the left centrum semiovale. Multiple remote infarcts as described. Electronically Signed: Jean Castro MD at 21:12 EDT Tel , Service support , Videofluoroscopic Swallow 01/14/19 00:00 IMPRESSION: No demonstrated aspiration or early pharyngeal penetration. There was however significant delay in initiation of swallowing of barium with all consistencies The swallow study findings were discussed with the patient by the speech pathologist at the conclusion of the examination. Please see speech pathology report for more information and recommendations. The procedure was performed by Phil Ruiz, which there appears Electronically Signed: Yao Kenney MD at 14:35 EDT , Service support , Dr. Lee, neurology. Operations: None Procedures: 2-D Echocardiogram, Electroencephalogram, EKG Summary of Care Provided: Patient seen and examined on the day of discharge on the peak to be stable to be discharged to senior care facility. He remained intimately confused and disoriented. No specific complaints. His vital signs are stable. The patient is a 83 year old M presented to the emergency room because he was found on the floor at his house with change in mental status and he was found to have acute infarct of the left centrum semiovale with acute punctate infarct of the left subcortical white matter. Initial CT scan brain without contrast revealed no acute findings, no infarct or hemorrhage. CTA of the head and neck revealed mild atherosclerotic calcifications without evidence of hemodynamically significant vascular disease or stenosis, revealed small right vertebral artery. MRI brain performed and revealed focal acute infarct of the left centrum semiovale. He was treated with aspirin, Plavix and statins. Neurology consulted and stated that patient has multiple small punctate infarcts of the left subcortical white matter. As a consequence of the acute stroke, patient had mild dysarthria. There was no significant focal arm or leg weakness. Patient did have dysphagia for which she underwent modified barium swallow that revealed moderate oropharyngeal dysphagia. Patient was seen by speech therapy and recommended mechanical soft diet with supervision and seated at 90 degree and with thin regular liquids. EKG revealed normal sinus rhythm without evidence of cardiac arrhythmias or acute ischemic changes. Troponin was negative. 2D echocardiogram revealed normal LV size and function, ejection fraction of 70% and also found to have stage I diastolic dysfunction. Patient with a history of chronic intractable hiccups and he has been treated with multiple medications without improvement. During this hospital stay, he was started on gabapentin 100 mg p.o. 3 times daily and hiccups completely resolved. His blood pressure initially was stable and then started to go up but then improved again. His routine blood work was unremarkable except for mild hypokalemia which was replaced and corrected. Patient discharged to senior care facility in a stable medical condition, discharged on aspirin, Plavix and statins, discharged on gabapentin for hiccups and initially, I forgot to order the gabapentin but I printed the prescription for gabapentin 100 mg p.o. 3 times daily later and I asked daily nursing staff to [facility], maintained on his previous home medications without any changes, plan to follow-up with PCP in 1 week and follow-up with neurology in 2 to 4 weeks. - Physical Exam General: Alert, Cooperative, No apparent distress, Disoriented HEENT: Atraumatic, PERRLA, EOMI, Normocephalic Oral: Moist Mucosa, No Gingival or Mucosal Lesions/ Ulcerations Neck: Supple, No JVD, Negative Carotid Bruits, Trachea Midline, Thyroid Normal Size and Texture Lungs: Clear to auscultation, Normal air movement, No rhonchi, No wheeze, No rales, Diminished Cardiovascular: Regular rate, Regular Rhythm, Normal S1, Normal S2, PMI Normal Abdomen: Bowel Sounds Present, Soft, Non Tender, Non-Distended, No Hepato-splenomegaly Extremities: No clubbing, No cyanosis, No edema Skin: No rashes, No breakdown Lymphatic: No Cervical, Supraclavicular, or Inguinal Adenopathy Neurological: Cranial nerves II-XII grossly intact, Motor Exam 5/5 strength throughout, - - Mild dysarthria. Psych/Mental Status: Normal Affect, Appropriate Vital Signs Temp Pulse Resp BP Pulse Ox 98.2 F 74 18 128/65 H 96 01/16/19 08:33 01/16/19 08:33 01/16/19 08:33 01/16/19 08:33 01/16/19 08:33 Oxygen Flow Rate (L/min) 2 Oxygen Delivery Method Room Air Weight: 152 lb 1.903 oz Body Mass Index (BMI) 25.3 Finger Stick Blood Glucose 169 Intake and Output for Last 24 Hours 01/14/19 01/15/19 01/16/19 23:59 23:59 23:59 Intake Total 2653 / 2653 2198 / 2198 376 / 376 Output Total 675 / 675 425 / 425 0 / 0 Balance 1977 1773 / 1773 376 / 376 Laboratory Tests Past 24 Hrs 01/16/19 06:35 Sodium 140 Potassium 3.8 Chloride 112 H Carbon Dioxide 22.0 Anion Gap 6 BUN 9 Creatinine 0.86 Estim Creat Clear Calc 57.61 Est GFR (MDRD) Af Amer 109 Est GFR (MDRD) Non-Af 90 BUN/Creatinine Ratio 10.4 Glucose 158 H Calcium 7.7 L POC Glucose 01/16/19 01/15/19 01/15/19 06:33 22:30 17:01 POC Glucose 149 H 247 H 232 H 01/15/19 14:01 POC Glucose 184 H Home Medications: Medications to take at Discharge Ipratropium [place] 0.06% [ATROVENT NASAL SPRAY] 2 spray NASAL BID 10/21/18 Lactobacillus Rhamnosus GG [Culturelle] 1 ea PO DAILY 10/21/18 Pantoprazole Sodium [Protonix] 40 mg PO DAILY 10/21/18 aspirin 81 mg chewable tablet 81 mg PO DAILY@0800 #30 tab 01/02/19 atorvastatin 80 mg tablet 80 mg PO QHS #30 tab 01/02/19 clopidogrel 75 mg tablet 75 mg PO DAILY #30 tab 01/02/19 furosemide 20 mg tablet 20 mg PO DAILY #30 tab 01/02/19 docusate sodium 100 mg capsule 100 mg PO DAILY 01/09/19 Atenolol 75 mg PO DAILY 01/12/19 Fluticasone 0.05% [Flonase Nasal [place]] 2 spray NASAL DAILY 01/12/19 Guaifenesin [Mucinex] 1,200 mg PO BID 01/12/19 Insulin Aspart [Novolog Flexpen] 10 units SUBCUT TIDCM 01/12/19 Insulin Aspart [Novolog Flexpen] See Protocol SUBCUT TIDCM 01/12/19 Insulin Glargine,Hum.rec.anlog [Rodney Bashir U-100] 13 units SUBCUT QHS 01/12/19 Gabapentin [Neurontin] 100 mg PO TIDCM #90 cap 01/16/19 Following Prescrptions Were Given to Patient: Gabapentin [Neurontin] 100 mg PO TIDCM #90 cap Prescription Printed Primary Care Physician: Ronald Flannery MD [Primary Care Provider] - Please follow up with your Primary Care Physician in: 1 week. Please Follow Up With: Curt Lee MD When: 2-4 weeks. Disposition: Detention facility Minutes spent on discharge:: 34 Patient Condition:: Stable Medical Necessity - Tobacco Use Smoking Status: Former smoker Tobacco Use: Cigarettes Meaningful Use Info Meaningful Use Diagnoses (Choose all that apply): Ischemic CVA - CVA Therapy Assessed for PT,OT and/or ST?: Yes - Ischemic Stroke Antithrombotic order at d/c?: Yes Dx of Atrial fib/flutter?: No Anticoagulant at discharge?: No Reason anticoagulant not ordered: Treatment not Indicated Statins at discharge?: Yes Primary Dx Acute Ischemic CVA?: Yes IV tPA ordered during stay?: No Reason IV t-PA not ordered: Treatment not Indicated Code Visit Inpatient E&M: 35807 Disch Hosp
--- NOTE | 2019-01-16 14:32 | CASEMGMT ---
Physician wrote a prescription for Gabapentin after patient left the hospital. BASIL called Liat at [facility] and let her know. BASIL then faxed the prescription to [facility]. Jackie RUSSELL MSW
== END 2019-01-16 12:02 | disposition intermediate care facility (04) | DRG 65 ==
LOC: ED 13:15 → PCU 15:40
PROVIDERS: Nurse Practitioner Family; Physician Assistant; Admitting Provider Internal Medicine; Emergency Provider Emergency Medicine; Family Provider Internal Medicine; PCP Internal Medicine; Visit Provider Hospitalist
DX: I63.9 Cerebral infarction, unspecified (principal); G93.40 Encephalopathy, unspecified; I25.10 Atherosclerotic heart disease of native coronary artery without angina pectoris; R06.6 Hiccough; E11.9 Type 2 diabetes mellitus without complications; E78.5 Hyperlipidemia, unspecified; I10 Essential (primary) hypertension; R47.1 Dysarthria and anarthria; R13.12 Dysphagia, oropharyngeal phase; Z79.4 Long term (current) use of insulin; Z87.891 Personal history of nicotine dependence; Z79.82 Long term (current) use of aspirin; Z79.02 Long term (current) use of antithrombotics/antiplatelets; I69.398 Other sequelae of cerebral infarction; H54.7 Unspecified visual loss; I69.349 Monoplegia of lower limb following cerebral infarction affecting unspecified side; E87.6 Hypokalemia
CPT/HCPCS: 36415; 70450; 70496; 70498; 70551; 71045; 72125; 74230; 80048; 80053; 80061; 80320; 81001; 82550; 82962; 83605; 83735; 84443; 84484; 85025; 85610; 85730; 92526; 92610; 92611; 93005; 93306; 94762; 95819; 97116; 97163; 97166; 97530; 97535; 97802; 99285; J7030; Q9957; Q9967; A4216; C8929; G0480

== ENCOUNTER 2020-03-08 17:42 | Emergency (ER) | payer MEDICARE, OTHER, MEDICAID, SELFPAY ==
[2019-07-03 11:42] VITALS: BMI 24.5
[2020-03-08 17:45] VITALS: BP 99/52; PULSE 78; RESP 18; TEMP 36.4; O2SAT 97; BMI 21.7
--- NOTE | 2020-03-08 17:52 | CT_ITS ---
We are attempting to reach an attending provider to discuss findings. An addendum with communication details will be sent when the communication is complete. STUDY: CT BRAIN WITHOUT CONTRAST REASON FOR EXAM: Male, 84 years old. ALTERED MENTAL STATUS AFTER FALL OVER weekend. Uncontrolled blood sugar. Hx of carotid endarterectomy RADIATION DOSAGE (If Supplied By Facility): CTDIvol = ( 44.99 ) mGy, DLP = ( 897.35 ) mGycm TECHNIQUE: Transaxial CT imaging of the brain was performed without administration of intravenous contrast material. Individualized dose optimization techniques were used for this CT. COMPARISON: 01/12/2019. FINDINGS: Normal soft tissue structures. Normal calvarium. Calcification of cavernous carotids Mild atrophy and advanced periventricular white matter ischemic changes.. Tiny old lacunar infarct in left posterior thalamus. Normal brainstem. Normal cerebellum. Moderate-sized acute/subacute left subdural hematoma effacing the cortical sulci without significant impingement upon the lateral ventricles or midline shift.. There is also a small to moderate-sized chronic subdural collection on the right with tiny acute component. There are no findings of an acute ischemic infarction. Postsurgical changes of the orbits. Normal visualized paranasal sinuses. CT/Brain/Head without Contrast IMPRESSION: Moderate-sized acute/subacute left subdural hematoma Small to moderate size right chronic subdural with tiny acute component. Electronically Signed: Kvng Dempsey MD at 19:21 EDT , Service support ,
--- NOTE | 2020-03-08 17:53 | EKG12_ITS ---
Test Reason : ALTERED LOC Blood Pressure : / mmHG Vent. Rate : 077 BPM Atrial Rate : 077 BPM P-R Int : 160 ms QRS Dur : 074 ms QT Int : 398 ms P-R-T Axes : 034 -41 048 degrees QTc Int : 450 ms Normal sinus rhythm Left axis deviation Abnormal ECG Confirmed by EDILSON YU, ALEX ([id number]), loan expeditor SHA HYATT ([id number]) on 03/14/2020 1:17:57 PM Referred By: ADALID/ERICA Confirmed By:PAULA WAGGONER MD
--- NOTE | 2020-03-08 17:54 | ED.VISSUMM ---
- ER Visit Summary Date of Service: 03/08/20 Chief Complaint: Altered mental status History of Present Illness: The patient is a 84 M who presents from a [place] [facility]. Apparently he fell over the weekend and has progressive alteration of his mental status. He is on aspirin and Plavix for coronary disease. He was admitted to the hospital recently and had a stroke which caused altered mental status. He had some swallowing difficulties at that time and was sent to a SNF. The patient does not contribute to any history and is nonverbal. He continuously hiccups during his examination. His blood sugar has been uncontrolled at the [place] [facility] and it was 346 today in route. Physical Examination: Vital signs reviewed. Age-appropriate male who gives no history and is nonverbal. HEENT exam unremarkable. Heart is regular rate and rhythm. Lungs are clear to auscultation bilaterally. Abdomen soft nontender. Extremities have no edema. He is alert and oriented x0 and has no verbal communication. He has rigid upper extremities bilaterally. His lower extremities are weak bilaterally. He does not follow commands. Test Results: Hemoglobin 10.9, INR 1.1. Ammonia level 38. CAT scan of the head reveals acute to subacute subdural hematoma on the left-hand side. He has a right chronic dural hematoma. There is no midline shift Emergency Department Course and Treatment: I discussed with the family and they first requested [facility] but they have no current beds open. They then requested [facility]. I spoke with the physicians at [facility] and the patient will be transferred there for further trauma care. Treatment Plan: [] Disposition: Transfer Impression: Acute subdural hematoma This note was generated with [employer] dictation software. It may contain incorrect words, spelling, and punctuation that were not noted in review of the chart prior to signing ED Disposition - Plan for ED Patient: Referrals: Jesús Rai MD [Primary Care Provider] -
[2020-03-08 18:29] LABS: Absolute Lymphocyte Count 2.27 X10^3/uL (0.83-4.51); Absolute Neutrophil Count 3.3 X10^3/uL (2.0-7.7); Basophil# 0.01 X10^3/uL; Basophil% 0.2 % (0-1); Eosinophil# 0.06 X10^3/uL; Eosinophils% 0.9 % (0-5); Hematocrit 33.6 % (40-54); Hemoglobin 10.9 g/dL (13.0-16.5); Lymphocyte # 2.27 X10^3/ul (4.0); Lymphocyte % 35.9 % (19-41); Mean Corp Hgb Conc 32.4 g/dL (32-36); Mean Corpuscular Hgb 29.9 pg (27.0-32.0); Mean Corpuscular Volume 92.1 fL (80-94); Mean Platelet Vol. 11.1 fl (6.2-12.0); Monocyte# 0.64 X10^3/uL; Monocyte% 10.1 % (0-10); NRBC Flagged by Analyzer 0 % (0-5); Neutrophil # 3.32 X10^3/uL (2.7-7.7); Neutrophil % 52.6 % (47-70); Platelet Count 237 K/mm3 (150-450); RBC Distribution Width CV 15.7 % (11.6-14.6); RBC Distribution Width SD 52.4 fl (35.1-43.9); Red Blood Count 3.65 M/mm3 (4.6-6.2); White Blood Count 6.3 K/mm3 (4.4-11.0)
--- NOTE | 2020-03-08 19:00 | RAD_ITS ---
STUDY: X-RAY CHEST REASON FOR EXAM: Male, 84 years old. Altered mental status, post fall over weekend. Difficulty breathing. TECHNIQUE: AP portable COMPARISON: 01/12/2019. FINDINGS: There is mild subsegmental atelectasis or infiltrate at the left base.. On the left, there is curvilinear lucency simulating a loculated pneumothorax although there do appear to be peripheral markings more consistent with artifact. Normal size heart. Normal mediastinum and dion. Normal visualized pulmonary arteries. Mildly calcified aortic arch and descending thoracic aorta. Normal visualized thoracic spine. Normal visualized ribs, clavicles, and shoulders. There is no demonstrated abnormality of the visualized soft tissue structures of the upper abdomen. RAD/Chest 1 View (Portable) IMPRESSION: Mild left lower lobe atelectasis or infiltrate. Curvilinear lucency simulating pneumothorax post likely artifactual. Repeat film in expiration would be helpful for further evaluation if clinically warranted Electronically Signed: Kvng Dempsey MD at 19:41 EDT , Service support ,
[2020-03-08 19:10] LABS: International Normalized Ratio 1.1; Prothrombin Time (Protime)PT. 13.7 SECONDS (11.7-14.9)
[2020-03-08 19:34] LABS: Mucous, Urine 0 SEEN /hpf (<or=2+); Red Blood Cells-Urine 0 SEEN /hpf (0-5); Squamous Epithelial Cells - UA 0 SEEN /hpf (0-5)
[2020-03-08 19:52] LABS: Color, Urine Yellow (Yellow); Glucose, Dipstick 50 mg/dl (Normal); Ketone-Dipstick Negative (Negative); Leukocyte Esterase-Dipstick 100 /ul (Negative); Nitrite-Dipstick Negative (Negative); Occult Blood-Urine Negative /ul (Negative); Protein-Dipstick 15 mg/dl (Negative); Urine Bilirubin Dipstick Negative (Negative); Urine Clarity Sl. Cloudy (Clear); Urine Urobilinogen Normal (Normal)
[2020-03-08 19:59] LABS: Lactic Acid 2.2 mmol/L (0.4-1.9)
[2020-03-08 20:11] LABS: Bacteria RARE /hpf (None Seen); Hyaline Cast 0-5 SEEN /lpf (0-5); White Blood Cells 0-5 SEEN /hpf (0-5)
[2020-03-08 20:35] LABS: ALB/GLOB Ratio 0.6 RATIO (0.9-2.4); AST(SGOT) 20 U/L (15-37); Alanine Aminotransfer ALT/SGPT 8 U/L (16-61); Albumin, Serum 2.8 g/dL (3.2-5.0); Alkaline Phosphatase 155 U/L (45-117); Anion Gap 4 (5-15); BUN 32 mg/dL (7-18); Calcium,Total 8.8 mg/dL (8.5-10.1); Chloride 110 mmol/L (98-107); Creatinine, Serum 1.68 mg/dL (0.70-1.30); EST Glomerular Filtration Rate 42 mL/min (>60); Est Glom Filt Rate - Afr Amer 50 mL/min (>60); Estimated Creatinine Clearance 29.69 ml/min; Globulin 4.9 g/dL (2.2-4.2); Glucose 355 mg/dL (74-106); Potassium 4.1 mmol/L (3.5-5.1); Protein, Total 7.7 g/dL (6.4-8.2); Sodium Level 144 mmol/L (136-145)
[2020-03-08 20:36] VITALS: BP 127/57; PULSE 77; RESP 18; O2SAT 96
[2020-03-08 20:38] VITALS: BP 127/57; PULSE 77; RESP 18; O2SAT 96
[2020-03-08 22:49] LABS: Reflex Lactate? Y
== END 2020-03-08 21:22 | disposition short-term general hospital (02) ==
PROVIDERS: Emergency Provider Emergency Medicine; PCP Family Medicine
DX: S06.5X9A Traumatic subdural hemorrhage with loss of consciousness of unspecified duration, initial encounter (principal); I63.9 Cerebral infarction, unspecified; I69.391 Dysphagia following cerebral infarction; I69.398 Other sequelae of cerebral infarction; R13.10 Dysphagia, unspecified; I25.10 Atherosclerotic heart disease of native coronary artery without angina pectoris; I10 Essential (primary) hypertension; Z79.02 Long term (current) use of antithrombotics/antiplatelets; Z79.82 Long term (current) use of aspirin; W18.30XA Fall on same level, unspecified, initial encounter; Y93.89 Activity, other specified; Y92.129 Unspecified place in nursing home as the place of occurrence of the external cause; Y99.8 Other external cause status
CPT/HCPCS: 36415; 70450; 71045; 80053; 81001; 82140; 83605; 84484; 85025; 85610; 93005; 99285; J7030; P9612; A4216